=== PATIENT | male | born 1965 | race Hispanic/Latino ===

== ENCOUNTER 2018-10-06 10:13 | Emergency (ER) | payer OTHER ==
--- OUTSIDE RECORDS SUMMARY | 2018-10-06 10:16 | XMS REPORT | Clinical Summary ---
:1965 Author Organization [facility] Address [address] [place] [address] Care Team Providers Name Role Phone Praful Primary Care Provider Allergies Active Allergy Reactions Severity Noted Date Comments Penicillins Anaphylaxis High 10/25/2015 Medications Medication Sig Dispensed Refills Start Date End Date Status apixaban (ELIQUIS) Take 1 tablet (2.5 60 tablet 3 11/04/2015 Active 2.5 mg Tab tablet mg total) by mouth 2 (two) times daily. tamsulosin (FLOMAX) Take 1 capsule 30 capsule 0 11/04/2015 Active 0.4 mg Cp24 24 hr (0.4 mg total) by capsule mouth daily. Active Problems Problem Noted Date Cardiogenic shock 10/26/2015 ADHF (acute decompensated heart failure) 10/26/2015 GERARD (acute kidney injury) 10/26/2015 Pulmonary edema 10/26/2015 Acute combined systolic and diastolic congestive heart failure 10/26/2015 Transaminitis 10/26/2015 Elevated troponin 10/26/2015 Borderline diabetes 10/26/2015 Leukocytosis 10/26/2015 Mild protein-calorie malnutrition 10/26/2015 Acute respiratory failure 10/25/2015 Atrial fibrillation 10/25/2015 Social History Tobacco Use Types Packs/Day Years Used Date Never Assessed Sex Assigned at Date Recorded Not on file Job Start Date Occupation Industry Not on file Not on file Not on file Travel History Travel Start Travel End No recent travel history available. Last Filed Vital Signs Not on file Plan of Treatment Not on file Results Not on fileafter 10/05/2017 Advance Directives For more information, please contact:[facility], [place] [phone] Code Status Date Activated Date Inactivated Comments Full Code 10/25/2015 5:46 PM 11/04/2015 2:56 PM This code status was determined by: Person holding Power of Visual Display Manager
[2018-10-06 10:59] LABS: Absolute Lymphocytes (CBC) 1.9 K/uL (0.7-4.9); Absolute Monocytes 0.5 K/uL (0.1-1.3); Absolute Neutrophil 6.8 K/uL (1.8-8.0); Basophils % 0.8 % (0-1.3); Hematocrit 48.3 % (39.6-49.0); Lymphocytes % 19.7 % (15.3-44.8); MPV 7.5 fL (7.6-11.3); Monocytes % 5.1 % (3.3-12.3); RBC Red Blood Cell Count 5.57 M/uL (4.33-5.43)
[2018-10-06 12:44] LABS: Potassium 4.3 mmol/L (3.5-5.1)
--- NOTE | 2018-10-06 13:32 | RAD REPORT ---
EXAM DESCRIPTION: CTAbdomen Pelvis W Contrast - 10/06/2018 1:21 pm CLINICAL HISTORY: Abdominal pain. iv contrast only;Abd pain COMPARISON: CT ABD PELVIS W CONTRAST dated 01/26/2014 TECHNIQUE: Biphasic CT imaging of the abdomen and pelvis was performed with 100 ml non-ionic IV cont rast. All CT scans are performed using dose optimization technique as appropriate and may include automated exposure control or mA/KV adjustment according to patient size. FINDINGS: The lung bases are clear.Cholecystectomy clips. The liver demonstrates diffuse fatty infiltration. The spleen, pancreas, adrenal glands and kidneys a re within normal limits. No bowel obstruction, free air, free fluid or abscess. Fat containing small paramidline umbilical her leonor is present. No bowel involvement. The appendix is normal. No evidence of significant lymphadenop athy. Moderate fat containing right inguinal hernia. No suspicious bony findings. IMPRESSION: Fatty liver. Small left fat containing paramidline umbilical hernia is present. Small to moderate fat containing right inguinal hernia.
[2018-10-06] MEDS ORDERED: INSULIN -REGULAR HUMAN 50 UNIT/0.5 ML ML ONE ×2 (13:53→14:45)
[2018-10-06] MEDS ORDERED: NA CHLORIDE 0.9% 1,000 ML ONE (13:53)
--- NOTE | 2018-10-06 15:19 | EDPHYS ---
Physician Documentation [facility] Name: Faustino Brock Age: 53 yrs Sex: Male : 1965 Arrival Date: 10/06/2018 Time: 10:16 Bed 13 Private MD: CARLOS Physician Steve Shukla HPI: 10/06 11:28 This 53 yrs old Male presents to ER via Ambulatory with complaints of kb Abdominal Hernia, Decreased Appetite. 11:29 The patient presents with hernia. Onset: The symptoms/episode began/occurred years ago. kb The symptoms do not radiate. Associated signs and symptoms: none. Modifying factors: The symptoms are alleviated by nothing, the symptoms are aggravated by straining, coughing. Severity of pain: At its worst the pain was mild. The patient has not experienced similar symptoms in the past. The patient has not recently seen a physician. Pt reports he has had a hernia for years, but did not want [facility] to cut on him to fix it. States he just got out of [facility] on 09/09/18 and so he came today to get it fixed. Denies any changes in hernia or increased pain. No fever, n/v/d. States it comes out when he coughs and goes back in. . Historical: - Allergies: 10:35 Morphine; ss - PMHx: 10:35 Atrial Fib; CHF; Diabetes - NIDDM; Hypertension; "need pacemaker"; "need reconstructive ss surgery to urethra"; Myocardial infarction; insomnia; - PSHx: 10:35 Cholecystectomy; ss - Immunization history:: Adult Immunizations up to date. - Social history:: Smoking status: Patient uses tobacco products, smokes one-half pack cigarettes per day. - Ebola Screening: : Patient denies exposure to infectious person Patient denies travel to an Ebola-affected area in the 21 days before illness onset. ROS: 11:32 Constitutional: Negative for fever, chills, and weight loss, Cardiovascular: Negative kb for chest pain, palpitations, and edema, Respiratory: Negative for shortness of breath, cough, wheezing, and pleuritic chest pain, Back: Negative for injury and pain, : Negative for injury, bleeding, discharge, and swelling, MS/Extremity: Negative for injury and deformity, Skin: Negative for injury, rash, and discoloration, Neuro: Negative for headache, weakness, numbness, tingling, and seizure. 11:32 Abdomen/GI: Positive for hernia. Exam: 11:32 Constitutional: This is a well developed, well nourished patient who is awake, alert, kb and in no acute distress. Head/Face: Normocephalic, atraumatic. ENT: Nares patent. No nasal discharge, no septal abnormalities noted. Tympanic membranes are normal and external auditory canals are clear. Oropharynx with no redness, swelling, or masses, exudates, or evidence of obstruction, uvula midline. Mucous membranes moist. Neck: Trachea midline, no thyromegaly or masses palpated, and no cervical lymphadenopathy. Supple, full range of motion without nuchal rigidity, or vertebral point tenderness. No Meningismus. Chest/axilla: Normal chest wall appearance and motion. Nontender with no deformity. No lesions are appreciated. Cardiovascular: Regular rate and rhythm with a normal S1 and S2. No gallops, murmurs, or rubs. Normal PMI, no JVD. No pulse deficits. Respiratory: Lungs have equal breath sounds bilaterally, clear to auscultation and percussion. No rales, rhonchi or wheezes noted. No increased work of breathing, no retractions or nasal flaring. Back: No spinal tenderness. No costovertebral tenderness. Full range of motion. Skin: Warm, dry with normal turgor. Normal color with no rashes, no lesions, and no evidence of cellulitis. MS/ Extremity: Pulses equal, no cyanosis. Neurovascular intact. Full, normal range of motion. Neuro: Awake and alert, GCS 15, oriented to person, place, time, and situation. Cranial nerves II-XII grossly intact. Motor strength 5/5 in all extremities. Sensory grossly intact. Cerebellar exam normal. Normal gait. 11:32 Abdomen/GI: Inspection: scar(s), Bowel sounds: normal, in all quadrants, Palpation: abdomen is soft and non-tender, in all quadrants, Hernia: noted in the umbilical area, incarceration, is not appreciated. Vital Signs: 10:35 BP 137 / 95; Pulse 86; Resp 16; Temp 98.2(TE); Pulse Ox 95% on R/A; Weight 86.18 kg; ss Height 5 ft. 7 in. (170.18 cm); Pain 5/10; 11:30 BP 149 / 108; Pulse 57; Resp 17; Pulse Ox 96% on R/A; rb1 12:23 BP 140 / 95; Pulse 73; Resp 16; Pulse Ox 95% on R/A; rb1 13:13 rb1 13:40 BP 143 / 83; Pulse 59; Resp 15; Pulse Ox 99% ; rb1 14:40 BP 140 / 95; Pulse 71; Resp 16; Pulse Ox 96% on R/A; rb1 15:40 BP 132 / 89; Pulse 79; Resp 17; Pulse Ox 96% on R/A; Pain 3/10; rb1 10:35 Body Mass Index 29.76 (86.18 kg, 170.18 cm) ss 13:[address] rb1 MDM: 10:25 Patient medically screened. kb 11:33 Data reviewed: vital signs, nurses notes. Data interpreted: Pulse oximetry: on room air kb is 95 %. Interpretation: normal. 15:17 Counseling: I had a detailed discussion with the patient and/or guardian regarding: the kb historical points, exam findings, and any diagnostic results supporting the discharge/admit diagnosis, lab results, radiology results, the need for outpatient follow up, a family practitioner, a general surgeon, to return to the emergency department if symptoms worsen or persist or if there are any questions or concerns that arise at home. 10/06 10:29 Order name: Basic Metabolic Panel; Complete Time: 12:46 kb 10/06 10:29 Order name: CBC with Diff; Complete Time: 11:02 kb 10/06 10:29 Order name: CT Abd/Pelvis - W/Contrast; Complete Time: 13:41 kb 10/06 14:27 Order name: Glucose, Ancillary Testing; Complete Time: 14:28 EDMS 10/06 15:19 Order name: Glucose, Ancillary Testing; Complete Time: 15:20 EDMS 10/06 15:19 Order name: Glucose, Ancillary Testing; Complete Time: 15:20 EDMS 10/06 10:29 Order name: IV Saline Lock; Complete Time: 10:52 kb 10/06 10:29 Order name: Labs collected and sent; Complete Time: 10:52 kb 10/06 11:27 Order name: Labs - recollect needed; Complete Time: 12:07 bd 10/06 15:03 Order name: Blood Glucose Level; Complete Time: 15:27 kb Administered Medications: 13:52 Drug: Insulin Regular Human 5 units {Co-Signature: tw2 (Malika Donovan RN).} Route: IVP; rb1 Site: right antecubital; 15:57 Follow up: Response: No adverse reaction; Blood sugar is unchanged rb1 13:57 Drug: NS 0.9% 1000 ml Route: IV; Rate: 1000 ml; Site: right forearm; rb1 13:57 Not Given (Provider changed order to 5 units): Insulin Regular Human 10 units IVP once rb1 14:36 Drug: Insulin Regular Human 5 units {Co-Signature: sg (Benson White RN).} Route: IVP; la1 Site: right forearm; 15:57 Follow up: Response: No adverse reaction; Blood sugar is lowered; BS 260 rb1 Point of Care Testing: Blood Glucose: 13:47 Blood Glucose: 362 mg/dL; rb1 14:26 Blood Glucose: 363 mg/dL; tw2 15:17 Blood Glucose: 260 mg/dL; rb1 Ranges: Critical Glucose Levels:Adult <50 mg/dl or >400 mg/dl <40 mg/dl or >180 mg/dl Disposition: 10/07 10:22 Co-signature as Attending Physician, Steve Shukla MD I agree with the assessment and john plan of care. Disposition: 10/06/18 15:18 Discharged to Home. Impression: Inguinal hernia, Umbilical hernia, Hyperglycemia, unspecified. - Condition is Stable. - Discharge Instructions: Hernia, Adult, [id number], Hyperglycemia, [id number], Type 2 Diabetes Mellitus, Diagnosis, Adult, Xriu-[id number]. - Medication Reconciliation Form, Thank You Letter, Antibiotic Education, Prescription Opioid Use form. - Follow up: Emergency Department; When: As needed; Reason: Worsening of condition. Follow up: Private Physician; When: 2 - 3 days; Reason: Recheck today's complaints, Continuance of care, Re-evaluation by your physician. Signatures: Dispatcher [employer] Licha Curtis, ANDREAS JOHNSTON-Ana Maria Ying Corey, MD MD cha Smirch, Shelby, RN RN Marco Campos RN RN la1 Samantha Sequeira, RN RN rb1 Malika Donovan RN tw2 Benson White RN sg Corrections: (The following items were deleted from the chart) 10/06 15:49 15:18 10/06/2018 15:18 Discharged to Home. Impression: Inguinal hernia; Umbilical rb1 hernia; Hyperglycemia, unspecified. Condition is Stable. Forms are Medication Reconciliation Form, Thank You Letter, Antibiotic Education, Prescription Opioid Use. Follow up: Emergency Department; When: As needed; Reason: Worsening of condition. Follow up: Private Physician; When: 2 - 3 days; Reason: Recheck today's complaints, Continuance of care, Re-evaluation by your physician. kb
--- NOTE | 2018-10-06 15:19 | ER ---
Nurse's Notes [facility] Name: Faustino Brock Age: 53 yrs Sex: Male : 1965 Arrival Date: 10/06/2018 Time: 10:16 Bed 13 Private MD: Diagnosis: Inguinal hernia;Umbilical hernia;Hyperglycemia, unspecified Presentation: 10/06 10:32 Presenting complaint: Patient states: abd hernia x years. Pt reports he was recently ss released from [facility] and now wants to do something about it since he is out. Pt states, "I feel worse now then I did when I was on drugs." Reports decreased appetite and insomnia. Transition of care: patient was not received from another setting of care. Onset of symptoms is unknown. Risk Assessment: Do you want to hurt yourself or someone else? Patient reports no desire to harm self or others. Initial Sepsis Screen: Does the patient meet any 2 criteria? No. Patient's initial sepsis screen is negative. Does the patient have a suspected source of infection? No. Patient's initial sepsis screen is negative. Care prior to arrival: None. 10:32 Method Of Arrival: Ambulatory ss 10:32 Acuity: EZIO 3 ss Historical: - Allergies: 10:35 Morphine; ss - PMHx: 10:35 Atrial Fib; CHF; Diabetes - NIDDM; Hypertension; "need pacemaker"; "need reconstructive ss surgery to urethra"; Myocardial infarction; insomnia; - PSHx: 10:35 Cholecystectomy; ss - Immunization history:: Adult Immunizations up to date. - Social history:: Smoking status: Patient uses tobacco products, smokes one-half pack cigarettes per day. - Ebola Screening: : Patient denies exposure to infectious person Patient denies travel to an Ebola-affected area in the 21 days before illness onset. Screenin:25 Abuse screen: Denies threats or abuse. Nutritional screening: No deficits noted. rb1 Tuberculosis screening: No symptoms or risk factors identified. Fall Risk None identified. Assessment: 10:25 General: Appears in no apparent distress. comfortable, Behavior is calm, cooperative, rb1 Denies fever. Pain: Complains of pain in abdomen Pain currently is 5 out of 10 on a pain scale. Pain began chronic pain from hernia. Neuro: Level of Consciousness is awake, alert, obeys commands, Oriented to person, place, time, situation. Cardiovascular: Capillary refill < 3 seconds is brisk in bilateral fingers. Respiratory: Reports shortness of breath Airway is patent Respiratory effort is even, unlabored, Respiratory pattern is regular, symmetrical. GI: Reports vomiting, x 1 this morning due to feeling so full. : No signs and/or symptoms were reported regarding the genitourinary system. Derm: Skin is pink, warm \\T\\ dry. Musculoskeletal: Range of motion: intact in all extremities. 10:25 GI: Abdomen is distended, Pt. reports feeling bloated. rb1 11:25 Reassessment: Patient appears in no apparent distress at this time. No changes from rb1 previously documented assessment. 12:24 Reassessment: Patient appears in no apparent distress at this time. Patient and/or rb1 family updated on plan of care and expected duration. Pain level reassessed. Patient is alert, oriented x 3, equal unlabored respirations, skin warm/dry/pink. 13:13 Reassessment: Pt. went to CT. rb1 14:11 Reassessment: Patient appears in no apparent distress at this time. Patient and/or rb1 family updated on plan of care and expected duration. Pain level reassessed. Patient is alert, oriented x 3, equal unlabored respirations, skin warm/dry/pink. at bedside. 15:11 Reassessment: Patient appears in no apparent distress at this time. No changes from rb1 previously documented assessment. 15:17 Reassessment: BS 260, checked by Tylor, alternative energy engineer. rb1 Vital Signs: 10:35 BP 137 / 95; Pulse 86; Resp 16; Temp 98.2(TE); Pulse Ox 95% on R/A; Weight 86.18 kg; ss Height 5 ft. 7 in. (170.18 cm); Pain 5/10; 11:30 BP 149 / 108; Pulse 57; Resp 17; Pulse Ox 96% on R/A; rb1 12:23 BP 140 / 95; Pulse 73; Resp 16; Pulse Ox 95% on R/A; rb1 13:13 rb1 13:40 BP 143 / 83; Pulse 59; Resp 15; Pulse Ox 99% ; rb1 14:40 BP 140 / 95; Pulse 71; Resp 16; Pulse Ox 96% on R/A; rb1 15:40 BP 132 / 89; Pulse 79; Resp 17; Pulse Ox 96% on R/A; Pain 3/10; rb1 10:35 Body Mass Index 29.76 (86.18 kg, 170.18 cm) ss 13:[address] rb1 ED Course: 10:16 Patient arrived in ED. as 10:25 Steve Shukla MD is Attending Physician. john 10:25 Licha Escamilla FNP-C is PHCP. kb 10:25 Patient has correct armband on for positive identification. Bed in low position. Call rb1 light in reach. Side rails up X 1. Pulse ox on. NIBP on. 10:33 Triage completed. ss 10:35 Arm band placed on right wrist. ss 10:36 Samantha Sequeira, RN is Primary Nurse. rb1 10:52 CBC with Diff Sent. ds4 10:52 Basic Metabolic Panel Sent. ds4 10:52 Inserted saline lock: 18 gauge in right antecubital area, using aseptic technique. ds4 Blood collected. 11:36 Radiology exam delayed due to lab results not completed at this time. (BUN/Creatinine). kw1 12:08 Basic Metabolic Panel Sent. ds4 12:18 Radiology exam delayed due to lab results not completed at this time. (BUN/Creatinine). mw3 13:11 Inserted saline lock: 22 gauge in right forearm, using aseptic technique. rb1 13:11 IV discontinued, intact, bleeding controlled, No redness/swelling at site. Pressure rb1 dressing applied, 18 G R AC. 13:22 CT Abd/Pelvis - W/Contrast In Process Unspecified. EDMS 15:45 No provider procedures requiring assistance completed. IV discontinued, intact, rb1 bleeding controlled, No redness/swelling at site. Pressure dressing applied. Administered Medications: 13:52 Drug: Insulin Regular Human 5 units {Co-Signature: tw2 (Malika Donovan RN).} Route: IVP; rb1 Site: right antecubital; 15:57 Follow up: Response: No adverse reaction; Blood sugar is unchanged rb1 13:57 Drug: NS 0.9% 1000 ml Route: IV; Rate: 1000 ml; Site: right forearm; rb1 13:57 Not Given (Provider changed order to 5 units): Insulin Regular Human 10 units IVP once rb1 14:36 Drug: Insulin Regular Human 5 units {Co-Signature: sg (Benson White RN).} Route: IVP; la1 Site: right forearm; 15:57 Follow up: Response: No adverse reaction; Blood sugar is lowered; BS 260 rb1 Point of Care Testing: Blood Glucose: 13:47 Blood Glucose: 362 mg/dL; rb1 14:26 Blood Glucose: 363 mg/dL; tw2 15:17 Blood Glucose: 260 mg/dL; rb1 Ranges: Intake: Outcome: 15:18 Discharge ordered by . kb 15:45 Patient left the ED. rb1 15:45 Discharged to home ambulatory, with significant other. rb1 15:45 Condition: stable 15:45 Discharge instructions given to patient, Instructed on discharge instructions, follow up and referral plans. Demonstrated understanding of instructions, follow-up care, Prescriptions given X none Signatures: Dispatcher [employer] EDMS Licha Escamilla, STOCKING AND BOX SHOP SUPERVISOR-C STOCKING AND BOX SHOP SUPERVISOR-Ckb Steve Shukla MD MD cha Martinez, Amelia as Smirch, Shelby, RN RN ss Warren Hooker ds4 Marco Jones RN RN la1 aSmantha Sequeira RN RN rb1 Malika Donovan RN RN tw2 Loli Weber kw1 Ernestina Garcia mw3 Malika Donovan RN tw2 Benson White RN sg Corrections: (The following items were deleted from the chart) 15:51 15:49 Patient left the ED. rb1 rb1
[2018-10-06 16:26] VITALS: TEMP 98.2
[2018-10-06 16:33] VITALS: BP 143/83; O2SAT 99
== END 2018-10-06 15:49 | disposition home or self-care (01) ==
LOC: ER 10:13
DX: K46.9 Unspecified abdominal hernia without obstruction or gangrene (principal); K40.90 Unilateral inguinal hernia, without obstruction or gangrene, not specified as recurrent; K42.9 Umbilical hernia without obstruction or gangrene; R73.9 Hyperglycemia, unspecified; Z88.6 Allergy status to analgesic agent
CPT/HCPCS: 85025; 80048; 36415; 82962 ×3; 74177; 99284; Q9967; J7030

== ENCOUNTER 2019-12-23 14:39 | Inpatient (IN) | payer OTHER ==
[2019-12-23] MEDS ORDERED: FUROSEMIDE 40 MG/4 ML VIAL IV ONE (15:24)
[2019-12-23] MEDS ORDERED: D50W 25 GM/50 ML SYRINGE/VIAL IV PRN ×2 (15:36→15:44)
[2019-12-23] MEDS ORDERED: GLUCAGON 1 MG/VIAL IM PRN ×2 (15:36→15:44)
--- NOTE | 2019-12-23 16:13 | P.HP ---
Certification for Inpatient Patient admitted to: Inpatient With expected LOS: >2 Midnights Patient will require the following post-hospital care: None Practitioner: I am a practitioner with admitting privileges, knowledge of patient current condition, hospital course, and medical plan of care. Services: Services provided to patient in accordance with Admission requirements found in Title 42 Section 412.3 of the Code of Federal Regulations Patient History Date of Service: 12/23/19 Primary Care Provider: Amanda Reason for admission: chf exacerbation History of Present Illness: Patient is an office patient of [facility]. He has not been to the office for the past 4 months. Has not been to Dr. Cam'therese. The patient stated he lost his medications 2 weeks. The patient has been getting more swollen and short of breath. His daughter in law made him come in to the office. The patient was tachycardic and tachypneic. The patient was swollen to the point that he took the laces out of his shoes Was sent to the hospital for admittion and diuresis. Allergies morphine Allergy (Verified 12/23/19 15:28) Rash Home Medications: Rivaroxaban [Xarelto] 20 mg PO DAILY AT SUPPER #30 tablet 12/14/15 Digoxin [Lanoxin*] 0.25 mg PO DAILY #30 tab 05/03/16 Furosemide 80 mg PO DAILY #30 tablet 05/03/16 Magnesium Oxide [Mag 0X Tab] 400 mg PO DAILY #30 tab 05/03/16 Metoprolol Tartrate 100 mg PO BID #60 tablet 05/03/16 lisinopriL [Prinivil*] 10 mg PO DAILY #30 tab 05/03/16 - Past Medical/Surgical History Diabetic: Yes -: HTN -: DM-2 -: atrial fibrillation -: obstructive sleep apnea -: dyslipidemia -: CHF -: cholecystectomy -: Cyst removal from neck -: cardioversion - Family History Father -: Heart disease, Hypertension, Cancer Mother -: Heart disease, Hypertension, Diabetes Brother -: Cancer - Social History Alcohol use: No CD- Drugs: No Caffeine use: Yes Review of Systems Respiratory: SOB with Excertion Cardiovascular: Edema (3+) Physical Examination - Vital Signs Temperature: 97.6 F Blood Pressure: 134/81 Pulse: 190 Respirations: 40 Pulse Ox (%): 99 - Physical Exam General: Alert, In no apparent distress HEENT: Atraumatic, PERRLA, Mucous membr. moist/pink, EOMI, Sclerae nonicteric Neck: Supple, 2+ carotid pulse no bruit, No LAD, Without JVD or thyroid abnormality Respiratory: Clear to auscultation bilaterally, Normal air movement Cardiovascular: Regular rate/rhythm, Normal S1 S2, Edema (3+) Gastrointestinal: Normal bowel sounds, No tenderness Musculoskeletal: Swelling Integumentary: No rashes Neurological: Normal gait, Normal speech, Normal strength at 5/5 x4 extr, Normal tone, Normal affect Lymphatics: No axilla or inguinal lymphadenopathy Assessment and Plan - Problems (Diagnosis) (1) Acute exacerbation of CHF (congestive heart failure) Current Visit: Yes Status: Acute Plan: admit to the hospital. Will start the patient on iv lasix. Check an echo. Will consult DR. Cam. consider entresto on the patient instead of starting the acei. Will consider a bipap this evening. In case the patient continues to be tachypneic Qualifiers: Heart failure type: systolic Qualified Code(s): I50.23 - Acute on chronic systolic (congestive) heart failure (2) Diabetes 1.5, managed as type 2 Current Visit: Yes Status: Chronic Plan: will restart the levemir with a sliding scale. Check an a1c. His last was 75 in Nov (3) Atrial fibrillation with rapid ventricular response Onset Date: 12/14/15 Current Visit: No Status: Chronic Plan: restart metoprolol in the am. He needs a sleep study. will continue the digoxin (4) Sleep apnea Current Visit: Yes Status: Acute Plan: Patient had a previous diagnosis of sleep apnea when he was in [facility]. He never recieved a cpap He had an epworth score of 17 in the office. A stop bang score of 7. Will refer him to Dr. Meraz as an outpatient. He needs a sleep study. We ordered a home sleep study. However the patient did not follow up Qualifiers: Sleep apnea type: obstructive Qualified Code(s): G47.33 - Obstructive sleep apnea (adult) (pediatric) (5) Noncompliance Current Visit: Yes Status: Acute Plan: as stated in the history patient was not taking his medications. He was not following up with Dr. Cam and Dr. Meraz. Would not have come into the office without prompting by his daughter law and having his son had to bring him to the office and hospital Discharge Plan: Home Plan to discharge in: Greater than 2 days - Advance Directives Does patient have a Living Will: Yes Does patient have a Durable POA for Healthcare: Yes - Code Status/Comfort Care Code Status Assessed: Yes Code Status: Full Code Physician Review: Patient Assessed, Agree with Above Assessment and Plan Critical Care: No Time Spent Managing Pts Care (In Minutes): 70
[2019-12-23] MEDS ORDERED: DIGOXIN 0.125 MG TABLET PO ONE (16:21)
[2019-12-23] MEDS ORDERED: DIGOXIN 0.25 MG/ML AMP IV SCH (16:26)
[2019-12-23] MEDS: INSULIN -REGULAR HUMAN 50 UNIT/0.5 ML ML SQ SCH ×2 (16:30→20:52)
[2019-12-23] MEDS: APIXABAN 5 MG TABLET PO SCH (16:40)
[2019-12-23 16:51] LABS: Barbiturates NEGATIVE (NEGATIVE); Benzodiazepines NEGATIVE (NEGATIVE); Cocaine NEGATIVE (NEGATIVE); METHAMPHETAM POSITIVE (NEGATIVE); Methadone NEGATIVE (NEGATIVE); Opiates NEGATIVE (NEGATIVE); Phencyclidine NEGATIVE (NEGATIVE); THC Cannibis NEGATIVE (NEGATIVE)
[2019-12-23] MEDS ORDERED: HYDROMORPHONE HCL 0.5 MG/0.5 ML INJ IV ONE (17:00)
[2019-12-23] MEDS ORDERED: AMIODARONE HCL 150 MG in D5W 100 ML IV STA (17:08)
[2019-12-23] MEDS ORDERED: LORazepam 2 MG/ML VIAL IV PRN (17:14)
--- NOTE | 2019-12-23 17:20 | P.PN ---
Date of Service: 12/23/19 Patient was in the 100's in the office. Stayed in the 200's in the hospital. Dr. Cam wanted to move him to the unit and start an amiodarone drip. His uds came back positive for ampetamines. He denies any use. Will give some clonazepam. I agree with the icu and the amiodarone.
[2019-12-23] MEDS ORDERED: AMIODARONE HCL 450 MG in D5W 241 ML IV SCH (18:00)
--- NOTE | 2019-12-23 18:24 | RAD REPORT ---
EXAM DESCRIPTION: RAD - Chest Single View - 12/23/2019 6:09 pm CLINICAL HISTORY: PICC line placement COMPARISON: None. FINDINGS: Portable chest was obtained following placement of a right upper extremity PICC line. The catheter tip is in the distal SVC.
[2019-12-23] MEDS ORDERED: METOPROLOL TARTRATE 5 MG/5 ML INJ IV STA (18:52)
[2019-12-23 18:59] LABS: Arterial Blood Carboxyhemoglob 1.9 % (0-1.5); Blood Gas Oxyhemoglobin 90.3 % (94-97); Blood O2 Saturation 93.1 % (92-98.5)
[2019-12-23] MEDS ORDERED: DIGOXIN 0.25 MG/ML AMP IV ONE (19:00)
[2019-12-23] MEDS: METOPROLOL TAR 50 MG TAB PO SCH (19:16)
[2019-12-23 19:23] VITALS: BMI 31.0
--- OUTSIDE RECORDS SUMMARY | 2019-12-23 19:44 | XMS REPORT | Continuity of Care Document ---
:1965 Author Organization [facility] t Address [address] [place] [address] Care Team Providers Name Role Phone Sharpless Primary Care Physician Steffany CARABALLO, Abdifatah Attending Clinician Cass CARABALLO, Miguel Attending Clinician [phone] Jeffrey CHAVIRA, Angelica Thomas Attending Clinician William John Attending Clinician Problems Condition Condition Condition Status Onset Resolution Last Treating Co mments Source Name Details Category Date Date Treatment Clinician Date Cardiogeni Cardiogeni Disease Active [facility] shock c shock 4-12 [facility]: Medical 00 Needles ADHF ADHF Disease Active [facility] (acute (acute 4-[facility] decompensa decompensa 00:00: Me dical [facility] 00 [facility] er failure) failure) GERARD (acute GERARD (acute Disease Active [facility] kidney kidney 4-12 [facility] injury) injury) 00:00: Medical 00 Needles Pulmonary Pulmonary Disease Active [facility] edema edema 4[facility] Acute Acute Disease Active [facility] combined combined 4-12 [facility] - systolic systolic 00:00: Medica l and and 00 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 Transamini Disease Active [facility] tis tis 4-12 [facility] 00:[facility]: Medical 00 Needles Elevated Elevated Disease [facility] troponin trop[facility] 12 [facility] Needles Borderline Borderline Disease Active [facility] diabetes diabetes 12 [facility] 00:[facility]: Medical Needles Leukocytos Leukocytos Disease Active [facility] is is 10-25 [facility] 00:[facility]: Medical Needles 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 12 Brianna kes - cherri cherri 00:00: Medical malnutriti malnutriti 00 Ce nter on on Acute Acute Disease Active [facility] respirator respirator -11 Brianna kes - y failure y failure 00:00: Medi sruthi 00 Needles Atrial Atrial Disease Active [facility] fibrillati fibrillati 4-11 Brianna kes - on on 00:00: Medical 00 Center Allergies, Adverse Reactions, Alerts Allergy Allergy Status Severity Reaction(s) Onset Inactive Treating Comm ents Source Name Type Date Date Clinician Penicill Propensi Active Anaphylaxis [facility] ins ty to 10-24 [facility] - adverse 00:00: Medical reaction 00 Needles s Social History Social Habit Start Date Stop Date Quantity Comments Source Sex Assigned At [facility] Medications Ordered Filled Start Stop Current Ordering Indication Dosage Frequency Signature Comments Components Source Medication Medication Date Date Medication? Clinician (SIG) Name Name apixaban Yes 2.5mg Q.5D Take [address] [facility] (ELIQUIS) 4-21 tablet [facility] - 2.5 mg Tab 00:00: (2.5 mg Medi sruthi tablet 00 total) by Center mouth 2 (two) times daily. tamsulosin Yes .4mg QD Take [facility] (FLOMAX[facility] - 0.4 mg Cp24 00:00: (0.4 mg Med ical 24 hr 00 total) by Center capsule mouth daily. Procedures This patient has no known procedures. Encounters Start End Encounter Admission Attending Care Care Encounter Source Date/Time Date/Time Type Type Clinicians Facility Department ID 2019-07-09 2019-07-10 Anesthesia Abdifatah Jeter [id number] 23:56:00 05:36:00 Miguel Odell 350.1. [id number] [facility] [id number] 2019-03-28 2019-03-28 Patient Angelica Murphy [id number] 00:00:00 00:00:00 Outreach E Bowser [id number] [place] [id number] 2019-03-19 2019-03-19 Patient Akua John [id number] 00:00:00 00:00:00 Outreach Meem E Bowser [id number] [place] [id number] 2019-02-26 2019-02-26 Patient Angelica Murphy [id number] 13:45:49 14:55:49 Outreach E Bowser [id number] [place] [id number] 2019-02-21 2019-02-21 Patient Angelica Murphy [id number] 00:00:00 00:00:00 Outreach E Bowser [id number] [place] [id number] Results This patient has no known results.
--- OUTSIDE RECORDS SUMMARY | 2019-12-23 19:44 | XMS REPORT | Clinical Summary ---
:1965 Author Organization [facility] Address [address] [place] [address] Care Team Providers Name Role Phone Praful [...] Not on file Results Not on fileafter 12/22/2018 Advance Directives For more information, please contact:[facility] [place], [place] [phone] Code Status Date Activated Date Inactivated Comments Full Code 10/25/2015 5:46 PM 11/04/2015 2:56 PM This code status was determined by: Person holding Power of Adjunct Political Science Instructor
[2019-12-23 19:54] LABS: Absolute Lymphocytes (CBC) 1.7 K/uL (0.7-4.9); Basophils % 0.4 % (0-1.3); Hematocrit 31.1 % (39.6-49.0); Lymphocytes % 11.1 % (15.3-44.8); MPV 8.8 fL (7.6-11.3); RBC Red Blood Cell Count 4.77 M/uL (4.33-5.43)
[2019-12-23 20:08] LABS: Magnesium 1.8 mg/dL (1.8-2.4); Potassium 4.6 mmol/L (3.5-5.1)
[2019-12-23 20:20] LABS: Urine Appearance CLEAR; Urine Bilirubin NEGATIVE (NEG); Urine Blood NEGATIVE (NEG); Urine Color YELLOW; Urine Glucose NEGATIVE (NEG); Urine Protein 2+ (NEG)
[2019-12-23 20:25] LABS: Thyroid Stimulating Hormone 4.82 uIU/mL (0.360-3.740)
[2019-12-23 20:26] LABS: Urine Microscopic Reflex ORDER UMIC
[2019-12-23] MEDS: ATORVASTATIN 20 MG TAB PO SCH (20:52)
[2019-12-23] MEDS: GABAPENTIN 300 MG CAP PO SCH (20:52)
[2019-12-23] MEDS: TAMSULOSIN 0.4 MG SR CAP PO SCH (20:52)
[2019-12-23] MEDS: INSULIN GLARGINE 100 UNITS/ML SQ SCH (20:53)
[2019-12-23 21:00] LABS: Urine Bacteria <20 /HPF (NONE SEEN); Urine Culture Reflex Order NOT NEEDED; Urine RBC <5 /HPF (NONE SEEN); Urine Urothelial Cells <5 /HPF (NONE SEEN)
[2019-12-23 21:20] LABS: Platelet Estimate ADEQ; Urine White Blood Cell Casts DIFF
[2019-12-23 21:22] LABS: Anisocytosis 1+; Blood Morphology Comment NOTED (NOT SEEN); Hypochromasia 1+; Polychromasia 1+
[2019-12-23] MEDS ORDERED: AMIODARONE HCL 150 MG/3 ML INJ IV ONE (23:31)
[2019-12-23] MEDS ORDERED: D5W 250 ML IV ONE (23:37)
[2019-12-24 06:16] LABS: Absolute Lymphocytes (CBC) 1.4 K/uL (0.7-4.9); Basophils % 0.4 % (0-1.3); Hematocrit 28.8 % (39.6-49.0); Lymphocytes % 7.1 % (15.3-44.8); MPV 9.1 fL (7.6-11.3); RBC Red Blood Cell Count 4.41 M/uL (4.33-5.43)
[2019-12-24] MEDS ORDERED: FUROSEMIDE 40 MG/4 ML VIAL IV ONE (06:47)
[2019-12-24] MEDS: METOPROLOL TAR 50 MG TAB PO SCH (06:48)
[2019-12-24 06:55] LABS: Blood Morphology Comment NOTED (NOT SEEN); Platelet Estimate ADEQ
[2019-12-24 06:58] LABS: Anisocytosis 2+; Hypochromasia 1+
[2019-12-24 07:30] LABS: Protein, Total 6.2 g/dL (6.4-8.2)
[2019-12-24] MEDS: INSULIN -REGULAR HUMAN 50 UNIT/0.5 ML ML SQ SCH ×4 (07:30→20:47)
[2019-12-24] MEDS: ASPIRIN 81 MG CHEWABLE TABLET PO SCH (08:17)
--- NOTE | 2019-12-24 08:41 | P.PN ---
Subjective Date of Service: 12/24/19 Primary Care Provider: Amanda Chief Complaint: chf exacerbation Subjective: Improving (decreased heart rate He only diureses 337ml yesterday) Review of Systems General: Weakness Respiratory: Cough, Dry Physical Examination - Vital Signs Temperature: 97.0 F Blood Pressure: 108/80 Pulse: 150 Respirations: 25 Pulse Ox (%): 95 - Physical Exam General: Alert, In no apparent distress HEENT: Atraumatic, PERRLA, EOMI Neck: Supple, JVD not distended Respiratory: Clear to auscultation bilaterally, Diminished (however improved from yesterday) Cardiovascular: Regular rate/rhythm, Normal S1 S2 Gastrointestinal: Normal bowel sounds, No tenderness Musculoskeletal: No tenderness Integumentary: No rashes Neurological: Normal speech, Normal tone, Normal affect Lymphatics: No axilla or inguinal lymphadenopathy - Studies Laboratory Data (last 24 hrs) 12/24/19 05:53: Sodium 133 L, Potassium 4.0, BUN 37 H, Creatinine 1.46 H, Glucose 120 H, Total Bilirubin 5.0 H, AST 56181 H*, ALT 3730 H*, Alkaline Phosphatase 143 H 12/24/19 05:53: WBC 19.9 H D, Hgb 8.6 L, Hct 28.8 L, Plt Count 258 D 12/23/19 19:25: Sodium 134 L, Potassium 4.6, BUN 28 H, Creatinine 1.24, Glucose 149 H, Magnesium 1.8 12/23/19 19:25: WBC 15.6 H, Hgb 8.9 L, Hct 31.1 L, Plt Count 334 12/23/19 16:07: Troponin I 0.04 Microbiology Data (last 24 hrs): 12/23/19 19:29 Nasopharnyx Coronavirus COVID-19 PCR - Final Assessment & Plan - Problems (Diagnosis) (1) Acute exacerbation of CHF (congestive heart failure) Current Visit: Yes Status: Acute Plan: admit to the hospital. Will start the patient on iv lasix. Check an echo. Will consult DR. Cam. consider entresto on the patient instead of starting the acei. Will consider a bipap this evening. In case the patient continues to be tachypneic 12/23 patient heart rate is improved Dr. Cam will start him on coreg. Plans for a cath tomorrow. Will continue diuresis with lasix and aldactone. Amiodarone was stopped due to elevated liver enzymes. This could be the amphetamines or the amiodarone. Likely the combination. Qualifiers: Heart failure type: systolic Qualified Code(s): I50.23 - Acute on chronic systolic (congestive) heart failure (2) Diabetes 1.5, managed as type 2 Current Visit: Yes Status: Chronic Plan: will restart the levemir with a sliding scale. Check an a1c. His last was 7.5 in Nov (3) Atrial fibrillation with rapid ventricular response Onset Date: 12/14/15 Current Visit: No Status: Chronic Plan: restart metoprolol in the am. He needs a sleep study. will continue the digoxin (4) Sleep apnea Current Visit: Yes Status: Acute Plan: Patient had a previous diagnosis of sleep apnea when he was in snf. He never recieved a cpap He had an epworth score of 17 in the office. A stop bang score of 7. Will refer him to Dr. Meraz as an outpatient. He needs a sleep study. We ordered a home sleep study. However the patient did not follow up Qualifiers: Sleep apnea type: obstructive Qualified Code(s): G47.33 - Obstructive sleep apnea (adult) (pediatric) (5) Noncompliance Current Visit: Yes Status: Acute Plan: as stated in the history patient was not taking his medications. He was not following up with Dr. Cam and Dr. Meraz. Would not have come into the office without prompting by his daughter law and having his son had to bring him to the office and hospital (6) Amphetamine abuse Current Visit: Yes Status: Acute Plan: Patient denies. He has no previous history. This may explain his noncompliance. Will not push him As the patient will ask for treatment when he is ready. If he is not ready he will not be compliant. Better to spend time dealing with his cardiac issues. (7) Nicotine abuse Current Visit: Yes Status: Acute Plan: may consider a nicotine patch Discharge Plan: Home Plan to discharge in: Greater than 2 days - Code Status/Comfort Care Code Status Assessed: No Physician Review: Patient Assessed, Agree with Above Assessment and Plan Critical Care: Yes Time Spent Managing Pts Care (In Minutes): 25
[2019-12-24] MEDS: NICOTINE 14 MG/PAT TD SCH (09:00)
[2019-12-24] MEDS: APIXABAN 5 MG TABLET PO SCH ×2 (09:00→16:01)
[2019-12-24] MEDS ORDERED: DIGOXIN 0.125 MG TABLET PO SCH (09:00)
--- NOTE | 2019-12-24 09:28 | CON ---
Date of Consultation: 12/24/2019 Patient was admitted on 12/23/2019 for congestive heart failure and atrial fibrillation. I saw the p atient on 12/24/2019. History Of Present Illness: Mr. Brock is a 54-year-old Latin-Irish male. He is known to me fr back in 2014 when he had a cardiomyopathy then with ejection fraction ranging between 15% and 35%. He was supposed to have further cardiac workup then including possibility of catheterization and de fibrillator, but he has not shown up for followup since. He comes in to the hospital. Has not been taking any of his medication; although, he is supposed to be on Eliquis, digoxin, Neurontin, insulin, and Flomax. Comes in with atrial fibrillation, rate about 190, congestive heart failure, shortness of breath, chest tightness, diaphoresis. Denied any nausea, vomiting, or fever or chills. He denied any syncope. Has had PND and orthopnea with slight pedal edema. He was initially admitted to the t elemetry unit, but I moved into the ICU for amiodarone, IV drip for rate control. Medications: He is presently on amiodarone Eliquis, Lipitor, digoxin, Lasix, inhalers, metoprolol. Past Medical History: Includes CHF, atrial fibrillation, diabetes, and hypertension. His atrial fib rillation is chronic. Allergies: TO MORPHINE. Review of Systems: Negative. Social History: Positive for tobacco and drug use. He is positive for amphetamine on his drug scree n. Family History: Noncontributory. Physical Examination: VITAL SIGNS: On 12/24/2019, he was in atrial fibrillation, rate was 125. His blood pressure was sherron quate at 130/72. He was afebrile. O2 saturation on BiPAP was 93%. His I's and O's were adequate. HEENT: Negative. Neck: Supple. No bruit. CHEST: Reveals rales in both bases. CARDIAC EXAM: Revealed atrial fibrillation. No murmurs, gallop s, or rubs. Abdomen: Benign. EXTREMITIES: No clubbing, cyanosis, or edema. Diagnostic Data: His glucose was 155. Urinalysis positive for amphetamine, PO2 62, pCO2 28, pH of 7 .50 with a creatinine of 1.24, white count of 15,000, hemoglobin 8.9. Impression And Plan: 1.Acute on chronic systolic congestive heart failure exacerbation. 2.Chronic atrial fibrillation with rapid ventricular response. 3.Positive amphetamine on drug screen. 4.Diabetes. 5.Hypertension. 6.Anemia. 7.Elevated white count. 8.Renal insufficiency. 9.Pleural effusion. 10.Mr. Brock needs to be diuresed more aggressively with IV Lasix. continue amiodarone, Eliquis, Lipitor, digoxin, inhalers, and metoprolol. 11.I think we need to strongly consider left heart catheterization to define his coronary anatomy an d if his ejection fraction is low, should be considered for biventricular pacemaker and/or AICD. Pos sibly atrial fibrillation ablation as well. Echocardiogram is pending today. I will discuss the isak e further with Dr. Patel. JEY/FARIDA Voice ID: [id number] Report ID: [id number]
[2019-12-24] MEDS: carvediloL 12.5 MG TAB PO SCH ×2 (09:35→17:21)
[2019-12-24] MEDS: SPIRONOLACTONE 25 MG TABLET PO SCH (09:35)
[2019-12-24] MEDS: GUAIFENESIN/DM 5 ML UCUP PO PRN (16:03)
--- NOTE | 2019-12-24 17:15 | RAD REPORT ---
EXAM DESCRIPTION: US - Extrem Venous W Compress Saul - 12/24/2019 4:55 pm CLINICAL HISTORY: R/O DVT Bilateral leg edema and swelling. COMPARISON: No comparisons TECHNIQUE: Real-time sonographic interrogation of the left and right lower extremity deep venous sys tems was performed. FINDINGS: Normal compressibility, flow augmentation, phasic flow and spontaneous flow is identified in both the left and right lower extremity deep venous systems. IMPRESSION: No sonographic evidence of left or right lower extremity deep venous thrombosis.
--- NOTE | 2019-12-24 17:23 | RAD REPORT ---
EXAM DESCRIPTION: US - Lower Extremity Arterial Bilat - 12/24/2019 4:55 pm CLINICAL HISTORY: R/O DVT Bilateral lower leg pain. COMPARISON: No comparisons TECHNIQUE: Bilateral lower extremity arterial Doppler examination was performed with danna luis FINDINGS: Triphasic and biphasic waveforms are noted bilaterally to the level of the popliteal arter ies. Blunted monophasic waveforms seen below the level of the popliteal artery bilaterally. No occlusion i s seen. IMPRESSION: Moderate distal peripheral vascular disease is seen below the level of the popliteal art viviana bilaterally. This pattern is often seen in diabetic patients.
[2019-12-24] MEDS: INSULIN GLARGINE 100 UNITS/ML SQ SCH (20:46)
[2019-12-24] MEDS: TAMSULOSIN 0.4 MG SR CAP PO SCH (20:46)
[2019-12-24] MEDS: ATORVASTATIN 20 MG TAB PO SCH (20:46)
[2019-12-24] MEDS: GABAPENTIN 300 MG CAP PO SCH (20:47)
[2019-12-25 05:22] LABS: Absolute Lymphocytes (CBC) 1.5 K/uL (0.7-4.9); Basophils % 0.6 % (0-1.3); Hematocrit 30.9 % (39.6-49.0); Lymphocytes % 10.1 % (15.3-44.8); MPV 9.1 fL (7.6-11.3); RBC Red Blood Cell Count 4.75 M/uL (4.33-5.43)
[2019-12-25 05:55] LABS: Albumin 1.6 g/dL (3.4-5.0); Bilirubin Total 3.9 mg/dL (0.2-1.0); Potassium 3.4 mmol/L (3.5-5.1); Protein, Total 5.3 g/dL (6.4-8.2)
[2019-12-25] MEDS: carvediloL 12.5 MG TAB PO SCH ×2 (06:17→17:29)
[2019-12-25] MEDS: ASPIRIN 81 MG CHEWABLE TABLET PO SCH (06:18)
--- NOTE | 2019-12-25 07:16 | EKG ---
Test Date: 2019-12-24 Test Time: 14:25:24 Turbine Blade Assembler: NT MEASUREMENT RESULTS: Intervals: Rate: 124 IA: QRSD: 110 QT: 304 QTc: 436 [place]: P: IA: QRS: 70 T: 189 INTERPRETIVE STATEMENTS: Atrial fibrillation with rapid ventricular response with premature ventricular or aberrantly conducted complexes ST & T wave abnormality, consider lateral ischemia or digitalis effect Abnormal ECG Compared to ECG 12/23/2019 17:25:58 Ventricular premature complex(es) now present ST (T wave) deviation still present Possible ischemia still present Electronically Signed On 12-25-19 07:15:12 CDT by Garrett Cam
--- NOTE | 2019-12-25 07:18 | EKG ---
Test Date: 2019-12-23 Test Time: 17:25:58 Automotive Sales Professional: RTFranklyn MEASUREMENT RESULTS: Intervals: Rate: 192 NV: QRSD: 88 QT: 244 QTc: 436 [place]: P: NV: QRS: 89 T: 183 INTERPRETIVE STATEMENTS: Atrial fibrillation with rapid ventricular response ST & T wave abnormality, consider lateral ischemia or digitalis effect Abnormal ECG Compared to ECG 04/30/2016 07:23:28 ST (T wave) deviation now present Possible ischemia now present Ventricular premature complex(es) no longer present Aberrant conduction of supraventricular beat(s) no longer present T-wave abnormality no longer present Electronically Signed On 12-25-19 07:15:22 CDT by Garrett Cam
[2019-12-25] MEDS: INSULIN -REGULAR HUMAN 50 UNIT/0.5 ML ML SQ SCH ×4 (07:21→21:42)
[2019-12-25] MEDS: APIXABAN 5 MG TABLET PO SCH ×2 (07:22→21:40)
[2019-12-25] MEDS: NICOTINE 14 MG/PAT TD SCH (07:22)
[2019-12-25] MEDS ORDERED: HEPA 1000U/500MLS 2,000 UNIT/1,000 ML BAG IV ONE (08:27)
--- NOTE | 2019-12-25 08:59 | ECHO ---
HEIGHT: 5 ft 8 in WEIGHT: 194 lb 8 oz DATE OF STUDY: 12/24/[address]: Prashant Patel MD 2-DIMENSIONAL: YES M.MODE: YES DOPPLER: YES COLOR FLOW: YES TDS: PORTABLE: DEFINITY: BUBBLE STUDY: DIAGNOSIS: CONGESTIVE HEART FAILURE CARDIAC HISTORY: CATHERIZATION: SURGERY: PROSTHETIC VALVE: PACEMAKER: MEASUREMENTS (cm) DIASTOLIC (NORMALS) SYSTOLIC (NORMALS) IVSd 1.3 (0.6-1.2) LA Diam 4.8 (1.9-4.0) LVEF 20% LVIDd 5.8 (3.5-5.7) LVIDs 5.2 (2.0-3.5) %FS 9% LVPWd 1.3 (0.6-1.2) Ao Diam 3.2 (2.0-3.7) 2 DIMENSIONAL ASSESSMENT: RIGHT ATRIUM: NORMAL LEFT ATRIUM: DILATED RIGHT VENTRICLE: NORMAL LEFT VENTRICLE: DILATED TRICUSPID VALVE: NORMAL MITRAL VALVE: NORMAL PULMONIC VALVE: NORMAL AORTIC VALVE: NORMAL PERICARDIAL EFFUSION: NONE AORTIC ROOT: NORMAL LEFT VENTRICULAR WALL MOTION: SEVERE GLOBAL HYPOKINESIS DOPPLER/COLOR FLOW: MILD MITRAL AND TRICUSPID REGURGITATION. COMMENTS: SEVERE GLOBAL HYPOKINESIS. MILD MITRAL AND TRICUSPID REGURGITATION. EJECTION FRACTION 20-25%. ATRIAL FIBRILLATION. INCREASED LEFT VENTRICUALR SIZE - NO THROMBUS. TECHNOLOGIST: TRELL GRIMES
[2019-12-25] MEDS: SPIRONOLACTONE 25 MG TABLET PO SCH (09:00)
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
[2019-12-25] MEDS ORDERED: NA CHLORIDE 0.9% 500 ML ONE (09:52)
[2019-12-25] MEDS ORDERED: NOREPINEPHRINE 4 MG in D5W 250 ML IV PRN (10:54)
[2019-12-25] MEDS ORDERED: FENTANYL CITR 100 MCG/2 ML ONE (11:19)
[2019-12-25] MEDS ORDERED: MIDAZOLAM HCL 2 MG/2 ML INJ ONE (11:19)
[2019-12-25] MEDS ORDERED: HEPARIN 5000 UNIT/ML 1 ML VIAL ONE (11:21)
[2019-12-25] MEDS ORDERED: NICARDIPINE HCL 25 MG/10 ML IV ONE (11:21)
[2019-12-25] MEDS ORDERED: ACETAMINOPHEN 325 MG TABLET PO PRN (12:00)
[2019-12-25] MEDS ORDERED: NA CHLORIDE 0.9% 1,000 ML IV SCH (12:00)
[2019-12-25] MEDS ORDERED: NITROGLYCERIN 0.4 MG/TAB SL PRN (12:00)
[2019-12-25] MEDS: GUAIFENESIN/DM 5 ML UCUP PO PRN (14:02)
[2019-12-25] MEDS: TAMSULOSIN 0.4 MG SR CAP PO SCH (21:41)
[2019-12-25] MEDS: INSULIN GLARGINE 100 UNITS/ML SQ SCH (21:41)
[2019-12-25] MEDS: ATORVASTATIN 20 MG TAB PO SCH (21:42)
[2019-12-25] MEDS: GABAPENTIN 300 MG CAP PO SCH (21:42)
--- NOTE | 2019-12-26 01:03 | OP ---
Date of Procedure: 12/25/2019 Surgeon: ESPERANZA BEAN Reason For Procedure: Acute onset systolic heart failure. Procedures Performed: 1.Coronary angiogram. 2.Left heart catheterization. Access: Right radial artery 6-Mexican, closed with TR band. Findings: Mild 10%-20% diffuse disease of the LAD. No other coronary artery disease. LVEDP of 11. Description Of Procedure: Patient was brought into the cardiac catheterization laboratory, prepped a nd draped in usual sterile fashion and accessed the right radial artery using pediatric micropuncture kit and then we took the 6-Mexican tiger catheter into the aortic root, engaged the right coronary ar ruth, then the left main coronary artery, and then went to the LV across the aortic valve over the wi re and measured the LVEDP and then upon pullback, there was no difference in pressure and we took all the catheters and the wires out and we took the sheath out and we closed using TR band with good hem ostasis. Complications: None. Bleeding: Less than 5 mL. Total Sadation Time: Total moderate sedation time was 15 minutes. Impression: Nonischemic cardiomyopathy. No significant coronary artery disease. Recommendation: Guideline directed medical therapy for congestive heart failure and risk factor sky fication of heart disease. SR/MODL Voice ID: [id number] Report ID: [id number]
[2019-12-26] MEDS: GUAIFENESIN/DM 5 ML UCUP PO PRN ×4 (02:53→23:48)
[2019-12-26] MEDS: carvediloL 12.5 MG TAB PO SCH (05:26)
[2019-12-26 06:21] LABS: Absolute Lymphocytes (CBC) 1.7 K/uL (0.7-4.9); Basophils % 0.7 % (0-1.3); Hematocrit 31.6 % (39.6-49.0); Lymphocytes % 14.1 % (15.3-44.8); MPV 8.1 fL (7.6-11.3); RBC Red Blood Cell Count 4.91 M/uL (4.33-5.43)
[2019-12-26 07:02] LABS: Albumin 1.5 g/dL (3.4-5.0); Bilirubin Total 2.9 mg/dL (0.2-1.0); Potassium 3.5 mmol/L (3.5-5.1); Protein, Total 5.2 g/dL (6.4-8.2)
[2019-12-26] MEDS: APIXABAN 5 MG TABLET PO SCH ×2 (08:20→22:33)
[2019-12-26] MEDS: NICOTINE 14 MG/PAT TD SCH (08:20)
[2019-12-26] MEDS: CALCIUM CARB 500MG/VIT D 200 IU TAB PO SCH (08:20)
[2019-12-26] MEDS: SPIRONOLACTONE 25 MG TABLET PO SCH ×2 (08:20→09:28)
[2019-12-26] MEDS: ASPIRIN 81 MG CHEWABLE TABLET PO SCH (08:22)
[2019-12-26] MEDS: INSULIN -REGULAR HUMAN 50 UNIT/0.5 ML ML SQ SCH ×4 (08:24→21:00)
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
[2019-12-26] MEDS ORDERED: METOPROLOL TARTRATE 5 MG/5 ML INJ IV STA (15:48)
[2019-12-26] MEDS ORDERED: METOPROLOL TARTRATE 5 MG/5 ML INJ IV ONE (15:57)
[2019-12-26] MEDS: carvediloL 25 MG TAB PO SCH (17:33)
[2019-12-26] MEDS: TAMSULOSIN 0.4 MG SR CAP PO SCH (22:33)
[2019-12-26] MEDS: ATORVASTATIN 20 MG TAB PO SCH (22:33)
[2019-12-26] MEDS: INSULIN GLARGINE 100 UNITS/ML SQ SCH (22:33)
[2019-12-26] MEDS: GABAPENTIN 300 MG CAP PO SCH (22:33)
[2019-12-27] MEDS ORDERED: FUROSEMIDE 40 MG/4 ML VIAL IV ONE (01:34)
[2019-12-27] MEDS ORDERED: DIGOXIN 0.25 MG/ML AMP IV ONE (01:34)
[2019-12-27] MEDS: carvediloL 25 MG TAB PO SCH ×2 (05:54→18:00)
[2019-12-27] MEDS: INSULIN -REGULAR HUMAN 50 UNIT/0.5 ML ML SQ SCH ×4 (07:30→21:00)
[2019-12-27] MEDS: APIXABAN 5 MG TABLET PO SCH ×2 (08:22→21:46)
[2019-12-27] MEDS: ASPIRIN 81 MG CHEWABLE TABLET PO SCH (08:22)
[2019-12-27] MEDS: CALCIUM CARB 500MG/VIT D 200 IU TAB PO SCH (08:23)
[2019-12-27] MEDS: NICOTINE 14 MG/PAT TD SCH (08:23)
[2019-12-27] MEDS ORDERED: ZOLPIDEM TARTRATE 5 MG TABLET PO PRN (08:30)
[2019-12-27] MEDS: SPIRONOLACTONE 25 MG TABLET PO SCH ×2 (08:33→21:45)
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
[2019-12-27] MEDS ORDERED: FUROSEMIDE 40 MG TABLET PO SCH (09:00)
--- NOTE | 2019-12-27 09:12 | P.CNS ---
Date of Consult: 12/27/19 Primary Care Provider: Amanda Chief Complaint: chf exacerbation possible sleep apnea History of Present Illness: Patient is 54 years of age bleeding of loud snoring excessive daytime somnolence also his smoker admitted worsening dyspnea over the past 4-5 months complaining of worsening shortness of breath cough lower extremity edema he is in AFib tachycardic with severe congestive heart failure also has hepatitis-C abnormal liver function tests amphetamine is level elevated Allergies morphine Allergy (Verified 12/23/19 15:28) Rash Home Medications: Apixaban [Eliquis *] 5 mg PO BID 12/23/19 Digoxin [Lanoxin*] 0.125 mg PO DAILY 12/23/19 Gabapentin 300 mg PO DAILY 12/23/19 Insulin Detemir [Levemir] 20 units SQ DAILY 12/23/19 Tamsulosin [Flomax*] 0.4 mg PO DAILY 12/23/19 - Past Medical/Surgical History Diabetic: Yes -: HTN -: DM-2 -: atrial fibrillation -: obstructive sleep apnea -: dyslipidemia -: CHF -: cholecystectomy -: Cyst removal from neck -: cardioversion - Family History Father Medical History: Heart disease, Hypertension, Cancer Mother Medical History: Heart disease, Hypertension, Diabetes Brother Medical History: Cancer - Social History Smoking Status: Current every day smoker Alcohol use: No CD- Drugs: No Caffeine use: Yes Place of Residence: Home Review of Systems 10-point ROS is otherwise unremarkable General: Weakness Respiratory: Cough, Shortness of Breath Cardiovascular: Edema Physical Examination Temp Pulse Resp BP Pulse Ox 97.0 F 132 H 18 139/79 94 12/27/19 08:40 12/27/19 08:40 12/27/19 08:40 12/27/19 08:40 12/27/19 08:40 General: Alert, In no apparent distress, Oriented x3 Neck: Supple Respiratory: Clear to auscultation bilaterally Cardiovascular: No edema, Irregular heart rate/rhythm Gastrointestinal: Normal bowel sounds, Soft and benign - Problems (1) Sleep apnea Current Visit: Yes Status: Acute Plan: Is quite possible that he has underlying sleep apnea agree with standard BiPAP settings will adjust accordingly although patient is hypoxic not hypercapnic in fact he had a respiratory alkalosis chest x-rays clear current function tests normal Qualifiers: Sleep apnea type: obstructive Qualified Code(s): G47.33 - Obstructive sleep apnea (adult) (pediatric) (2) Congestive heart failure Onset Date: 07/12/15 Current Visit: No Status: Acute Plan: Patient has severe congestive heart failure abnormal liver function tests which have been improving hepatitis-C positive prior ultrasound was showed fatty liver patient has microcytic anemia patient is a diabetic I have ordered cm ferritin B12 levels I have also added ipratropium nebulized urine toxicology positive for amphetamines increase spironolactone to twice a day room-air pulse ox satisfactory
[2019-12-27 10:52] LABS: Ferritin 76.2 ng/mL (26-388)
[2019-12-27] MEDS: IPRATROPIUM BROM 0.5MG/2.5ML NEB SCH ×3 (12:40→19:35)
[2019-12-27] MEDS ORDERED: DIGOXIN 0.125 MG TABLET PO SCH (18:09)
[2019-12-27] MEDS: METOPROLOL TAR 25 MG TAB PO SCH (18:23)
[2019-12-27] MEDS: TAMSULOSIN 0.4 MG SR CAP PO SCH (21:45)
[2019-12-27] MEDS: ATORVASTATIN 20 MG TAB PO SCH (21:45)
[2019-12-27] MEDS: INSULIN GLARGINE 100 UNITS/ML SQ SCH (21:46)
[2019-12-27] MEDS: GABAPENTIN 300 MG CAP PO SCH (21:46)
[2019-12-27] MEDS: GUAIFENESIN/DM 5 ML UCUP PO PRN (21:51)
[2019-12-27] MEDS ORDERED: METOPROLOL TARTRATE 5 MG/5 ML INJ IV STA (23:56)
[2019-12-28] MEDS: IPRATROPIUM BROM 0.5MG/2.5ML NEB SCH ×2 (01:03→08:00)
[2019-12-28] MEDS: METOPROLOL TAR 25 MG TAB PO SCH (05:09)
[2019-12-28] MEDS: INSULIN -REGULAR HUMAN 50 UNIT/0.5 ML ML SQ SCH (07:30)
[2019-12-28] MEDS: CALCIUM CARB 500MG/VIT D 200 IU TAB PO SCH (08:33)
[2019-12-28] MEDS: SPIRONOLACTONE 25 MG TABLET PO SCH (08:33)
[2019-12-28] MEDS: NICOTINE 14 MG/PAT TD SCH (08:33)
[2019-12-28] MEDS: ASPIRIN 81 MG CHEWABLE TABLET PO SCH (08:33)
[2019-12-28] MEDS: APIXABAN 5 MG TABLET PO SCH (08:33)
[2019-12-28 08:35] VITALS: BP 147/62
[2019-12-28 08:53] VITALS: O2SAT 96
[2019-12-28 10:03] VITALS: TEMP 97.3
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
[2019-12-31 11:53] LABS: HBsAG Nonreactive (Nonreactive)
[2020-01-02 21:11] LABS: Hep C Virus RNA (PCR)log <1.18 log IU/mL
== END 2019-12-28 12:00 | disposition home or self-care (01) | DRG 287 ==
LOC: 2ND 14:39 → 3RD-ICU 17:05 → 2ND 12-26 10:50
PROVIDERS: ADMIT Internal Medicine; ATTEND Internal Medicine
PROC: 02HV33Z Insertion of Infusion Device into Superior Vena Cava, Percutaneous Approach (ICD-10-PCS; 2019-12-23)
PROC: 4A023N7 Measurement of Cardiac Sampling and Pressure, Left Heart, Percutaneous Approach (ICD-10-PCS; principal; 2019-12-25)
PROC: B2111ZZ Fluoroscopy of Multiple Coronary Arteries using Low Osmolar Contrast (ICD-10-PCS; 2019-12-25)
DX: I11.0 Hypertensive heart disease with heart failure (principal); I48.20 Chronic atrial fibrillation, unspecified; I50.23 Acute on chronic systolic (congestive) heart failure; E11.9 Type 2 diabetes mellitus without complications; F17.200 Nicotine dependence, unspecified, uncomplicated; F15.10 Other stimulant abuse, uncomplicated; D72.829 Elevated white blood cell count, unspecified; N28.9 Disorder of kidney and ureter, unspecified; D64.9 Anemia, unspecified; G47.33 Obstructive sleep apnea (adult) (pediatric); E78.5 Hyperlipidemia, unspecified; Z79.01 Long term (current) use of anticoagulants; Z79.899 Other long term (current) drug therapy; Z20.828 Contact with and (suspected) exposure to other viral communicable diseases; Z90.49 Acquired absence of other specified parts of digestive tract; Z88.5 Allergy status to narcotic agent; Z91.19 Patient's noncompliance with other medical treatment and regimen
CPT/HCPCS: 36415; 36569; 71045; 80048; 80053; 80074; 80307; 80320; 81003; 81015; 82607; 82728; 82805; 82947; 83735; 84439; 84443; 84484; 85025; 87522; 93005; 93306; 93458; 93925; 93970; 94640; 94660; 94760; C1893; J0282; J1160; J1170; J1644; J1815; J1940; J2250; J3010; J7040; J7060; U0002

== ENCOUNTER 2020-02-27 09:12 | Emergency (ER) | payer OTHER ==
--- OUTSIDE RECORDS SUMMARY | 2020-02-27 09:23 | XMS REPORT | Continuity of Care Document ---
:1965 Author Organization [facility] t Address [address] [place] [address] Care Team Providers Name Role Phone Sharpless Primary Care Physician Steffany CARABALLO, Abdifatah Attending Clinician Cass CARABALLO, Miguel Attending Clinician [phone] Jeffrey CHAVIRA, Angelica Thomas Attending Clinician William John Attending Clinician Problems Condition Condition Condition Status Onset Resolution Last Treating Co mments Source Name Details Category Date Date Treatment Clinician Date Cardiogeni Cardiogeni Disease Active [facility] c shock c shock 4-12 [facility]: Medical 00 [place] ADHF ADHF Disease Active [facility] (acute (acute 4-12 [facility] - decompensa decompensa 00:00: Me dical mark heart mark heart 00 Cent er failure) failure) GERARD (acute GERARD (acute Disease Active [facility] kidney kidney 4-12 [facility] injury) injury) 00:00: Medical 00 [place] Pulmonary Pulmonary Disease Active [facility] edema edema 4-12 [facility] 00[facility] 00 Center Acute Acute Disease Active [facility] combined combined 4-12 [facility] - systolic systolic 00:00: Medica l and and 00 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 Transamini Disease Active [facility] tis tis 12 [facility] - 00:00: Medical 00 [place] Elevated Elevated Disease [facility] troponin troponin 12 [facility] - 00:[facility]: Medical [place] Borderline Borderline Disease Active [facility] diabetes diabetes 12 [facility] - 00:00: Medical [place] Leukocytos Leukocytos Disease Active [facility] is is 10-25 [facility] - 00:00: Medical [place] 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 12 Brianna kes - cherri cherri 00:00: Medical malnutriti malnutriti 00 Ce nter on on Acute Acute Disease Active [facility] respirator respirator 4-11 Brianna kes - y failure y failure 00:00: Medi sruhti 00 Center Atrial Atrial Disease Active [facility] [...] Date Quantity Comments Source Sex Assigned At [facility] Medications Ordered Filled Start Stop Current Ordering [...] Time Performed Performing Clinician Sourc e SARS-COV2/RT-PCR ([facility] 2019-12-23 19:29:00 [facility] Center Encounters Start End Encounter Admission Attending Care Care Encounter Source Date/Time Date/Time Type Type Clinicians Facility Department ID 2019-07-09 2019-07-10 Anesthesia Abdifatah Jeter 1.2 .840.114 [id number] 23:56:00 05:36:00 Miguel Odell 350.1. 13.10 [facility] [id number] [id number] 2019-03-28 2019-03-28 Patient Angelica Murphy 1.2.840.114 [id number] 00:00:00 00:00:00 Outreach E Bowser 350.1.13.10 [place] [id number] [id number] 2019-03-19 2019-03-19 Patient Akua John [id number] 00:00:00 00:00:00 Outreach Meme E Bowser 350.1.13.10 [place] [id number] [id number] 2019-02-26 2019-02-26 Patient Angelica Murphy 1.2.840.114 [id number] 13:45:49 14:55:49 Outreach E Bowser 350.1.13.10 [place] [id number] [id number] 2019-02-21 2019-02-21 Patient Angelica Murphy 1.2.840.114 [id number] 00:00:00 00:00:00 Outreach E Bowser 350.1.13.10 [place] [id number] [id number] Results Test Description Test Time Test Comments Results Result Comments Source SARS-CoV2/RT-PCR ([facility] & Ref Labs) 2019-12-24 03:22:00 Test Item Value Reference Range Interpretation Comme nts SARS-COV2/RT-PCR (test code = Not Detected Not Detected, Negative 99621-9) SARS-COV-2 PERFORMING LAB [facility] (test code = 46831-4) PATRIA (test code = PATRIA) Negative results [...] of the Act. Fact Sheet for Healthcare Providers:https://www.Sensorist/Documents/Xpert%20Xpress %20SARS%20CoV-2/Fact%20Sheets /302-3802%63IMTM-ZHJ-0%20HEAL THCARE%20PROVIDERS%20FACT%20S HEET.pdf Fact Sheet for Healthcare Patients:https://www.Digital Media Broadcast/Documents/Xpert%20Xpress% 20SARS%20CoV-2/Fact%20Sheets/ 302-3801%67KNAH-EAW-5%20PATIE NT%20FACT%20SHEET.pdf Performing Laboratory:[facility] [place] [id number] [place], [place] [address]ARS-COV2/RT-PCR ([facility] REF LABS)2019-12-24 03:22:00 Test Item Value Reference Range Interpretation Comments SARS-COV2/RT-PCR (test Not Detected Not Detected, Negative code = 2045607) SARS-COV-2 PERFORMING LAB [facility] (test code = 4885590) Negative results do not preclude SARS-CoV-2 infection [...] of the Act.Fact Sheet for Healthcare Pro viders:https://www.ACTON/Documents/Xpert%20Xpress%20SARS%20CoV-2/Fact%20Sh eets/3023802%57HORG-AHV-9%20HEALTHCARE%20PROVIDERS%20FACT%20SHEET.pdfFact Sheet for Healthcare Patients:https://www.ConvertMedia/Documents/Xpert%20Xpress%20SARS%20CoV-2/Fact%20Sheets/3023801%20SARS-COV -2%20PATIENT%20FACT%20SHEET.pdfPerforming Laboratory:[facility] [place] [address]
--- OUTSIDE RECORDS SUMMARY | 2020-02-27 09:23 | XMS REPORT | Clinical Summary ---
:1965 Author Organization [facility] Address [address] [place] [address] Care Team Providers Name Role Phone Praful [...] CDT) SARS-COV2/RT-PCR Not Detected Not Detected, Negative [facility] SARS-COV-2 PERFORMING LAB [facility] Specimen Other Narrative Performed At Negative results do not preclude SARS-CoV-2 [facility] infection and should not be used as [...] the Act. Fact Sheet for Healthcare Providers: https://www.The Clymb.Zeetl/Documents/Xpert%20Xpre ss%20SARS%20CoV-2/Fact%20Sheets/302-3602%20SAR S-COV-2%20HEALTHCARE%20PROVIDERS%20FACT%20SHEE T.pdf Fact Sheet for Healthcare Patients: https://www.Selftrade/Documents/Xpert%20Xpre ss%20SARS%20CoV-2/Fact%20Sheets/302-5496%20SAR S-COV-2%20PATIENT%20FACT%20SHEET.pdf Performing Laboratory: [address] [place] [address] Performing Organization Address City/State/Zipcode Phone Number [facility] [address] [place] [address] CENTER after 02/26/2019 Advance Directives For more information, please contact:[address] [phone] Code Status Date Activated Date Inactivated Comments Full Code 10/25/2015 5:46 PM 11/04/2015 2:56 PM This code status was determined by: Person holding Power of Laboratory Chemist
[2020-02-27] MEDS ORDERED: DIGOXIN 0.25 MG/ML AMP ONE (09:43)
[2020-02-27 10:11] LABS: Absolute Lymphocytes (CBC) 2.1 K/uL (0.7-4.9); Basophils % 1.2 % (0-1.3); Hematocrit 26.1 % (39.6-49.0); Lymphocytes % 20.8 % (15.3-44.8); MPV 6.9 fL (7.6-11.3); Protime INR 1.19; RBC Red Blood Cell Count 3.88 M/uL (4.33-5.43)
--- NOTE | 2020-02-27 10:14 | RAD REPORT ---
EXAM DESCRIPTION: Iris Single View02/27/2020 9:42 am CLINICAL HISTORY: Atrial fibrillation COMPARISON: December 2019 FINDINGS: The lungs appear clear of acute infiltrate. The heart is mildly to moderately enlarged IMPRESSION: No acute abnormalities displayed
[2020-02-27 10:46] LABS: ALT/SGPT 22 U/L (12-78); AST/SGOT 22 U/L (15-37); Albumin 3.1 g/dL (3.4-5.0); Alkaline Phosphatase 72 U/L (45-117); BUN Blood Urea Nitrogen 23 mg/dL (7-18); Bicarbonate 25 mmol/L (21-32); Bilirubin Direct 0.4 mg/dL (0-0.2); Glucose Level 134 mg/dL (74-106); NT PRO-BNP 1113 pg/mL (<125); Potassium 4.2 mmol/L (3.5-5.1); Protein, Total 7.5 g/dL (6.4-8.2); Sodium Level 141 mmol/L (136-145); Troponin (Emerg Dept Use Only) < 0.02 ng/mL (0.0-0.045)
[2020-02-27 10:53] LABS: Anisocytosis 1+; Blood Morphology Comment NOTED (NOT SEEN); Hypochromasia 2+; Platelet Estimate ADEQ; Polychromasia SLIGHT; White Blood Cell Scan OK
--- NOTE | 2020-02-27 10:59 | EDPHYS ---
Physician Documentation [facility] Name: Faustino Brock Age: 54 yrs Sex: Male : 1965 Arrival Date: 02/27/2020 Time: : Bed 4 Private MD: ED Physician Pranay Galindo HPI: 02/26 17:54 This 54 yrs old Male presents to ER via Wheelchair with complaints of AFIB kdr W/RVR. 17:54 The patient presents with a history of irregular heart beat, heart racing. Context: The kdr symptoms occur at rest. Onset: The symptoms/episode began/occurred suddenly, just prior to arrival. Duration: The patient or guardian reports a single episode, that is still ongoing. Modifying factors: The symptoms are aggravated by nothing. The symptoms are alleviated by nothing. Associated signs and symptoms: The patient has no apparent associated signs or symptoms. Severity of symptoms: At their worst the symptoms were mild in the emergency department the symptoms are unchanged. The patient has experienced similar episodes in the past, chronically. The patient has been recently seen by a physician:. The patient was being prepped for surgery when he was noted to be in A-fib. He has been off of his medications for two days in anticipation of the surgery today. As the operation had not started, he was brought to the ED for evaluation and treatment. The patient states that he A-fib is poorly controlled and that this condition is not mew or unusual for him. He does not know he was brought to the ED as he is not concerned about his heart rate. 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 - Social history:: Smoking status: Patient denies any tobacco usage or history of. ROS: 17:54 Constitutional: Negative for fever, chills, and weight loss, Eyes: Negative for injury, kdr pain, redness, and discharge, ENT: Negative for injury, pain, and discharge, Neck: Negative for injury, pain, and swelling, Respiratory: Negative for shortness of breath, cough, wheezing, and pleuritic chest pain, Abdomen/GI: Negative for abdominal pain, nausea, vomiting, diarrhea, and constipation, Back: Negative for injury and pain, : Negative for injury, bleeding, discharge, and swelling, MS/Extremity: Negative for injury and deformity, Skin: Negative for injury, rash, and discoloration, Neuro: Negative for headache, weakness, numbness, tingling, and seizure activity. Psych: Negative for depression, anxiety, suicide ideation, homicidal ideation, and hallucinations, Allergy/Immunology: Negative for hives, rash, and allergies, Endocrine: Negative for neck swelling, polydipsia, polyuria, polyphagia, and marked weight changes, Hematologic/Lymphatic: Negative for swollen nodes, abnormal bleeding, and unusual bruising. 17:54 Cardiovascular: Positive for palpitations, Negative for chest pain, edema, orthopnea. Exam: 17:54 Constitutional: This is a well developed, well nourished patient who is awake, alert, kdr and in no acute distress. Head/Face: Normocephalic, atraumatic. Eyes: Pupils equal round and reactive to light, extra-ocular motions intact. Lids and lashes normal. Conjunctiva and sclera are non-icteric and not injected. Cornea within normal limits. Periorbital areas with no swelling, redness, or edema. Neck: Trachea midline, no thyromegaly or masses palpated, and no cervical lymphadenopathy. Supple, full range of motion without nuchal rigidity, or vertebral point tenderness. No Meningismus. Chest/axilla: Normal chest wall appearance and motion. Nontender with no deformity. No lesions are appreciated. Respiratory: Lungs have equal breath sounds bilaterally, clear to auscultation and percussion. No rales, rhonchi or wheezes noted. No increased work of breathing, no retractions or nasal flaring. Abdomen/GI: Soft, non-tender, with normal bowel sounds. No distension or tympany. No guarding or rebound. No evidence of tenderness throughout. Back: No spinal tenderness. No costovertebral tenderness. Full range of motion. Skin: Warm, dry with normal turgor. Normal color with no rashes, no lesions, and no evidence of cellulitis. MS/ Extremity: Pulses equal, no cyanosis. Neurovascular intact. Full, normal range of motion. Neuro: Awake and alert, GCS 15, oriented to person, place, time, and situation. Cranial nerves II-XII grossly intact. Motor strength 5/5 in all extremities. Sensory grossly intact. Cerebellar exam normal. Normal gait. Psych: Awake, alert, with orientation to person, place and time. Behavior, mood, and affect are within normal limits. 17:54 Cardiovascular: Rate: tachycardic, Rhythm: irregularly irregular, Pulses: no pulse deficits are appreciated, Heart sounds: normal, Edema: is not appreciated. 17:54 ECG was reviewed by the Attending Physician. Vital Signs: 09:18 BP 110 / 72; Pulse 148; Resp 18; Temp 97.6; Pulse Ox 100% on R/A; Pain 0/10; hb 09:50 BP 111 / 55; Pulse 122; Resp 20; Pulse Ox 95% on R/A; Pain 0/10; em 10:59 BP 120 / 82; Pulse 114; Resp 20; Pulse Ox 96% on R/A; em MDM: 10:58 Patient medically screened. kdr 17:54 Data reviewed: vital signs, nurses notes, lab test result(s), radiologic studies. kdr Counseling: I had a detailed discussion with the patient and/or guardian regarding: the historical points, exam findings, and any diagnostic results supporting the discharge/admit diagnosis, lab results, radiology results, the need for outpatient follow up. 17:59 Physician consultation: Garrett Cam MD regarding consult, patient's condition, kdr outpatient follow-up, next week, and will see patient in office, next week. 02/26 09:22 Order name: Basic Metabolic Panel 02/26 09:22 Order name: CBC with Diff 02/26 09:22 Order name: LFT's 02/26 09:22 Order name: Magnesium kb 02/26 09:22 Order name: NT PRO-BNP 02/26 09:22 Order name: PT-INR; Complete Time: 10:27 kb 02/26 09:22 Order name: Troponin (emerg Dept Use Only) 02/26 09:22 Order name: XRAY Chest (1 view); Complete Time: 10:27 kb 02/26 09:22 Order name: EKG; Complete Time: 09:22 kb 02/26 09:22 Order name: Cardiac monitoring; Complete Time: 09:30 kb 02/26 09:22 Order name: EKG - Nurse/Tech; Complete Time: :28 kb 02/26 09:22 Order name: IV Saline Lock; Complete Time: :28 kb 02/26 10:32 Order name: CBC Smear Scan [facility] 02/26 09:22 Order name: Labs collected and sent; Complete Time: :28 kb 02/26 09:22 Order name: O2 Per Protocol; Complete Time: :27 kb 02/26 09:22 Order name: O2 Sat Monitoring; Complete Time: : kb EC:54 Rate is 135 beats/min. Rhythm is irregularly irregular, A fib with No ectopy. QRS [place] kdr is Normal. NH interval is normal. QRS interval is normal. Clinical impression: Atrial Fibrillation. Administered Medications: 09:52 Drug: Digoxin 0.5 mg Route: IVP; Site: right forearm; em 11:01 Follow up: Response: No adverse reaction; Marked relief of symptoms; Cardiac rhythm em changed Disposition: 02/27/20 10:58 Discharged to Home. Impression: Atrial fibrillation and flutter. - Condition is Stable. - Discharge Instructions: Atrial Fibrillation, [id number]. - Medication Reconciliation Form, Thank You Letter form. - Follow up: Private Physician; When: 2 - 3 days; Reason: If symptoms return, Further diagnostic work-up, Recheck today's complaints, Continuance of care, Re-evaluation by your physician. - Problem is an acute exacerbation. - Symptoms have improved. - Notes: Continue your current medications as directed Signatures: Dispatcher [employer] [facility] Licha Escamilla, MESMERIST-C MESMERIST-Ckb Pranay Galindo MD MD [facility] Kee Guzman RN RN Renee Irizarry RN RN Corrections: (The following items were deleted from the chart) 11:09 10:58 02/27/2020 10:58 Discharged to Home. Impression: Atrial fibrillation and flutter. em Condition is Stable. Forms are Medication Reconciliation Form, Thank You Letter, Antibiotic Education, Prescription Opioid Use. Follow up: Private Physician; When: 2 - 3 days; Reason: If symptoms return, Further diagnostic work-up, Recheck today's complaints, Continuance of care, Re-evaluation by your physician. Problem is an acute exacerbation. Symptoms have improved. kdr
--- NOTE | 2020-02-27 10:59 | ER ---
Nurse's Notes [facility] Name: Faustino Brock Age: 54 yrs Sex: Male : 1965 Arrival Date: 02/27/2020 Time: : Bed 4 Private MD: Diagnosis: Atrial fibrillation and flutter Presentation: 02/26 09:18 Chief complaint: Received from OR, pt went into AFib w/ RVR r 150s while being prepped hb for hernia repair. Versed 2 mg IVP administered to 20g RAC. Coronavirus screen: At this time, the client does not indicate any symptoms associated with coronavirus-19. Ebola Screen: No symptoms or risks identified at this time. Initial Sepsis Screen: Does the patient meet any 2 criteria? HR > 90 bpm. No. Patient's initial sepsis screen is negative. Does the patient have a suspected source of infection? No. Patient's initial sepsis screen is negative. Risk Assessment: Do you want to hurt yourself or someone else? Patient reports no desire to harm self or others. Onset of symptoms was February 27, 2020. 09:18 Method Of Arrival: Wheelchair hb 09:18 Acuity: EZIO 3 hb Historical: - Allergies: 09:22 Morphine; hb - PMHx: 09:22 "need pacemaker"; "need reconstructive surgery to urethra"; Atrial Fib; CHF; Diabetes - hb NIDDM; Hypertension; insomnia; Myocardial infarction; - PSHx: 09:22 Cholecystectomy; hb - Immunization history:: Adult Immunizations up to date. - Social history:: Smoking status: Patient denies any tobacco usage or history of. Screenin:30 Abuse screen: Denies threats or abuse. Nutritional screening: No deficits noted. em Tuberculosis screening: No symptoms or risk factors identified. Fall Risk None identified. Assessment: 09:25 General: Appears in no apparent distress. comfortable, Behavior is calm, cooperative, em Denies fever. Pain: Denies pain. Neuro: Level of Consciousness is awake, alert, obeys commands, Oriented to person, place, time, situation, Appropriate for age. Cardiovascular: Denies nausea, palpitations, shortness of breath, Capillary refill < 3 seconds Patient's skin is warm and dry. Pulses are all present. Rhythm is atrial fibrillation with rapid ventricular response Chest pain is denied. Respiratory: Airway is patent Respiratory effort is even, unlabored, Respiratory pattern is regular, symmetrical. Derm: Skin is intact, is healthy with good turgor, Skin is pink, warm \\T\\ dry. Musculoskeletal: Capillary refill < 3 seconds, Range of motion: intact in all extremities. 10:20 Reassessment: Patient appears in no apparent distress at this time. Patient and/or em family updated on plan of care and expected duration. Pain level reassessed. Patient is alert, oriented x 3, equal unlabored respirations, skin warm/dry/pink. Patient denies pain at this time. 10:59 Reassessment: Patient appears in no apparent distress at this time. Patient and/or em family updated on plan of care and expected duration. Pain level reassessed. Patient is alert, oriented x 3, equal unlabored respirations, skin warm/dry/pink. Vital Signs: 09:18 BP 110 / 72; Pulse 148; Resp 18; Temp 97.6; Pulse Ox 100% on R/A; Pain 0/10; hb 09:50 BP 111 / 55; Pulse 122; Resp 20; Pulse Ox 95% on R/A; Pain 0/10; em 10:59 BP 120 / 82; Pulse 114; Resp 20; Pulse Ox 96% on R/A; em ED Course: 09:14 Patient arrived in ED. hb 09:15 Kee Guzman, RN is Primary Nurse. em 09:22 Triage completed. hb 09:22 Arm band placed on. hb 09:25 Pranay Galindo MD is Attending Physician. kdr 09:27 EKG done, by ED staff, reviewed by Pranay Galindo MD. em 09:28 IV is patent, is intact, with fluids infusing freely. em 09:30 Patient has correct armband on for positive identification. Placed in gown. Bed in low em position. Call light in reach. Side rails up X2. shellfish manager on. Pulse ox on. NIBP on. 09:40 Initial lab(s) drawn, by me, sent to lab. em 09:42 XRAY Chest (1 view) In Process Unspecified. EDMS 11:08 No provider procedures requiring assistance completed. IV discontinued, intact, em bleeding controlled, No redness/swelling at site. Pressure dressing applied. Administered Medications: 09:52 Drug: Digoxin 0.5 mg Route: IVP; Site: right forearm; em 11:01 Follow up: Response: No adverse reaction; Marked relief of symptoms; Cardiac rhythm em changed Outcome: 10:58 Discharge ordered by . roman 11:08 Discharged to home ambulatory. em 11:08 Condition: good 11:08 Discharge instructions given to patient, Instructed on discharge instructions, follow up and referral plans. Demonstrated understanding of instructions, follow-up care. 11:09 Patient left the ED. em Signatures: Dispatcher [employer] Pranay Bauer MD MD kdr Kee Guzman, RN RN em Renee Irizarry, RN RN
[2020-02-27 11:15] VITALS: TEMP 97.6
[2020-02-27 11:18] VITALS: BP 120/82; O2SAT 96
--- NOTE | 2020-02-28 08:12 | EKG ---
Test Date: 2020-02-27 Test Time: 09:27:20 Travel Insurance Agent: FABIAN MEASUREMENT RESULTS: Intervals: Rate: 146 [place]: QRSD: 94 QT: 320 QTc: 498 [place]: P: [place]: QRS: 46 T: 235 INTERPRETIVE STATEMENTS: Atrial fibrillation with rapid ventricular response with premature ventricular or aberrantly conducted complexes ST & T wave abnormality, consider lateral ischemia or digitalis effect Abnormal ECG Compared to ECG 12/26/2019 15:28:26 No significant changes Electronically Signed On 02-28-20 08:09:43 CDT by Garrett Cam
== END 2020-02-27 11:09 | disposition home or self-care (01) ==
LOC: ER 09:12
DX: I48.91 Unspecified atrial fibrillation (principal); I48.92 Unspecified atrial flutter; I25.2 Old myocardial infarction; I50.9 Heart failure, unspecified; Z88.6 Allergy status to analgesic agent
CPT/HCPCS: 93005; 85025; 80048; 36415; 83735; 85610; 80076; 84484; 83880; 71045; 96374; 99284; J1160

== ENCOUNTER → 2020-02-27 | Day surgery (SDC) | payer OTHER ==
[2020-02-24 12:32] LABS: Absolute Lymphocytes (CBC) 2.6 K/uL (0.7-4.9); Basophils % 1.3 % (0-1.3); Hematocrit 26.8 % (39.6-49.0); Lymphocytes % 20.7 % (15.3-44.8); MPV 6.9 fL (7.6-11.3); RBC Red Blood Cell Count 3.97 M/uL (4.33-5.43)
[2020-02-24 12:37] LABS: Potassium 4.5 mmol/L (3.5-5.1)
[2020-02-24 13:32] LABS: Anisocytosis 2+; Blood Morphology Comment NOTED (NOT SEEN); Hypochromasia 1+; Platelet Estimate ADEQ; Polychromasia 1+
[~2020-02-27] MED LIST: BUPIVACA 0.25%/EPI 0.0005%/PF 30 ML VIAL ONE; CEFAZOLIN/SWI 2gm 0 GM/0 ML SYR ONE; FENTANYL CITR 100 MCG/2 ML ONE; LIDOCAINE 2% MPF 5 ML VIAL ONE; MIDAZOLAM HCL 2 MG/2 ML INJ ONE; ROCURONIUM 50 MG/5 ML VIAL IV ONE; dexAMETHasone 10 MG/ML VIAL ONE; propofoL 200 MG/20 ML VIAL IV ONE
--- OUTSIDE RECORDS SUMMARY | 2020-02-27 07:19 | XMS REPORT | Clinical Summary ---
:1965 Author Organization [facility] Address [address] [place] [address] Care Team Providers Name Role Phone Praful [...] Acute respiratory failure 10/25/2015 Atrial fibrillation 10/25/2015 Encounters Date Type Specialty Care Team Description 12/24/2019 Lab Requisition Lab after 02/26/2019 Social History Tobacco Use Types Packs/Day Years Used Date Never Assessed Sex Assigned at Date Recorded Not on file Job Start Date Occupation Industry Not on file Not on file Not on file Travel History Travel Start Travel End No recent travel history available. Last Filed Vital Signs Not on file Plan of Treatment Not on file Procedures Procedure Name Priority Date/Time Associated Diagnosis Comme nts SARS-COV2/RT-PCR Routine 12/23/2019 7:29 PM Resu lts for this ([facility]) CDT procedure are in the results section. after 02/26/2019 Results SARS-CoV2/RT-PCR ([facility]) (12/23/2019 7:29 PM CDT) SARS-COV2/RT-PCR Not Detected Not Detected, Negative [facility] SARS-COV-2 PERFORMING LAB [facility] Specimen Other Narrative Performed At Negative results do not preclude SARS-CoV-2 [facility] infection and should not be used as the sole basis for patient management decisions. Negative results must be combined with clinical observations, patient history, and epidemiological information. A false negative result may occur if a specimen is improperly collected, transported or handled. The limit of detection for this assay is 250 copies/mL. This SARS CoV-2 test is a rapid, real-time RT-PCR test intended for the qualitative detection of nucleic acid from SARS-CoV-2 in a nasopharyngeal swab specimen collected from individuals suspected of COVID-19 by their healthcare provider. This test has not been Food and Drug Administration (FDA) cleared or approved and has been authorized by FDA under an Emergency Use Authorization (EUA). This EUA will be effective until the declaration that circumstances exist justifying the authorization of the emergency use of in vitro diagnostic tests for detection and/or diagnosis of COVID-19 is terminated under Section 564(b)(2) of the Act or the EUA is revoked under Section 564(g) of the Act. Fact Sheet for Healthcare Providers: https://www.[employer]/Documents/Xpert%20Xpre ss%20SARS%20CoV-2/Fact%20Sheets/302-3712%20SAR S-COV-2%20HEALTHCARE%20PROVIDERS%20FACT%20SHEE T.pdf Fact Sheet for Healthcare Patients: https://www.VIPerks/Documents/Xpert%20Xpre ss%20SARS%20CoV-2/Fact%20Sheets/302-5153%20SAR S-COV-2%20PATIENT%20FACT%20SHEET.pdf Performing Laboratory: [address] [place] [address] Performing Organization Address City/State/Zipcode Phone Number [facility] [address] [place] [id number] [address] after 02/26/2019 Advance Directives For more information, please contact:[address] [phone] Code Status Date Activated Date Inactivated Comments Full Code 10/25/2015 5:46 PM 11/04/2015 2:56 PM This code status was determined by: Person holding Power of Circular Shear Operator
--- OUTSIDE RECORDS SUMMARY | 2020-02-27 07:20 | XMS REPORT | Continuity of Care Document ---
:1965 Author Organization [facility] t Address [address] [place] [address] Care Team Providers Name Role Phone Sharpless Primary Care Physician Steffany CARABALLO, Abdifatah Attending Clinician Cass CARABALLO, Miguel Attending Clinician [phone] Jeffrey CHAVIRA, Angelica Thomas Attending Clinician William John Attending Clinician Problems Condition Condition Condition Status Onset Resolution Last Treating Co mments Source Name Details Category Date Date Treatment Clinician Date Cardiogeni Cardiogeni Disease Active [facility] shock c shock 4[facility]12 [facility]: Medical 00 [place] ADHF ADHF Disease Active [facility] (acute (acute 4-12 [facility] - decompensa decompensa 00:00: Me dical mark heart mark heart 00 Cent er failure) failure) GERARD (acute GERARD (acute Disease Active [facility] kidney kidney 4-12 [facility] - injury) injury) 00:00: Medical 00 [place] Pulmonary Pulmonary Disease Active [facility] edema edema 4-12 [facility] 00 Center Acute Acute Disease Active [facility] combined combined 4-12 [facility] - systolic systolic 00:00: Medica l and and 00 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 Transamini Disease Active [facility] tis tis 12 [facility] 00:[facility]: Medical 00 [place] Elevated Elevated Disease [facility] troponin troponin 12 [facility] - [facility]: Medical [place] Borderline Borderline Disease Active [facility] diabetes diabetes 12 [facility] - 00:[facility]: Medical [place] Leukocytos Leukocytos Disease Active [facility] is is 10-25 [facility] - 00:00: Medical [place] 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 12 Brianna kes - cherri cherri 00:00: Medical malnutriti malnutriti 00 Ce nter on on Acute Acute Disease Active [facility] respirator respirator 4-11 [facility]anna kes - y failure y failure 00:00: Medi sruthi 00 Center Atrial Atrial Disease Active [facility] fibrillati fibrillati 4-11 Brianna kes - on on 00:00: Medical 00 Center Allergies, Adverse Reactions, Alerts Allergy Allergy Status Severity Reaction(s) Onset Inactive Treating Comm ents Source Name Type Date Date Clinician Penicill Propensi Active Anaphylaxis [facility] ins ty to 10-24 [facility] - adverse 00:00: Medical reaction 00 Center s Social History Social Habit Start Date Stop Date Quantity Comments Source Sex Assigned At [facility] Medications Ordered Filled Start Stop Current Ordering [...] total) by Center capsule mouth daily. Procedures Procedure Date / Time Performed Performing Clinician Sourc e SARS-COV2/RT-PCR ([facility] 2019-12-23 19:29:00 [facility] Center Encounters Start End Encounter Admission Attending Care Care Encounter Source Date/Time Date/Time Type Type Clinicians Facility Department ID 2019-07-09 2019-07-10 Anesthesia Abdifatah Jeter [id number] .[id number] 23:56:00 05:36:00 Miguel Odell 350.1. 13.10 [facility] [id number] 2019-03-28 2019-03-28 Patient Angelica Murphy [id number] 00:00:00 00:00:00 Outreach E Bowser [id number] [place] [id number] 2019-03-19 2019-03-19 Patient Akua John [id number] 00:00:00 00:00:00 Outreach Meme E Bowser [id number] [place] [id number] 2019-02-26 2019-02-26 Patient Angelica Murphy [id number] 13:45:49 14:55:49 Outreach E Bowser [id number] [place] [id number] 2019-02-21 2019-02-21 Patient Angelica Murphy [id number] 00:00:00 00:00:00 Outreach E Bowser [id number] [place] [id number] Results Test Description Test Time Test Comments Results Result Comments Source SARS-CoV2/RT-PCR ([facility] & Ref Labs) 2019-12-24 03:22:00 Test Item Value Reference Range Interpretation Comme nts SARS-COV2/RT-PCR (test code = Not Detected Not Detected, Negative 42199-1) SARS-COV-[address] [facility] (test code = 67533-7) PATRIA (test code = PATRIA) Negative results do not preclude SARS-CoV-2 infection and should not be used as [...] of the Act. Fact Sheet for Healthcare Providers:https://www.itravel/Documents/Xpert%20Xpress %20SARS%20CoV-2/Fact%20Sheets /302-3802%43CAOD-DFT-8%20HEAL THCARE%20PROVIDERS%20FACT%20S HEET.pdf Fact Sheet for Healthcare Patients:https://www.Curbside/Documents/Xpert%20Xpress% 20SARS%20CoV-2/Fact%20Sheets/ 302-3801%75UPPX-THJ-0%20PATIE NT%20FACT%20SHEET.pdf Performing Laboratory:[facility] [place] [id number] [place], [place] [address]ARS-COV2/RT-PCR ([facility] & REF LABS)2019-12-24 03:22:00 Test Item Value Reference Range Interpretation Comments SARS-COV2/RT-PCR (test Not Detected Not Detected, Negative code = 3106996) SARS-COV-[address] [facility] (test code = 5109129) Negative results do not preclude SARS-CoV-2 infection and should not be used as the sole basis for patient management decisions. Negative results must be combined with clinical observations, patient history, and epidemiological information. A false negative result may occur if a specimen is improperly collected, transported or handled.The limit of detection for this assay is 250 copies/mL.This SARS CoV-2 test is a rapid, real-time RT-PCR test intended for the qualitative detection of nucleic acid from SARS-CoV-2 in a nasopharyngeal swab specimen collected from individuals suspected of COVID-19 by their healthcare provider.This test has not been Food and Drug [...] is revoked under Section 564(g) of the Act.Fact Sheet for Healthcare Pro viders:https://www.That's Us Technologies/Documents/Xpert%20Xpress%20SARS%20CoV-2/Fact%20Sh eets/3023802%99MYGJ-OMR-3%20HEALTHCARE%20PROVIDERS%20FACT%20SHEET.pdfFact Sheet for Healthcare Patients:https://www.Q1Media/Documents/Xpert%20Xpress%20SARS%20CoV-2/Fact%20Sheets/3023801%20SARS-COV -2%20PATIENT%20FACT%20SHEET.pdfPerforming Laboratory:[facility] [place] [address]
[2020-02-27] MEDS: NA CHLORIDE 0.9% 1,000 ML ONE ×2 (08:25→08:36)
[2020-02-27 09:23] VITALS: BP 138/71; TEMP 97.6; O2SAT 100
== END ==
LOC: OR 07:17
PROVIDERS: ATTEND Surgery
DX: K43.9 Ventral hernia without obstruction or gangrene (principal); Z53.9 Procedure and treatment not carried out, unspecified reason; Z01.812 Encounter for preprocedural laboratory examination; Z11.59 Encounter for screening for other viral diseases; I25.2 Old myocardial infarction; I48.91 Unspecified atrial fibrillation; E11.9 Type 2 diabetes mellitus without complications; I11.0 Hypertensive heart disease with heart failure; I50.9 Heart failure, unspecified; G47.00 Insomnia, unspecified; E78.00 Pure hypercholesterolemia, unspecified; D68.9 Coagulation defect, unspecified; F17.210 Nicotine dependence, cigarettes, uncomplicated; Z79.01 Long term (current) use of anticoagulants
CPT/HCPCS: 85025; 80048; 36415; 82947; U0002; J2250; J7030; J0690; J1100; J2704; J3010

== ENCOUNTER 2020-05-10 10:13 | Observation (INO) | payer OTHER ==
--- OUTSIDE RECORDS SUMMARY | 2020-05-10 13:40 | XMS REPORT | Clinical Summary ---
:1965 Author Organization [facility] Address [address] [place] [address] Care Team Providers Name Role Phone Praful [...] Team Description 12/24/2019 Lab Requisition Lab after 05/10/2019 Social History Tobacco Use Types Packs/Day Years Used Date Never Assessed Sex Assigned at Date Recorded Not on file Last Filed Vital Signs Not on file Plan of Treatment Not on file Procedures Procedure Name Priority Date/Time Associated Diagnosis Comme nts SARS-COV2/RT-PCR Routine 12/23/2019 7:29 PM Resu lts for this ([facility]) CDT procedure are in the results section. after 05/10/2019 Results SARS-CoV2/RT-PCR ([facility]) (12/23/2019 7:29 PM CDT) SARS-COV2/RT-PCR Not Detected Not Detected, [facility] Negative [facility]OV[facility] Specimen Other - Nasopharyngeal wall structure (b anne structure) Narrative Performed At Negative results do not preclude SARS-CoV-2 [facility] infection and should not be used as [...] the Act. Fact Sheet for Healthcare Providers: https://www.Troppin.com/Documents/Xpert%20Xpre ss%20SARS%20CoV-2/Fact%20Sheets/302-1552%20SAR S-COV-2%20HEALTHCARE%20PROVIDERS%20FACT%20SHEE T.pdf Fact Sheet for Healthcare Patients: https://www.Troppin.[employer]/Documents/Xpert%20Xpre ss%20SARS%20CoV-2/Fact%20Sheets/469-3801%20SAR S-COV-2%20PATIENT%20FACT%20SHEET.pdf Performing Laboratory: [address] [address] Performing Organization Address City/State/Zipcode Phone Number [facility] [address] [place] [address] CENTER after 05/10/2019 Advance Directives For more information, please contact: [phone] Code Status Date Activated Date Inactivated Comments Full Code 10/25/2015 5:46 PM 11/04/2015 2:56 PM This code status was determined by: Person holding Power of Director [employer]
--- OUTSIDE RECORDS SUMMARY | 2020-05-10 13:41 | XMS REPORT | Continuity of Care Document ---
:1965 Author Organization [facility] t Address [address] [place] [address] Care Team Providers Name Role Phone Sharpless Primary Care Physician Steffany CARABALLO, Abdifatah Attending Clinician Cass CARABALLO, Miguel Attending Clinician [phone] Jeffrey CHAVIRA, Angelica Thomas Attending Clinician William John Attending Clinician Problems Condition Condition Condition Status Onset Resolution Last Treating Co mments Source Name Details Category Date Date Treatment Clinician Date Cardiogeni Cardiogeni Disease Active [facility] shock [facility] shock [facility] [place] ADHF ADHF Disease Active [facility] (acute (acute [facility] decompensa decompensa 00:00: Me [facility] failure) failure) GERARD (acute GERARD (acute Disease Active [facility] kidney kidney 4-12 [facility] injury) injury) 00:00: [facility] [place] Pulmonary Pulmonary Disease Active [facility] edema edema [facility] Acute Acute Disease Active [facility] combined combined 4-12 [facility] - systolic systolic 00:00: Medica l and and 00 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 Transamini Disease Active [facility] tis tis 12 [facility] [place] Elevated Elevated Disease [facility] trop[facility] [place] Borderline Borderline Disease Active [facility] diabetes diabetes 12 [facility] [place] Leukocytos Leukocytos Disease Active [facility] is is 10-25 [facility] 00:[facility] [place] 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 [...] Date Quantity Comments Source Sex Assigned At [facility] Medications Ordered Filled Start Stop Current [...] Time Performed Performing Clinician Sourc e SARS-COV2/RT-PCR ([facility] 2019-12-23 19:29:00 [facility] Encounters Start End Encounter Admission Attending Care Care Encounter Source Date/Time Date/Time Type Type Clinicians Facility Department ID 2019-07-09 2019-07-10 Anesthesia Abdifatah Jeter [id number] 23:56:00 05:36:00 Miguel Odell 350.1. 13.10 [facility] [id number] 2019-03-28 2019-03-28 Patient Angelica Murphy [id number] 00:00:00 00:00:00 Outreach E Bowser [id number] [place] [id number] 2019-03-19 2019-03-19 Patient Akua John [id number] 00:00:00 00:00:00 Outreach Meme E Bowser [id number] [place] [id number] 2019-02-26 2019-02-26 Patient Angelica Murphy [id number] 13:45:49 14:55:49 Outreach E Bowser [id number] [place] [id number] 2019-02-21 2019-02-21 Patient Angelica Murphy [id number] 00:00:00 00:00:00 Outreach E Bowser [id number] [place] [id number] Results Test Description Test Time Test Comments Results Result Comments Source SARS-CoV2/RT-PCR ([facility]) 2019-12-24 03:22:00 Test Item Value Reference Range Interpretation Comme nts SARS-COV2/RT-PCR (test code = Not Detected Not Detected, Negative 98386-5) SARS-COV-2 PERFORMING LAB [facility] (test code = 64618-4) PATRIA (test code = PATRIA) Negative results [...] of the Act. Fact Sheet for Healthcare Providers:https://www.[employer] Commerce/Documents/Xpert%20Xpress %20SARS%20CoV-2/Fact%20Sheets /302-3802%07SUGO-YOE-6%20HEAL THCARE%20PROVIDERS%20FACT%20S HEET.pdf Fact Sheet for Healthcare Patients:https://www.happyview/Documents/Xpert%20Xpress% 20SARS%20CoV-2/Fact%20Sheets/ 302-3801%94RTZK-DAZ-6%20PATIE NT%20FACT%20SHEET.pdf Performing Laboratory:[facility] [place] [id number] [place], [place] [address]ARS-COV2/RT-PCR ([facility])2019-12-24 03:22:00 Test Item Value Reference Range Interpretation Comments SARS-COV2/RT-PCR (test Not Detected Not Detected, Negative code = 8000026) SARS-COV-2 PERFORMING LAB [facility] (test code = 6549469) Negative results do not preclude SARS-CoV-2 infection [...] of the Act.Fact Sheet for Healthcare Pro viders:https://www.[employer] Services/Documents/Xpert%20Xpress%20SARS%20CoV-2/Fact%20Sh eets/3023802%95RAGX-RKO-0%20HEALTHCARE%20PROVIDERS%20FACT%20SHEET.pdfFact Sheet for Healthcare Patients:https://www.[employer]/Documents/Xpert%20Xpress%20SARS%20CoV-2/Fact%20Sheets/3023801%20SARS-COV -2%20PATIENT%20FACT%20SHEET.pdfPerforming Laboratory:[facility] [place] [address]
[2020-05-10 14:13] VITALS: BMI 34.5
--- NOTE | 2020-05-10 14:40 | P.HP ---
Certification for Inpatient Patient admitted to: Observation With expected LOS: <2 Midnights Patient will require the following post-hospital care: None Practitioner: I am a practitioner with admitting privileges, knowledge of patient current condition, hospital course, and medical plan of care. Services: Services provided to patient in accordance with Admission requirements found in Title 42 Section 412.3 of the Code of Federal Regulations Patient History Date of Service: 05/10/20 Primary Care Provider: Amanda Reason for admission: Chronic blood loss anemia, melanotic History of Present Illness: Patient is an office patient of [employer]. The patient has CHF ef of 20%, diabetes, htn history of drug and alcohol abuse. Ordered routine labs on the patient. Showed a hb of 5.4 and he was sent for admission. He had a hb in the 7 range back in February. Today he reports he had some melanotic stools for 3 days a month ago when he was in [facility]. The patient does have a history of drug and alcohol use. He denies it recently. However his family is in the room when we discussed this. Denies any further melanotic stools in the past month. Allergies morphine Allergy (Severe, Verified 02/24/20 11:25) Itching/Hives/Rash Home Medications: Atorvastatin Calcium [Lipitor] 20 mg PO BEDTIME 05/10/20 Digoxin [Lanoxin] 0.25 mg PO DAILY 05/10/20 Gabapentin [Neurontin] 300 mg PO BEDTIME 05/10/20 Spironolactone [Aldactone] 25 mg PO DAILY 05/10/20 - Past Medical/Surgical History Has patient received pneumonia vaccine in the past: No Diabetic: Yes -: HTN -: DM-2 -: atrial fibrillation -: obstructive sleep apnea -: dyslipidemia -: CHF -: cholecystectomy -: Cyst removal from neck -: cardioversion - Family History Father -: Heart disease, Hypertension, Cancer Mother -: Heart disease, Hypertension, Diabetes Brother -: Cancer - Social History Smoking Status: Current every day smoker Alcohol use: Yes CD- Drugs: No Caffeine use: Yes Place of Residence: Home Review of Systems 10-point ROS is otherwise unremarkable Gastrointestinal: Melena (1 month ago) Physical Examination - Vital Signs Temperature: 97.9 F Blood Pressure: 134/69 Pulse: 145 Respirations: 20 Pulse Ox (%): 99 - Physical Exam General: Alert, In no apparent distress HEENT: Atraumatic, PERRLA, Mucous membr. moist/pink, EOMI, Sclerae nonicteric Neck: Supple, 2+ carotid pulse no bruit, No LAD, Without JVD or thyroid abnormality Respiratory: Clear to auscultation bilaterally, Normal air movement Cardiovascular: Regular rate/rhythm, Normal S1 S2 Gastrointestinal: Normal bowel sounds, No tenderness Musculoskeletal: No tenderness Integumentary: No rashes Neurological: Normal gait, Normal speech, Normal strength at 5/5 x4 extr, Normal tone, Normal affect Lymphatics: No axilla or inguinal lymphadenopathy Assessment and Plan - Problems (Diagnosis) (1) Chronic blood loss anemia Current Visit: Yes Status: Acute Plan: Will order stool and iron studies. Type and screen and transfuse 2 units prbc (2) Melanotic stools Current Visit: Yes Status: Acute Plan: Consult to Dr. Choi (3) Atrial fibrillation, persistent Onset Date: 05/01/16 Current Visit: No Status: Acute Plan: Will continue home medications. (4) Congestive heart failure Onset Date: 07/12/15 Current Visit: No Status: Acute Plan: He has no edema or tachycardia. Willl continue him on his home medications. Will give him 40 units of lasix between units of prbc. (5) Diabetes 1.5, managed as type 2 Current Visit: No Status: Chronic Plan: Place patient on a low dose sliding scale and his home meds. He had a fairly good a1c of 7 this week. Discharge Plan: Home Plan to discharge in: 72 Hours - Advance Directives Does patient have a Living Will: No Does patient have a Durable POA for Healthcare: Yes - Code Status/Comfort Care Code Status Assessed: Yes Code Status: Full Code Physician Review: Patient Assessed, Agree with Above Assessment and Plan Critical Care: No Time Spent Managing Pts Care (In Minutes): 70
[2020-05-10] MEDS ORDERED: D50W 25 GM/50 ML SYRINGE/VIAL IV PRN (14:49)
[2020-05-10] MEDS ORDERED: GLUCAGON 1 MG/VIAL IM PRN (14:49)
[2020-05-10] MEDS ORDERED: INFLUENZA VACCINE (for 3y+) 0.5 ML DOSE IMVAC ONE (15:00)
[2020-05-10 16:13] LABS: RBC Red Blood Cell Count 3.34 M/uL (4.33-5.43)
[2020-05-10] MEDS: INSULIN -REGULAR HUMAN 50 UNIT/0.5 ML ML SQ SCH ×2 (16:30→20:58)
[2020-05-10] MEDS: carvediloL 25 MG TAB PO SCH (17:41)
[2020-05-10] MEDS: ATORVASTATIN 20 MG TAB PO SCH (20:57)
[2020-05-10] MEDS: GABAPENTIN 300 MG CAP PO SCH (20:57)
[2020-05-10] MEDS ORDERED: NA CHLORIDE 0.9% 250 ML ONE (21:13)
[2020-05-11] MEDS ORDERED: FUROSEMIDE 40 MG/4 ML VIAL IV ONE (01:17)
[2020-05-11] MEDS ORDERED: NA CHLORIDE 0.9% 250 ML ONE (01:33)
[2020-05-11] MEDS: carvediloL 25 MG TAB PO SCH ×2 (05:38→17:45)
[2020-05-11 06:17] LABS: Absolute Lymphocytes (CBC) 1.8 K/uL (0.7-4.9); Basophils % 1.2 % (0-1.3); MPV 8.5 fL (7.6-11.3); RBC Red Blood Cell Count 3.74 M/uL (4.33-5.43)
[2020-05-11 06:33] LABS: Bilirubin Total 4.4 mg/dL (0.2-1.0); Potassium 3.8 mmol/L (3.5-5.1)
[2020-05-11 07:00] LABS: Anisocytosis 3+; Blood Morphology Comment NOTED (NOT SEEN); Hypochromasia 1+; Platelet Estimate ADEQ; Polychromasia 1+; White Blood Cell Scan OK (OK)
[2020-05-11] MEDS: INSULIN -REGULAR HUMAN 50 UNIT/0.5 ML ML SQ SCH ×4 (07:30→20:41)
[2020-05-11 07:39] LABS: Hematocrit 24.4 % (39.6-49.0)
--- NOTE | 2020-05-11 08:36 | P.PN ---
Subjective Date of Service: 05/11/20 Primary Care Provider: Amanda Chief Complaint: Chronic blood loss anemia, melanotic Subjective: Improving (post transfusion hb is over 7. No need to transfuse above 7) Review of Systems 10-point ROS is otherwise unremarkable Physical Examination - Vital Signs Temperature: 97.9 F Blood Pressure: 101/70 Pulse: 110 Respirations: 18 Pulse Ox (%): 97 - Physical Exam General: Alert, In no apparent distress HEENT: Atraumatic, PERRLA, EOMI Neck: Supple, JVD not distended Respiratory: Clear to auscultation bilaterally, Normal air movement Cardiovascular: Regular rate/rhythm, Normal S1 S2 Gastrointestinal: Normal bowel sounds, No tenderness Musculoskeletal: No tenderness Integumentary: No rashes Neurological: Normal speech, Normal tone, Normal affect Lymphatics: No axilla or inguinal lymphadenopathy - Studies Laboratory Data (last 24 hrs) 05/11/20 07:32: Hgb 7.5 L*, Hct 24.4 L 05/11/20 05:57: Sodium 138, Potassium 3.8, BUN 23 H, Creatinine 1.37 H, Glucose 117 H, Total Bilirubin 4.4 H, AST 14 L, ALT 21, Alkaline Phosphatase 59 05/11/20 05:57: WBC 7.3, Hgb 7.5 L*, Hct 24.0 L, Plt Count 229 05/10/20 07:20: Hgb Cancelled, Hct Cancelled Assessment & Plan - Problems (Diagnosis) (1) Chronic blood loss anemia Current Visit: Yes Status: Acute Plan: Will order stool and iron studies. Type and screen and transfuse 2 units prbc (2) Melanotic stools Current Visit: Yes Status: Acute Plan: Consult to Dr. Choi (3) Atrial fibrillation, persistent Onset Date: 05/01/16 Current Visit: No Status: Acute Plan: Will continue home carvediol She is a bit better controlled (4) Congestive heart failure Onset Date: 07/12/15 Current Visit: No Status: Chronic Plan: He has no edema or tachycardia. Willl continue him on his home medications. Will give him 40 units of lasix between units of prbc. 05/11 No edema today. Heart rate is still elevated. Continue digoxin. Consider a calcium channel adonay (5) Diabetes 1.5, managed as type 2 Current Visit: No Status: Chronic Plan: Place patient on a low dose sliding scale and his home meds. He had a fairly good a1c of 7 this week. (6) Amphetamine abuse Current Visit: No Status: Acute Plan: will get a uds Discharge Plan: Home Plan to discharge in: 24 Hours - Code Status/Comfort Care Code Status Assessed: No Code Status: Full Code Physician Review: Patient Assessed, Agree with Above Assessment and Plan Critical Care: No Time Spent Managing Pts Care (In Minutes): 20
[2020-05-11] MEDS: SPIRONOLACTONE 25 MG TABLET PO SCH (09:01)
[2020-05-11] MEDS: DIGOXIN 0.25 MG TABLET PO SCH (09:01)
[2020-05-11 10:19] LABS: Barbiturates NEGATIVE (NEGATIVE); Benzodiazepines NEGATIVE (NEGATIVE); Cocaine NEGATIVE (NEGATIVE); METHAMPHETAM NEGATIVE (NEGATIVE); Methadone NEGATIVE (NEGATIVE); Opiates NEGATIVE (NEGATIVE); Phencyclidine NEGATIVE (NEGATIVE); THC Cannibis NEGATIVE (NEGATIVE)
--- NOTE | 2020-05-11 11:59 | RAD REPORT ---
EXAM DESCRIPTION: RAD - Upper GI W/Air Cont W/Sm Bowel - 05/11/2020 11:21 am CLINICAL HISTORY: Anemia COMPARISON: None. FINDINGS: Patient showed good bolus formation and good initiation of swallowing. There was mild pool ing of contrast in the valleculae and piriform sinuses. No aspiration or laryngeal penetration. No in trinsic thoracic esophageal mass. The initial portion of each ingestion of contrast passed across the GE junction. Towards the latter stages of swallowing there is decreased primary peristalsis and pers istence of contrast in the distal thoracic esophagus. Minimal tertiary contractions were observed. Th e sphincter at the GE junction potentially relaxed allowing contrast to transit through a normal diam eter GE junction. No hiatal hernia is present. Distal esophageal wall and GE junction do not appear t hickened or nodular. Gastric size is normal. No mass or polyp in the gastric lumen identifiable. No delay in transit of co ntrast into the duodenum. Pylorus and duodenal bulb have a normal appearance. No small bowel dilatation. No small bowel mucosal thickening or edema. No stricture or mass identifia ble. Transit time to the colon was 20 minutes. Terminal ileum has a normal appearance. Fluoro time was 3.8 minutes. Yours 6 fluoroscopic cine loop acquisitions of the esophagus. There additional 18 fluoroscopic spot i mages obtained. Six KUB images were obtained during the examination as well. IMPRESSION: No stomach or small bowel mass, mucosal thickening or suspicious finding. Patient showed delayed clearing of the contrast from the distal thoracic esophagus. Minimal tertiary contractions are noted. Delayed appears to be due to delayed relaxation of the sphincter at the GE ju nction. No esophageal stricture or mass. There were is pooling of contrast in the valleculae and piriform sin uses but no penetration or aspiration. Transit time to the colon was 20 minutes.
[2020-05-11] MEDS ORDERED: DIPHENHYDRAMINE 25 MG TAB/CAP PO PRN (20:20)
[2020-05-11] MEDS: GABAPENTIN 300 MG CAP PO SCH (20:37)
[2020-05-11] MEDS: ATORVASTATIN 20 MG TAB PO SCH (20:38)
[2020-05-12 02:53] VITALS: O2SAT 98
[2020-05-12 06:06] LABS: Absolute Lymphocytes (CBC) 1.9 K/uL (0.7-4.9); Basophils % 1.3 % (0-1.3); Hematocrit 24.3 % (39.6-49.0); Lymphocytes % 23.7 % (15.3-44.8); MPV 8.5 fL (7.6-11.3); RBC Red Blood Cell Count 3.81 M/uL (4.33-5.43)
[2020-05-12] MEDS: carvediloL 25 MG TAB PO SCH ×2 (06:09→17:44)
[2020-05-12 06:11] LABS: Bilirubin Total 4.3 mg/dL (0.2-1.0); Potassium 4.1 mmol/L (3.5-5.1); Protein, Total 7.1 g/dL (6.4-8.2)
[2020-05-12 07:22] LABS: Anisocytosis 3+; Blood Morphology Comment NOTED (NOT SEEN); Hypochromasia 1+; Platelet Estimate ADEQ; Polychromasia 1+
[2020-05-12] MEDS: INSULIN -REGULAR HUMAN 50 UNIT/0.5 ML ML SQ SCH ×3 (08:43→16:30)
[2020-05-12] MEDS: SPIRONOLACTONE 25 MG TABLET PO SCH (08:44)
[2020-05-12] MEDS: DIGOXIN 0.25 MG TABLET PO SCH (08:44)
[2020-05-12] MEDS ORDERED: NA CHLORIDE 0.9% 250 ML ONE (11:29)
[2020-05-12] MEDS ORDERED: FUROSEMIDE 40 MG/4 ML VIAL IV STA (12:59)
[2020-05-12] MEDS ORDERED: ACETAMINOPHEN 325 MG TABLET PO PRN (14:46)
[2020-05-12] MEDS: GABAPENTIN 300 MG CAP PO SCH (14:59)
[2020-05-12 16:52] LABS: Hematocrit 26.6 % (39.6-49.0)
[2020-05-12 16:54] VITALS: BP 132/64; TEMP 97
--- NOTE | 2020-05-12 19:23 | P.DS ---
Admission Date: 05/10/20 Discharge Date: 05/12/20 Primary Care Provider: Amanda Disposition: ROUTINE DISCHARGE Discharge Condition: GOOD Reason for Admission: Chronic blood loss anemia, melanotic - Problems (1) Chronic blood loss anemia Status: Acute (2) Melanotic stools Status: Acute (3) Atrial fibrillation, persistent Onset Date: 05/01/16 Status: Acute (4) Congestive heart failure Onset Date: 07/12/15 Status: Chronic (5) Diabetes 1.5, managed as type 2 Status: Chronic (6) Amphetamine abuse Status: Acute Brief History of Present Illness: Patient is an office patient of [employer]. The patient has CHF ef of 20%, diabetes, htn history of drug and alcohol abuse. Ordered routine labs on the patient. Showed a hb of 5.4 and he was sent for admission. He had a hb in the 7 range back in February. Today he reports he had some melanotic stools for 3 days a month ago when he was in [facility]. The patient does have a history of drug and alcohol use. He denies it recently. However his family is in the room when we discussed this. Denies any further melanotic stools in the past month. Hospital Course: Patient was admitted after outpatient labs showed a hb below 7 He was admitted and transfused. Seen by Dr. Choi. the patient was seen by Dr Choi. However he was a poor candidate for any surgical procedure. The patient was initially transfused 2 units prbc. His hb went above 7. He stated that He was told by Dr. Cam that he most likely would need a pacemaker. He states he did not hear form them. The patient has a habit of not following up Therefore we consult Dr. Cam. Plan for out patient pacemaker. He was transfused 1 more unit. Pt to follow up with Dr. Cam and myself. Vital Signs/Physical Exam: Temp Pulse Resp BP Pulse Ox 97.0 F 91 H 18 132/64 100 05/12/20 16:00 05/12/20 16:00 05/12/20 16:00 05/12/20 16:00 05/12/20 16:00 General: Alert, In no apparent distress HEENT: Atraumatic, PERRLA, EOMI Neck: Supple, JVD not distended Respiratory: Clear to auscultation bilaterally, Normal air movement Cardiovascular: Regular rate/rhythm, Normal S1 S2 Gastrointestinal: Normal bowel sounds, No tenderness Musculoskeletal: No tenderness Integumentary: No rashes Neurological: Normal speech, Normal tone, Normal affect Lymphatics: No axilla or inguinal lymphadenopathy Laboratory Data at Discharge: WBC 8.1 K/uL (4.3-10.9) 05/12/20 05:35 Hgb 8.3 g/dL (13.6-17.9) L 05/12/20 15:46 Hct 26.6 % (39.6-49.0) L 05/12/20 15:46 Plt Count 230 K/uL (152-406) 05/12/20 05:35 Sodium 138 mmol/L (136-145) 05/12/20 05:35 Potassium 4.1 mmol/L (3.5-5.1) 05/12/20 05:35 BUN 33 mg/dL (7-18) H 05/12/20 05:35 Creatinine 1.50 mg/dL (0.55-1.3) H 05/12/20 05:35 Glucose 103 mg/dL (74-106) 05/12/20 05:35 Total Bilirubin 4.3 mg/dL (0.2-1.0) H 05/12/20 05:35 AST 19 U/L (15-37) 05/12/20 05:35 ALT 22 U/L (12-78) 05/12/20 05:35 Alkaline Phosphatase 70 U/L (45-117) 05/12/20 05:35 Home Medications: Atorvastatin Calcium [Lipitor] 20 mg PO BEDTIME 05/10/20 Digoxin [Lanoxin] 0.25 mg PO DAILY 05/10/20 Gabapentin [Neurontin] 300 mg PO BEDTIME 05/10/20 Spironolactone [Aldactone] 25 mg PO DAILY 05/10/20 Diet: ADA Followup: Garrett Cam MD [ACTIVE - CAN ADMIT] - 1 Week Prashant Patel MD [ACTIVE - CAN ADMIT] - 1 Week Time spent managing pt's care (in minutes): 60
--- NOTE | 2020-05-13 09:22 | CON ---
Date of Consultation: 05/12/2020 Reason For Admission: The patient was admitted on 05/10/[address] Patel service for GI bleed and a nemia. Reason For Consultation: Congestive heart failure. History Of Present Illness: Mr. Brock is a 54-year-old [place] male. He is known to me fr om previous office visits and admission. Came in with anemia, GI bleed, hemoglobin of 7.5, had alrea dy a colonoscopy and endoscopy apparently with no obvious source of bleeding. Echocardiogram that wa s done showed ejection fraction of 20% to 25%. Recent catheterization in December of 2019 showed minimal coronary artery disease. The patient has been noncompliant with his medical regimen and followups. He also has paroxysmal atrial fibrillation, diabetes, and hypertension. He has really no cardiac sy mptoms at this point. Past Medical History: As stated above. Allergies: HE IS ALLERGIC TO MORPHINE. Review of Systems: Negative. Social History: Negative. Family History: Negative. Medications: Include digoxin, Lipitor, Lasix, Aldactone, and Coreg. Physical Examination: Vital Signs: Stable. Afebrile. Sinus rhythm. HEENT: Negative. Neck: Supple. No bruit. Chest: Clear. Cardiac: Irregularly irregular rhythm and rate without any murmurs, gallops, or rubs. Abdomen: Benign. Extremities: No clubbing, cyanosis, or edema. Diagnostic Data: As stated earlier. His creatinine is 1.37. The patient received blood transfusion s already. Hemoglobin is pending. Impression And Plan: Chronic systolic congestive heart failure with an ejection fraction of 20% to 2 5%. The patient is noncompliant with therapy. He really should be on Entresto in addition to his pr esent regimen, but I am not so sure the hospital is a good place to start that. He is asymptomatic f rom a cardiovascular standpoint and I would continue his present regimen. He really should be on Xar elto or Eliquis in addition to his present regimen because of atrial fibrillation. The case was disc ussed in detail with Mr. Brock. He has minimal coronary artery disease, but I think we should put him on Entresto, Xarelto in addition to his present regimen, see him in the office in the near [facility] and do serial echoes over the next 3 months and if his ejection fraction stays low, we should stron gly consider a biventricular pacemaker with defibrillator. The case was discussed with Dr. Patel. T he patient can go home whenever it is okay with him. Regarding the anticoagulants, I will certainly wait on that for at least 2 weeks before we started considering his anemia and GI bleed. JEY/FARIDA Voice ID: [id number] Report ID: [id number]
== END 2020-05-12 17:47 | disposition home or self-care (01) ==
LOC: 2ND 13:37
PROVIDERS: ADMIT Internal Medicine; ATTEND Internal Medicine
DX: D50.0 Iron deficiency anemia secondary to blood loss (chronic) (principal); K92.1 Melena; I48.19 Other persistent atrial fibrillation; I11.0 Hypertensive heart disease with heart failure; I50.22 Chronic systolic (congestive) heart failure; E11.9 Type 2 diabetes mellitus without complications; F15.10 Other stimulant abuse, uncomplicated; F10.10 Alcohol abuse, uncomplicated; Z20.828 Contact with and (suspected) exposure to other viral communicable diseases; Z91.19 Patient's noncompliance with other medical treatment and regimen; G47.33 Obstructive sleep apnea (adult) (pediatric); E78.5 Hyperlipidemia, unspecified; F17.200 Nicotine dependence, unspecified, uncomplicated
CPT/HCPCS: 36430; 85025 ×2; 36415; 86900; 86850; 85044; 86901; 82947 ×9; 80307 ×8; 85018 ×2; 85014 ×2; 83540; 80053 ×2; 84466; U0002; J1940 ×2; G0378 ×4; P9016 ×3; J7050 ×3

== ENCOUNTER 2021-01-23 09:07 | Inpatient (IN) | payer OTHER ==
--- OUTSIDE RECORDS SUMMARY | 2021-01-23 09:13 | XMS REPORT | Continuity of Care Document ---
:[address] [facility] t Address [address] [place] [address] Care Team Providers Name Role Phone Sharpless Primary Care Physician ROSA HEARD Attending Clinician Unavailable Doctor Unassigned, Name Attending Clinician Unavailable Celeste Roldan DO Attending Clinician Douglas Attending Clinician Too Byers MD Attending Clinician Luiz Hanna MD Attending Clinician Steffany CARABALLO Attending Clinician Cass CARABALLO Attending Clinician Jeffrey CHAVIRA E Attending Clinician William John Attending Clinician Too Byers MD Admitting Clinician Payers Payer Name Policy Type Policy Number Effective Date Expiration Date Chepe JOY Max DIAZ [id number] 2020 00:00:00 Problems Condition Condition Condition Status Onset Resolution Last Treating Co mments Source Name Details Category Date Date Treatment Clinician Date Pulmonary Pulmonary Disease Active [facility] Acute Acute Disease Active [facility] 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 00:00: Medica l and and 00 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 Transamini Disease Active [facility] tis tis 10-25 [facility] - [facility]: Medical [place] Elevated Elevated Disease [facility] trop[facility] [place] Borderline Borderline Disease Active [facility] diabetes diabetes 12 [facility] - [facility] [place] Leukocytos Leukocytos Disease Active [facility] is is 10-25 [facility] - [facility]: [facility] [place] 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 12 Brianna kes - chreri cherri 00:00: Medical malnutriti malnutriti 00 Ce nter on on Cardiogeni Cardiogeni Disease Active [facility] c shock c shock 12 [facility] - 00:[facility]: [facility] 00 [place] ADHF ADHF Disease Active [facility] (acute (acute [facility] - decompensa decompensa 00:00: Me dical mark heart mark heart 00 Cent er failure) failure) GERARD (acute GERARD (acute Disease Active [facility] kidney kidney [facility] - injury) injury) 00:00: Medical 00 [place] Acute Acute Disease Active [facility] respirator respirator 4-11 Brianna kes - y failure y failure 00:00: Medi sruthi 00 Center Atrial Atrial Disease Active [facility] fibrillati fibrillati 4-11 Brianna kes - on on 00:00: Medical 00 Center Allergies, Adverse Reactions, Alerts Allergy Allergy Status Severity Reaction(s) Onset Inactive Treating Comm ents Source Name Type Date Date Clinician No Known DA Active U 2019-07 [facility] Allergie 2-19 Clear s 00:00: Schneider 00 [facility] Penicill Propensi Active Anaphylaxis 2016-[address] ins ty to 4-11 [facility] - adverse 00:00: Medical reaction 00 Center s Social History Social Habit Start Date Stop Date Quantity Comments Source Sex Assigned At [facility] Medications Ordered Filled Start Stop Current [...] Date/Time Type Type Clinicians Facility Department ID 2020-11-17 2020-11-17 Emergency [facility] [id number] [address] [place] [address] 00:42:00 02:30:00 [facility] 2020-09-02 2020-09-02 Orders Doctor AKILAH 1.2.840.114 [id number] 00:00:00 00:00:00 Only UnassignedJAMILAH [id number] [place] [facility] 4.2.7.2.686 [id number] 2020-08-21 2020-08-21 Emergency TAINA Roldan 1.2.840.114 [id number] 01:19:00 06:54:00 Cara Lu [id number] [place] 4.2.7.2.686 [place] [id number] 2020-08-12 2020-08-12 Transition Akua Cole 1.2.840.114 [id number] 00:00:00 00:00:00 of Care Margo Bowser [id number] Raghav[place] [id number] [id number] 2020-08-07 2020-08-11 [facility] Cara Roldan 1.2.84 0.114 [id number] 04:02:00 18:40:00 Encounter Dorothy Byers Jamilah [id number]686 [id number] 2019-07-09 2019-07-10 Anesthesia Abdifatah Jeter 1.2 .840.114 [id number] 23:56:00 05:36:00 CassMiguel [place] 350.1. 13.10 [place] [id number] 2019-03-28 2019-03-28 Patient Angelica Murphy 1.2.840.114 [id number] 00:00:00 00:00:00 Outreach E Bowser [id number] [place] 4.2.7.2.686 [id number] 2019-03-19 2019-03-19 Patient Akua John 1.2.840.114 [id number] 00:00:00 00:00:00 Outreach Meme E Bowser [id number] [place] 4.2.7.2.686 [id number] 2019-02-26 2019-02-26 Patient Angelica Murphy 1.2.840.114 [id number] 13:45:49 14:55:49 Outreach E Bowser [id number] [place] 4.2.7.2.686 [id number] 2019-02-21 2019-02-21 Patient Angelica Murphy 1.2.840.114 [id number] 00:00:00 00:00:00 Outreach E Bowser [id number] [place] 4.2.7.2.686 [id number] Results Test Description Test Time Test Comments Results Result Comments Source GLUCOSE BEDSIDE TESTING 2020-07-13 16:24:00 Test Item Value Reference Range Interpretation Comme nts GLUCOSE BEDSIDE TESTING (test code = GLUBED) 119 mg/dL 70-110 H GLUCOSE BEDSIDE [id number] 10:57:00 Test Item Value Reference Range Interpretation Comments GLUCOSE BEDSIDE TESTING (test code 120 mg/dL 70-110 H = GLUBED) GLUCOSE BEDSIDE [id number] 08:04:00 Test Item Value Reference Range Interpretation Comments GLUCOSE BEDSIDE TESTING (test code = 90 mg/dL 70-110 N GLUBED) GLUCOSE BEDSIDE [id number] 20:28:00 Test Item Value Reference Range Interpretation Comments GLUCOSE BEDSIDE TESTING (test code 108 mg/dL 70-110 N = GLUBED) GLUCOSE BEDSIDE [id number] 16:23:00 Test Item Value Reference Range Interpretation Comments GLUCOSE BEDSIDE TESTING (test code 182 mg/dL 70-110 H = GLUBED) GLUCOSE BEDSIDE [id number] 11:30:00 Test Item Value Reference Range Interpretation Comments GLUCOSE BEDSIDE TESTING (test code 183 mg/dL 70-110 H = GLUBED) GLUCOSE BEDSIDE [id number] 08:16:00 Test Item Value Reference Range Interpretation Comments GLUCOSE BEDSIDE TESTING (test code = 78 mg/dL 70-110 N GLUBED) GLUCOSE BEDSIDE [id number] 20:45:00 Test Item Value Reference Range Interpretation Comments GLUCOSE BEDSIDE TESTING (test code 125 mg/dL 70-110 H = GLUBED) GLUCOSE BEDSIDE [id number] 16:34:00 Test Item Value Reference Range Interpretation Comments GLUCOSE BEDSIDE TESTING (test code 119 mg/dL 70-110 H = GLUBED) GLUCOSE BEDSIDE [id number] 12:30:00 Test Item Value Reference Range Interpretation Comments GLUCOSE BEDSIDE TESTING (test code 132 mg/dL 70-110 H = GLUBED) CBC W/AUTO [id number] 10:58:00 Test Item Value Reference Range Interpretation Comments WHITE BLOOD CELL (test code = 8.6 K/mm3 3.5-11.0 N WBC) RED BLOOD CELL (test code = 5.31 M/mm3 4.70-6.10 N RBC) HEMOGLOBIN (test code = HGB) 9.4 G/DL 12.3-15.9 L HEMATOCRIT (test code = HCT) 35.8 % 35.8-46.7 N MEAN CELL VOLUME (test code = 67.4 Fl 86.3-98.9 L MCV) MEAN CELL HGB (test code = MCH) 17.7 pg 28.9-34.4 L MEAN CELL HGB CONCETRATION 26.3 G/DL 32.1-34.5 L (test code = MCHC) RED CELL DISTRIBUTION WIDTH 23.5 SD 11.5-14.5 H (test code = RDW) PLATELET COUNT (test code = 456 K/mm3 150-450 H PLT) MEAN PLATELET VOLUME (test code 8.60 fL 7.0-9.6 N = MPV) NEUTROPHIL % (test code = NT%) 66.9 % 40-76 N IMMATURE GRANULOCYTE % (test 0.3 % 0.0-5.0 N code = IG%) LYMPHOCYTE % (test code = LY%) 19.9 % 20.5-51.1 L MONOCYTE % (test code = MO%) 9.9 % 1.7-9.3 H EOSINOPHIL % (test code = EO%) 1.5 % 0.0-6.0 N BASOPHIL % (test code = BA%) 1.5 % 0.0-2.0 N NUCLEATED RBC % (test code = 0.0 /100WBC% 0.0-1.0 N NRBC%) NEUTROPHIL # (test code = NT#) 5.7 K/mm3 1.8-7.6 N IMMATURE GRANULOCYTE # (test 0.03 x10 3/uL 0.00-0.03 N code = IG#) LYMPHOCYTE # (test code = LY#) 1.7 K/mm3 0.6-3.0 N MONOCYTE # (test code = MO#) 0.9 K/mm3 0.2-1.5 N EOSINOPHIL # (test code = EO#) 0.1 K/mm3 0.0-0.4 N BASOPHIL # (test code = BA#) 0.1 K/mm3 0.0-0.2 N NUCLEATED RBC # (test code = 0.0 K/mm3 0.00-0.01 N NRBC#) CBC W/AUTO [id number] 10:58:00 Test Item Value Reference Range Interpretation Comments WHITE BLOOD CELL (test code = 8.6 K/mm3 3.5-11.0 N WBC) RED BLOOD CELL (test code = 5.31 M/mm3 4.70-6.10 N RBC) HEMOGLOBIN (test code = HGB) 9.4 G/DL 12.3-15.9 L HEMATOCRIT (test code = HCT) 35.8 % 35.8-46.7 N MEAN CELL VOLUME (test code = 67.4 Fl 86.3-98.9 L MCV) MEAN CELL HGB (test code = MCH) 17.7 pg 28.9-34.4 L MEAN CELL HGB CONCETRATION 26.3 G/DL 32.1-34.5 L (test code = MCHC) RED CELL DISTRIBUTION WIDTH 23.5 SD 11.5-14.5 H (test code = RDW) PLATELET COUNT (test code = 456 K/mm3 150-450 H PLT) MEAN PLATELET VOLUME (test code 8.60 fL 7.0-9.6 N = MPV) NEUTROPHIL % (test code = NT%) 66.9 % 40-76 N IMMATURE GRANULOCYTE % (test 0.3 % 0.0-5.0 N code = IG%) LYMPHOCYTE % (test code = LY%) 19.9 % 20.5-51.1 L MONOCYTE % (test code = MO%) 9.9 % 1.7-9.3 H EOSINOPHIL % (test code = EO%) 1.5 % 0.0-6.0 N BASOPHIL % (test code = BA%) 1.5 % 0.0-2.0 N NUCLEATED RBC % (test code = 0.0 /100WBC% 0.0-1.0 N NRBC%) NEUTROPHIL # (test code = NT#) 5.7 K/mm3 1.8-7.6 N IMMATURE GRANULOCYTE # (test 0.03 x10 3/uL 0.00-0.03 N code = IG#) LYMPHOCYTE # (test code = LY#) 1.7 K/mm3 0.6-3.0 N MONOCYTE # (test code = MO#) 0.9 K/mm3 0.2-1.5 N EOSINOPHIL # (test code = EO#) 0.1 K/mm3 0.0-0.4 N BASOPHIL # (test code = BA#) 0.1 K/mm3 0.0-0.2 N NUCLEATED RBC # (test code = 0.0 K/mm3 0.00-0.01 N NRBC#) RBC [id number] 10:58:00 Test Item Value Reference Range Interpretation Comments POLYCHROMASIA (test code = TRACE ON SCAN NONE POLC) HYPOCHROMIA (test code = HYPO) 1+ ON SCAN NONE POIKILOCYTOSIS (test code = 1+ ON SCAN NONE POIK) ANISOCYTOSIS (test code = 2+ NONE A ANISO) MICROCYTOSIS (test code = MICR) 2+ ON SCAN NONE A TEAR DROP CELLS (test code = 1+ ON SCAN NONE TEAR) OVALOCYTES (test code = OVAL) 1+ ON SCAN NONE CBC W/AUTO [id number] 10:58:00 Test Item Value Reference Range Interpretation Comments WHITE BLOOD CELL (test code = 8.6 K/mm3 3.5-11.0 N WBC) RED BLOOD CELL (test code = 5.31 M/mm3 4.70-6.10 N RBC) HEMOGLOBIN (test code = HGB) 9.4 G/DL 12.3-15.9 L HEMATOCRIT (test code = HCT) 35.8 % 35.8-46.7 N MEAN CELL VOLUME (test code = 67.4 Fl 86.3-98.9 L MCV) MEAN CELL HGB (test code = MCH) 17.7 pg 28.9-34.4 L MEAN CELL HGB CONCETRATION 26.3 G/DL 32.1-34.5 L (test code = MCHC) RED CELL DISTRIBUTION WIDTH 23.5 SD 11.5-14.5 H (test code = RDW) PLATELET COUNT (test code = 456 K/mm3 150-450 H PLT) MEAN PLATELET VOLUME (test code 8.60 fL 7.0-9.6 N = MPV) NEUTROPHIL % (test code = NT%) 66.9 % 40-76 N IMMATURE GRANULOCYTE % (test 0.3 % 0.0-5.0 N code = IG%) LYMPHOCYTE % (test code = LY%) 19.9 % 20.5-51.1 L MONOCYTE % (test code = MO%) 9.9 % 1.7-9.3 H EOSINOPHIL % (test code = EO%) 1.5 % 0.0-6.0 N BASOPHIL % (test code = BA%) 1.5 % 0.0-2.0 N NUCLEATED RBC % (test code = 0.0 /100WBC% 0.0-1.0 N NRBC%) NEUTROPHIL # (test code = NT#) 5.7 K/mm3 1.8-7.6 N IMMATURE GRANULOCYTE # (test 0.03 x10 3/uL 0.00-0.03 N code = IG#) LYMPHOCYTE # (test code = LY#) 1.7 K/mm3 0.6-3.0 N MONOCYTE # (test code = MO#) 0.9 K/mm3 0.2-1.5 N EOSINOPHIL # (test code = EO#) 0.1 K/mm3 0.0-0.4 N BASOPHIL # (test code = BA#) 0.1 K/mm3 0.0-0.2 N NUCLEATED RBC # (test code = 0.0 K/mm3 0.00-0.01 N NRBC#) GLUCOSE BEDSIDE [id number] 08:51:00 Test Item Value Reference Range Interpretation Comments GLUCOSE BEDSIDE TESTING (test code = 99 mg/dL 70-110 N GLUBED) CBC W/AUTO [id number] 07:56:00 Test Item Value Reference Range Interpretation Comments WHITE BLOOD CELL (test code = WBC) 8.6 K/mm3 3.5-11.0 N RED BLOOD CELL (test code = RBC) 5.31 M/mm3 4.70-6.10 N HEMOGLOBIN (test code = HGB) 9.4 G/DL 12.3-15.9 L HEMATOCRIT (test code = HCT) 35.8 % 35.8-46.7 N MEAN CELL VOLUME (test code = MCV) 67.4 Fl 86.3-98.9 L MEAN CELL HGB (test code = MCH) 17.7 pg 28.9-34.4 L MEAN CELL HGB CONCETRATION (test 26.3 G/DL 32.1-34.5 L code = MCHC) RED CELL DISTRIBUTION WIDTH (test SD 11.5-14.5 H code = RDW) PLATELET COUNT (test code = PLT) 456 K/mm3 150-450 H MEAN PLATELET VOLUME (test code = fL 7.0-9.6 N MPV) NEUTROPHIL % (test code = NT%) % 40-76 N IMMATURE GRANULOCYTE % (test code % 0.0-5.0 N = IG%) LYMPHOCYTE % (test code = LY%) % 20.5-51.1 L MONOCYTE % (test code = MO%) % 1.7-9.3 H EOSINOPHIL % (test code = EO%) % 0.0-6.0 N BASOPHIL % (test code = BA%) % 0.0-2.0 N NUCLEATED RBC % (test code = /100WBC% 0.0-1.0 N NRBC%) NEUTROPHIL # (test code = NT#) K/mm3 1.8-7.6 N IMMATURE GRANULOCYTE # (test code x10 3/uL 0.00-0.03 N = IG#) LYMPHOCYTE # (test code = LY#) K/mm3 0.6-3.0 N MONOCYTE # (test code = MO#) K/mm3 0.2-1.5 N EOSINOPHIL # (test code = EO#) K/mm3 0.0-0.4 N BASOPHIL # (test code = BA#) K/mm3 0.0-0.2 N NUCLEATED RBC # (test code = K/mm3 0.00-0.01 N NRBC#) MANUAL DIFF REQUIRED (test code = DIFF/SCN CRITERIA MDIFF) BASIC METABOLIC [id number] 07:13:00 Test Item Value Reference Range Interpretation Comments SODIUM (test code = NA) 135 mmol/L 134-147 N POTASSIUM (test code = 3.9 mmol/L 3.4-5.0 N K) CHLORIDE (test code = 103 mmol/L 100-108 N CL) CARBON DIOXIDE (test 28 mmol/L 21-32 N code = CO2) ANION GAP (test code = 4.0 GAP calc 4.0-15.0 N GAP) GLUCOSE (test code = 99 MG/DL 70-110 N GLU) BLOOD UREA NITROGEN 28 MG/DL 7-18 H (test code = BUN) GLOMERULAR FILTRATION >=60 max estimate >60 RATE (test code = GFR) estGFR CREATININE (test code = 1.1 MG/DL 0.8-1.3 N CREAT) CALCIUM (test code = CA) 8.8 MG/DL 8.5-10.1 N COMPREHENSIVE METABOLIC [id number] 07:13:00 Test Item Value Reference Range Interpretation Comments TOTAL PROTEIN (test code = PROT) 7.4 G/DL 6.4-8.2 N ALBUMIN (test code = ALB) 2.7 G/DL 3.4-5.0 L GLOBULIN (test code = GLOB) 4.7 GM/dL ALBUMIN/GLOBULIN RATIO (test code 0.6 RATIO 1.2-2.2 L = A/G) BILIRUBIN TOTAL (test code = BILT) 1.60 MG/DL 0.2-1.2 H SGOT/AST (test code = AST) 31 Unit/L 15-37 N SGPT/ALT (test code = ALT) 46 Unit/L 12-78 N ALKALINE PHOSPHATASE TOTAL (test 96 Unit/L 50-136 N code = ALKP) [id number] 07:13:00 Test Item Value Reference Range Interpretation Comments PHOSPHOROUS (test code = PHOS) 3.7 MG/DL 2.5-4.9 N [id number] 07:13:00 Test Item Value Reference Range Interpretation Comments MAGNESIUM (test code = MAG) 2.3 MG/DL 1.8-2.4 N GLUCOSE BEDSIDE [id number] 20:57:00 Test Item Value Reference Range Interpretation Comments GLUCOSE BEDSIDE TESTING (test code 101 mg/dL 70-110 N = GLUBED) GLUCOSE BEDSIDE [id number] 17:08:00 Test Item Value Reference Range Interpretation Comments GLUCOSE BEDSIDE TESTING (test code = 88 mg/dL 70-110 N GLUBED) GLUCOSE BEDSIDE [id number] 12:25:00 Test Item Value Reference Range Interpretation Comments GLUCOSE BEDSIDE TESTING (test code 152 mg/dL 70-110 H = GLUBED) GLUCOSE BEDSIDE [id number] 08:28:00 Test Item Value Reference Range Interpretation Comments GLUCOSE BEDSIDE TESTING (test code = 93 mg/dL 70-110 N GLUBED) CBC W/AUTO [id number] 07:24:00 Test Item Value Reference Range Interpretation Comments WHITE BLOOD CELL (test code = 8.7 K/mm3 3.5-11.0 N WBC) RED BLOOD CELL (test code = 5.80 M/mm3 4.70-6.10 N RBC) HEMOGLOBIN (test code = HGB) 10.2 G/DL 12.3-15.9 L HEMATOCRIT (test code = HCT) 39.2 % 35.8-46.7 N MEAN CELL VOLUME (test code = 67.6 Fl 86.3-98.9 L MCV) MEAN CELL HGB (test code = MCH) 17.6 pg 28.9-34.4 L MEAN CELL HGB CONCETRATION 26.0 G/DL 32.1-34.5 L (test code = MCHC) RED CELL DISTRIBUTION WIDTH 24.0 SD 11.5-14.5 H (test code = RDW) PLATELET COUNT (test code = 444 K/mm3 150-450 N PLT) MEAN PLATELET VOLUME (test code 8.60 fL 7.0-9.6 N = MPV) NEUTROPHIL % (test code = NT%) 69.4 % 40-76 N IMMATURE GRANULOCYTE % (test 0.6 % 0.0-5.0 N code = IG%) LYMPHOCYTE % (test code = LY%) 18.7 % 20.5-51.1 L MONOCYTE % (test code = MO%) 8.4 % 1.7-9.3 N EOSINOPHIL % (test code = EO%) 1.7 % 0.0-6.0 N BASOPHIL % (test code = BA%) 1.2 % 0.0-2.0 N NUCLEATED RBC % (test code = 0.0 /100WBC% 0.0-1.0 N NRBC%) NEUTROPHIL # (test code = NT#) 6.0 K/mm3 1.8-7.6 N IMMATURE GRANULOCYTE # (test 0.05 x10 3/uL 0.00-0.03 H code = IG#) LYMPHOCYTE # (test code = LY#) 1.6 K/mm3 0.6-3.0 N MONOCYTE # (test code = MO#) 0.7 K/mm3 0.2-1.5 N EOSINOPHIL # (test code = EO#) 0.2 K/mm3 0.0-0.4 N BASOPHIL # (test code = BA#) 0.1 K/mm3 0.0-0.2 N NUCLEATED RBC # (test code = 0.0 K/mm3 0.00-0.01 N NRBC#) MANUAL DIFF REQUIRED (test code NO DIFF/SCN CRITERIA = MDIFF) RBC [id number] 07:24:00 Test Item Value Reference Range Interpretation Comments HYPOCHROMIA (test code = HYPO) TRACE ON SCAN NONE ANISOCYTOSIS (test code = TRACE NONE ANISO) TARGET CELLS (test code = TGT) TRACE ON SCAN NONE CBC W/AUTO [id number] 07:23:00 Test Item Value Reference Range Interpretation Comments WHITE BLOOD CELL (test code = 8.7 K/mm3 3.5-11.0 N WBC) RED BLOOD CELL (test code = 5.80 M/mm3 4.70-6.10 N RBC) HEMOGLOBIN (test code = HGB) 10.2 G/DL 12.3-15.9 L HEMATOCRIT (test code = HCT) 39.2 % 35.8-46.7 N MEAN CELL VOLUME (test code = 67.6 Fl 86.3-98.9 L MCV) MEAN CELL HGB (test code = MCH) 17.6 pg 28.9-34.4 L MEAN CELL HGB CONCETRATION 26.0 G/DL 32.1-34.5 L (test code = MCHC) RED CELL DISTRIBUTION WIDTH 24.0 SD 11.5-14.5 H (test code = RDW) PLATELET COUNT (test code = 444 K/mm3 150-450 N PLT) MEAN PLATELET VOLUME (test code 8.60 fL 7.0-9.6 N = MPV) NEUTROPHIL % (test code = NT%) 69.4 % 40-76 N IMMATURE GRANULOCYTE % (test 0.6 % 0.0-5.0 N code = IG%) LYMPHOCYTE % (test code = LY%) 18.7 % 20.5-51.1 L MONOCYTE % (test code = MO%) 8.4 % 1.7-9.3 N EOSINOPHIL % (test code = EO%) 1.7 % 0.0-6.0 N BASOPHIL % (test code = BA%) 1.2 % 0.0-2.0 N NUCLEATED RBC % (test code = 0.0 /100WBC% 0.0-1.0 N NRBC%) NEUTROPHIL # (test code = NT#) 6.0 K/mm3 1.8-7.6 N IMMATURE GRANULOCYTE # (test 0.05 x10 3/uL 0.00-0.03 H code = IG#) LYMPHOCYTE # (test code = LY#) 1.6 K/mm3 0.6-3.0 N MONOCYTE # (test code = MO#) 0.7 K/mm3 0.2-1.5 N EOSINOPHIL # (test code = EO#) 0.2 K/mm3 0.0-0.4 N BASOPHIL # (test code = BA#) 0.1 K/mm3 0.0-0.2 N NUCLEATED RBC # (test code = 0.0 K/mm3 0.00-0.01 N NRBC#) MANUAL DIFF REQUIRED (test code NO DIFF/SCN CRITERIA = MDIFF) CBC W/AUTO [id number] 07:23:00 Test Item Value Reference Range Interpretation Comments WHITE BLOOD CELL (test code = 8.7 K/mm3 3.5-11.0 N WBC) RED BLOOD CELL (test code = 5.80 M/mm3 4.70-6.10 N RBC) HEMOGLOBIN (test code = HGB) 10.2 G/DL 12.3-15.9 L HEMATOCRIT (test code = HCT) 39.2 % 35.8-46.7 N MEAN CELL VOLUME (test code = 67.6 Fl 86.3-98.9 L MCV) MEAN CELL HGB (test code = MCH) 17.6 pg 28.9-34.4 L MEAN CELL HGB CONCETRATION 26.0 G/DL 32.1-34.5 L (test code = MCHC) RED CELL DISTRIBUTION WIDTH 24.0 SD 11.5-14.5 H (test code = RDW) PLATELET COUNT (test code = 444 K/mm3 150-450 N PLT) MEAN PLATELET VOLUME (test code 8.60 fL 7.0-9.6 N = MPV) NEUTROPHIL % (test code = NT%) 69.4 % 40-76 N IMMATURE GRANULOCYTE % (test 0.6 % 0.0-5.0 N code = IG%) LYMPHOCYTE % (test code = LY%) 18.7 % 20.5-51.1 L MONOCYTE % (test code = MO%) 8.4 % 1.7-9.3 N EOSINOPHIL % (test code = EO%) 1.7 % 0.0-6.0 N BASOPHIL % (test code = BA%) 1.2 % 0.0-2.0 N NUCLEATED RBC % (test code = 0.0 /100WBC% 0.0-1.0 N NRBC%) NEUTROPHIL # (test code = NT#) 6.0 K/mm3 1.8-7.6 N IMMATURE GRANULOCYTE # (test 0.05 x10 3/uL 0.00-0.03 H code = IG#) LYMPHOCYTE # (test code = LY#) 1.6 K/mm3 0.6-3.0 N MONOCYTE # (test code = MO#) 0.7 K/mm3 0.2-1.5 N EOSINOPHIL # (test code = EO#) 0.2 K/mm3 0.0-0.4 N BASOPHIL # (test code = BA#) 0.1 K/mm3 0.0-0.2 N NUCLEATED RBC # (test code = 0.0 K/mm3 0.00-0.01 N NRBC#) MANUAL DIFF REQUIRED (test code NO DIFF/SCN CRITERIA = MDIFF) COMPREHENSIVE METABOLIC [id number] 06:40:00 Test Item Value Reference Range Interpretation Comments SODIUM (test code = NA) 134 mmol/L 134-147 N POTASSIUM (test code = 3.9 mmol/L 3.4-5.0 N K) CHLORIDE (test code = 101 mmol/L 100-108 N CL) CARBON DIOXIDE (test 33 mmol/L 21-32 H code = CO2) ANION GAP (test code = 0.0 GAP calc 4.0-15.0 L GAP) GLUCOSE (test code = 94 MG/DL 70-110 N GLU) BLOOD UREA NITROGEN 36 MG/DL 7-18 H (test code = BUN) GLOMERULAR FILTRATION >=60 max estimate >60 RATE (test code = GFR) estGFR CREATININE (test code = 1.2 MG/DL 0.8-1.3 N CREAT) TOTAL PROTEIN (test code 8.0 G/DL 6.4-8.2 N = PROT) ALBUMIN (test code = 3.1 G/DL 3.4-5.0 L ALB) GLOBULIN (test code = 4.9 GM/dL GLOB) ALBUMIN/GLOBULIN RATIO 0.6 RATIO 1.2-2.2 L (test code = A/G) CALCIUM (test code = CA) 8.7 MG/DL 8.5-10.1 N BILIRUBIN TOTAL (test 1.80 MG/DL 0.2-1.2 H code = BILT) SGOT/AST (test code = 32 Unit/L 15-37 N AST) SGPT/ALT (test code = 52 Unit/L 12-78 N ALT) ALKALINE PHOSPHATASE 103 Unit/L 50-136 N TOTAL (test code = ALKP) [id number] 06:40:00 Test Item Value Reference Range Interpretation Comments PHOSPHOROUS (test code = PHOS) 3.6 MG/DL 2.5-4.9 N [id number] 06:40:00 Test Item Value Reference Range Interpretation Comments MAGNESIUM (test code = MAG) 2.4 MG/DL 1.8-2.4 N CBC W/AUTO [id number] 06:30:00 Test Item Value Reference Range Interpretation Comments WHITE BLOOD CELL (test code = WBC) 8.7 K/mm3 3.5-11.0 N RED BLOOD CELL (test code = RBC) 5.80 M/mm3 4.70-6.10 N HEMOGLOBIN (test code = HGB) 10.2 G/DL 12.3-15.9 L HEMATOCRIT (test code = HCT) 39.2 % 35.8-46.7 N MEAN CELL VOLUME (test code = MCV) 67.6 Fl 86.3-98.9 L MEAN CELL HGB (test code = MCH) 17.6 pg 28.9-34.4 L MEAN CELL HGB CONCETRATION (test 26.0 G/DL 32.1-34.5 L code = MCHC) RED CELL DISTRIBUTION WIDTH (test SD 11.5-14.5 H code = RDW) PLATELET COUNT (test code = PLT) 444 K/mm3 150-450 N MEAN PLATELET VOLUME (test code = fL 7.0-9.6 N MPV) NEUTROPHIL % (test code = NT%) % 40-76 N IMMATURE GRANULOCYTE % (test code % 0.0-5.0 N = IG%) LYMPHOCYTE % (test code = LY%) % 20.5-51.1 L MONOCYTE % (test code = MO%) % 1.7-9.3 N EOSINOPHIL % (test code = EO%) % 0.0-6.0 N BASOPHIL % (test code = BA%) % 0.0-2.0 N NUCLEATED RBC % (test code = /100WBC% 0.0-1.0 N NRBC%) NEUTROPHIL # (test code = NT#) K/mm3 1.8-7.6 N IMMATURE GRANULOCYTE # (test code x10 3/uL 0.00-0.03 H = IG#) LYMPHOCYTE # (test code = LY#) K/mm3 0.6-3.0 N MONOCYTE # (test code = MO#) K/mm3 0.2-1.5 N EOSINOPHIL # (test code = EO#) K/mm3 0.0-0.4 N BASOPHIL # (test code = BA#) K/mm3 0.0-0.2 N NUCLEATED RBC # (test code = K/mm3 0.00-0.01 N NRBC#) MANUAL DIFF REQUIRED (test code = DIFF/SCN CRITERIA MDIFF) GLUCOSE BEDSIDE [id number] 20:30:00 Test Item Value Reference Range Interpretation Comments GLUCOSE BEDSIDE TESTING (test code 136 mg/dL 70-110 H = GLUBED) GLUCOSE BEDSIDE [id number] 16:47:00 Test Item Value Reference Range Interpretation Comments GLUCOSE BEDSIDE TESTING (test code 118 mg/dL 70-110 H = GLUBED) HEPATITIS C VIRUS [id number] 13:08:00 Test Item Value Reference Range Interpretation Comments HEPATITIS C RNA PCR HCV Not Detected IU/mL () LETICIA (test code = HCVRNAPCRQ) GLUCOSE BEDSIDE [id number] 11:47:00 Test Item Value Reference Range Interpretation Comments GLUCOSE BEDSIDE TESTING (test code 128 mg/dL 70-110 H = GLUBED) GLUCOSE BEDSIDE [id number] 08:06:00 Test Item Value Reference Range Interpretation Comments GLUCOSE BEDSIDE TESTING (test code 116 mg/dL 70-110 H = GLUBED) CBC W/AUTO [id number] 08:03:00 Test Item Value Reference Range Interpretation Comments WHITE BLOOD CELL (test code = 10.4 K/mm3 3.5-11.0 N WBC) RED BLOOD CELL (test code = 5.68 M/mm3 4.70-6.10 N RBC) HEMOGLOBIN (test code = HGB) 9.9 G/DL 12.3-15.9 L HEMATOCRIT (test code = HCT) 40.0 % 35.8-46.7 N MEAN CELL VOLUME (test code = 70.4 Fl 86.3-98.9 L MCV) MEAN CELL HGB (test code = MCH) 17.4 pg 28.9-34.4 L MEAN CELL HGB CONCETRATION 24.8 G/DL 32.1-34.5 L (test code = MCHC) RED CELL DISTRIBUTION WIDTH 23.5 SD 11.5-14.5 H (test code = RDW) PLATELET COUNT (test code = 425 K/mm3 150-450 N PLT) MEAN PLATELET VOLUME (test code 9.20 fL 7.0-9.6 N = MPV) NEUTROPHIL % (test code = NT%) 70.4 % 40-76 N IMMATURE GRANULOCYTE % (test 0.3 % 0.0-5.0 N code = IG%) LYMPHOCYTE % (test code = LY%) 17.1 % 20.5-51.1 L MONOCYTE % (test code = MO%) 9.6 % 1.7-9.3 H EOSINOPHIL % (test code = EO%) 1.3 % 0.0-6.0 N BASOPHIL % (test code = BA%) 1.3 % 0.0-2.0 N NUCLEATED RBC % (test code = 0.0 /100WBC% 0.0-1.0 N NRBC%) NEUTROPHIL # (test code = NT#) 7.3 K/mm3 1.8-7.6 N IMMATURE GRANULOCYTE # (test 0.03 x10 3/uL 0.00-0.03 N code = IG#) LYMPHOCYTE # (test code = LY#) 1.8 K/mm3 0.6-3.0 N MONOCYTE # (test code = MO#) 1.0 K/mm3 0.2-1.5 N EOSINOPHIL # (test code = EO#) 0.1 K/mm3 0.0-0.4 N BASOPHIL # (test code = BA#) 0.1 K/mm3 0.0-0.2 N NUCLEATED RBC # (test code = 0.0 K/mm3 0.00-0.01 N NRBC#) MANUAL DIFF REQUIRED (test code NO DIFF/SCN CRITERIA = MDIFF) CBC W/AUTO [id number] 08:03:00 Test Item Value Reference Range Interpretation Comments WHITE BLOOD CELL (test code = 10.4 K/mm3 3.5-11.0 N WBC) RED BLOOD CELL (test code = 5.68 M/mm3 4.70-6.10 N RBC) HEMOGLOBIN (test code = HGB) 9.9 G/DL 12.3-15.9 L HEMATOCRIT (test code = HCT) 40.0 % 35.8-46.7 N MEAN CELL VOLUME (test code = 70.4 Fl 86.3-98.9 L MCV) MEAN CELL HGB (test code = MCH) 17.4 pg 28.9-34.4 L MEAN CELL HGB CONCETRATION 24.8 G/DL 32.1-34.5 L (test code = MCHC) RED CELL DISTRIBUTION WIDTH 23.5 SD 11.5-14.5 H (test code = RDW) PLATELET COUNT (test code = 425 K/mm3 150-450 N PLT) MEAN PLATELET VOLUME (test code 9.20 fL 7.0-9.6 N = MPV) NEUTROPHIL % (test code = NT%) 70.4 % 40-76 N IMMATURE GRANULOCYTE % (test 0.3 % 0.0-5.0 N code = IG%) LYMPHOCYTE % (test code = LY%) 17.1 % 20.5-51.1 L MONOCYTE % (test code = MO%) 9.6 % 1.7-9.3 H EOSINOPHIL % (test code = EO%) 1.3 % 0.0-6.0 N BASOPHIL % (test code = BA%) 1.3 % 0.0-2.0 N NUCLEATED RBC % (test code = 0.0 /100WBC% 0.0-1.0 N NRBC%) NEUTROPHIL # (test code = NT#) 7.3 K/mm3 1.8-7.6 N IMMATURE GRANULOCYTE # (test 0.03 x10 3/uL 0.00-0.03 N code = IG#) LYMPHOCYTE # (test code = LY#) 1.8 K/mm3 0.6-3.0 N MONOCYTE # (test code = MO#) 1.0 K/mm3 0.2-1.5 N EOSINOPHIL # (test code = EO#) 0.1 K/mm3 0.0-0.4 N BASOPHIL # (test code = BA#) 0.1 K/mm3 0.0-0.2 N NUCLEATED RBC # (test code = 0.0 K/mm3 0.00-0.01 N NRBC#) MANUAL DIFF REQUIRED (test code NO DIFF/SCN CRITERIA = MDIFF) RBC [id number] 08:03:00 Test Item Value Reference Range Interpretation Comments HYPOCHROMIA (test code = HYPO) TRACE ON SCAN NONE ANISOCYTOSIS (test code = TRACE NONE ANISO) CBC W/AUTO [id number] 08:03:00 Test Item Value Reference Range Interpretation Comments WHITE BLOOD CELL (test code = 10.4 K/mm3 3.5-11.0 N WBC) RED BLOOD CELL (test code = 5.68 M/mm3 4.70-6.10 N RBC) HEMOGLOBIN (test code = HGB) 9.9 G/DL 12.3-15.9 L HEMATOCRIT (test code = HCT) 40.0 % 35.8-46.7 N MEAN CELL VOLUME (test code = 70.4 Fl 86.3-98.9 L MCV) MEAN CELL HGB (test code = MCH) 17.4 pg 28.9-34.4 L MEAN CELL HGB CONCETRATION 24.8 G/DL 32.1-34.5 L (test code = MCHC) RED CELL DISTRIBUTION WIDTH 23.5 SD 11.5-14.5 H (test code = RDW) PLATELET COUNT (test code = 425 K/mm3 150-450 N PLT) MEAN PLATELET VOLUME (test code 9.20 fL 7.0-9.6 N = MPV) NEUTROPHIL % (test code = NT%) 70.4 % 40-76 N IMMATURE GRANULOCYTE % (test 0.3 % 0.0-5.0 N code = IG%) LYMPHOCYTE % (test code = LY%) 17.1 % 20.5-51.1 L MONOCYTE % (test code = MO%) 9.6 % 1.7-9.3 H EOSINOPHIL % (test code = EO%) 1.3 % 0.0-6.0 N BASOPHIL % (test code = BA%) 1.3 % 0.0-2.0 N NUCLEATED RBC % (test code = 0.0 /100WBC% 0.0-1.0 N NRBC%) NEUTROPHIL # (test code = NT#) 7.3 K/mm3 1.8-7.6 N IMMATURE GRANULOCYTE # (test 0.03 x10 3/uL 0.00-0.03 N code = IG#) LYMPHOCYTE # (test code = LY#) 1.8 K/mm3 0.6-3.0 N MONOCYTE # (test code = MO#) 1.0 K/mm3 0.2-1.5 N EOSINOPHIL # (test code = EO#) 0.1 K/mm3 0.0-0.4 N BASOPHIL # (test code = BA#) 0.1 K/mm3 0.0-0.2 N NUCLEATED RBC # (test code = 0.0 K/mm3 0.00-0.01 N NRBC#) MANUAL DIFF REQUIRED (test code NO DIFF/SCN CRITERIA = MDIFF) COMPREHENSIVE METABOLIC [id number] 07:00:00 Test Item Value Reference Range Interpretation Comments SODIUM (test code = NA) 134 mmol/L 134-147 N POTASSIUM (test code = 4.0 mmol/L 3.4-5.0 N K) CHLORIDE (test code = 103 mmol/L 100-108 N CL) CARBON DIOXIDE (test 25 mmol/L 21-32 N code = CO2) ANION GAP (test code = 6.0 GAP calc 4.0-15.0 N GAP) GLUCOSE (test code = 94 MG/DL 70-110 N GLU) BLOOD UREA NITROGEN 25 MG/DL 7-18 H (test code = BUN) GLOMERULAR FILTRATION >=60 max estimate >60 RATE (test code = GFR) estGFR CREATININE (test code = 1.1 MG/DL 0.8-1.3 N CREAT) TOTAL PROTEIN (test code 7.2 G/DL 6.4-8.2 N = PROT) ALBUMIN (test code = 2.5 G/DL 3.4-5.0 L ALB) GLOBULIN (test code = 4.7 GM/dL GLOB) ALBUMIN/GLOBULIN RATIO 0.5 RATIO 1.2-2.2 L (test code = A/G) CALCIUM (test code = CA) 8.8 MG/DL 8.5-10.1 N BILIRUBIN TOTAL (test 1.80 MG/DL 0.2-1.2 H code = BILT) SGOT/AST (test code = 38 Unit/L 15-37 H AST) SGPT/ALT (test code = 49 Unit/L 12-78 N ALT) ALKALINE PHOSPHATASE 92 Unit/L 50-136 N TOTAL (test code = ALKP) [id number] 07:00:00 Test Item Value Reference Range Interpretation Comments PHOSPHOROUS (test code = PHOS) 3.8 MG/DL 2.5-4.9 N [id number] 07:00:00 Test Item Value Reference Range Interpretation Comments MAGNESIUM (test code = MAG) 2.0 MG/DL 1.8-2.4 N CBC W/AUTO [id number] 06:33:00 Test Item Value Reference Range Interpretation Comments WHITE BLOOD CELL (test code = WBC) 10.4 K/mm3 3.5-11.0 N RED BLOOD CELL (test code = RBC) 5.68 M/mm3 4.70-6.10 N HEMOGLOBIN (test code = HGB) 9.9 G/DL 12.3-15.9 L HEMATOCRIT (test code = HCT) 40.0 % 35.8-46.7 N MEAN CELL VOLUME (test code = MCV) 70.4 Fl 86.3-98.9 L MEAN CELL HGB (test code = MCH) 17.4 pg 28.9-34.4 L MEAN CELL HGB CONCETRATION (test 24.8 G/DL 32.1-34.5 L code = MCHC) RED CELL DISTRIBUTION WIDTH (test SD 11.5-14.5 H code = RDW) PLATELET COUNT (test code = PLT) 425 K/mm3 150-450 N MEAN PLATELET VOLUME (test code = fL 7.0-9.6 N MPV) NEUTROPHIL % (test code = NT%) % 40-76 N IMMATURE GRANULOCYTE % (test code % 0.0-5.0 N = IG%) LYMPHOCYTE % (test code = LY%) % 20.5-51.1 L MONOCYTE % (test code = MO%) % 1.7-9.3 H EOSINOPHIL % (test code = EO%) % 0.0-6.0 N BASOPHIL % (test code = BA%) % 0.0-2.0 N NUCLEATED RBC % (test code = /100WBC% 0.0-1.0 N NRBC%) NEUTROPHIL # (test code = NT#) K/mm3 1.8-7.6 N IMMATURE GRANULOCYTE # (test code x10 3/uL 0.00-0.03 N = IG#) LYMPHOCYTE # (test code = LY#) K/mm3 0.6-3.0 N MONOCYTE # (test code = MO#) K/mm3 0.2-1.5 N EOSINOPHIL # (test code = EO#) K/mm3 0.0-0.4 N BASOPHIL # (test code = BA#) K/mm3 0.0-0.2 N NUCLEATED RBC # (test code = K/mm3 0.00-0.01 N NRBC#) MANUAL DIFF REQUIRED (test code = DIFF/SCN CRITERIA MDIFF) GLUCOSE BEDSIDE [id number] 20:48:00 Test Item Value Reference Range Interpretation Comments GLUCOSE BEDSIDE TESTING (test code 118 mg/dL 70-110 H = GLUBED) COMPREHENSIVE METABOLIC [id number] 17:43:00 Test Item Value Reference Range Interpretation Comments SODIUM (test code = NA) 133 mmol/L 134-147 L POTASSIUM (test code = 3.9 mmol/L 3.4-5.0 N K) CHLORIDE (test code = 101 mmol/L 100-108 N CL) CARBON DIOXIDE (test 26 mmol/L 21-32 N code = CO2) ANION GAP (test code = 6.0 GAP calc 4.0-15.0 N GAP) GLUCOSE (test code = 104 MG/DL 70-110 N GLU) BLOOD UREA NITROGEN 26 MG/DL 7-18 H (test code = BUN) GLOMERULAR FILTRATION >=60 max estimate >60 RATE (test code = GFR) estGFR CREATININE (test code = 1.1 MG/DL 0.8-1.3 N CREAT) TOTAL PROTEIN (test code 7.2 G/DL 6.4-8.2 N = PROT) ALBUMIN (test code = 2.5 G/DL 3.4-5.0 L ALB) GLOBULIN (test code = 4.7 GM/dL GLOB) ALBUMIN/GLOBULIN RATIO 0.5 RATIO 1.2-2.2 L (test code = A/G) CALCIUM (test code = CA) 8.0 MG/DL 8.5-10.1 L BILIRUBIN TOTAL (test 1.20 MG/DL 0.2-1.2 N code = BILT) SGOT/AST (test code = 29 Unit/L 15-37 N AST) SGPT/ALT (test code = 48 Unit/L 12-78 N ALT) ALKALINE PHOSPHATASE 95 Unit/L 50-136 N TOTAL (test code = ALKP) [id number] 17:43:00 Test Item Value Reference Range Interpretation Comments PHOSPHOROUS (test code = PHOS) 4.0 MG/DL 2.5-4.9 N [id number] 17:43:00 Test Item Value Reference Range Interpretation Comments MAGNESIUM (test code = MAG) 1.9 MG/DL 1.8-2.4 N GLUCOSE BEDSIDE [id number] 16:11:00 Test Item Value Reference Range Interpretation Comments GLUCOSE BEDSIDE TESTING (test code 121 mg/dL 70-110 H = GLUBED) GLUCOSE BEDSIDE [id number] 12:06:00 Test Item Value Reference Range Interpretation Comments GLUCOSE BEDSIDE TESTING (test code 146 mg/dL 70-110 H = GLUBED) GLUCOSE BEDSIDE [id number] 08:25:00 Test Item Value Reference Range Interpretation Comments GLUCOSE BEDSIDE TESTING (test code = 85 mg/dL 70-110 N GLUBED) CBC W/AUTO [id number] 05:26:00 Test Item Value Reference Range Interpretation Comments WHITE BLOOD CELL 12.3 K/mm3 3.5-11.0 H (test code = WBC) RED BLOOD CELL (test 5.37 M/mm3 4.70-6.10 N code = RBC) HEMOGLOBIN (test code 9.6 G/DL 12.3-15.9 L = HGB) HEMATOCRIT (test code 36.1 % 35.8-46.7 N = HCT) MEAN CELL VOLUME 67.2 Fl 86.3-98.9 L (test code = MCV) MEAN CELL HGB (test 17.9 pg 28.9-34.4 L code = MCH) MEAN CELL HGB 26.6 G/DL 32.1-34.5 L CONCETRATION (test code = MCHC) RED CELL DISTRIBUTION 23.8 SD 11.5-14.5 H WIDTH (test code = RDW) PLATELET COUNT (test 377 K/mm3 150-450 N code = PLT) MEAN PLATELET VOLUME 9.20 fL 7.0-9.6 N (test code = MPV) NEUTROPHIL % (test 77.2 % 40-76 H code = NT%) IMMATURE GRANULOCYTE 0.3 % 0.0-5.0 N % (test code = IG%) LYMPHOCYTE % (test 12.1 % 20.5-51.1 L code = LY%) MONOCYTE % (test code 8.7 % 1.7-9.3 N = MO%) EOSINOPHIL % (test 0.9 % 0.0-6.0 N code = EO%) BASOPHIL % (test code 0.8 % 0.0-2.0 N = BA%) NUCLEATED RBC % (test 0.2 /100WBC% 0.0-1.0 N code = NRBC%) NEUTROPHIL # (test 9.5 K/mm3 1.8-7.6 H code = NT#) IMMATURE GRANULOCYTE 0.04 x10 3/uL 0.00-0.03 H # (test code = IG#) LYMPHOCYTE # (test 1.5 K/mm3 0.6-3.0 N code = LY#) MONOCYTE # (test code 1.1 K/mm3 0.2-1.5 N = MO#) EOSINOPHIL # (test 0.1 K/mm3 0.0-0.4 N code = EO#) BASOPHIL # (test code 0.1 K/mm3 0.0-0.2 N = BA#) NUCLEATED RBC # (test 0.0 K/mm3 0.00-0.01 N code = NRBC#) MANUAL DIFF REQUIRED NO DIFF/SCN CRITERIA SLIDE R LUDWIGW (test code = MDIFF) CONSISTA NT WITH AUTO DIFFERENTI AL. THROMBOPLASTIN TIME [id number] 05:14:00 Test Item Value Reference Range Interpretation Comments THROMBOPLASTIN TIME PARTIAL 38.0 SECONDS 26-35 H (test code = PTT) CBC W/AUTO [id number] 05:06:00 Test Item Value Reference Range Interpretation Comments WHITE BLOOD CELL (test code = WBC) 12.3 K/mm3 3.5-11.0 H RED BLOOD CELL (test code = RBC) 5.37 M/mm3 4.70-6.10 N HEMOGLOBIN (test code = HGB) 9.6 G/DL 12.3-15.9 L HEMATOCRIT (test code = HCT) 36.1 % 35.8-46.7 N MEAN CELL VOLUME (test code = MCV) 67.2 Fl 86.3-98.9 L MEAN CELL HGB (test code = MCH) 17.9 pg 28.9-34.4 L MEAN CELL HGB CONCETRATION (test 26.6 G/DL 32.1-34.5 L code = MCHC) RED CELL DISTRIBUTION WIDTH (test SD 11.5-14.5 H code = RDW) PLATELET COUNT (test code = PLT) 377 K/mm3 150-450 N MEAN PLATELET VOLUME (test code = fL 7.0-9.6 N MPV) NEUTROPHIL % (test code = NT%) % 40-76 H IMMATURE GRANULOCYTE % (test code % 0.0-5.0 N = IG%) LYMPHOCYTE % (test code = LY%) % 20.5-51.1 L MONOCYTE % (test code = MO%) % 1.7-9.3 N EOSINOPHIL % (test code = EO%) % 0.0-6.0 N BASOPHIL % (test code = BA%) % 0.0-2.0 N NUCLEATED RBC % (test code = /100WBC% 0.0-1.0 N NRBC%) NEUTROPHIL # (test code = NT#) K/mm3 1.8-7.6 H IMMATURE GRANULOCYTE # (test code x10 3/uL 0.00-0.03 H = IG#) LYMPHOCYTE # (test code = LY#) K/mm3 0.6-3.0 N MONOCYTE # (test code = MO#) K/mm3 0.2-1.5 N EOSINOPHIL # (test code = EO#) K/mm3 0.0-0.4 N BASOPHIL # (test code = BA#) K/mm3 0.0-0.2 N NUCLEATED RBC # (test code = K/mm3 0.00-0.01 N NRBC#) MANUAL DIFF REQUIRED (test code = DIFF/SCN CRITERIA MDIFF) GLUCOSE BEDSIDE [id number] 20:05:00 Test Item Value Reference Range Interpretation Comments GLUCOSE BEDSIDE TESTING (test code 151 mg/dL 70-110 H = GLUBED) GLUCOSE BEDSIDE [id number] 16:28:00 Test Item Value Reference Range Interpretation Comments GLUCOSE BEDSIDE TESTING (test code 170 mg/dL 70-110 H = GLUBED) GLUCOSE BEDSIDE [id number] 13:12:00 Test Item Value Reference Range Interpretation Comments GLUCOSE BEDSIDE TESTING (test code 125 mg/dL 70-110 H = GLUBED) - XR CHEST 1 [id number] 12:34:00 [facility] 1965 Sex: M Name: GURMEET BROCK [facility] : 1965Age/S: 54 / M [id number] Unit #: [id number] Loc: [place] [address] Phys: David Lopez Acct: [id number] Dis Date: Status: ADM IN PHONE#: [phone] Exam Date: 07/07/2020 1024 FAX #: Reason: Fluid overload EXAMS: CPT: [id number] XR CHEST 1 V 86835 Fluoro Time: DAP (Gy m2): Air Kerma (mGy): EXAM: Portable chest x-ray, one view INDICATION: Fluid overload , acute MCA infarct LOCATION CODE: C3 COMPARISON: 07/05/2020 TECHNIQUE: Single Portable AP upright view of the chest DISCUSSION: Heart is mildly enlarged. Mediastinal contours unremarkable. No pneumothorax or pleural effusion seen. No infiltrative process. Osseous structure demonstrate degenerative change of the right AC joint. Incidentally there is evidence of soft tissue calcification along theexpected course of the left carotid artery suggest carotid arterial disease. IM PRESSION: 1. Cardiomegaly 2. No infiltrate. 3. Incidental finding of left carotid calcification at 1234 Reported and signedby: Abhilash Parks M.D. CC: Paula Suazo MD; David Lopez PAGE 1 Signed Report Name: GURMEET BROCK [place] : 1965 Age/S: 54 / M [id number] [address] Unit #: [id number] Loc: [place] [address] Phys: David Lopez Acct: [id number] Dis Date: Status: ADM IN PHONE #: [phone] Exam Date: 07/07/2020 1024 FAX #: Reason: Fluid overload EXAMS: CPT: [id number] XR CHEST 1 V 94594 Fluoro Time: DAP (Gy m2): Air Kerma (mGy): <Continued> Technologist: RT Yancy(R)(MR) Trnscb Date/Time:07/07/2020 (1234) tDONNIE Orig Print D/T: S: 07/07/2020 (3088) PAGE 2 Signed ReportGLUCOSE BEDSIDE [id number] 08:28:00 Test Item Value Reference Range Interpretation Comments GLUCOSE BEDSIDE TESTING (test code 112 mg/dL 70-110 H = GLUBED) RAPID PLASMA [id number] 05:33:00 Test Item Value Reference Range Interpretation Comments RAPID PLASMA REAGIN Non Reactive Non Reactive Performe d At: (test code = RPR) [facility] [address] [place], [place] [id number] jimmy Miranda MD Ph:[phone] ACUTE HEPATITIS [id number] 05:33:00 Test Item Value Reference Range Interpretation Comments AB HEPATITIS A IGM Positive Negative A (test code = HAVMAB) AG HEPATITIS B Negative Negative SURFACE (test code = HBSAG) AB HEPATITIS B CORE Negative Negative IGM (test code = HBCMAB) AB HEPATITIS C (test 3.6 0.0-0.9 A INFCE R esult Units: s/co code = HCVAB) ratio N egative: < 0.8 Indeterminate: 0.8 - 0.9 Positiv e: > 0.9 The [facility] rec ommends that a positive HCV antibody result be followed up wit h a HCV Nucleic Acid Amplification t est ([id number]).Perfor med At: [facility] [place], [place] [id number] jimmy Miranda MD Ph:[phone] HIV 1 2 ANTIBODY [id number] 05:33:00 Test Item Value Reference Range Interpretation Comments HIV 1/2 RAPID SCREEN (test code = NONREACTIVE ACT47IYF) CBC W/AUTO [id number] 05:19:00 Test Item Value Reference Range Interpretation Comments WHITE BLOOD CELL (test code = 11.1 K/mm3 3.5-11.0 H WBC) RED BLOOD CELL (test code = 5.88 M/mm3 4.70-6.10 N RBC) HEMOGLOBIN (test code = HGB) 10.3 G/DL 12.3-15.9 L HEMATOCRIT (test code = HCT) 39.6 % 35.8-46.7 N MEAN CELL VOLUME (test code = 67.3 Fl 86.3-98.9 L MCV) MEAN CELL HGB (test code = MCH) 17.5 pg 28.9-34.4 L MEAN CELL HGB CONCETRATION 26.0 G/DL 32.1-34.5 L (test code = MCHC) RED CELL DISTRIBUTION WIDTH 23.9 SD 11.5-14.5 H (test code = RDW) PLATELET COUNT (test code = 375 K/mm3 150-450 N PLT) MEAN PLATELET VOLUME (test code 8.70 fL 7.0-9.6 N = MPV) NEUTROPHIL % (test code = NT%) 72.9 % 40-76 N IMMATURE GRANULOCYTE % (test 0.6 % 0.0-5.0 N code = IG%) LYMPHOCYTE % (test code = LY%) 15.9 % 20.5-51.1 L MONOCYTE % (test code = MO%) 8.8 % 1.7-9.3 N EOSINOPHIL % (test code = EO%) 1.0 % 0.0-6.0 N BASOPHIL % (test code = BA%) 0.8 % 0.0-2.0 N NUCLEATED RBC % (test code = 0.5 /100WBC% 0.0-1.0 N NRBC%) NEUTROPHIL # (test code = NT#) 8.1 K/mm3 1.8-7.6 H IMMATURE GRANULOCYTE # (test 0.07 x10 3/uL 0.00-0.03 H code = IG#) LYMPHOCYTE # (test code = LY#) 1.8 K/mm3 0.6-3.0 N MONOCYTE # (test code = MO#) 1.0 K/mm3 0.2-1.5 N EOSINOPHIL # (test code = EO#) 0.1 K/mm3 0.0-0.4 N BASOPHIL # (test code = BA#) 0.1 K/mm3 0.0-0.2 N NUCLEATED RBC # (test code = 0.1 K/mm3 0.00-0.01 H NRBC#) MANUAL DIFF REQUIRED (test code NO DIFF/SCN CRITERIA = MDIFF) CBC W/AUTO [id number] 05:19:00 Test Item Value Reference Range Interpretation Comments WHITE BLOOD CELL (test code = 11.1 K/mm3 3.5-11.0 H WBC) RED BLOOD CELL (test code = 5.88 M/mm3 4.70-6.10 N RBC) HEMOGLOBIN (test code = HGB) 10.3 G/DL 12.3-15.9 L HEMATOCRIT (test code = HCT) 39.6 % 35.8-46.7 N MEAN CELL VOLUME (test code = 67.3 Fl 86.3-98.9 L MCV) MEAN CELL HGB (test code = MCH) 17.5 pg 28.9-34.4 L MEAN CELL HGB CONCETRATION 26.0 G/DL 32.1-34.5 L (test code = MCHC) RED CELL DISTRIBUTION WIDTH 23.9 SD 11.5-14.5 H (test code = RDW) PLATELET COUNT (test code = 375 K/mm3 150-450 N PLT) MEAN PLATELET VOLUME (test code 8.70 fL 7.0-9.6 N = MPV) NEUTROPHIL % (test code = NT%) 72.9 % 40-76 N IMMATURE GRANULOCYTE % (test 0.6 % 0.0-5.0 N code = IG%) LYMPHOCYTE % (test code = LY%) 15.9 % 20.5-51.1 L MONOCYTE % (test code = MO%) 8.8 % 1.7-9.3 N EOSINOPHIL % (test code = EO%) 1.0 % 0.0-6.0 N BASOPHIL % (test code = BA%) 0.8 % 0.0-2.0 N NUCLEATED RBC % (test code = 0.5 /100WBC% 0.0-1.0 N NRBC%) NEUTROPHIL # (test code = NT#) 8.1 K/mm3 1.8-7.6 H IMMATURE GRANULOCYTE # (test 0.07 x10 3/uL 0.00-0.03 H code = IG#) LYMPHOCYTE # (test code = LY#) 1.8 K/mm3 0.6-3.0 N MONOCYTE # (test code = MO#) 1.0 K/mm3 0.2-1.5 N EOSINOPHIL # (test code = EO#) 0.1 K/mm3 0.0-0.4 N BASOPHIL # (test code = BA#) 0.1 K/mm3 0.0-0.2 N NUCLEATED RBC # (test code = 0.1 K/mm3 0.00-0.01 H NRBC#) MANUAL DIFF REQUIRED (test code NO DIFF/SCN CRITERIA = MDIFF) RBC [id number] 05:19:00 Test Item Value Reference Range Interpretation Comments HYPOCHROMIA (test code = HYPO) 1+ ON SCAN NONE POIKILOCYTOSIS (test code = TRACE ON SCAN NONE POIK) ANISOCYTOSIS (test code = 1+ NONE ANISO) CBC W/AUTO [id number] 05:19:00 Test Item Value Reference Range Interpretation Comments WHITE BLOOD CELL (test code = 11.1 K/mm3 3.5-11.0 H WBC) RED BLOOD CELL (test code = 5.88 M/mm3 4.70-6.10 N RBC) HEMOGLOBIN (test code = HGB) 10.3 G/DL 12.3-15.9 L HEMATOCRIT (test code = HCT) 39.6 % 35.8-46.7 N MEAN CELL VOLUME (test code = 67.3 Fl 86.3-98.9 L MCV) MEAN CELL HGB (test code = MCH) 17.5 pg 28.9-34.4 L MEAN CELL HGB CONCETRATION 26.0 G/DL 32.1-34.5 L (test code = MCHC) RED CELL DISTRIBUTION WIDTH 23.9 SD 11.5-14.5 H (test code = RDW) PLATELET COUNT (test code = 375 K/mm3 150-450 N PLT) MEAN PLATELET VOLUME (test code 8.70 fL 7.0-9.6 N = MPV) NEUTROPHIL % (test code = NT%) 72.9 % 40-76 N IMMATURE GRANULOCYTE % (test 0.6 % 0.0-5.0 N code = IG%) LYMPHOCYTE % (test code = LY%) 15.9 % 20.5-51.1 L MONOCYTE % (test code = MO%) 8.8 % 1.7-9.3 N EOSINOPHIL % (test code = EO%) 1.0 % 0.0-6.0 N BASOPHIL % (test code = BA%) 0.8 % 0.0-2.0 N NUCLEATED RBC % (test code = 0.5 /100WBC% 0.0-1.0 N NRBC%) NEUTROPHIL # (test code = NT#) 8.1 K/mm3 1.8-7.6 H IMMATURE GRANULOCYTE # (test 0.07 x10 3/uL 0.00-0.03 H code = IG#) LYMPHOCYTE # (test code = LY#) 1.8 K/mm3 0.6-3.0 N MONOCYTE # (test code = MO#) 1.0 K/mm3 0.2-1.5 N EOSINOPHIL # (test code = EO#) 0.1 K/mm3 0.0-0.4 N BASOPHIL # (test code = BA#) 0.1 K/mm3 0.0-0.2 N NUCLEATED RBC # (test code = 0.1 K/mm3 0.00-0.01 H NRBC#) MANUAL DIFF REQUIRED (test code NO DIFF/SCN CRITERIA = MDIFF) COMPREHENSIVE METABOLIC [id number] 05:00:00 Test Item Value Reference Range Interpretation Comments SODIUM (test code = NA) 135 mmol/L 134-147 N POTASSIUM (test code = 3.9 mmol/L 3.4-5.0 N K) CHLORIDE (test code = 104 mmol/L 100-108 N CL) CARBON DIOXIDE (test 26 mmol/L 21-32 N code = CO2) ANION GAP (test code = 5.0 GAP calc 4.0-15.0 N GAP) GLUCOSE (test code = 102 MG/DL 70-110 N GLU) BLOOD UREA NITROGEN 26 MG/DL 7-18 H (test code = BUN) GLOMERULAR FILTRATION >=60 max estimate >60 RATE (test code = GFR) estGFR CREATININE (test code = 1.1 MG/DL 0.8-1.3 N CREAT) TOTAL PROTEIN (test code 7.4 G/DL 6.4-8.2 N = PROT) ALBUMIN (test code = 2.5 G/DL 3.4-5.0 L ALB) GLOBULIN (test code = 4.9 GM/dL GLOB) ALBUMIN/GLOBULIN RATIO 0.5 RATIO 1.2-2.2 L (test code = A/G) CALCIUM (test code = CA) 8.6 MG/DL 8.5-10.1 N BILIRUBIN TOTAL (test 1.90 MG/DL 0.2-1.2 H code = BILT) SGOT/AST (test code = 33 Unit/L 15-37 N AST) SGPT/ALT (test code = 67 Unit/L 12-78 N ALT) ALKALINE PHOSPHATASE 106 Unit/L 50-136 N TOTAL (test code = ALKP) THROMBOPLASTIN TIME [id number] 04:48:00 Test Item Value Reference Range Interpretation Comments THROMBOPLASTIN TIME PARTIAL 47.3 SECONDS 26-35 H (test code = PTT) CBC W/AUTO [id number] 04:42:00 Test Item Value Reference Range Interpretation Comments WHITE BLOOD CELL (test code = 11.1 K/mm3 3.5-11.0 H WBC) RED BLOOD CELL (test code = 5.88 M/mm3 4.70-6.10 N RBC) HEMOGLOBIN (test code = HGB) 10.3 G/DL 12.3-15.9 L HEMATOCRIT (test code = HCT) 39.6 % 35.8-46.7 N MEAN CELL VOLUME (test code = 67.3 Fl 86.3-98.9 L MCV) MEAN CELL HGB (test code = MCH) 17.5 pg 28.9-34.4 L MEAN CELL HGB CONCETRATION 26.0 G/DL 32.1-34.5 L (test code = MCHC) RED CELL DISTRIBUTION WIDTH 23.9 SD 11.5-14.5 H (test code = RDW) PLATELET COUNT (test code = 375 K/mm3 150-450 N PLT) MEAN PLATELET VOLUME (test code 8.70 fL 7.0-9.6 N = MPV) NEUTROPHIL % (test code = NT%) 72.9 % 40-76 N IMMATURE GRANULOCYTE % (test 0.6 % 0.0-5.0 N code = IG%) LYMPHOCYTE % (test code = LY%) 15.9 % 20.5-51.1 L MONOCYTE % (test code = MO%) 8.8 % 1.7-9.3 N EOSINOPHIL % (test code = EO%) 1.0 % 0.0-6.0 N BASOPHIL % (test code = BA%) 0.8 % 0.0-2.0 N NUCLEATED RBC % (test code = 0.5 /100WBC% 0.0-1.0 N NRBC%) NEUTROPHIL # (test code = NT#) 8.1 K/mm3 1.8-7.6 H IMMATURE GRANULOCYTE # (test 0.07 x10 3/uL 0.00-0.03 H code = IG#) LYMPHOCYTE # (test code = LY#) 1.8 K/mm3 0.6-3.0 N MONOCYTE # (test code = MO#) 1.0 K/mm3 0.2-1.5 N EOSINOPHIL # (test code = EO#) 0.1 K/mm3 0.0-0.4 N BASOPHIL # (test code = BA#) 0.1 K/mm3 0.0-0.2 N NUCLEATED RBC # (test code = 0.1 K/mm3 0.00-0.01 H NRBC#) MANUAL DIFF REQUIRED (test code NO DIFF/SCN CRITERIA = MDIFF) GLUCOSE BEDSIDE [id number] 20:39:00 Test Item Value Reference Range Interpretation Comments GLUCOSE BEDSIDE TESTING (test code 140 mg/dL 70-110 H = GLUBED) - CT HEAD/BRAIN W/O [id number] 18:06:00 [facility] 1965 Sex: M Name: GURMEET BROCK [facility] : 1965Age/S: 54 / M [id number] Unit #: [id number] Loc: [place] [address] Phys: Myriam Garcia [employer] OPERATOR Acct: [id number] Dis Date: Status: ADM IN PHONE#: [phone] Exam Date: 07/06/2020 1803 FAX #: Reason:repeat CT per neurology EXAMS: CPT: [id number] CT HEAD/BRAIN W/O CONT [id number] EXAM: CT BRAIN WITHOUT CONTRAST INDICATION: MCA infarct COMPARISON: MRI dated July 03, 2020 TECHNIQUE: Routine axial CT images of the brain were obtained without venous contrast. IV contrast: None DLP: 1362 mGy-cm FINDINGS: No intra-axial or extra-axial fluid collections were identified. No acute intracranial hemorrhage. There are areas of low-attenuation within the right frontal lobe and right parietal lobe extending to the cortex with sulcal effacement consistent with subacute ischemia. No hemorrhagic transformation is identified. There is chronic encephalomalacia in the left frontal lobe and left occipital lobe consistent with chronic infarcts. The ventri cles and sulci are normal in size and shape with no midline shift or mass effect. The basal cisterns are patent. The posterior fossa and 4th ventricle are normal. No calvarial lesions are identified. The paranasal sinuses and mastoid air cells are clear. The orbits and globes are unremarkable. IMPRESSION: Late subacute ischemic infarctin the right MCA distribution. No hemorrhagic transformation is identified. Chronicinfarcts in the left frontal and left occipital lobes. LOCATION: B2 This CT exam was performed according to our departmental dose optimization program, whichincludes automated exposure control, adjustment of the mA and or kV according to patient size and/or use of iterative reconstruction technique. PAGE 1 Signed Report (CONTINUED) Name: GURMEET BROCK [place] : 1965 Age/S: 54 / M [id number] Unit #: [id number] Loc: [place] [address] Phys: Myriam Garcia NP Acct: [id number] Dis Date: Status: ADM IN PHONE #: [phone] Exam Date: 07/06/2020 6353 FAX #: Reason: repeat CT per neurology EXAMS: CPT: [id number] CT HEAD/BRAIN W/O CONT [id number] <Continued> at 1806 Reported and signed by: Liana Trejo M.D. CC: Paula Suazo MD; Loren LEBRON Technologist:Melia Holguin RT(R)(CT)(MRI) CTDI: DLP: Trnscb Date/Time: 07/06/2020 (1805) [email or web address] Orig Print D/T: S: 07/06/2020 (1808) PAGE 2 Signed ReportGLUCOSE BEDSIDE [id number] 17:10:00 Test Item Value Reference Range Interpretation Comments GLUCOSE BEDSIDE TESTING (test code 122 mg/dL 70-110 H = GLUBED) GLUCOSE BEDSIDE [id number] 15:27:00 Test Item Value Reference Range Interpretation Comments GLUCOSE BEDSIDE TESTING (test code 110 mg/dL 70-110 N = GLUBED) BASIC METABOLIC [id number] 11:54:00 Test Item Value Reference Range Interpretation Comments SODIUM (test code = NA) 136 mmol/L 134-147 N POTASSIUM (test code = 3.7 mmol/L 3.4-5.0 N K) CHLORIDE (test code = 104 mmol/L 100-108 N CL) CARBON DIOXIDE (test 27 mmol/L 21-32 N code = CO2) ANION GAP (test code = 5.0 GAP calc 4.0-15.0 N GAP) GLUCOSE (test code = 112 MG/DL 70-110 H GLU) BLOOD UREA NITROGEN 22 MG/DL 7-18 H (test code = BUN) GLOMERULAR FILTRATION >=60 max estimate >60 RATE (test code = GFR) estGFR CREATININE (test code = 1.2 MG/DL 0.8-1.3 N CREAT) CALCIUM (test code = CA) 8.9 MG/DL 8.5-10.1 N GLUCOSE BEDSIDE [id number] 09:28:00 Test Item Value Reference Range Interpretation Comments GLUCOSE BEDSIDE TESTING (test code 104 mg/dL 70-110 N = GLUBED) NT PRO-BRAIN NATRIURETIC [id number] 08:52:00 Test Item Value Reference Range Interpretation Comments NT PRO-BRAIN NATRIURETIC PEPTI 1467 PG/ML 0-100 H (test code = PROBNP) CBC W/AUTO [id number] 08:34:00 Test Item Value Reference Range Interpretation Comments WHITE BLOOD CELL 12.8 K/mm3 3.5-11.0 H (test code = WBC) RED BLOOD CELL (test 6.10 M/mm3 4.70-6.10 N code = RBC) HEMOGLOBIN (test code 10.6 G/DL 12.3-15.9 L = HGB) HEMATOCRIT (test code 42.7 % 35.8-46.7 N = HCT) MEAN CELL VOLUME 70.0 Fl 86.3-98.9 L (test code = MCV) MEAN CELL HGB (test 17.4 pg 28.9-34.4 L code = MCH) MEAN CELL HGB 24.8 G/DL 32.1-34.5 L CONCETRATION (test code = MCHC) RED CELL DISTRIBUTION 23.9 SD 11.5-14.5 H WIDTH (test code = RDW) PLATELET COUNT (test 319 K/mm3 150-450 N code = PLT) MEAN PLATELET VOLUME 8.80 fL 7.0-9.6 N (test code = MPV) NEUTROPHIL % (test 73.7 % 40-76 code = NT%) IMMATURE GRANULOCYTE 0.5 % 0.0-5.0 N % (test code = IG%) LYMPHOCYTE % (test 13.9 % 20.5-51.1 L code = LY%) MONOCYTE % (test code 9.9 % 1.7-9.3 H = MO%) EOSINOPHIL % (test 1.1 % 0.0-6.0 N code = EO%) BASOPHIL % (test code 0.9 % 0.0-2.0 N = BA%) NUCLEATED RBC % (test 0.7 /100WBC% 0.0-1.0 N code = NRBC%) NEUTROPHIL # (test 9.4 K/mm3 1.8-7.6 H code = NT#) IMMATURE GRANULOCYTE 0.06 x10 3/uL 0.00-0.03 H # (test code = IG#) LYMPHOCYTE # (test 1.8 K/mm3 0.6-3.0 N code = LY#) MONOCYTE # (test code 1.3 K/mm3 0.2-1.5 N = MO#) EOSINOPHIL # (test 0.1 K/mm3 0.0-0.4 N code = EO#) BASOPHIL # (test code 0.1 K/mm3 0.0-0.2 N = BA#) NUCLEATED RBC # (test 0.1 K/mm3 0.00-0.01 H code = NRBC#) MANUAL DIFF REQUIRED NO DIFF/SCN CRITERIA Previou sly reported (test code = MDIFF) result: DIFF/SCNEdited by: SHARONAJELexi on 07/06/20:0834 ~~~~~~~~~~~~~~~ ~~~~ ~~~~~~~~~~~~~~~ ~~~~ ~~ This i s a CORRECTED REPOR T CBC W/AUTO [id number] 08:34:00 Test Item Value Reference Range Interpretation Comments WHITE BLOOD CELL 12.8 K/mm3 3.5-11.0 H (test code = WBC) RED BLOOD CELL (test 6.10 M/mm3 4.70-6.10 N code = RBC) HEMOGLOBIN (test code 10.6 G/DL 12.3-15.9 L = HGB) HEMATOCRIT (test code 42.7 % 35.8-46.7 N = HCT) MEAN CELL VOLUME 70.0 Fl 86.3-98.9 L (test code = MCV) MEAN CELL HGB (test 17.4 pg 28.9-34.4 L code = MCH) MEAN CELL HGB 24.8 G/DL 32.1-34.5 L CONCETRATION (test code = MCHC) RED CELL DISTRIBUTION 23.9 SD 11.5-14.5 H WIDTH (test code = RDW) PLATELET COUNT (test 319 K/mm3 150-450 N code = PLT) MEAN PLATELET VOLUME 8.80 fL 7.0-9.6 N (test code = MPV) NEUTROPHIL % (test 73.7 % 40-76 code = NT%) IMMATURE GRANULOCYTE 0.5 % 0.0-5.0 N % (test code = IG%) LYMPHOCYTE % (test 13.9 % 20.5-51.1 L code = LY%) MONOCYTE % (test code 9.9 % 1.7-9.3 H = MO%) EOSINOPHIL % (test 1.1 % 0.0-6.0 N code = EO%) BASOPHIL % (test code 0.9 % 0.0-2.0 N = BA%) NUCLEATED RBC % (test 0.7 /100WBC% 0.0-1.0 N code = NRBC%) NEUTROPHIL # (test 9.4 K/mm3 1.8-7.6 H code = NT#) IMMATURE GRANULOCYTE 0.06 x10 3/uL 0.00-0.03 H # (test code = IG#) LYMPHOCYTE # (test 1.8 K/mm3 0.6-3.0 N code = LY#) MONOCYTE # (test code 1.3 K/mm3 0.2-1.5 N = MO#) EOSINOPHIL # (test 0.1 K/mm3 0.0-0.4 N code = EO#) BASOPHIL # (test code 0.1 K/mm3 0.0-0.2 N = BA#) NUCLEATED RBC # (test 0.1 K/mm3 0.00-0.01 H code = NRBC#) MANUAL DIFF REQUIRED NO DIFF/SCN CRITERIA Previou sly reported (test code = MDIFF) result: DIFF/SCNEdited by: JULIO on 07/06/20:34 ~~~~~~~~~~~~~~~ ~~~~ ~~~~~~~~~~~~~~~ ~~~~ ~~ This i s a CORRECTED REPOR T RBC [id number] 08:34:00 Test Item Value Reference Range Interpretation Comments HYPOCHROMIA (test code = 2+ ON SCAN NONE A HYPO) POIKILOCYTOSIS (test code = TRACE ON SCAN NONE POIK) ANISOCYTOSIS (test code = 1+ NONE ANISO) PLATELET ESTIMATE (test ADEQUATE THOUSAND ADEQUATE code = PLTEST) PLATELET MORPHOLOGY (test NORMAL code = PLTMORPH) CBC W/AUTO [id number] 08:34:00 Test Item Value Reference Range Interpretation Comments WHITE BLOOD CELL 12.8 K/mm3 3.5-11.0 H (test code = WBC) RED BLOOD CELL (test 6.10 M/mm3 4.70-6.10 N code = RBC) HEMOGLOBIN (test code 10.6 G/DL 12.3-15.9 L = HGB) HEMATOCRIT (test code 42.7 % 35.8-46.7 N = HCT) MEAN CELL VOLUME 70.0 Fl 86.3-98.9 L (test code = MCV) MEAN CELL HGB (test 17.4 pg 28.9-34.4 L code = MCH) MEAN CELL HGB 24.8 G/DL 32.1-34.5 L CONCETRATION (test code = MCHC) RED CELL DISTRIBUTION 23.9 SD 11.5-14.5 H WIDTH (test code = RDW) PLATELET COUNT (test 319 K/mm3 150-450 N code = PLT) MEAN PLATELET VOLUME 8.80 fL 7.0-9.6 N (test code = MPV) NEUTROPHIL % (test 73.7 % 40-76 code = NT%) IMMATURE GRANULOCYTE 0.5 % 0.0-5.0 N % (test code = IG%) LYMPHOCYTE % (test 13.9 % 20.5-51.1 L code = LY%) MONOCYTE % (test code 9.9 % 1.7-9.3 H = MO%) EOSINOPHIL % (test 1.1 % 0.0-6.0 N code = EO%) BASOPHIL % (test code 0.9 % 0.0-2.0 N = BA%) NUCLEATED RBC % (test 0.7 /100WBC% 0.0-1.0 N code = NRBC%) NEUTROPHIL # (test 9.4 K/mm3 1.8-7.6 H code = NT#) IMMATURE GRANULOCYTE 0.06 x10 3/uL 0.00-0.03 H # (test code = IG#) LYMPHOCYTE # (test 1.8 K/mm3 0.6-3.0 N code = LY#) MONOCYTE # (test code 1.3 K/mm3 0.2-1.5 N = MO#) EOSINOPHIL # (test 0.1 K/mm3 0.0-0.4 N code = EO#) BASOPHIL # (test code 0.1 K/mm3 0.0-0.2 N = BA#) NUCLEATED RBC # (test 0.1 K/mm3 0.00-0.01 H code = NRBC#) MANUAL DIFF REQUIRED NO DIFF/SCN CRITERIA Previou sly reported (test code = MDIFF) result: DIFF/SCNEdited by: SHARONAJELexi on 07/06/20:0834 ~~~~~~~~~~~~~~~ ~~~~ ~~~~~~~~~~~~~~~ ~~~~ ~~ This i s a CORRECTED REPOR T THROMBOPLASTIN TIME [id number] 07:55:00 Test Item Value Reference Range Interpretation Comments THROMBOPLASTIN TIME PARTIAL 46.8 SECONDS 26-35 H (test code = PTT) CBC W/AUTO [id number] 07:40:00 Test Item Value Reference Range Interpretation Comments WHITE BLOOD CELL (test code = WBC) 12.8 K/mm3 3.5-11.0 H RED BLOOD CELL (test code = RBC) 6.10 M/mm3 4.70-6.10 N HEMOGLOBIN (test code = HGB) 10.6 G/DL 12.3-15.9 L HEMATOCRIT (test code = HCT) 42.7 % 35.8-46.7 N MEAN CELL VOLUME (test code = MCV) 70.0 Fl 86.3-98.9 L MEAN CELL HGB (test code = MCH) 17.4 pg 28.9-34.4 L MEAN CELL HGB CONCETRATION (test 24.8 G/DL 32.1-34.5 L code = MCHC) RED CELL DISTRIBUTION WIDTH (test SD 11.5-14.5 H code = RDW) PLATELET COUNT (test code = PLT) 319 K/mm3 150-450 N MEAN PLATELET VOLUME (test code = fL 7.0-9.6 N MPV) NEUTROPHIL % (test code = NT%) % 40-76 IMMATURE GRANULOCYTE % (test code % 0.0-5.0 N = IG%) LYMPHOCYTE % (test code = LY%) % 20.5-51.1 L MONOCYTE % (test code = MO%) % 1.7-9.3 H EOSINOPHIL % (test code = EO%) % 0.0-6.0 N BASOPHIL % (test code = BA%) % 0.0-2.0 N NUCLEATED RBC % (test code = /100WBC% 0.0-1.0 N NRBC%) NEUTROPHIL # (test code = NT#) K/mm3 1.8-7.6 H IMMATURE GRANULOCYTE # (test code x10 3/uL 0.00-0.03 H = IG#) LYMPHOCYTE # (test code = LY#) K/mm3 0.6-3.0 N MONOCYTE # (test code = MO#) K/mm3 0.2-1.5 N EOSINOPHIL # (test code = EO#) K/mm3 0.0-0.4 N BASOPHIL # (test code = BA#) K/mm3 0.0-0.2 N NUCLEATED RBC # (test code = K/mm3 0.00-0.01 H NRBC#) MANUAL DIFF REQUIRED (test code = DIFF/SCN CRITERIA MDIFF) RAPID PLASMA [id number] 05:10:00 Test Item Value Reference Range Interpretation Comments RAPID PLASMA REAGIN Non Reactive Non Reactive Performe d At: HD (test code = RPR) [facility] [id number] [facility], [place] [id number] jimmy Miranda MD Ph:[phone] ACUTE HEPATITIS [id number] 05:10:00 Test Item Value Reference Range Interpretation Comments AB HEPATITIS A IGM Positive Negative A (test code = HAVMAB) AG HEPATITIS B Negative Negative SURFACE (test code = HBSAG) AB HEPATITIS B CORE Negative Negative IGM (test code = HBCMAB) AB HEPATITIS C (test 3.6 0.0-0.9 A INFCE R esult Units: s/co code = HCVAB) ratio N egative: < 0.8 Indeterminate: 0.8 - 0.9 Positiv e: > 0.9 The [facility] rec ommends that a positive HCV antibody result be followed up wit h a HCV Nucleic Acid Amplification t est ([id number]).Perfor med At: HD [facility] [id number] [place], [place] [id number] Miranda MD Ph:[phone] HIV 1 2 ANTIBODY [id number] 05:10:00 Test Item Value Reference Range Interpretation Comments HIV 1/2 RAPID SCREEN (test code = [id number]) RAPID PLASMA [id number] 02:07:00 Test Item Value Reference Range Interpretation Comments RAPID PLASMA REAGIN Non Reactive Non Reactive Performe d At: HD (test code = RPR) [facility] [id number] [place], [place] [id number] jimmy Miranda MD Ph:[phone] ACUTE HEPATITIS [id number] 02:07:00 Test Item Value Reference Range Interpretation Comments AB HEPATITIS A IGM (test code = HAVMAB) AG HEPATITIS B SURFACE (test code = SCREEN NEGATIVE HBSAG) AB HEPATITIS B CORE IGM (test code = HBCMAB) AB HEPATITIS C (test code = HCVAB) RATIO <0.8 HIV 1 2 ANTIBODY [id number] 02:07:00 Test Item Value Reference Range Interpretation Comments HIV 1/2 RAPID SCREEN (test code = [id number]) THROMBOPLASTIN TIME [id number] 02:06:00 Test Item Value Reference Range Interpretation Comments THROMBOPLASTIN TIME PARTIAL 48.0 SECONDS 26-35 H (test code = PTT) GLUCOSE BEDSIDE [id number] 23:09:00 Test Item Value Reference Range Interpretation Comments GLUCOSE BEDSIDE TESTING (test code 181 mg/dL 70-110 H = GLUBED) GLUCOSE BEDSIDE [id number] 21:36:00 Test Item Value Reference Range Interpretation Comments GLUCOSE BEDSIDE TESTING (test code 124 mg/dL 70-110 H = GLUBED) GLUCOSE BEDSIDE [id number] 18:49:00 Test Item Value Reference Range Interpretation Comments GLUCOSE BEDSIDE TESTING (test code 132 mg/dL 70-110 H = GLUBED) THROMBOPLASTIN TIME [id number] 17:58:00 Test Item Value Reference Range Interpretation Comments THROMBOPLASTIN TIME PARTIAL 53.6 SECONDS 26-35 H (test code = PTT) GLUCOSE BEDSIDE [id number] 12:25:00 Test Item Value Reference Range Interpretation Comments GLUCOSE BEDSIDE TESTING (test code 106 mg/dL 70-110 N = GLUBED) CBC W/AUTO [id number] 12:18:00 Test Item Value Reference Range Interpretation Comments WHITE BLOOD CELL 12.3 K/mm3 3.5-11.0 H (test code = WBC) RED BLOOD CELL (test 5.55 M/mm3 4.70-6.10 N code = RBC) HEMOGLOBIN (test code 9.8 G/DL 12.3-15.9 L = HGB) HEMATOCRIT (test code 37.5 % 35.8-46.7 N = HCT) MEAN CELL VOLUME 67.6 Fl 86.3-98.9 L (test code = MCV) MEAN CELL HGB (test 17.7 pg 28.9-34.4 L code = MCH) MEAN CELL HGB 26.1 G/DL 32.1-34.5 L CONCETRATION (test code = MCHC) RED CELL DISTRIBUTION 23.6 SD 11.5-14.5 H WIDTH (test code = RDW) PLATELET COUNT (test 343 K/mm3 150-450 N code = PLT) MEAN PLATELET VOLUME 8.70 fL 7.0-9.6 N (test code = MPV) NEUTROPHIL % (test 82.7 % 40-76 H code = NT%) IMMATURE GRANULOCYTE 0.7 % 0.0-5.0 N % (test code = IG%) LYMPHOCYTE % (test 7.6 % 20.5-51.1 L code = LY%) MONOCYTE % (test code 7.4 % 1.7-9.3 N = MO%) EOSINOPHIL % (test 0.8 % 0.0-6.0 N code = EO%) BASOPHIL % (test code 0.8 % 0.0-2.0 N = BA%) NUCLEATED RBC % (test 1.2 /100WBC% 0.0-1.0 H code = NRBC%) NEUTROPHIL # (test 10.2 K/mm3 1.8-7.6 H code = NT#) IMMATURE GRANULOCYTE 0.09 x10 3/uL 0.00-0.03 H # (test code = IG#) LYMPHOCYTE # (test 0.9 K/mm3 0.6-3.0 N code = LY#) MONOCYTE # (test code 0.9 K/mm3 0.2-1.5 N = MO#) EOSINOPHIL # (test 0.1 K/mm3 0.0-0.4 N code = EO#) BASOPHIL # (test code 0.1 K/mm3 0.0-0.2 N = BA#) NUCLEATED RBC # (test 0.2 K/mm3 0.00-0.01 H code = NRBC#) MANUAL DIFF REQUIRED NO DIFF/SCN CRITERIA SLIDE R LUDWIGW (test code = MDIFF) CONSISTA NT WITH AUTO DIFFERENTI AL. RBC [id number] 12:18:00 Test Item Value Reference Range Interpretation Comments POLYCHROMASIA (test code = TRACE ON SCAN NONE POLC) HYPOCHROMIA (test code = TRACE ON SCAN NONE HYPO) POIKILOCYTOSIS (test code = 1+ ON SCAN NONE POIK) ANISOCYTOSIS (test code = 1+ NONE ANISO) MICROCYTOSIS (test code = TRACE ON SCAN NONE MICR) PLATELET ESTIMATE (test ADEQUATE THOUSAND ADEQUATE code = PLTEST) PLATELET MORPHOLOGY (test NORMAL code = PLTMORPH) CBC W/AUTO [id number] 12:17:00 Test Item Value Reference Range Interpretation Comments WHITE BLOOD CELL 12.3 K/mm3 3.5-11.0 H (test code = WBC) RED BLOOD CELL (test 5.55 M/mm3 4.70-6.10 N code = RBC) HEMOGLOBIN (test code 9.8 G/DL 12.3-15.9 L = HGB) HEMATOCRIT (test code 37.5 % 35.8-46.7 N = HCT) MEAN CELL VOLUME 67.6 Fl 86.3-98.9 L (test code = MCV) MEAN CELL HGB (test 17.7 pg 28.9-34.4 L code = MCH) MEAN CELL HGB 26.1 G/DL 32.1-34.5 L CONCETRATION (test code = MCHC) RED CELL DISTRIBUTION 23.6 SD 11.5-14.5 H WIDTH (test code = RDW) PLATELET COUNT (test 343 K/mm3 150-450 N code = PLT) MEAN PLATELET VOLUME 8.70 fL 7.0-9.6 N (test code = MPV) NEUTROPHIL % (test 82.7 % 40-76 H code = NT%) IMMATURE GRANULOCYTE 0.7 % 0.0-5.0 N % (test code = IG%) LYMPHOCYTE % (test 7.6 % 20.5-51.1 L code = LY%) MONOCYTE % (test code 7.4 % 1.7-9.3 N = MO%) EOSINOPHIL % (test 0.8 % 0.0-6.0 N code = EO%) BASOPHIL % (test code 0.8 % 0.0-2.0 N = BA%) NUCLEATED RBC % (test 1.2 /100WBC% 0.0-1.0 H code = NRBC%) NEUTROPHIL # (test 10.2 K/mm3 1.8-7.6 H code = NT#) IMMATURE GRANULOCYTE 0.09 x10 3/uL 0.00-0.03 H # (test code = IG#) LYMPHOCYTE # (test 0.9 K/mm3 0.6-3.0 N code = LY#) MONOCYTE # (test code 0.9 K/mm3 0.2-1.5 N = MO#) EOSINOPHIL # (test 0.1 K/mm3 0.0-0.4 N code = EO#) BASOPHIL # (test code 0.1 K/mm3 0.0-0.2 N = BA#) NUCLEATED RBC # (test 0.2 K/mm3 0.00-0.01 H code = NRBC#) MANUAL DIFF REQUIRED NO DIFF/SCN CRITERIA SLIDE R LUDWIGW (test code = MDIFF) CONSISTA NT WITH AUTO DIFFERENTI AL. CBC W/AUTO [id number] 12:17:00 Test Item Value Reference Range Interpretation Comments WHITE BLOOD CELL 12.3 K/mm3 3.5-11.0 H (test code = WBC) RED BLOOD CELL (test 5.55 M/mm3 4.70-6.10 N code = RBC) HEMOGLOBIN (test code 9.8 G/DL 12.3-15.9 L = HGB) HEMATOCRIT (test code 37.5 % 35.8-46.7 N = HCT) MEAN CELL VOLUME 67.6 Fl 86.3-98.9 L (test code = MCV) MEAN CELL HGB (test 17.7 pg 28.9-34.4 L code = MCH) MEAN CELL HGB 26.1 G/DL 32.1-34.5 L CONCETRATION (test code = MCHC) RED CELL DISTRIBUTION 23.6 SD 11.5-14.5 H WIDTH (test code = RDW) PLATELET COUNT (test 343 K/mm3 150-450 N code = PLT) MEAN PLATELET VOLUME 8.70 fL 7.0-9.6 N (test code = MPV) NEUTROPHIL % (test 82.7 % 40-76 H code = NT%) IMMATURE GRANULOCYTE 0.7 % 0.0-5.0 N % (test code = IG%) LYMPHOCYTE % (test 7.6 % 20.5-51.1 L code = LY%) MONOCYTE % (test code 7.4 % 1.7-9.3 N = MO%) EOSINOPHIL % (test 0.8 % 0.0-6.0 N code = EO%) BASOPHIL % (test code 0.8 % 0.0-2.0 N = BA%) NUCLEATED RBC % (test 1.2 /100WBC% 0.0-1.0 H code = NRBC%) NEUTROPHIL # (test 10.2 K/mm3 1.8-7.6 H code = NT#) IMMATURE GRANULOCYTE 0.09 x10 3/uL 0.00-0.03 H # (test code = IG#) LYMPHOCYTE # (test 0.9 K/mm3 0.6-3.0 N code = LY#) MONOCYTE # (test code 0.9 K/mm3 0.2-1.5 N = MO#) EOSINOPHIL # (test 0.1 K/mm3 0.0-0.4 N code = EO#) BASOPHIL # (test code 0.1 K/mm3 0.0-0.2 N = BA#) NUCLEATED RBC # (test 0.2 K/mm3 0.00-0.01 H code = NRBC#) MANUAL DIFF REQUIRED NO DIFF/SCN CRITERIA SLIDE R EVIEW (test code = MDIFF) CONSISTA NT WITH AUTO DIFFERENTI AL. - XR CHEST 1 [id number] 12:06:00 [facility] 1965 Sex: M Name: GURMEET BROCK [facility] : 1965Age/S: 54 / M [address] Unit #: [id number] Loc: [place] [address] Phys: David Lopez Acct: [id number] Dis Date: Status: ADM IN PHONE#: [phone] Exam Date: 07/05/2020 1051 FAX #: Reason: Fluid overload EXAMS: CPT: [id number] XR CHEST 1 V 17418 Fluoro Time: DAP (Gy m2): Air Kerma (mGy): Single View Chest. Location: 7 Clinical Indication: 54-year-old with volume overload Comparison: July 03, 2020 Findings: An AP view of the chest was obtained. The heart is enlarged. Lungs are clear. No pneumothorax or pleural effusion. No acute osseous abnormality.Feeding tube has been removed. Impression: Significantly improvedaeration of the lungs compared with the recent exam. at 1206 Reported and signed by: Roby Lynch M.D. CC: Paula Thurston; David Lopez PAGE 1 Signed Report Name: GURMEET BROCK [facility] : 1965 Age/S: 54 / M [address] Unit #: [id number] Loc: [place] [address] Phys: David Lopez Acct: [id number] Dis Date: Status: ADM IN PHONE #: [phone] Exam Date: 07/05/2020 1051 FAX #: Reason: Fluid overload EXAMS: CPT: [id number] XR CHEST 1 V [id number] Fluoro Time: DAP (Gy m2): Air Kerma (mGy): <Continued> Technologist: Naomy Campbell RT(R) Trnscb Date/Time: 07/05/2020 (0458) [id number] PAGE 2 Signed ReportBASIC METABOLIC [id number] 11:40:00 Test Item Value Reference Range Interpretation Comments SODIUM (test code = NA) 136 mmol/L 134-147 N POTASSIUM (test code = 3.7 mmol/L 3.4-5.0 N K) CHLORIDE (test code = 106 mmol/L 100-108 N CL) CARBON DIOXIDE (test 25 mmol/L 21-32 N code = CO2) ANION GAP (test code = 5.0 GAP calc 4.0-15.0 N GAP) GLUCOSE (test code = 149 MG/DL 70-110 H GLU) BLOOD UREA NITROGEN 20 MG/DL 7-18 H (test code = BUN) GLOMERULAR FILTRATION >=60 max estimate >60 RATE (test code = GFR) estGFR CREATININE (test code = 1.1 MG/DL 0.8-1.3 N CREAT) CALCIUM (test code = CA) 8.4 MG/DL 8.5-10.1 L [id number] 11:40:00 Test Item Value Reference Range Interpretation Comments PHOSPHOROUS (test code = PHOS) 3.8 MG/DL 2.5-4.9 [id number] 11:40:00 Test Item Value Reference Range Interpretation Comments MAGNESIUM (test code = MAG) 2.0 MG/DL 1.8-2.4 N CBC W/AUTO [id number] 11:20:00 Test Item Value Reference Range Interpretation Comments WHITE BLOOD CELL (test code = WBC) 12.3 K/mm3 3.5-11.0 H RED BLOOD CELL (test code = RBC) 5.55 M/mm3 4.70-6.10 N HEMOGLOBIN (test code = HGB) 9.8 G/DL 12.3-15.9 L HEMATOCRIT (test code = HCT) 37.5 % 35.8-46.7 N MEAN CELL VOLUME (test code = MCV) 67.6 Fl 86.3-98.9 L MEAN CELL HGB (test code = MCH) 17.7 pg 28.9-34.4 L MEAN CELL HGB CONCETRATION (test 26.1 G/DL 32.1-34.5 L code = MCHC) RED CELL DISTRIBUTION WIDTH (test SD 11.5-14.5 H code = RDW) PLATELET COUNT (test code = PLT) 343 K/mm3 150-450 N MEAN PLATELET VOLUME (test code = fL 7.0-9.6 N MPV) NEUTROPHIL % (test code = NT%) % 40-76 H IMMATURE GRANULOCYTE % (test code % 0.0-5.0 N = IG%) LYMPHOCYTE % (test code = LY%) % 20.5-51.1 L MONOCYTE % (test code = MO%) % 1.7-9.3 N EOSINOPHIL % (test code = EO%) % 0.0-6.0 N BASOPHIL % (test code = BA%) % 0.0-2.0 N NUCLEATED RBC % (test code = /100WBC% 0.0-1.0 H NRBC%) NEUTROPHIL # (test code = NT#) K/mm3 1.8-7.6 H IMMATURE GRANULOCYTE # (test code x10 3/uL 0.00-0.03 H = IG#) LYMPHOCYTE # (test code = LY#) K/mm3 0.6-3.0 N MONOCYTE # (test code = MO#) K/mm3 0.2-1.5 N EOSINOPHIL # (test code = EO#) K/mm3 0.0-0.4 N BASOPHIL # (test code = BA#) K/mm3 0.0-0.2 N NUCLEATED RBC # (test code = K/mm3 0.00-0.01 H NRBC#) MANUAL DIFF REQUIRED (test code = DIFF/SCN CRITERIA MDIFF) PROTHROMBIN [id number] 10:15:00 Test Item Value Reference Range Interpretation Comments PT PATIENT (test code = PTP) 15.5 SECONDS 9.3-12.9 H INTERNATIONAL NORMAL RATIO 1.36 INR Unit 0.8-1.2 H (test code = INR) THROMBOPLASTIN TIME [id number] 10:15:00 Test Item Value Reference Range Interpretation Comments THROMBOPLASTIN TIME PARTIAL 18.2 SECONDS 26-35 L (test code = PTT) GLUCOSE BEDSIDE [id number] 09:10:00 Test Item Value Reference Range Interpretation Comments GLUCOSE BEDSIDE TESTING (test code 119 mg/dL 70-110 H = GLUBED) GLUCOSE BEDSIDE [id number] 20:53:00 Test Item Value Reference Range Interpretation Comments GLUCOSE BEDSIDE TESTING (test code 144 mg/dL 70-110 H = GLUBED) - US ABDOMEN [id number] 17:24:00 [facility] 1965 Sex: M Name: GURMEET BROCK [facility] : 1965Age/S: 54 / M [address] Unit #: [id number] Loc: [place] [address] Phys: Pogoson,Willow CLOTH DYE RANGE OPERATOR Acct: [id number] Dis Date: Status: ADM IN PHONE#: [phone] Exam Date: 07/04/2020 1616 FAX #: Reason:elevated bilirubin EXAMS: CPT: [id number] US ABDOMEN [facility] [id number] Site ID: [id number] EXAMINATION: - US ABDOMEN LTD. TECHNIQUE: Sonographic evaluation of the right upper quadrant with physician relations representative images obtained HISTORY: elevated bilirubin. COMPARISON: None. FINDINGS: The pancreas is visualized portions appear grossly unremarkable. The liver is measures 12.4 cm craniocaudal ly. Echogenicity of the hepatic parenchyma is within normal limits. No focal liver masses are identified. The portal vein is patent. The CBD caliber is 3 mm. The gallbladder has been removed. The right kidney measures 10.6 cm in length. No hydronephrosis. No fluid collection in the upper right abdomen is seen. IMPRESSION: No acute process. at 172 Reported and signed by: Scott Garduno MD CC: Paula Thurston; Willow Brownlee CLOTH DYE RANGE OPERATOR Technologist: Shawn Walter Trnscb Date/Time: 07/04/2020 (1723) Hung PAGE 1 Signed Report Name: GURMEET BROCK : 1965 Age/S: 54 / M [id number] Unit #: [id number] Loc: [place] [address] Phys: Willow Brownlee CLOTH DYE RANGE OPERATOR Acct: [id number] Dis Date: Status: ADM IN PHONE #: [phone] Exam Date: 07/04/2020 1616 FAX #: Reason: elevated bilirubin EXAMS: CPT: [id number] US ABDOMEN LTD [id number] <Continued> Orig Print D/T: S: 07/04/2020 (1726) Probe: PAGE 2 Signed ReportGLUCOSE BEDSIDE [id number] 16:16:00 Test Item Value Reference Range Interpretation Comments GLUCOSE BEDSIDE TESTING (test code = 99 mg/dL 70-110 N GLUBED) NT PRO-BRAIN NATRIURETIC [id number] 14:35:00 Test Item Value Reference Range Interpretation Comments NT PRO-BRAIN NATRIURETIC PEPTI 5696 PG/ML 0-100 H (test code = PROBNP) [id number] 14:34:00 Test Item Value Reference Range Interpretation Comments AMMONIA (test code = AMM) 39 mcMOL/L 11-32 H GLUCOSE BEDSIDE [id number] 12:23:00 Test Item Value Reference Range Interpretation Comments GLUCOSE BEDSIDE TESTING (test code 178 mg/dL 70-110 H = GLUBED) CBC W/AUTO [id number] 08:33:00 Test Item Value Reference Range Interpretation Comments WHITE BLOOD CELL (test code = 11.3 K/mm3 3.5-11.0 H WBC) RED BLOOD CELL (test code = 5.31 M/mm3 4.70-6.10 N RBC) HEMOGLOBIN (test code = HGB) 9.4 G/DL 12.3-15.9 L HEMATOCRIT (test code = HCT) 36.4 % 35.8-46.7 N MEAN CELL VOLUME (test code = 68.5 Fl 86.3-98.9 L MCV) MEAN CELL HGB (test code = MCH) 17.7 pg 28.9-34.4 L MEAN CELL HGB CONCETRATION 25.8 G/DL 32.1-34.5 L (test code = MCHC) RED CELL DISTRIBUTION WIDTH 23.1 SD 11.5-14.5 H (test code = RDW) PLATELET COUNT (test code = 316 K/mm3 150-450 N PLT) MEAN PLATELET VOLUME (test code 8.60 fL 7.0-9.6 N = MPV) NEUTROPHIL % (test code = NT%) 76.5 % 40-76 H IMMATURE GRANULOCYTE % (test 1.2 % 0.0-5.0 N code = IG%) LYMPHOCYTE % (test code = LY%) 9.4 % 20.5-51.1 L MONOCYTE % (test code = MO%) 8.5 % 1.7-9.3 N EOSINOPHIL % (test code = EO%) 3.5 % 0.0-6.0 N BASOPHIL % (test code = BA%) 0.9 % 0.0-2.0 N NUCLEATED RBC % (test code = 2.2 /100WBC% 0.0-1.0 H NRBC%) NEUTROPHIL # (test code = NT#) 8.7 K/mm3 1.8-7.6 H IMMATURE GRANULOCYTE # (test 0.13 x10 3/uL 0.00-0.03 H code = IG#) LYMPHOCYTE # (test code = LY#) 1.1 K/mm3 0.6-3.0 N MONOCYTE # (test code = MO#) 1.0 K/mm3 0.2-1.5 N EOSINOPHIL # (test code = EO#) 0.4 K/mm3 0.0-0.4 N BASOPHIL # (test code = BA#) 0.1 K/mm3 0.0-0.2 N NUCLEATED RBC # (test code = 0.3 K/mm3 0.00-0.01 H NRBC#) MANUAL DIFF REQUIRED (test code NO DIFF/SCN CRITERIA = MDIFF) RBC [id number] 08:33:00 Test Item Value Reference Range Interpretation Comments HYPOCHROMIA (test code = TRACE ON SCAN NONE HYPO) ANISOCYTOSIS (test code = TRACE NONE ANISO) PLATELET ESTIMATE (test ADEQUATE THOUSAND ADEQUATE code = PLTEST) PLATELET MORPHOLOGY (test NORMAL code = PLTMORPH) GLUCOSE BEDSIDE [id number] 08:01:00 Test Item Value Reference Range Interpretation Comments GLUCOSE BEDSIDE TESTING (test code 117 mg/dL 70-110 H = GLUBED) [id number] 06:55:00 Test Item Value Reference Range Interpretation Comments GLYCOSYLATED HEMOGLOBIN (HA1C) 6.4 % A1C 0.0-5.7 H (test code = GLYHGB) ESTIMATED AVERAGE GLUCOSE (test 137 MG/DLest code = EAG) LIPID PROFILE (CORONARY RISK)2020-07-04 06:47:00 Test Item Value Reference Range Interpretation Comments TRIGLYCERIDES (test code = TRIG) 89 MG/DL 0-150 N CHOLESTEROL (test code = CHOL) 69 MG/DL 133-200 L CHOLESTEROL/HDL RATIO (test code = 2.88 RATIO >0 CHOLHDL) HDL CHOLESTEROL (test code = HDL) 24 MG/DL 40-59 L NON-HDL CHOLESTEROL (test code = 45 mg/dL <130 NHDL) LIPOPROTEIN LDL (test code = LDL) 48 MG/DL 0-129 N LDL/HDL (test code = LDL/HDL) 2.00 Ratio 1.48-3.22 Avg N Comment: [facility] [place]/AUTO [id number] 06:35:00 Test Item Value Reference Range Interpretation Comments WHITE BLOOD CELL (test code = 11.3 K/mm3 3.5-11.0 H WBC) RED BLOOD CELL (test code = 5.31 M/mm3 4.70-6.10 N RBC) HEMOGLOBIN (test code = HGB) 9.4 G/DL 12.3-15.9 L HEMATOCRIT (test code = HCT) 36.4 % 35.8-46.7 N MEAN CELL VOLUME (test code = 68.5 Fl 86.3-98.9 L MCV) MEAN CELL HGB (test code = MCH) 17.7 pg 28.9-34.4 L MEAN CELL HGB CONCETRATION 25.8 G/DL 32.1-34.5 L (test code = MCHC) RED CELL DISTRIBUTION WIDTH 23.1 SD 11.5-14.5 H (test code = RDW) PLATELET COUNT (test code = 316 K/mm3 150-450 N PLT) MEAN PLATELET VOLUME (test code 8.60 fL 7.0-9.6 N = MPV) NEUTROPHIL % (test code = NT%) 76.5 % 40-76 H IMMATURE GRANULOCYTE % (test 1.2 % 0.0-5.0 N code = IG%) LYMPHOCYTE % (test code = LY%) 9.4 % 20.5-51.1 L MONOCYTE % (test code = MO%) 8.5 % 1.7-9.3 N EOSINOPHIL % (test code = EO%) 3.5 % 0.0-6.0 N BASOPHIL % (test code = BA%) 0.9 % 0.0-2.0 N NUCLEATED RBC % (test code = 2.2 /100WBC% 0.0-1.0 H NRBC%) NEUTROPHIL # (test code = NT#) 8.7 K/mm3 1.8-7.6 H IMMATURE GRANULOCYTE # (test 0.13 x10 3/uL 0.00-0.03 H code = IG#) LYMPHOCYTE # (test code = LY#) 1.1 K/mm3 0.6-3.0 N MONOCYTE # (test code = MO#) 1.0 K/mm3 0.2-1.5 N EOSINOPHIL # (test code = EO#) 0.4 K/mm3 0.0-0.4 N BASOPHIL # (test code = BA#) 0.1 K/mm3 0.0-0.2 N NUCLEATED RBC # (test code = 0.3 K/mm3 0.00-0.01 H NRBC#) MANUAL DIFF REQUIRED (test code NO DIFF/SCN CRITERIA = MDIFF) CBC W/AUTO [id number] 06:35:00 Test Item Value Reference Range Interpretation Comments WHITE BLOOD CELL (test code = 11.3 K/mm3 3.5-11.0 H WBC) RED BLOOD CELL (test code = 5.31 M/mm3 4.70-6.10 N RBC) HEMOGLOBIN (test code = HGB) 9.4 G/DL 12.3-15.9 L HEMATOCRIT (test code = HCT) 36.4 % 35.8-46.7 N MEAN CELL VOLUME (test code = 68.5 Fl 86.3-98.9 L MCV) MEAN CELL HGB (test code = MCH) 17.7 pg 28.9-34.4 L MEAN CELL HGB CONCETRATION 25.8 G/DL 32.1-34.5 L (test code = MCHC) RED CELL DISTRIBUTION WIDTH 23.1 SD 11.5-14.5 H (test code = RDW) PLATELET COUNT (test code = 316 K/mm3 150-450 N PLT) MEAN PLATELET VOLUME (test code 8.60 fL 7.0-9.6 N = MPV) NEUTROPHIL % (test code = NT%) 76.5 % 40-76 H IMMATURE GRANULOCYTE % (test 1.2 % 0.0-5.0 N code = IG%) LYMPHOCYTE % (test code = LY%) 9.4 % 20.5-51.1 L MONOCYTE % (test code = MO%) 8.5 % 1.7-9.3 N EOSINOPHIL % (test code = EO%) 3.5 % 0.0-6.0 N BASOPHIL % (test code = BA%) 0.9 % 0.0-2.0 N NUCLEATED RBC % (test code = 2.2 /100WBC% 0.0-1.0 H NRBC%) NEUTROPHIL # (test code = NT#) 8.7 K/mm3 1.8-7.6 H IMMATURE GRANULOCYTE # (test 0.13 x10 3/uL 0.00-0.03 H code = IG#) LYMPHOCYTE # (test code = LY#) 1.1 K/mm3 0.6-3.0 N MONOCYTE # (test code = MO#) 1.0 K/mm3 0.2-1.5 N EOSINOPHIL # (test code = EO#) 0.4 K/mm3 0.0-0.4 N BASOPHIL # (test code = BA#) 0.1 K/mm3 0.0-0.2 N NUCLEATED RBC # (test code = 0.3 K/mm3 0.00-0.01 H NRBC#) MANUAL DIFF REQUIRED (test code NO DIFF/SCN CRITERIA = MDIFF) COMPREHENSIVE METABOLIC [id number] 06:11:00 Test Item Value Reference Range Interpretation Comments SODIUM (test code = NA) 134 mmol/L 134-147 N POTASSIUM (test code = 3.5 mmol/L 3.4-5.0 N K) CHLORIDE (test code = 102 mmol/L 100-108 N CL) CARBON DIOXIDE (test 26 mmol/L 21-32 N code = CO2) ANION GAP (test code = 6.0 GAP calc 4.0-15.0 N GAP) GLUCOSE (test code = 182 MG/DL 70-110 H GLU) BLOOD UREA NITROGEN 12 MG/DL 7-18 N (test code = BUN) GLOMERULAR FILTRATION >=60 max estimate >60 RATE (test code = GFR) estGFR CREATININE (test code = 0.8 MG/DL 0.8-1.3 N CREAT) TOTAL PROTEIN (test code 7.1 G/DL 6.4-8.2 N = PROT) ALBUMIN (test code = 2.5 G/DL 3.4-5.0 L ALB) GLOBULIN (test code = 4.6 GM/dL GLOB) ALBUMIN/GLOBULIN RATIO 0.5 RATIO 1.2-2.2 L (test code = A/G) CALCIUM (test code = CA) 8.3 MG/DL 8.5-10.1 L BILIRUBIN TOTAL (test 4.40 MG/DL 0.2-1.2 H code = BILT) SGOT/AST (test code = 80 Unit/L 15-37 H AST) SGPT/ALT (test code = 155 Unit/L 12-78 H ALT) ALKALINE PHOSPHATASE 131 Unit/L 50-136 N TOTAL (test code = ALKP) GLUCOSE BEDSIDE [id number] 20:39:00 Test Item Value Reference Range Interpretation Comments GLUCOSE BEDSIDE TESTING (test code 115 mg/dL 70-110 H = GLUBED) GLUCOSE BEDSIDE [id number] 16:53:00 Test Item Value Reference Range Interpretation Comments GLUCOSE BEDSIDE TESTING (test code 118 mg/dL 70-110 H = GLUBED) - XR CHEST 1 [id number] 15:43:00 [facility] 1965 Sex: M Name: GURMEET BROCK : 1965Age/S: 54 / M [address] Unit #: [id number] Loc: [place] [address] Phys: Pogoson,Willow CLOTH DYE RANGE OPERATOR Acct: [id number] Dis Date: Status: ADM IN PHONE#: [phone] Exam Date: 07/03/2020 1533 FAX #: Reason: TO CONFIRM NG TUBE PLACEMENT EXAMS: CPT: [id number] XR CHEST 1 V 89042 Fluoro Time: DAP (Gy m2): Air Kerma (mGy): EXAM: Portable chest x-ray Dictation location: C3 COMPARISON: Chest x-ray performed 2 hours prior INDICATION: TO CONFIRM NG TUBE PLACEMENT DISCUSSION: A Dobbhoff tube is in place, with tip projecting near the gastroesophageal junction. Advancement by 4 to 6 cm is suggested for more optimal positioning. Mild to moderate cardiac silhouette enlargement is noted, with mild central vascular congestion and mild interstitial or peribronchial opacity. No pleural effusion, pneumothorax, or consolidation is seen. No acute bony abnormalities are identified. IMPRESSION: 1. The upper enteric tube tip projects near the gastroesophageal junction. Advancement by 4 to 6 cm is suggested for more optimal positioning. 2. Findings suggest CHF, with mild central vascular congestion. Interstitialor peribronchial opacity suggests mild edema, and appears similar or slightly improved. at 1543 Reported and signed by: Izaiah Hastings M.D. CC: Paula Suazo MD; Willow Brownlee NP PAGE 1 Signed Report Name: GURMEET BROCK : 1965 Age/S: 54 / M [address] Unit #: [id number] Loc: [place] [address] Phys: Pogoson,Willow CLOTH DYE RANGE OPERATOR Acct: [id number] Dis Date: Status: ADM IN PHONE #: [phone] Exam Date: 07/03/2020 1533 FAX #: Reason: TO CONFIRM NG TUBE PLACEMENT EXAMS: CPT: [id number] XR CHEST 1 V 74212 Fluoro Time: DAP (Gy m2): Air Kerma (mGy): <Continued> Technologist: RT Huy(Kyleigh) Trnpab Date/Time: 07/03/2020 (1543) [email or web address] Orig Print D/T: S: 07/03/2020 (1543) PAGE 2 Signed Report- XR CHEST 1 [id number] 14:22:00 [facility] 1965 Sex: M Name: GURMEET BROCK [facility] : 1965Age/S: 54 / M [address] Unit #: [id number] Loc: [place] [address] Phys: Willow Brownlee NP Acct: [id number] Dis Date: Status: ADM IN PHONE#: [phone] Exam Date: 07/03/2020 1336 FAX #: Reason: hypoxia EXAMS: CPT: [id number] XR CHEST 1 V 55592 Fluoro Time: DAP (Gy m2): Air Kerma (mGy): Examination: Chest 1 view Location code: S17 Comparison: Chest July 03, 2020 Discussion: Clinical history is remarkable for hypoxia. Cardiac silhouette is enlarged. Rightparahilar pneumonitis is identified, there is likely mild underlying congestion. Impression: Underlying congestion and right parahilar pneumonitis. at 1422 Reported and signed by: Brannon Frias M.D. CC: Paula Suazo MD; Willow Pogoson CLOTH DYE RANGE OPERATOR PAGE 1 Signed Report Name: GURMEET BROCK [facility] : 1965 Age/S: 54 / M [address] Unit #: [id number] Loc: [place] [address] Phys: Willow Brownlee CLOTH DYE RANGE OPERATOR Acct: [id number] Dis Date: Status: ADM IN PHONE #: [phone] Exam Date: 07/03/2020 1336 FAX #: Reason: hypoxia EXAMS: CPT: [id number] XR CHEST 1 V 91733 Fluoro Time: DAP (Gy m2): Air Kerma (mGy): <Continued> Technologist: RT Libra(Kyleigh) Trnscb Date/Time: 07/03/2020 (1421) [email or web address] Orig Print D/T: S: 07/03/2020 (0741) PAGE 2 Signed Report- MRI BRAIN W/O [id number] 13:54:00 [facility] : 1965 Sex: M FAX: Kerry Wu [phone] Camps: PM St: ADM Name: GURMEET BROCK [facility] : 1965 Age/S: 54/M [address] Unit #: [id number] Loc: [address] [place] [address] Phys: Kerry Vincent MD Acct: [id number] Dis Date: Status: ADM IN PHONE #: [phone] Exam Date: 07/03/2020 1325 FAX #: Reason: ISCHEMIC STROKE EXAMS: CPT: [id number] MRI BRAIN W/O CONTRAST 71509 Examination: MRI of the brain without contrast Location code: S17 Comparison: Head CT dated July 03, 2020 Technique: Multisequence, multiplanar imaging of the brain is obtained without gadolinium. Discussion: Clinical history is remarkable for ischemic stroke, concern for acute MCA infarction. There is diffusion restriction in the right MCA distribution involvingthe patient's right frontal lobe, right posterior parietal lobe, nonhemorrhagic. There is no diffusion restriction. There is encephalomalacia present in the patient's left occipital lobe and left frontal lobe. Chronic small vessel ischemic changes are present otherwise. No midline shift, extra-axial fluid collection, or space-occupying mass lesion is present. There are appropriate flow voids at the base the skull. Orbital contents are within normal limits. Paranasal sinuses are relatively clear, mild mucosal thickening in the left frontal sinus. Impression: 1. 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 at 6224 Reported and signed by: Brannon Frias M.D. CC: Kerry Vincent MD Technologist: RT Yancy(R)(MR) Transcribed Date/Time/By: ([id number]) :Ronald.JH12 Orig Print D/T: S: 07/03/2020 (7903) PAGE 1 Signed [id number] 12:59:00 Test Item Value Reference Range Interpretation Comments PHOSPHOROUS (test code = PHOS) 2.9 MG/DL 2.5-4.9 N Completed by Nursing: NOCREATINE KINASE (CK)2020-07-03 12:59:00 Test Item Value Reference Range Interpretation Comments CREATINE KINASE (CK) (test code = 403 Unit/L 26-192 H CK) Completed by Nursing: [id number] 12:59:00 Test Item Value Reference Range Interpretation Comments MAGNESIUM (test code = MAG) 1.7 MG/DL 1.8-2.4 L Completed by Nursing: NOTHYROID STIMULATING [id number] 12:59:00 Test Item Value Reference Range Interpretation Comments THYROID STIMULATING HORMONE 2.480 mcIU/ML 0.340-4.820 N (test code = TSH) Completed by Nursing: [id number] 12:59:00 Test Item Value Reference Range Interpretation Comments TROPONIN-I (test 0.144 NG/ML 0.000-0.045 HH Negative: < /= 0.045 code = TROPI) Positive: >/= 0.046 Correlation wit h serial results, other cardiac markers, and cl inical findings is nec essary to determine the c linical significance of this result. Quantit ative results using d ifferent methodologies s hould not be compared to one another as nume rical results may jasbir yby method. Completed by Nursing: [id number] 12:42:00 Test Item Value Reference Range Interpretation Comments D-DIMER (test code = DDIMER) 1360 ng/mLFEU 215-500 HH GLUCOSE BEDSIDE [id number] 12:16:00 Test Item Value Reference Range Interpretation Comments GLUCOSE BEDSIDE TESTING (test code 132 mg/dL 70-110 H = GLUBED) PaO2/[id number] 11:31:00 Test Item Value Reference Range Interpretation Comments PaO2/FiO2 (test code = [id number]) mm/Hg >200 [id number] 11:31:00 Test Item Value Reference Range Interpretation Comments ARTERIAL BLOOD GAS PH (test 7.40 pH units 7.35-7.45 N code = PHA) ARTERIAL BLOOD GAS PCO2 36 mmHg 35-45 N (test code = PCO2A) ARTERIAL BLOOD GAS PO2 68 mmHg 80-100 L (test code = PO2A) BICARBONATE TOTAL HCO3 21.4 mmol/L 22.0-26.0 L (test code = HCO3) BASE EXCESS (test code = -3.1 mmol/L -3.0-3.0 L BRENDA) ABG O2 SATURATION (test 93 % 90-100 N code = SATA) FIO2 (test code = FIO2A) 40 % (calc) 21-100 N ABG VENT MODE (test code = Nasal Cannula Vent Mode MODEA) Descript ABG SITE (test code = Right Radial DESCRIPTION SITEA) ARTKIT MODIFIED LESLEE'S (test code Yes Circ.CHK POSITIVE = MODALL) TOTAL HGB (test code = THB) 9.3 GRAM/DL 12.0-18.0 L HGB O2 SAT (test code = 91.8 % (deep) 95.0-100.0 L HBOSAT) CARBOXYHEMOGLOBIN (test 0.6 % 0.5-1.5 N code = HOHGBT) METHEMOGLOBIN (test code = 0.6 % 0.0-0.0 H METHGB) PaO2/[id number] 11:31:00 Test Item Value Reference Range Interpretation Comments PaO2/FiO2 (test code = AWO4MHZ9) 170.0 mm/Hg >200 L [id number] 11:31:00 Test Item Value Reference Range Interpretation Comments ARTERIAL BLOOD GAS PH (test 7.40 pH units 7.35-7.45 N code = PHA) ARTERIAL BLOOD GAS PCO2 36 mmHg 35-45 N (test code = PCO2A) ARTERIAL BLOOD GAS PO2 68 mmHg 80-100 L (test code = PO2A) BICARBONATE TOTAL HCO3 21.4 mmol/L 22.0-26.0 L (test code = HCO3) BASE EXCESS (test code = -3.1 mmol/L -3.0-3.0 L BRENDA) ABG O2 SATURATION (test 93 % 90-100 N code = SATA) FIO2 (test code = FIO2A) 40 % (calc) 21-100 N ABG VENT MODE (test code = Nasal Cannula Vent Mode MODEA) Descript ABG SITE (test code = Right Radial DESCRIPTION SITEA) ARTKIT MODIFIED LESLEE'S (test code Yes Circ.CHK POSITIVE = MODALL) TOTAL HGB (test code = THB) 9.3 GRAM/DL 12.0-18.0 L HGB O2 SAT (test code = 91.8 % (deep) 95.0-100.0 L HBOSAT) CARBOXYHEMOGLOBIN (test 0.6 % 0.5-1.5 N code = HOHGBT) METHEMOGLOBIN (test code = 0.6 % 0.0-0.0 H METHGB) - DUP VEIN [id number] 11:12:00 [facility] 1965 Sex: M [facility] 1965[facility]S: 54 / M [address] Unit #: [id number] Loc: [place] [address] Phys: Willow Brownlee NP Acct: [id number] Dis Date: Status: ADM IN PHONE#: [phone] Exam Date: 07/03/2020 0939 FAX #: Reason:Saul LE swelling EXAMS: CPT: [id number] DUP VEIN SAUL [address] Examination: Bilateral lower extremity venous Doppler Location code: S17 Comparison: None Discussion: Clinical history is remarkable for pain and swelling. Grayscale, color Doppler, and spectral wave form analysis of the bilateral lowerextremity venous system is being performed. The common femoral vein, superficial femoral vein, popliteal vein and tibial veins are morphologically normal. The venous system demonstrates appropriate venous waveforms, augmentation and compressibility. Mild subcutaneous edema is noted on the right. Impression: Negative bilateral lower extremity venous Doppler. at 1112 Reported and signed by: Brannon Frias M.D. CC: Paula Suazo MD; Willow Brownlee NP Technologist: Maddie Lilly Trnscb Date/Time: 07/03/2020 (111) RosalieJH12 PAGE 1 Signed Report Name: GURMEET BROCK [place] : 1965 Age/S: 54 / M [address] Unit #: [id number] Loc: [place] [address] Phys: Willow Brownlee CLOTH DYE RANGE OPERATOR Acct: [id number] Dis Date: Status: ADM IN PHONE #: [phone] Exam Date: 07/03/2020 0939 FAX #: Reason: Saul LE swelling EXAMS: CPT: [id number] DUP VEIN SAUL [address] <Continued> Orig Print D/T: S: 07/03/2020 (1121) Probe: PAGE 2 Signed ReportGLUCOSE BEDSIDE [id number] 07:58:00 Test Item Value Reference Range Interpretation Comments GLUCOSE BEDSIDE TESTING (test code 133 mg/dL 70-110 H = GLUBED) [id number] 06:38:00 Test Item Value Reference Range Interpretation Comments TROPONIN-I (test 0.171 NG/ML 0.000-0.045 HH Negative: < /= 0.045 code = TROPI) Positive: >/= 0.046 Correlation wit h serial results, other cardiac markers, and cl inical findings is nec essary to determine the c linical significance of this result. Quantit ative results using d ifferent methodologies s hould not be compared to one another as nume rical results may jasbir yby method. Completed by Nursing: NOCOVID 19 INHOUSE [id number] 04:12:00 Test Item Value Reference Range Interpretation Comments COVID 19 INHOUSE AG NEGATIVE Negative Per manu facturer, (test code = negative result s should [id number]) be treated aspr esumptive and, if inconsi stent with clinical signs andsymptoms or necessary for patient man agement, should betested with an alternative mol ecular assay. Negative resultsdo not preclude SA RS-CoV-2 infection and s hould not be usedas the s ole basis for patient man agement decisions. Neg ative results should be considered in t he context of apatient's r ecent exposures, hist ory, presence of cli nicalsigns and symptoms co nsistent with COVID-19. GLUCOSE BEDSIDE [id number] 03:37:00 Test Item Value Reference Range Interpretation Comments GLUCOSE BEDSIDE TESTING (test code 124 mg/dL 70-110 H = GLUBED) - CT ANGIO [id number] 03:32:00 [facility] 1965 Sex: M Name: GURMEET BROCK [facility] : 1965Age/S: 54 / M [address] Unit #: [id number] Loc: [place] [address] Phys: Kerry Vincent MD Acct: [id number] Dis Date: Status: REG ER PHONE#: [phone] Exam Date: 07/03/2020 0312 FAX #: Reason:AMS EXAMS: CPT: [id number] CT ANGIO NECK [address]40 - CT ANGIO HEAD, - CT ANGIO NECK HISTORY: AMS TECHNIQUE: Axial CT images were obtained from the aortic arch to the skull base after intravenous contrast utilizing CTA protocol. Axial, coronal and sagittal maximum intensity projection images were created from the data set. One or more of the following dose reduction techniques were used: Automated exposure control, adjustment of the mA and/or kV according to patient size, and/or iterative reconstruction. COMPARISON: None FINDINGS: The imaged aortic arch is normal. The origins of the brachiocephalic, bilateral common carotid, bilateral subclavian, and bilateral vertebral arteries demonstrate no significant stenosis. The bilateral internal and external carotid arteries are patent. There is no significant internal carotid artery stenosis by NASCET-like criteria. The cervical vertebral arteries are patent and codominant. There is no evidence of arterial dissection, significantstenosis, occlusion, extravasation of contrast material, arteriovenous fistula or pseudoaneurysm. Coronal and sagittal maximum intensity projection images confirm these findings. IMPRESSION: Normal neck CTA HISTORY: AMS TECHNIQUE: Axial CT images were obtained from the skull base to the vertex after intravenous contrast utilizing CTA protocol. Axial, coronal and sagittal maximum intensity projection images were created from the data set. PAGE 1 Signed Report (CONTINUED) Name: GURMEET BROCK : 1965 Age/S: 54 / M [address] [place] [address] Unit #: [id number] Loc: [place] [address] Phys: Kerry Vincent MD Acct: [id number] Dis Date: Status: REG ER PHONE #: [phone] Exam Date: 07/03/2020311 FAX #: Reason: AMS EXAMS: CPT: [id number] ANGIO NECK [address]37 <Continued> One or more of the following dose reduction techniques were used: Automated exposure control, adjustment of the mA and/or kV according to patient size, and/or iterative reconstruction. COMPARISON: None FINDINGS: The petrous, cavernous, and supraclinoid segments of the bilateral internal carotid arteries are normal. The ophthalmic artery origins are visualized and normal. The posterior communicating arteries are patent. Anterior and middle cerebral arteries are normal bilaterally. The anterior communicating artery is patent. Both posterior cerebral arteries are normal. The vertebral arteries are patent and codominant. The basilar artery and origins of the bilateral posterior inferior cerebellar arteries, anterior inferior cerebellar arteries, and superior cerebellar arteries are normal. No saccular aneurysm, proximal arterial cut off, intra-arterial clot, or hemodynamically significant intracranial arterial stenosis is present. Axial, coronal and sagittal maximum intensity projection images confirm these findings. IMPRESSION: Normal head CTA. at 0332 Reported and signed by: Timi Garcia M.D. PAGE 2 Signed Report (CONTINUED) Name: GURMEET BROCK : 1965 Age/S: 54 / M [address] [place] [address] Unit #: [id number] Loc: [place] [address] Phys: Kerry Vincent MD Acct: [id number] Dis Date: Status: REG ER PHONE #: [phone] Exam Date: 07/03/2020311 FAX #: Reason: AMS EXAMS: CPT: [id number] CT ANGIO NECK [address] <Continued> CC: Kerry Vincent MD Technologist:Brannon Valera, RT(R); Evgeny Morales, CTDI: DLP: Trnscb Date/Time: 07/03/2020 (331) t.SDR.RR16 Orig Print D/T: S: 07/03/2020 (033) PAGE 3 Signed Report- CT ANGIO [id number] 03:32:00 [facility] : 1965 Sex: M Name: GURMEET BROCK [facility] : 1965Age/S: 54 / M [address] Unit #: [id number] Loc: [place] [address] Phys: Kerry Vincent MD Acct: [id number] Dis Date: Status: REG ER PHONE#: [phone] Exam Date: 07/03/2020 0308 FAX #: Reason:AMS EXAMS: CPT: [id number] CT ANGIO HEAD [address] - CT ANGIO HEAD, - CT ANGIO NECK HISTORY: AMS TECHNIQUE: Axial CT images were obtained from the aortic arch to the skull base after intravenous contrast utilizing CTA protocol. Axial, coronal and sagittal maximum intensity projection images were created from the data set. One or more of the following dose reduction techniques were used: Automated exposure control, adjustment of the mA and/or kV according to patient size, and/or iterative reconstruction. COMPARISON: None FINDINGS: The imaged aortic arch is normal. The origins of the brachiocephalic, bilateral common carotid, bilateral subclavian, and bilateral vertebral arteries demonstrate no significant stenosis. The bilateral internal and external carotid arteries are patent. There is no significant internal carotid artery stenosis by NASCET-like criteria. The cervical vertebral arteries are patent and codominant. There is no evidence of arterial dissection, significantstenosis, occlusion, extravasation of contrast material, arteriovenous fistula or pseudoaneurysm. Coronal and sagittal maximum intensity projection images confirm these findings. IMPRESSION: Normal neck CTA HISTORY: AMS TECHNIQUE: Axial CT images were obtained from the skull base to the vertex after intravenous contrast utilizing CTA protocol. Axial, coronal and sagittal maximum intensity projection images were created from the data set. PAGE 1 Signed Report (CONTINUED) Name: GURMEET BROCK : 1965 Age/S: 54 / M [address] [place] [address] Unit #: [id number] Loc: [place] [address] Phys: Kerry Vincent MD Acct: [id number] Dis Date: Status: REG ER PHONE #: [phone] Exam Date: 07/03/2020 0308 FAX #: Reason: AMS EXAMS: CPT: [id number] ANGIO HEAD [address] <Continued> One or more of the following dose reduction techniques were used: Automated exposure control, adjustment of the mA and/or kV according to patient size, and/or iterative reconstruction. COMPARISON: None FINDINGS: The petrous, cavernous, and supraclinoid segments of the bilateral internal carotid arteries are normal. The ophthalmic artery origins are visualized and normal. The posterior communicating arteries are patent. Anterior and middle cerebral arteries are normal bilaterally. The anterior communicating artery is patent. Both posterior cerebral arteries are normal. The vertebral arteries are patent and codominant. The basilar artery and origins of the bilateral posterior inferior cerebellar arteries, anterior inferior cerebellar arteries, and superior cerebellar arteries are normal. No saccular aneurysm, proximal arterial cut off, intra-arterial clot, or hemodynamically significant intracranial arterial stenosis is present. Axial, coronal and sagittal maximum intensity projection images confirm these findings. IMPRESSION: Normal head CTA. at 0332 Reported and signed by: Timi Garcia M.D. PAGE 2 Signed Report (CONTINUED) Name: GURMEET BROCK : 1965 Age/S: 54 / M [address] [place] [address] Unit #: [id number] Loc: [place] [address] Phys: Kerry Vincent MD Acct: [id number] Dis Date: Status: REG ER PHONE #: [phone] Exam Date: 07/03/2020 0308 FAX #: Reason: AMS EXAMS: CPT: [id number] CT ANGIO HEAD [address] <Continued> CC: Kerry Vincent MD Technologist:Brannon Valera, RT(R); Evgeny Morales, CTDI: DLP: Trnscb Date/Time: 07/03/2020 (033) [email or web address] Orig Print D/T: S: 07/03/2020 (033) PAGE 3 Signed ReportDRUGS OF ABUSE SCREEN [id number] 03:24:00 Test Item Value Reference Range Interpretation Comments URN COCAINE (test code = NEGATIVE SCcutoff <300 NG/ML COCAURN) URN CANNABINOIDS (test code NEGATIVE SCcutoff <50 NG/ML = CANNABURN) URN AMPHETAMINE (test code POSITIVE SCcutoff <1000 NG/ML A = AMPHETURN) URN BARBITURATE (test code NEGATIVE SCcutoff <200 NG/ML = BARBITURN) URN BENZODIAZEPINE (test NEGATIVE SCcutoff <200 NG/ML code = BENZOURN) URN OPIATES (test code = NEGATIVE SCcutoff <2000 NG/ML OPIATURN) URN PHENCYCLIDINE (PCP) NEGATIVE SCcutoff <25 NG/ML (test code = PHENCURN) URN METHADONE (test code = NEGATIVE SCcutoff <300 NG/ML METHAURN) UA RFLX MICR CULT IF [id number] 03:09:00 Test Item Value Reference Range Interpretation Comments UA COLOR (test code = YELLOW discript YEL/STRAW COLU) UA APPEARANCE (test code CLEAR discript CLEAR = APPU) UA GLUCOSE DIPSTICK (test NEGATIVE mg/dL NEG code = DGLUU) UA BILIRUBIN DIPSTICK NEGATIVE mg/dL NEG (test code = BILU) UA KETONE DIPSTICK (test NEGATIVE mg/dL NEG code = KETU) UA SPECIFIC GRAVITY (test 1.015 SG 1.005-1.030 code = SGU) UA BLOOD DIPSTICK (test TRACE mg/DL NEG code = DARIUSZ) UA PH DIPSTICK (test code 6.5 pH UNITS 5.0-7.0 = KIRAN) UA PROTEIN DIPSTICK (test 2+ mg/dL NEG A code = PROU) UA UROBILINIOGEN DIPSTICK 4.0 mg/dL <2.0 A (test code = URO) UA NITRITE DIPSTICK (test NEGATIVE SCREEN NEG code = YADIEL) UA LEUKOCYTE ESTERASE NEGATIVE Leuk/mcL NEGATIVE DIPSTICK (test code = LEUU) UA WBC (test code = WBCU) 0-1 #WBC/HPF 0-3 UA RBC (test code = RBCU) 1-3 #RBC/HPF 0-3 UA BACTERIA (test code = NONE SEEN /HPF NONE-TRACE BACU) UA SQUAMOUS CELLS (test TRACE /HPF NONE code = SQU) UA CULTURE NEEDED? (test NO, WBC<10 Criteria Culture CHK code = UACULT) Indication for culture: RiskForSepsis-no oth srcPROTHROMBIN [id number] 03:05:00 Test Item Value Reference Range Interpretation Comments PT PATIENT (test code = PTP) 19.8 SECONDS 9.3-12.9 H INTERNATIONAL NORMAL RATIO 1.73 INR Unit 0.8-1.2 H (test code = INR) THROMBOPLASTIN TIME [id number] 03:05:00 Test Item Value Reference Range Interpretation Comments THROMBOPLASTIN TIME PARTIAL 31.4 SECONDS 26-35 N (test code = PTT) UA RFLX MICR CULT IF [id number] 02:59:00 Test Item Value Reference Range Interpretation Comments UA COLOR (test code = COLU) YELLOW discript YEL/STRAW UA APPEARANCE (test code = CLEAR discript CLEAR APPU) UA GLUCOSE DIPSTICK (test NEGATIVE mg/dL NEG code = DGLUU) UA BILIRUBIN DIPSTICK (test NEGATIVE mg/dL NEG code = BILU) UA KETONE DIPSTICK (test NEGATIVE mg/dL NEG code = KETU) UA SPECIFIC GRAVITY (test 1.015 SG 1.005-1.030 code = SGU) UA BLOOD DIPSTICK (test TRACE mg/DL NEG code = DARIUSZ) UA PH DIPSTICK (test code = 6.5 pH UNITS 5.0-7.0 KIRAN) UA PROTEIN DIPSTICK (test 2+ mg/dL NEG A code = PROU) UA UROBILINIOGEN DIPSTICK 4.0 mg/dL <2.0 A (test code = URO) UA NITRITE DIPSTICK (test NEGATIVE SCREEN NEG code = YADIEL) UA LEUKOCYTE ESTERASE NEGATIVE Leuk/mcL NEGATIVE DIPSTICK (test code = LEUU) UA CULTURE NEEDED? (test Criteria Culture CHK code = UACULT) Indication for culture: RiskForSepsis-no oth srcBASIC METABOLIC PANEL 2020-07-03 02:56:00 Test Item Value Reference Range Interpretation Comments SODIUM (test code = NA) 136 mmol/L 134-147 N POTASSIUM (test code = 3.9 mmol/L 3.4-5.0 N K) CHLORIDE (test code = 107 mmol/L 100-108 N CL) CARBON DIOXIDE (test 21 mmol/L 21-32 N code = CO2) ANION GAP (test code = 8.0 GAP calc 4.0-15.0 N GAP) GLUCOSE (test code = 110 MG/DL 70-110 N GLU) BLOOD UREA NITROGEN 27 MG/DL 7-18 H (test code = BUN) GLOMERULAR FILTRATION >=60 max estimate >60 RATE (test code = GFR) estGFR CREATININE (test code = 1.1 MG/DL 0.8-1.3 N CREAT) CALCIUM (test code = CA) 8.0 MG/DL 8.5-10.1 L Completed by Nursing: [id number] 02:56:00 Test Item Value Reference Range Interpretation Comments TROPONIN-I (test 0.151 NG/ML 0.000-0.045 HH Negative: < /= 0.045 code = TROPI) Positive: >/= 0.046 Correlation wit h serial results, other cardiac markers, and cl inical findings is nec essary to determine the c linical significance of this result. Quantit ative results using d ifferent methodologies s hould not be compared to one another as nume rical results may jasbir yby method. Completed by Nursing: [id number] 02:51:00 Test Item Value Reference Range Interpretation Comments AMMONIA (test code = AMM) 31 mcMOL/L 11-32 N - XR CHEST 1 [id number] 02:44:00 [facility] 1965 Sex: M [facility] 1965[facility]S: 54 / M [address] Unit #: [id number] Loc: [place] [address] Phys: Kerry Vincent MD Acct: [id number] Dis Date: Status: REG ER PHONE#: [phone] Exam Date: 07/03/2020234 FAX #: Reason: Code Stroke EXAMS: CPT: [id number] XR CHEST 1 V 81222 Fluoro Time: DAP (Gy m2): Air Kerma (mGy): Exam: Chest portable semierect Location: H 12 History: Code Stroke Comparison: None. Findings: The lungs are clear. No infiltrate or effusion is seen. The pulmonary vasculature is normal. The heart size is normal. The mediastinal silhouette is unremarkable. The bonythorax is intact. Impression: No acute disease. at 0244 Reported and signed by: Angelito Swanson M.D. CC: Kerry Vincent MD PAGE 1 Signed Report Name: GURMEET BROCK [place] : 1965 Age/S: 54 / M [address] Unit #: [id number] Loc: [place] [address] Phys: Kerry Vincent MD Acct: [id number] Dis Date: Status: REG ER PHONE #: [phone] Exam Date: 07/03/2020234 FAX #: Reason: Code Stroke EXAMS: CPT: [id number] XR CHEST 1 V 11534 Fluoro Time: DAP (Gy m2): Air Kerma (mGy): <Continued> Technologist: Jarad RT(R); Evgeny Morales, RT(R)(CT) Trnscb Date/Time: 07/03/2020 (0244) Phillip Orig Print D/T: S: 07/03/2020 (4985) PAGE 2 Signed [id number] 02:42:00 Test Item Value Reference Range Interpretation Comments ALCOHOL (test code = ALC) < 3 MG/DL 0-10 N BASIC METABOLIC [id number] 02:39:00 Test Item Value Reference Range Interpretation Comments SODIUM (test code = NA) 136 mmol/L 134-147 N POTASSIUM (test code = K) 3.9 mmol/L 3.4-5.0 N CHLORIDE (test code = CL) 107 mmol/L 100-108 N CARBON DIOXIDE (test code = CO2) 21 mmol/L 21-32 N ANION GAP (test code = GAP) 8.0 GAP calc 4.0-15.0 N GLUCOSE (test code = GLU) 110 MG/DL 70-110 N BLOOD UREA NITROGEN (test code = 27 MG/DL 7-18 H BUN) GLOMERULAR FILTRATION RATE (test estGFR >60 code = GFR) CREATININE (test code = CREAT) MG/DL 0.8-1.3 CALCIUM (test code = CA) 8.0 MG/DL 8.5-10.1 L Completed by Nursing: [id number] 02:39:00 Test Item Value Reference Range Interpretation Comments TROPONIN-I (test code = TROPI) NG/ML 0.000-0.045 Completed by Nursing: NOCBC W/O [id number] 02:37:00 Test Item Value Reference Range Interpretation Comments WHITE BLOOD CELL (test code = WBC) 12.1 K/mm3 3.5-11.0 H RED BLOOD CELL (test code = RBC) 4.62 M/mm3 4.70-6.10 L HEMOGLOBIN (test code = HGB) 8.2 G/DL 12.3-15.9 L HEMATOCRIT (test code = HCT) 31.0 % 35.8-46.7 L MEAN CELL VOLUME (test code = MCV) 67.1 Fl 86.3-98.9 L MEAN CELL HGB (test code = MCH) 17.7 pg 28.9-34.4 L MEAN CELL HGB CONCETRATION (test 26.5 G/DL 32.1-34.5 L code = MCHC) RED CELL DISTRIBUTION WIDTH (test 23.3 SD 11.5-14.5 H code = RDW) PLATELET COUNT (test code = PLT) 314 K/mm3 150-450 N MEAN PLATELET VOLUME (test code = 8.70 fL 7.0-9.6 N MPV) - CT HEAD/BRAIN W/O [id number] 01:53:00 [facility] : 1965 Sex: M Name: GURMEET BROCK [facility] : 1965Age/S: 54 / M [address] [facility] [place] Unit #: [id number] Loc: [place] [address] Phys: Kerry Vincent MD Acct: [id number] Dis Date: Status: PRE ER PHONE#: [phone] Exam Date: 07/03/2020 0147 FAX #: Reason:Code Stroke EXAMS: CPT: [id number] CT HEAD/BRAIN W/O CONT 51724 EXAM: CT Head without contrast Location code:J9 HISTORY: Code stroke COMPARISON: None available. TECHNIQUE: Multiple transaxial images of the brain were obtained without intravenous contrast using 5mm slices. CT imaging performed at this location utilizes radiation dose optimization techniques which include one or more of the following: -Automated exposure control -Adjustment of the mA and/or kV according to patient size -Use of iterative reconstruction technique CT Radiation Dose DLP mGy-cm FINDINGS: There is no acute intracranial hemorrhage. There is no mass, mass effect, midlineshift or extra-axial fluid collection.The ventricles and sulci are enlarged. Low-attenuation is noted throughout the periventricular and deep white matter the supratentorium. Asymmetric loss of werner-white differentiation in a right MCA distribution is suggested. 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 Osseous structures are within normal limits. IMPRESSION: No evidence of hemorrhage. Questionable right MCA territory acute infarct. Findings suggestive of advanced chronic small vessel ischemia. The findings were discussed with Carlton Upton of the emergency department at 0 150 on 07/03/2020. FOR INTERNAL CODING PURPOSES ONLY RESULT CODE: CVR at 0153 Reported and signed by: Timi Garcia M.D. PAGE 1 Signed Report (CONTINUED) Name: GURMEET BROCK [place] : 1965 Age/S: 54 / M [address] Unit #: [id number] Loc: [place] [address] Phys: Kerry Vincent MD Acct: [id number] Dis Date: Status: PRE ER PHONE #: [phone] Exam Date: 07/03/2020 0147 FAX #: Reason: Code StrokeEXAMS: CPT: [id number] CT HEAD/BRAIN W/O CONT 85438 <Continued> CC:Kerry Vincent MD Technologist:Brannon Valera, RT(R); Evgeny Morales, CTDI: DLP: Trnscb Date/Time: 07/03/2020 (152) [id number].RR16 Orig Print D/T: S: 07/03/2020 (015) PAGE 2 Signed Report SARS-COV2/RT-PCR ([facility])2019-12-24 03:22:00 Test Item Value Reference Range Interpretation Comments SARS-COV2/RT-PCR (test Not Detected Not Detected, Negative code = 9858166) SARS-COV-2 PERFORMING LAB [facility] (test code = 5276905) Negative results do not preclude SARS-CoV-2 infection [...] of the Act.Fact Sheet for Healthcare Pro viders:https://www.[employer].Mashed jobs/Documents/Xpert%20Xpress%20SARS%20CoV-2/Fact%20Sh eets/3023802%08QJEF-JPO-1%20HEALTHCARE%20PROVIDERS%20FACT%20SHEET.pdfFact Sheet for Healthcare Patients:https://www.[employer].Mashed jobs/Documents/Xpert%20Xpress%20SARS%20CoV-2/Fact%20Sheets/3023801%20SARS-COV -2%20PATIENT%20FACT%20SHEET.pdfPerforming Laboratory:[facility] [place] [address]
[2021-01-23 09:43] LABS: Absolute Lymphocytes (CBC) 1.9 K/uL (0.7-4.9); Basophils % 1.2 % (0-1.3); Hematocrit 39.8 % (39.6-49.0); Lymphocytes % 16.1 % (15.3-44.8); MPV 7.9 fL (7.6-11.3); RBC Red Blood Cell Count 5.13 M/uL (4.33-5.43)
[2021-01-23 09:47] LABS: Protime INR 1.51
[2021-01-23 09:51] LABS: Potassium 4.2 mmol/L (3.5-5.1)
[2021-01-23] MEDS ORDERED: NA CHLORIDE 0.9% 1,000 ML ONE (09:53)
[2021-01-23] MEDS ORDERED: dilTIAZem HCL 25 MG/5 ML VIAL IV ONE (09:59)
--- NOTE | 2021-01-23 10:10 | RAD REPORT ---
EXAM DESCRIPTION: CT - Ct Stroke Brain Wo Cont - 01/23/2021 10:02 am CLINICAL HISTORY: Confusion/alteration of awareness COMPARISON: none TECHNIQUE: Computed axial tomography of the head was obtained. All CT scans are performed using dose optimization technique as appropriate and may include automated exposure control or mA/KV adjustment according to patient size. FINDINGS: An intracranial bleed is not seen . The ventricles are normal in caliber. No extra-axial fluid collection is noted. A 3.1 centimeter low-density area left frontal lobe probably an acute infarction. Bold infarctions involve of the right frontal, right parietal, left occipital and left parietal lobes . Fluid within the sinuses/ mastoids is not seen. IMPRESSION: 3.1 centimeter acute infarction left frontal lobe Licha Escamilla of the emergency room was notified at 10:06 a.m. January 23, 2021
--- NOTE | 2021-01-23 10:16 | RAD REPORT ---
EXAM DESCRIPTION: CT - Chest For Pe Angio - 01/23/2021 10:03 am CLINICAL HISTORY: Shortness of breath COMPARISON: 2014 TECHNIQUE: Dynamically enhanced axial 3 mm thick images of the chest were obtained during administra tion of <100> mL Isovue 370 IV contrast. Coronal and oblique reconstruction images were generated and reviewed. Exam utilizes a protocol for optimal evaluation of pulmonary arterial tree. Maximum intensity projections 3D imaging was utilized All CT scans are performed using dose optimization technique as appropriate and may include automated exposure control or mA/KV adjustment according to patient size. FINDINGS: A pulmonary embolus is not seen. A thoracic aortic aneurysm is not noted. Small to moderate left and small right pleural effusions. A pericardial effusion is not seen. Mild bilateral ground-glass opacities within the lungs. Cardiomegaly IMPRESSION: Negative for a pulmonary embolism. Mild bilateral ground-glass opacities within the lungs probably mild pulmonary edema
--- NOTE | 2021-01-23 10:18 | RAD REPORT ---
EXAM DESCRIPTION: Iris Single View01/23/2021 10:02 am CLINICAL HISTORY: Shortness of breath COMPARISON: 2019 FINDINGS: Mild bilateral pulmonary opacities Heart is moderately enlarged IMPRESSION: CHF
[2021-01-23] MEDS ORDERED: DILTIAZEM INJ 125 MG in NA CHLORIDE 0.9% 100 ML IVPB PRN (10:27)
[2021-01-23 10:32] LABS: Urine Blood Negative (Negative); Urine Glucose Negative (Negative); Urine Protein 3+ (Negative); Urine Specific Gravity 1.015 (1.005-1.030)
[2021-01-23 10:49] LABS: Barbiturates NEGATIVE (NEGATIVE); Benzodiazepines NEGATIVE (NEGATIVE); Cocaine NEGATIVE (NEGATIVE); METHAMPHETAM NEGATIVE (NEGATIVE); Methadone NEGATIVE (NEGATIVE); Opiates NEGATIVE (NEGATIVE); Phencyclidine NEGATIVE (NEGATIVE); THC Cannibis NEGATIVE (NEGATIVE)
[2021-01-23 11:10] LABS: Blood Morphology Comment NOT SEEN (NOT SEEN); Platelet Estimate ADEQ
--- NOTE | 2021-01-23 11:16 | EDPHYS ---
Physician Documentation [facility] Name: Faustino Brock Age: 55 yrs Sex: Male : 1965 Arrival Date: 01/23/2021 Time: 09:07 Bed 2 Private MD: ED Physician Geoff Mar HPI: 01/23 16:48 This 55 yrs old Male presents to ER via Wheelchair with complaints of Altered tw4 Mental Status, Blood Sugar Problem. 16:48 The patient presents with decreased mental status, decreased responsiveness. Onset: The tw4 symptoms/episode began/occurred today. Associated signs and symptoms: The patient has no apparent associated signs or symptoms. Current symptoms: In the emergency department the patient's symptoms are unchanged from the initial presentation. The patient has not recently seen a physician. 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 - Social history:: Smoking status: unknown. - Unable to obtain history due to: altered mental status, patient's inability to understand questions. ROS: 16:48 Unable to obtain ROS due to patient's inability to understand questions. tw4 Exam: 16:48 Constitutional: This is a well developed, well nourished patient who is awake, alert, tw4 and in no acute distress. Head/Face: Normocephalic, atraumatic. Chest/axilla: Normal chest wall appearance and motion. Nontender with no deformity. No lesions are appreciated. Cardiovascular: Regular rate and rhythm with a normal S1 and S2. No gallops, murmurs, or rubs. Normal PMI, no JVD. No pulse deficits. Respiratory: Lungs have equal breath sounds bilaterally, clear to auscultation and percussion. No rales, rhonchi or wheezes noted. No increased work of breathing, no retractions or nasal flaring. Abdomen/GI: Soft, non-tender, with normal bowel sounds. No distension or tympany. No guarding or rebound. No evidence of tenderness throughout. Back: No spinal tenderness. No costovertebral tenderness. Full range of motion. MS/ Extremity: Pulses equal, no cyanosis. Neurovascular intact. Full, normal range of motion. 16:48 Neuro: Orientation: unable to test, Mentation: confused, Motor: moves all fours. Vital Signs: 09:17 BP 143 / 119; Pulse 160; Resp 29 S; Temp 98.4(O); Pulse Ox 88% on R/A; jl7 09:49 BP 119 / 106; Pulse 162; Resp 28 S; Pulse Ox 97% on 2 lpm NC; jl7 10:19 BP 136 / 105; Pulse 162; Resp 28; Pulse Ox 92% 2 lpm ; jl7 11:00 BP 114 / 98; Pulse 135; Resp 28 S; Pulse Ox 99% on 2 lpm NC; jl7 14:00 BP 107 / 88; Pulse 153; Resp 21; Pulse Ox 96% on 5 lpm NC; jl7 14:45 BP 138 / 94; Pulse 149; Resp 20; Pulse Ox 95% on 5 lpm NC; jl7 15:30 BP 143 / 99; Pulse 150; Resp 21; Pulse Ox 93% on 5 lpm NC; jl7 16:15 BP 146 / 85; Pulse 143; Resp 20; Pulse Ox 94% on 5 lpm NC; jl7 17:00 BP 110 / 71; tr6 17:00 Pulse 138; Resp 22; Pulse Ox 96% 5 lpm ; jl7 17:45 BP 121 / 103; Pulse 124; Resp 19; Pulse Ox 96% on 5 lpm NC; jl7 NIH Stroke Scale Scores: 16:48 NIHSS Score: 8 tw4 17:24 NIHSS Score: 6 tr6 MDM: 09:18 Patient medically screened. kb 16:59 Differential Diagnosis: CVA, electrolyte abnormality, hypoglycemia, pneumonia, volume tw4 depletion. Data reviewed: vital signs, nurses notes. Data interpreted: Pulse oximetry: Interpretation: normal. Counseling: I had a detailed discussion with the patient and/or guardian regarding: the historical points, exam findings, and any diagnostic results supporting the discharge/admit diagnosis. Physician consultation: Prashant Patel MD regarding admission, to the telemetry unit. patient's condition, and will see patient. 17:01 Admission orders: after a detailed discussion of the patient's condition and case, the [facility] admit orders are written by me. ED course: D/W Dr Caldera will possibly attempt to transfer if CTA reveals lesion that can be improved with IR. 01/23 09:23 Order name: Basic Metabolic Panel 6 01/23 09:23 Order name: CBC with Diff tr 01/23 09:23 Order name: Protime (+inr); Complete Time: 10:08 tr6 01/23 09:23 Order name: Ptt, Activated; Complete Time: 10:08 tr 01/23 09:24 Order name: Basic Metabolic Panel; Complete Time: 10:08 EDOK 01/23 09:34 Order name: Glucose, Ancillary Testing; Complete Time: 10:08 EDOK 01/23 09:35 Order name: Urine Drug Screen [facility] 01/23 09:35 Order name: Troponin (emerg Dept Use Only) [facility] 01/23 09:35 Order name: Acetaminophen [facility] 01/23 09:35 Order name: ETOH Level [facility] 01/23 09:35 Order name: Hepatic Function [facility] 01/23 09:35 Order name: Salicylate [facility] 01/23 10:18 Order name: COVID-19 : Document "Date of Symptom Onset" if Symptomatic. tw4 01/23 09:23 Order name: CT Stroke Brain w/o Contrast; Complete Time: 12:57 6 01/23 12:57 Interpretation: Abnormal. [facility] 01/23 09:23 Order name: Stroke CXR 1 View [facility] 01/23 10:31 Order name: Urine Dipstick-Ancillary [facility] 01/23 11:10 Order name: Manual Differential [facility] 01/23 11:27 Order name: SARS-COV-2 RT PCR [facility] 01/23 11:41 Order name: Comprehensive Metabolic Panel [facility] 01/23 11:41 Order name: Comprehensive Metabolic Panel [facility] 01/23 11:41 Order name: Hemoglobin A1c [facility] 01/23 11:41 Order name: Lipid Profile [facility] 01/23 11:41 Order name: Thyroid Stimulating Hormone [facility] 01/23 11:41 Order name: Comprehensive Metabolic Panel [facility] 01/23 11:41 Order name: Comprehensive Metabolic Panel [facility] 01/23 11:41 Order name: CBC with Automated Diff EDMS 01/23 11:41 Order name: CBC with Automated Diff EDMS 01/23 11:41 Order name: CBC with Automated Diff EDMS 01/23 11:41 Order name: CBC with Automated Diff EDMS 01/23 09:23 Order name: EKG; Complete Time: 09:24 tr6 01/23 09:23 Order name: Accucheck; Complete Time: 09:24 tr6 01/23 09:23 Order name: Cardiac monitoring; Complete Time: 09:31 tr6 01/23 09:23 Order name: EKG - Nurse/Tech; Complete Time: 09:49 tr6 01/23 09:23 Order name: IV Saline Lock; Complete Time: 09:31 tr6 01/23 09:23 Order name: Labs collected and sent; Complete Time: 09:31 tr6 01/23 09:23 Order name: NPO; Complete Time: 09:31 tr6 01/23 09:23 Order name: O2 Per Protocol; Complete Time: 09:31 tr6 01/23 09:23 Order name: O2 Sat Monitoring; Complete Time: 09:31 tr6 01/23 09:23 Order name: Stroke Swallow Screen; Complete Time: 18:02 6 01/23 09:35 Order name: Suicide Screening ([place]); Complete Time: 12:55 4 01/23 09:35 Order name: Urine Dipstick-Ancillary (obtain specimen); Complete Time: 10:58 tw4 01/23 09:40 Order name: CT Chest For PE Angio; Complete Time: 10:29 tw4 01/23 10:30 Interpretation: No acute disease except. tw4 01/23 11:41 Order name: Physical Therapy Consult [facility] 01/23 11:57 Order name: Social Service Consult [facility] EC:17 Rate is 173 beats/min. Rhythm is irregularly irregular. QRS Wing is Normal. UT interval tw4 is normal. QRS interval is normal. QT interval is normal. No Q waves. T waves are Normal. No ST changes noted. Clinical impression: Atrial Fibrillation. Interpreted by me. Reviewed by me. Administered Medications: 10:12 Drug: Cardizem (diltiazem) 20 mg Route: IVP; Site: right antecubital; tr6 10:30 Follow up: Response: No adverse reaction; No change in condition jl7 10:41 Drug: Cardizem (diltiazem) 5 mg/hr Route: IV; Rate: calculated rate; Site: right tr6 antecubital; 11:30 Follow up: Rate change 10 mg/hr; IV SiteChange: left wrist; IV SiteChange Reason: jl7 Patient removed 11:34 Follow up: IV Status: Infusion continued upon admission jl7 13:10 Follow up: Rate change 12.5 mg/hr jl7 18:00 Follow up: Response: No adverse reaction; IV Status: Completed infusion; Order to jl7 discontinue infusion Disposition: 17:03 Critical Care:. tw4 Disposition Summary: 01/23/21 11:15 Hospitalization Ordered Hospitalization Status: Inpatient Admission tw4 Condition: Stable tw4 Problem: new tw4 Symptoms: are unchanged tw4 Bed/Room Type: Standard tw4 Provider: Prashant Patel(01/23/21 11:31) tw4 Location: Intensive Care Unit(01/23/21 17:35) rd1 Room Assignment: (01/23/21 17:35) rd1 Diagnosis - Cerebral infarction, unspecified tw4 - Persistent atrial fibrillation tw4 - Altered mental status, unspecified tw4 Forms: - Medication Reconciliation Form tw4 - SBAR form tw4 Critical care time excluding procedures: 17:03 Critical care time: Bedside Care: 35 minutes, Consultation: 10 minutes, Family tw4 Intervention: 2 minutes. Total time: 47 minutes NIH Stroke Scale - NIH Stroke Score Date: 01/23/2021 Time: 16:48 Total Score = 8 1a. Level of Consciousness (LOC) - 1(Not Alert) 1b. Level of Consciousness (LOC) (Month \\T\\ Age) - 0(Both) 1c. LOC Commands (Open \\T\\ Closes Eyes/Bulldozer Press Operator) - 0(Both) 2. Best Gaze (Lateral Gaze Paresis) - 0(Normal) 3. Visual Field Loss - 0(No visual loss) 4. Facial Palsy - 0(Normal) 5a. Left Arm: Motor (10-second hold) - 0(No drift) 5b. Right Arm: Motor (10-second hold) - 0(No drift) 6a. Left Leg: Motor (5-second hold - always test supine) - 0(No drift) 6b. Right Leg: Motor (5-second hold - always test supine) - 0(No drift) 7. Limb Ataxia (finger/nose \\T\\ heel/corrales - test with eyes open) - 0(Absent) 8. Sensory Loss (pinprick arms/legs/face) - 0(Normal) 9. Best Language: Aphasia (description/naming/reading) - 3(Mute, global aphasia) 10. Dysarthria (speech clarity - read or repeat words) - 2(Severe) 11. Extinction and Inattention (visual/tactile/auditory/spatial/personal) - 2(Profound) Initials: tw4 NIH Stroke Scale - NIH Stroke Score Date: 01/23/2021 Time: 17:24 Total Score = 6 1a. Level of Consciousness (LOC) - 0(Alert) 1b. Level of Consciousness (LOC) (Month \\T\\ Age) - 1(One) 1c. LOC Commands (Open \\T\\ Closes Eyes/Bulldozer Press Operator) - 0(Both) 2. Best Gaze (Lateral Gaze Paresis) - 1(Partial gaze palsy) 3. Visual Field Loss - 1(Partial hemianopia) 4. Facial Palsy - 0(Normal) 5a. Left Arm: Motor (10-second hold) - 0(No drift) 5b. Right Arm: Motor (10-second hold) - 0(No drift) 6a. Left Leg: Motor (5-second hold - always test supine) - 0(No drift) 6b. Right Leg: Motor (5-second hold - always test supine) - 0(No drift) 7. Limb Ataxia (finger/nose \\T\\ heel/corrales - test with eyes open) - 0(Absent) 8. Sensory Loss (pinprick arms/legs/face) - 0(Normal) 9. Best Language: Aphasia (description/naming/reading) - 1(Mild to moderate aphasia) 10. Dysarthria (speech clarity - read or repeat words) - 1(Mild to Moderate) 11. Extinction and Inattention (visual/tactile/auditory/spatial/personal) - 1(Present) Initials: tr6 Signatures: Dispatcher [employer] Licha Curtis, GÉNESISC WELDING MACHINE OPERATOR [employer]-Nilam Akhtar, RN RN aa5 Geoff Mar MD MD tw4 Ruthann June RN RN rd1 Barb Bell RN RN tr6 Celso Daniel RN jl7 Corrections: (The following items were deleted from the chart) 10:34 10:19 CORONAVIRUS ordered. EDMS EDMS 11: 11:15 Hussein Dean tw4 tw4 17:35 11:15 Telemetry/MedSurg (Inpatient) tw4 rd1 17:35 11:15 tw4 rd1
--- NOTE | 2021-01-23 11:16 | ER ---
Nurse's Notes [facility] Name: Faustino Brock Age: 55 yrs Sex: Male : 1965 Arrival Date: 01/23/2021 Time: 09:07 Bed 2 Private MD: Diagnosis: Cerebral infarction, unspecified;Persistent atrial fibrillation;Altered mental status, unspecified Presentation: 01/23 09:17 Chief complaint: Pt's friend states "we just went to his place and found him confused aa5 and not speaking, last time we saw him was 2 days ago". Pt currently non-verbal but able to follow commands. 09:17 Risk Assessment: Do you want to hurt yourself or someone else? Unable to obtain. Onset aa5 of symptoms is unknown. 09:17 Acuity: EZIO 2 aa5 09:17 Method Of Arrival: Wheelchair aa5 09:17 Coronavirus screen: Unknown. Ebola Screen: Unable to complete the Ebola screening aa5 because:. Initial Sepsis Screen: Does the patient meet any 2 criteria? HR > 90 bpm. Does the patient have a suspected source of infection? No. Patient's initial sepsis screen is negative. 15:46 An acute neurological deficit is present. The charge nurse has been notified. The jl7 patient has been moved to a treatment area. Pre-hospital glucose is not applicable to this patient. Stroke Activation: Symptom onset > 6 hours Physician: Stroke Attending; Name: ; Notified At: ; Arrived At: Physician: Chief Stroke Resident; Name: ; Notified At: ; Arrived At: Physician: Stroke Resident; Name: ; Notified At: ; Arrived At: Physician: ED Attending; Name: ; Notified At: ; Arrived At: Physician: ED Resident; Name: ; Notified At: ; Arrived At: Historical: - Allergies: 09:17 Morphine; aa5 - Home Meds: 09:33 Eliquis 5 mg oral tab 2 times per day [Active]; Farxiga 5 mg oral tab once daily aa5 [Active]; aspirin 81 mg oral tab daily [Active]; Diurex 162.5-50 mg oral tab [Active]; - PMHx: 09:17 "need pacemaker"; "need reconstructive surgery to urethra"; Atrial Fib; CHF; Diabetes - aa5 NIDDM; Hypertension; insomnia; Myocardial infarction; - Immunization history:: Vaccine Information Sheet provided pt unable to confirm vaccine info. - Social history:: Smoking status: unknown. - Unable to obtain history due to: altered mental status, patient's inability to understand questions. Screenin:51 Abuse screen: Denies threats or abuse. Denies injuries from another. Nutritional jl7 screening: No deficits noted. Tuberculosis screening: No symptoms or risk factors identified. Fall Risk IV access (20 points). Ambulatory Aid- None/Bed Rest/Nurse Assist (0 pts). Gait- Weak (10 pts.). Mental Status- Overestimates/Forgets Limitations (15 pts.). Total Silva Fall Scale indicates High Risk Score (45 or more points). Fall prevention measures have been instituted. Side Rails Up X 2 Placed Close to Nursing Station Frequent Obs/Assessments Occuring Family Present and informed to notify staff if the need to leave the bedside As available patient and family educated on Fall Prevention Program and Strategies. Assessment: 10:42 General: Appears uncomfortable, Behavior is calm, cooperative, appropriate for age, tr6 drowsy, quiet. Pain: Denies pain. Neuro: Level of Consciousness is awake, alert, obeys commands, Oriented to pt does not respond to questions verbally. unable to assess. Reaction to noxious stimuli is withdrawal. Cardiovascular: Patient's skin is warm and dry. Rhythm is atrial fibrillation with rapid ventricular response. Respiratory: Airway is patent Respiratory effort is even, unlabored, Respiratory pattern is regular. GI: Abdomen is flat, non-distended, Abd is soft and non tender. : No deficits noted. EENT: No deficits noted. Derm: No deficits noted. Musculoskeletal: No deficits noted. 11:32 Reassessment: Dr. Patel at bedside. jl7 12:49 Reassessment: No changes from previously documented assessment. Patient and/or family tr6 updated on plan of care and expected duration. Pain level reassessed. pt sleeping, respirations even and unlabored. will continue to monitor HR. 16:23 Patient has been NPO before screening. The patient is alert, and able to follow tr6 commands. The patient does not exhibit slurred or garbled speech. The patient is exhibiting difficulty speaking. The patient does not exhibit difficulty understanding words. The patient is able to swallow own secretions with no drooling or need for suction. Patient tolerated one teaspoon of water. No drooling, immediate coughing, gurgling, or clearing of the throat was noted. The patient tolerated 90mL of water. No drooling, immediate coughing, gurgling, or clearing of the throat was noted. The patient passed the bedside swallow screening. Oral medications may be given as ordered. Contact Physician for further diet orders. Provider notified of bedside swallow screening results: Geoff Mar MD. 17:42 Reassessment: MD Patel called to inform him of pt elevated HR unchanged by cardizem. MD [email or web address] Amanda stopped gtt and begin increased dose of coreg to 6.25 BID. first dose to be given now. Vital Signs: 09:17 BP 143 / 119; Pulse 160; Resp 29 S; Temp 98.4(O); Pulse Ox 88% on R/A; jl7 09:49 BP 119 / 106; Pulse 162; Resp 28 S; Pulse Ox 97% on 2 lpm NC; jl7 10:19 BP 136 / 105; Pulse 162; Resp 28; Pulse Ox 92% 2 lpm ; jl7 11:00 BP 114 / 98; Pulse 135; Resp 28 S; Pulse Ox 99% on 2 lpm NC; jl7 14:00 BP 107 / 88; Pulse 153; Resp 21; Pulse Ox 96% on 5 lpm NC; jl7 14:45 BP 138 / 94; Pulse 149; Resp 20; Pulse Ox 95% on 5 lpm NC; jl7 15:30 BP 143 / 99; Pulse 150; Resp 21; Pulse Ox 93% on 5 lpm NC; jl7 16:15 BP 146 / 85; Pulse 143; Resp 20; Pulse Ox 94% on 5 lpm NC; jl7 17:00 BP 110 / 71; tr6 17:00 Pulse 138; Resp 22; Pulse Ox 96% 5 lpm ; jl7 17:45 BP 121 / 103; Pulse 124; Resp 19; Pulse Ox 96% on 5 lpm NC; jl7 NIH Stroke Scale Scores: 16:48 NIHSS Score: 8 tw4 17:24 NIHSS Score: 6 tr6 ED Course: 09:07 Patient arrived in ED. as 09:17 Arm band placed on Patient placed in an exam room, on a stretcher. aa5 09:17 Patient has correct armband on for positive identification. Placed in gown. Bed in low jl7 position. Call light in reach. Side rails up X2. fitting room inspector on. Pulse ox on. NIBP on. 09:18 Licha Escamilla FNP-C is PHCP. kb 09:18 Geoff Mar MD is Attending Physician. kb 09:20 Initial lab(s) drawn, by ED staff, sent to lab. Inserted saline lock: 18 gauge in right jl7 antecubital area, using aseptic technique. Blood collected. inserted by FAN Dya. 09:22 Barb Bell RN is Primary Nurse. tr6 09:25 EKG done, by ED staff, reviewed by Geoff Mar MD. jl7 09:32 Triage completed. aa5 09:34 Geoff Mar MD is Attending Physician. tw4 10:02 CT Stroke Brain w/o Contrast In Process Unspecified. EDMS 10:03 Stroke CXR 1 View In Process Unspecified. EDMS 10:03 CT Chest For PE Angio In Process Unspecified. EDMS 10:44 No provider procedures requiring assistance completed. tr6 11:14 Hussein Dean MD is Hospitalizing Provider. tw4 11:29 Inserted saline lock: 22 gauge in left wrist, using aseptic technique. jl7 11:31 Hospitalizing Provider role handed off by Hussein Dean MD tw4 11:31 Prashant Patel MD is Hospitalizing Provider. tw4 18:00 Patient admitted, IV remains in place. intact, No redness/swelling at site. jl7 Administered Medications: 10:12 Drug: Cardizem (diltiazem) 20 mg Route: IVP; Site: right antecubital; tr6 10:30 Follow up: Response: No adverse reaction; No change in condition jl7 10:41 Drug: Cardizem (diltiazem) 5 mg/hr Route: IV; Rate: calculated rate; Site: right tr6 antecubital; 11:30 Follow up: Rate change 10 mg/hr; IV SiteChange: left wrist; IV SiteChange Reason: jl7 Patient removed 11:34 Follow up: IV Status: Infusion continued upon admission jl7 13:10 Follow up: Rate change 12.5 mg/hr jl7 18:00 Follow up: Response: No adverse reaction; IV Status: Completed infusion; Order to jl7 discontinue infusion Outcome: 11:15 Decision to Hospitalize by Provider. tw4 18:00 Admitted to ICU accompanied by nurse, via stretcher, room 10, with oxygen, on monitor, jl7 with chart. 18:00 Condition: stable 18:00 Discharge instructions given to patient. 18:02 Patient left the ED. jl7 NIH Stroke Scale - NIH Stroke Score Date: 01/23/2021 Time: 16:48 Total Score = 8 1a. Level of Consciousness (LOC) - 1(Not Alert) 1b. Level of Consciousness (LOC) (Month \\T\\ Age) - 0(Both) 1c. LOC Commands (Open \\T\\ Closes Eyes/Home Office Representative) - 0(Both) 2. Best Gaze (Lateral Gaze Paresis) - 0(Normal) 3. Visual Field Loss - 0(No visual loss) 4. Facial Palsy - 0(Normal) 5a. Left Arm: Motor (10-second hold) - 0(No drift) 5b. Right Arm: Motor (10-second hold) - 0(No drift) 6a. Left Leg: Motor (5-second hold - always test supine) - 0(No drift) 6b. Right Leg: Motor (5-second hold - always test supine) - 0(No drift) 7. Limb Ataxia (finger/nose \\T\\ heel/corrales - test with eyes open) - 0(Absent) 8. Sensory Loss (pinprick arms/legs/face) - 0(Normal) 9. Best Language: Aphasia (description/naming/reading) - 3(Mute, global aphasia) 10. Dysarthria (speech clarity - read or repeat words) - 2(Severe) 11. Extinction and Inattention (visual/tactile/auditory/spatial/personal) - 2(Profound) Initials: tw4 NIH Stroke Scale - NIH Stroke Score Date: 01/23/2021 Time: 17:24 Total Score = 6 1a. Level of Consciousness (LOC) - 0(Alert) 1b. Level of Consciousness (LOC) (Month \\T\\ Age) - 1(One) 1c. LOC Commands (Open \\T\\ Closes Eyes/Home Office Representative) - 0(Both) 2. Best Gaze (Lateral Gaze Paresis) - 1(Partial gaze palsy) 3. Visual Field Loss - 1(Partial hemianopia) 4. Facial Palsy - 0(Normal) 5a. Left Arm: Motor (10-second hold) - 0(No drift) 5b. Right Arm: Motor (10-second hold) - 0(No drift) 6a. Left Leg: Motor (5-second hold - always test supine) - 0(No drift) 6b. Right Leg: Motor (5-second hold - always test supine) - 0(No drift) 7. Limb Ataxia (finger/nose \\T\\ heel/corrales - test with eyes open) - 0(Absent) 8. Sensory Loss (pinprick arms/legs/face) - 0(Normal) 9. Best Language: Aphasia (description/naming/reading) - 1(Mild to moderate aphasia) 10. Dysarthria (speech clarity - read or repeat words) - 1(Mild to Moderate) 11. Extinction and Inattention (visual/tactile/auditory/spatial/personal) - 1(Present) Initials: tr6 Signatures: Dispatcher [employer] EDLicha Chan, CUSTODIAL ENGINEER-C CUSTODIAL ENGINEER-Ckb Jessenia Phelps Audri, RN RN aa5 Celso Daniel RN RN jl7 Geoff Mar MD MD tw4 Barb Bell RN RN tr6 Corrections: (The following items were deleted from the chart) 09:51 09:17 BP 143 / 119; Pulse 160bpm; Resp 20bpm; Spontaneous; Pulse Ox 98% RA; jl7 Temp 98.4F Oral; aa5
--- NOTE | 2021-01-23 11:50 | P.HP ---
Certification for Inpatient Patient admitted to: Inpatient With expected LOS: >2 Midnights Patient will require the following post-hospital care: Fdc Practitioner: I am a practitioner with admitting privileges, knowledge of patient current condition, hospital course, and medical plan of care. Services: Services provided to patient in accordance with Admission requirements found in Title 42 Section 412.3 of the Code of Federal Regulations Patient History Date of Service: 01/23/21 Primary Care Provider: Amanda Reason for admission: cva History of Present Illness: Office patient last seen in Apr of last year. He has a history of dm2, afib, pvd, chf, polysubstance abuse. He disappeared last fall. His son and dil Had called at that time trying to find him. He was found recently at his home. Has not been seen in 2 days. The patient was able to walk. However was confused and brought to the ER. Found to have a frontal lobe CVA. The patient was not able to give a history. However was able to move all 4 limbs. Have not filled any meds for him in the last 6 months. Unlikely he has been compliant. Allergies morphine Allergy (Severe, Verified 02/24/20 11:25) Itching/Hives/Rash Home Medications: Atorvastatin Calcium [Lipitor] 20 mg PO BEDTIME 05/10/20 Digoxin [Lanoxin] 0.25 mg PO DAILY 05/10/20 Gabapentin [Neurontin] 300 mg PO BEDTIME 05/10/20 Spironolactone [Aldactone] 25 mg PO DAILY 05/10/20 - Past Medical/Surgical History Diabetic: Yes -: HTN -: DM-2 -: atrial fibrillation -: obstructive sleep apnea -: dyslipidemia -: CHF -: cholecystectomy -: Cyst removal from neck -: cardioversion - Family History Father -: Heart disease, Hypertension, Cancer Mother -: Heart disease, Hypertension, Diabetes Brother -: Cancer - Social History Alcohol use: Yes CD- Drugs: No Caffeine use: Yes Review of Systems is unable to be obtained General: Weakness Neurological: Change in Speech, Confusion Physical Examination - Physical Exam General: Alert, Mild distress, Other (follows commands. Not able to answer questions. ) HEENT: Atraumatic, PERRLA, Mucous membr. moist/pink, EOMI, Sclerae nonicteric Neck: Supple, 2+ carotid pulse no bruit, No LAD, Without JVD or thyroid abnorma lity Respiratory: Clear to auscultation bilaterally, Normal air movement Cardiovascular: Regular rate/rhythm, Normal S1 S2 Gastrointestinal: Normal bowel sounds, No tenderness Musculoskeletal: No tenderness Integumentary: No rashes Neurological: Normal gait, Normal speech, Normal strength at 5/5 x4 extr, Normal tone, Normal affect Lymphatics: No axilla or inguinal lymphadenopathy - Studies Laboratory Data (last 24 hrs) 01/23/21 09:28: PT 17.4 H, INR 1.51, APTT 30.9 01/23/21 09:28: WBC 11.50 H, Hgb 13.1 L, Hct 39.8, Plt Count 319 01/23/21 09:28: Sodium 143, Potassium 4.2, BUN 22 H, Creatinine 1.16, Glucose 133 H Assessment and Plan - Problems (Diagnosis) (1) CVA (cerebral vascular accident) Current Visit: Yes Status: Acute Plan: Patient most likely had an embolic stroke. It is unlikely he was on his eliquis. We have not filled it recently. Admit him for an MRI. Will have him evaluated by PT and speech evaluation. start aspirin, statin and folic acid. Will consult Dr. Caldera. Qualifiers: CVA mechanism: other Qualified Code(s): I63.89 - Other cerebral infarction (2) Atrial fibrillation with rapid ventricular response Onset Date: 12/14/15 Current Visit: No Status: Chronic Plan: will start him on carvedilol and eliquis. Will consider an echocardiogram. (3) Congestive heart failure Onset Date: 07/12/15 Current Visit: No Status: Chronic Plan: continue glucose control and betablocker. Will start an acei in the am. However at this point don't want todrop his blood pressure low and decrease his perfusion around the stroke area (4) Diabetes 1.5, managed as type 2 Current Visit: No Status: Chronic Plan: will check an a1c. Start him on mild sliding scale. Start basal insulin in the AM Discharge Plan: LTAC Plan to discharge in: Greater than 2 days - Advance Directives Does patient have a Living Will: No Does patient have a Durable POA for Healthcare: Yes - Code Status/Comfort Care Code Status Assessed: No Code Status: Full Code Physician Review: Patient Assessed, Agree with Above Assessment and Plan Critical Care: No Time Spent Managing Pts Care (In Minutes): 40
[2021-01-23] MEDS ORDERED: D50W 25 GM/50 ML SYRINGE IV PRN (11:57)
[2021-01-23] MEDS ORDERED: GLUCAGON 1 MG/VIAL IM PRN (11:57)
[2021-01-23 12:06] LABS: ALT/SGPT 23 U/L (12-78); AST/SGOT 21 U/L (15-37); Alkaline Phosphatase 78 U/L (45-117); Bilirubin Direct 0.5 mg/dL (0-0.2); Bilirubin Total 4.6 mg/dL (0.2-1.0); Protein, Total 7.4 g/dL (6.4-8.2)
[2021-01-23] MEDS: INSULIN -REGULAR HUMAN 50 UNIT/0.5 ML ML SQ SCH ×2 (16:30→21:00)
[2021-01-23] MEDS ORDERED: carvediloL 3.125 MG TAB PO SCH (18:00)
[2021-01-23] MEDS ORDERED: carvediloL 6.25 MG TAB PO SCH (19:00)
[2021-01-23] MEDS ORDERED: carvediloL 6.25 MG TAB ONE (19:27)
[2021-01-23 19:32] VITALS: BMI 37.1
[2021-01-23] MEDS: ATORVASTATIN 80 MG TAB PO SCH (20:03)
[2021-01-23] MEDS: APIXABAN 5 MG TABLET PO SCH (20:03)
[2021-01-23] MEDS ORDERED: D5 0.45 NS 1,000 ML IV ONE (20:06)
[2021-01-23] MEDS ORDERED: FAMOTIDINE 20 MG/2 ML VIAL IV ONE (20:06)
[2021-01-23] MEDS ORDERED: ATORVASTATIN 20 MG TAB ONE (20:07)
[2021-01-23] MEDS ORDERED: APIXABAN 5 MG TABLET ONE (20:08)
[2021-01-23] MEDS ORDERED: ATORVASTATIN 80 MG TAB ONE (20:24)
[2021-01-24 06:35] LABS: Absolute Lymphocytes (CBC) 1.4 K/uL (0.7-4.9); Basophils % 0.7 % (0-1.3); Hematocrit 38.7 % (39.6-49.0); Lymphocytes % 12.2 % (15.3-44.8); MPV 7.7 fL (7.6-11.3); RBC Red Blood Cell Count 4.99 M/uL (4.33-5.43)
[2021-01-24 06:52] LABS: Albumin 2.5 g/dL (3.4-5.0); Potassium 4.1 mmol/L (3.5-5.1); Protein, Total 6.3 g/dL (6.4-8.2); Thyroid Stimulating Hormone 1.66 uIU/mL (0.360-3.740)
[2021-01-24 06:57] LABS: Bilirubin Total 5.5 mg/dL (0.2-1.0)
[2021-01-24] MEDS: INSULIN -REGULAR HUMAN 50 UNIT/0.5 ML ML SQ SCH ×4 (07:21→20:35)
[2021-01-24] MEDS ORDERED: APIXABAN 5 MG TABLET ONE (07:50)
[2021-01-24] MEDS ORDERED: ASPIRIN EC 81 MG TAB PO ONE (07:50)
[2021-01-24] MEDS ORDERED: FOLIC ACID 1 MG TABLET ONE (07:50)
[2021-01-24 08:20] LABS: Blood Morphology Comment NOT SEEN (NOT SEEN); Platelet Estimate ADEQ; White Blood Cell Scan OK (OK)
[2021-01-24] MEDS ORDERED: carvediloL 12.5 MG TAB PO ONE (08:52)
[2021-01-24] MEDS: ASPIRIN EC 81 MG TAB PO SCH (08:59)
[2021-01-24] MEDS: APIXABAN 5 MG TABLET PO SCH ×2 (08:59→21:11)
[2021-01-24] MEDS: FOLIC ACID 1 MG TABLET PO SCH (08:59)
[2021-01-24] MEDS ORDERED: lisinopriL 5 MG TAB PO SCH (09:00)
[2021-01-24] MEDS ORDERED: lisinopriL 5 MG TAB ONE (09:19)
[2021-01-24] MEDS ORDERED: carvediloL 6.25 MG TAB ONE (09:19)
--- NOTE | 2021-01-24 11:22 | P.PN ---
Subjective Date of Service: 01/24/21 Primary Care Provider: Amanda Chief Complaint: cva Subjective: No new changes Review of Systems 10-point ROS is otherwise unremarkable Neurological: Change in Speech Physical Examination - Vital Signs Temperature: 98.0 F Blood Pressure: 114/87 Pulse: 128 Respirations: 23 Pulse Ox (%): 92 - Physical Exam General: In no apparent distress, Confused HEENT: Atraumatic, PERRLA, EOMI Neck: Supple, JVD not distended Respiratory: Clear to auscultation bilaterally, Normal air movement Cardiovascular: Normal S1 S2, Irregular heart rate/rhythm (tachycardia) Gastrointestinal: Normal bowel sounds, No tenderness Musculoskeletal: No tenderness Integumentary: No rashes Neurological: Normal speech, Normal tone, Normal affect Lymphatics: No axilla or inguinal lymphadenopathy - Studies Laboratory Data (last 24 hrs) 01/23/21 10:30: Total Bilirubin 4.6 H, AST 21, ALT 23, Alkaline Phosphatase 78 Assessment And Plan - Current Problems (Diagnosis) (1) CVA (cerebral vascular accident) Current Visit: Yes Status: Acute Plan: Patient most likely had an embolic stroke. It is unlikely he was on his eliquis. We have not filled it recently. Admit him for an MRI. Will have him evaluated by PT and speech evaluation. start aspirin, statin and folic acid. Will consult Dr. Caldera. Qualifiers: CVA mechanism: other Qualified Code(s): I63.89 - Other cerebral infarction (2) Atrial fibrillation with rapid ventricular response Onset Date: 12/14/15 Current Visit: No Status: Chronic Plan: will start him on carvedilol and eliquis. Will consider an echocardiogram. (3) Congestive heart failure Onset Date: 07/12/15 Current Visit: No Status: Chronic Plan: continue glucose control and betablocker. Will start an acei in the am. However at this point don't want todrop his blood pressure low and decrease his perfusion around the stroke area (4) Diabetes 1.5, managed as type 2 Current Visit: No Status: Chronic Plan: will check an a1c. Start him on mild sliding scale. Start basal insulin in the AM Discharge Plan: Home Plan to discharge in: Greater than 2 days - Code Status/Comfort Care Code Status Assessed: No Physician Review: Patient Assessed, Agree with Above Assessment and Plan Critical Care: No Time Spent Managing PTS Care (In Minutes): 20
--- NOTE | 2021-01-24 16:09 | EKG ---
Test Date: 2021-01-23 Test Time: 09:32:28 Software Configuration Engineer: TTR MEASUREMENT RESULTS: Intervals: Rate: 173 [place]: QRSD: 92 QT: 278 QTc: 471 [place]: P: UT: QRS: 106 T: -31 INTERPRETIVE STATEMENTS: Atrial fibrillation with rapid ventricular response with premature ventricular or aberrantly conducted complexes Rightward axis ST & T wave abnormality, consider anterolateral ischemia or digitalis effect Abnormal ECG Compared to ECG 02/27/2020 09:27:20 Right-axis deviation now present ST (T wave) deviation still present Possible ischemia still present Electronically Signed On 01-24-21 16:04:29 CDT by Garrett Cam
[2021-01-24] MEDS ORDERED: carvediloL 12.5 MG TAB PO SCH (18:00)
[2021-01-24] MEDS: carvediloL 12.5 MG TAB PO SCH (18:38)
[2021-01-24] MEDS: ATORVASTATIN 80 MG TAB PO SCH (21:11)
[2021-01-24] MEDS: DIGOXIN 0.125 MG TABLET PO SCH (22:26)
[2021-01-25] MEDS: carvediloL 12.5 MG TAB PO SCH ×2 (06:12→17:18)
[2021-01-25 06:18] LABS: Absolute Lymphocytes (CBC) 1.5 K/uL (0.7-4.9); Basophils % 0.5 % (0-1.3); Hematocrit 39.3 % (39.6-49.0); Lymphocytes % 12.3 % (15.3-44.8); MPV 7.6 fL (7.6-11.3)
[2021-01-25 06:40] LABS: Albumin 2.4 g/dL (3.4-5.0); Bilirubin Total 4.7 mg/dL (0.2-1.0); Potassium 3.7 mmol/L (3.5-5.1); Protein, Total 6.3 g/dL (6.4-8.2)
[2021-01-25] MEDS: INSULIN -REGULAR HUMAN 50 UNIT/0.5 ML ML SQ SCH ×4 (07:30→21:00)
[2021-01-25] MEDS: DIGOXIN 0.125 MG TABLET PO SCH (11:48)
[2021-01-25] MEDS: FOLIC ACID 1 MG TABLET PO SCH (11:48)
[2021-01-25] MEDS: ASPIRIN EC 81 MG TAB PO SCH (11:48)
[2021-01-25] MEDS: APIXABAN 5 MG TABLET PO SCH ×2 (11:48→19:46)
[2021-01-25] MEDS: ATORVASTATIN 80 MG TAB PO SCH (19:46)
--- NOTE | 2021-01-25 21:28 | CON ---
Date of Consultation: 01/25/2021 Reason For Consultation: Cerebrovascular accident and atrial fibrillation. History Of Present Illness: Mr. Brock is a 55-year-old who has a history of chronic atrial fibril lation, congestive heart failure that is chronic, systolic. He has a history of diabetes and hyperte nsion, came in with a CVA, chronic atrial fibrillation, rate of 135. Denied any PND, orthopnea, peda l edema. He denied any palpitation or syncope. Denied any fever or chills. Denied any chest pain, nausea, vomiting, diaphoresis. Allergies: MORPHINE. Review of Systems: Negative. Social History: Negative. Family History: Noncontributory. Medications: Include Farxiga, Neurontin, aspirin, Aldactone. He takes diuretic. He is on Eliquis. He is on Lipitor. Physical Examination: Vital Signs: He was in atrial fibrillation rate of 135. HEENT: Negative. Neck: Supple without any bruit, lymphadenopathy, JVD, or thyromegaly. Chest: Reveals some rales both bases. Cardiac: Revealed atrial fibrillation. Abdomen: Benign. Extremities: Revealed no clubbing, cyanosis. He had 1+ edema. Diagnostic Data: Showed troponin of 0.6, white count of 12, atrial fibrillation, rate of 135. Impression And Plan: Acute on chronic systolic congestive heart failure exacerbation. He has an eje ction fraction of 20% in December of 2019. He had normal coronaries. Plan: I would increase his carvedilol, consider amiodarone or sotalol depending what his rhythm does . The patient really should have an AICD and biventricular pacemaker, if we can get him to follow up and follow his regimen and follow his outpatient appointment. I think we need to get another 2D ech ocardiogram on him. He is anticoagulated already with Eliquis. I would continue his other regimen o therwise. He has diabetes, hypertension fairly controlled. He should be diuresed. I will continue to follow him alone. NB/MODL Voice ID: [id number] Report ID: [id number]
[2021-01-26] MEDS: carvediloL 12.5 MG TAB PO SCH (02:59)
[2021-01-26] MEDS ORDERED: carvediloL 25 MG TAB PO ONE (03:16)
[2021-01-26 06:24] LABS: Absolute Lymphocytes (CBC) 1.3 K/uL (0.7-4.9); Basophils % 1.1 % (0-1.3); Hematocrit 38.7 % (39.6-49.0); Lymphocytes % 14.1 % (15.3-44.8); MPV 7.9 fL (7.6-11.3); RBC Red Blood Cell Count 4.94 M/uL (4.33-5.43)
[2021-01-26 06:30] LABS: ALT/SGPT 16 U/L (12-78); AST/SGOT 21 U/L (15-37); Albumin 2.2 g/dL (3.4-5.0); Alkaline Phosphatase 63 U/L (45-117); BUN Blood Urea Nitrogen 32 mg/dL (7-18); Bicarbonate 21 mmol/L (21-32); Bilirubin Total 2.6 mg/dL (0.2-1.0); Glucose Level 115 mg/dL (74-106); Potassium 3.9 mmol/L (3.5-5.1); Protein, Total 6.1 g/dL (6.4-8.2); Sodium Level 139 mmol/L (136-145)
[2021-01-26] MEDS: INSULIN -REGULAR HUMAN 50 UNIT/0.5 ML ML SQ SCH ×4 (07:30→20:05)
--- NOTE | 2021-01-26 09:04 | ECHO ---
HEIGHT: 5 ft 6 in WEIGHT: 230 lb 0 oz DATE OF STUDY: 01/25/[address]: Prashant Patel MD 2-DIMENSIONAL: YES M.MODE: YES DOPPLER: YES COLOR FLOW: YES TDS: NO PORTABLE: NO DEFINITY: NO BUBBLE STUDY: NO DIAGNOSIS: CONGESTIVE HEART FAILURE CARDIAC HISTORY: CATHERIZATION: NO SURGERY: NO PROSTHETIC VALVE: NO PACEMAKER: NO MEASUREMENTS (cm) DIASTOLIC (NORMALS) SYSTOLIC (NORMALS) IVSd 1.1 (0.6-1.2) LA Diam 4.4 (1.9-4.0) LVEF 12% LVIDd 6.0 (3.5-5.7) LVIDs 5.6 (2.0-3.5) %FS 6% LVPWd 1.3 (0.6-1.2) Ao Diam 3.2 (2.0-3.7) 2 DIMENSIONAL ASSESSMENT: RIGHT ATRIUM: NORMAL LEFT ATRIUM: DILATED RIGHT VENTRICLE: NORMAL LEFT VENTRICLE: DILATED TRICUSPID VALVE: NORMAL MITRAL VALVE: NORMAL PULMONIC VALVE: NORMAL AORTIC VALVE: NORMAL PERICARDIAL EFFUSION: NONE AORTIC ROOT: NORMAL LEFT VENTRICULAR WALL MOTION: SEVERE GLOBAL HYPOKINESIS. DOPPLER/COLOR FLOW: MILD MITRAL AND TRICUSPID REGURGITATION. COMMENTS: SEVERE GLOBAL HYPOKINESIS. LEFT VENTRICULAR EJECTION FRACTION 12-15%. MILD MITRAL AND TRICUSPID REGURGITATION. LEFT ATRIAL ENLARGEMENT. LEFT VENTRICLE ENLARGEMENT. TECHNOLOGIST: Marlin BAXTER
--- NOTE | 2021-01-26 09:10 | P.PN ---
Subjective Date of Service: 01/26/21 Primary Care Provider: Amanda Chief Complaint: cva Subjective: No new changes Review of Systems is unable to be obtained Physical Examination - Vital Signs Temperature: 97.3 F Blood Pressure: 114/79 Pulse: 116 Respirations: 18 Pulse Ox (%): 98 - Physical Exam General: Alert, Confused HEENT: Atraumatic, PERRLA, EOMI Neck: Supple, JVD not distended Respiratory: Clear to auscultation bilaterally, Normal air movement Cardiovascular: Regular rate/rhythm, Normal S1 S2 Gastrointestinal: Normal bowel sounds, No tenderness Musculoskeletal: No tenderness Integumentary: No rashes Neurological: Normal speech, Normal tone, Normal affect Lymphatics: No axilla or inguinal lymphadenopathy Assessment & Plan - Problems (Diagnosis) (1) CVA (cerebral vascular accident) Current Visit: Yes Status: Acute Plan: Patient most likely had an embolic stroke. It is unlikely he was on his eliquis. We have not filled it recently. Admit him for an MRI. Will have him evaluated by PT and speech evaluation. start aspirin, statin and folic acid. Will consult Dr. Caldera. Qualifiers: CVA mechanism: other Qualified Code(s): I63.89 - Other cerebral infarction (2) Atrial fibrillation with rapid ventricular response Onset Date: 12/14/15 Current Visit: No Status: Chronic Plan: will start him on carvedilol and eliquis. Will consider an echocardiogram. (3) Congestive heart failure Onset Date: 07/12/15 Current Visit: No Status: Chronic Plan: continue glucose control and betablocker. Will start an acei in the am. However at this point don't want todrop his blood pressure low and decrease his perfusion around the stroke area 01/26/21 Patient has very poor ef. The patient will have tachycardia with such a poor ef. Plans for an outpatient aicd. The patient needs to follow up regularly. Another reason to think of usp placement. (4) Diabetes 1.5, managed as type 2 Current Visit: No Status: Chronic Plan: will check an a1c. Start him on mild sliding scale. Start basal insulin in the AM Discharge Plan: Correction Plan to discharge in: Greater than 2 days - Code Status/Comfort Care Code Status Assessed: No Physician Review: Patient Assessed, Agree with Above Assessment and Plan Critical Care: No Time Spent Managing Pts Care (In Minutes): 25
[2021-01-26] MEDS: ASPIRIN EC 81 MG TAB PO SCH (10:11)
[2021-01-26] MEDS: DIGOXIN 0.125 MG TABLET PO SCH (10:11)
[2021-01-26] MEDS: APIXABAN 5 MG TABLET PO SCH ×2 (10:11→20:32)
[2021-01-26] MEDS: FOLIC ACID 1 MG TABLET PO SCH (10:11)
[2021-01-26] MEDS: carvediloL 25 MG TAB PO SCH (17:45)
[2021-01-26] MEDS: ATORVASTATIN 80 MG TAB PO SCH (20:32)
[2021-01-27] MEDS: carvediloL 25 MG TAB PO SCH ×2 (05:29→17:05)
[2021-01-27] MEDS: INSULIN -REGULAR HUMAN 50 UNIT/0.5 ML ML SQ SCH ×4 (07:30→21:59)
--- NOTE | 2021-01-27 08:50 | P.PN ---
Subjective Date of Service: 01/27/21 Primary Care Provider: Amanda Chief Complaint: cva Subjective: No new changes Review of Systems is unable to be obtained Physical Examination - Vital Signs Temperature: 97.7 F Blood Pressure: 145/75 Pulse: 117 Respirations: 16 Pulse Ox (%): 98 - Physical Exam General: Alert, In no apparent distress HEENT: Atraumatic, PERRLA, EOMI Neck: Supple, JVD not distended Respiratory: Clear to auscultation bilaterally, Normal air movement Cardiovascular: Regular rate/rhythm, Normal S1 S2 Gastrointestinal: Normal bowel sounds, No tenderness Musculoskeletal: No tenderness Integumentary: No rashes Neurological: Normal speech, Normal tone, Normal affect Lymphatics: No axilla or inguinal lymphadenopathy Assessment & Plan - Problems (Diagnosis) (1) CVA (cerebral vascular accident) Current Visit: Yes Status: Acute Plan: Patient most likely had an embolic stroke. It is unlikely he was on his eliquis. We have not filled it recently. Admit him for an MRI. Will have him evaluated by PT and speech evaluation. start aspirin, statin and folic acid. Will consult Dr. Caldera. Qualifiers: CVA mechanism: other Qualified Code(s): I63.89 - Other cerebral infarction (2) Atrial fibrillation with rapid ventricular response Onset Date: 12/14/15 Current Visit: No Status: Chronic Plan: will start him on carvedilol and eliquis. Will consider an echocardiogram. (3) Congestive heart failure Onset Date: 07/12/15 Current Visit: No Status: Chronic Plan: continue glucose control and betablocker. Will start an acei in the am. However at this point don't want todrop his blood pressure low and decrease his perfusion around the stroke area 01/26/21 Patient has very poor ef. The patient will have tachycardia with such a poor ef. Plans for an outpatient aicd. The patient needs to follow up regularly. Another reason to think of [facility] placement. (4) Diabetes 1.5, managed as type 2 Current Visit: No Status: Chronic Plan: will check an a1c. Start him on mild sliding scale. Start basal insulin in the AM Discharge Plan: Care Home Plan to discharge in: 48 Hours - Code Status/Comfort Care Code Status Assessed: No Physician Review: Patient Assessed, Agree with Above Assessment and Plan Critical Care: No Time Spent Managing Pts Care (In Minutes): 20
[2021-01-27] MEDS: APIXABAN 5 MG TABLET PO SCH ×2 (09:35→21:59)
[2021-01-27] MEDS: FOLIC ACID 1 MG TABLET PO SCH (09:35)
[2021-01-27] MEDS: ASPIRIN EC 81 MG TAB PO SCH (09:35)
[2021-01-27] MEDS: DIGOXIN 0.125 MG TABLET PO SCH (09:35)
--- NOTE | 2021-01-27 11:09 | PN ---
Date of Progress Note: 01/26/2021 Mr. Brock was admitted with CHF with an ejection fraction about 15% to 20% on appropriate therapy, but the patient really needs to be followed up very closely. I think he needs to have a defibrillat or, biventricular pacemaker. This has been discussed with him in the past for followup. He has improved on his present regimen. He is really not a very good candidate for Entresto secondar y to cause and renal dysfunction. I would continue his present regimen, discharge him home whenever it is okay with primary admitting physician. I will see him in the office in the next week or 2. JEY/FARIDA Voice ID: [id number] Report ID: [id number]
[2021-01-27] MEDS: ATORVASTATIN 80 MG TAB PO SCH (21:59)
[2021-01-28] MEDS: carvediloL 25 MG TAB PO SCH ×2 (05:23→18:00)
[2021-01-28] MEDS: INSULIN -REGULAR HUMAN 50 UNIT/0.5 ML ML SQ SCH ×4 (07:30→20:20)
--- NOTE | 2021-01-28 08:09 | P.PN ---
Subjective Date of Service: 01/28/21 Primary Care Provider: Amanda Chief Complaint: cva Subjective: Improving (patient is able to feed himself this morning.) Review of Systems 10-point ROS is otherwise unremarkable Physical Examination - Vital Signs Temperature: 97.0 F Blood Pressure: 131/81 Pulse: 96 Respirations: 18 Pulse Ox (%): 97 - Physical Exam General: Alert, In no apparent distress HEENT: Atraumatic, PERRLA, EOMI Neck: Supple, JVD not distended Respiratory: Clear to auscultation bilaterally, Normal air movement Cardiovascular: Regular rate/rhythm, Normal S1 S2 Gastrointestinal: Normal bowel sounds, No tenderness Musculoskeletal: No tenderness Integumentary: No rashes Neurological: Normal speech, Normal tone, Normal affect Lymphatics: No axilla or inguinal lymphadenopathy Assessment & Plan - Problems (Diagnosis) (1) CVA (cerebral vascular accident) Current Visit: Yes Status: Acute Plan: Patient most likely had an embolic stroke. It is unlikely he was on his eliquis. We have not filled it recently. Admit him for an MRI. Will have him evaluated by PT and speech evaluation. start aspirin, statin and folic acid. Will consult Dr. Caldera. 01/28 Plans for discharge to PT. He would make a good longterm resident. Qualifiers: CVA mechanism: other Qualified Code(s): I63.89 - Other cerebral infarction (2) Atrial fibrillation with rapid ventricular response Onset Date: 12/14/15 Current Visit: No Status: Chronic Plan: will start him on carvedilol and eliquis. Will consider an echocardiogram. (3) Congestive heart failure Onset Date: 07/12/15 Current Visit: No Status: Chronic Plan: continue glucose control and betablocker. Will start an acei in the am. However at this point don't want todrop his blood pressure low and decrease his perfusion around the stroke area 01/26/21 Patient has very poor ef. The patient will have tachycardia with such a poor ef. Plans for an outpatient aicd. The patient needs to follow up regularly. Another reason to think of group home placement. (4) Diabetes 1.5, managed as type 2 Current Visit: No Status: Chronic Plan: will check an a1c. Start him on mild sliding scale. Start basal insulin in the AM Discharge Plan: LTAC Plan to discharge in: 24 Hours - Code Status/Comfort Care Code Status Assessed: No Physician Review: Patient Assessed, Agree with Above Assessment and Plan Critical Care: No Time Spent Managing Pts Care (In Minutes): 20
[2021-01-28] MEDS: DIGOXIN 0.125 MG TABLET PO SCH (08:38)
[2021-01-28] MEDS: FOLIC ACID 1 MG TABLET PO SCH (08:38)
[2021-01-28] MEDS: APIXABAN 5 MG TABLET PO SCH ×2 (08:38→20:20)
[2021-01-28] MEDS: ASPIRIN EC 81 MG TAB PO SCH (08:38)
--- NOTE | 2021-01-28 11:45 | EKG ---
Test Date: 2021-01-27 Test Time: 12:50:53 Front Desk Worker: ADÁN MEASUREMENT RESULTS: Intervals: Rate: 141 [place]: QRSD: 98 QT: 338 QTc: 517 [place]: P: MA: QRS: 72 T: 253 INTERPRETIVE STATEMENTS: Atrial fibrillation with rapid ventricular response with premature ventricular or aberrantly conducted complexes ST & T wave abnormality, consider inferolateral ischemia or digitalis effect Abnormal ECG Compared to ECG 01/23/2021 09:32:28 Right-axis deviation no longer present ST (T wave) deviation still present Possible ischemia still present Electronically Signed On 01-28-21 11:42:19 CDT by Garrett Cam
[2021-01-28] MEDS: ATORVASTATIN 80 MG TAB PO SCH (20:20)
[2021-01-29] MEDS: carvediloL 25 MG TAB PO SCH ×2 (06:03→18:09)
--- NOTE | 2021-01-29 06:13 | P.PN ---
Subjective Date of Service: 01/29/21 Primary Care Provider: Amanda Chief Complaint: cva Subjective: No new changes, Doing well Physical Examination - Vital Signs Temperature: 97.5 F Blood Pressure: 124/65 Pulse: 147 Respirations: 18 Pulse Ox (%): 96 Assessment & Plan Discharge Plan: Other Plan to discharge in: 48 Hours Physician Review Additional Text: ECHO: MEASUREMENTS (cm) DIASTOLIC (NORMALS) SYSTOLIC (NORMALS) IVSd 1.1 (0.6-1.2) LA Diam 4.4 (1.9-4.0) LVEF 12% LVIDd 6.0 (3.5-5.7) LVIDs 5.6 (2.0-3.5) %FS 6% LVPWd 1.3 (0.6-1.2) Ao Diam 3.2 (2.0-3.7) 2 DIMENSIONAL ASSESSMENT: RIGHT ATRIUM: NORMAL LEFT ATRIUM: DILATED RIGHT VENTRICLE: NORMAL LEFT VENTRICLE: DILATED TRICUSPID VALVE: NORMAL MITRAL VALVE: NORMAL PULMONIC VALVE: NORMAL AORTIC VALVE: NORMAL PERICARDIAL EFFUSION: NONE AORTIC ROOT: NORMAL LEFT VENTRICULAR WALL MOTION: SEVERE GLOBAL HYPOKINESIS. DOPPLER/COLOR FLOW: MILD MITRAL AND TRICUSPID REGURGITATION. COMMENTS: SEVERE GLOBAL HYPOKINESIS. LEFT VENTRICULAR EJECTION FRACTION 12- 15%. MILD MITRAL AND TRICUSPID REGURGITATION. LEFT ATRIAL ENLARGEMENT. LEFT VENTRICLE ENLARGEMENT. CT chest: COMPARISON: 2014 TECHNIQUE: Dynamically enhanced axial 3 mm thick images of the chest were obtained during administration of <100> mL Isovue 370 IV contrast. Coronal and oblique reconstruction images were generated and reviewed. Exam utilizes a protocol for optimal evaluation of pulmonary arterial tree. Maximum intensity projections 3D imaging was utilized All CT scans are performed using dose optimization technique as appropriate and may include automated exposure control or mA/KV adjustment according to patient size. FINDINGS: A pulmonary embolus is not seen. A thoracic aortic aneurysm is not noted. Small to moderate left and small right pleural effusions. A pericardial effusion is not seen. Mild bilateral ground-glass opacities within the lungs. Cardiomegaly IMPRESSION: Negative for a pulmonary embolism. Mild bilateral ground-glass opacities within the lungs probably mild pulmonary edema CT Brain: FINDINGS: An intracranial bleed is not seen . The ventricles are normal in caliber. No extra-axial fluid collection is noted. A 3.1 centimeter low-density area left frontal lobe probably an acute infarction. Bold infarctions involve of the right frontal, right parietal, left occipital and left parietal lobes. Fluid within the sinuses/ mastoids is not seen. IMPRESSION: 3.1 centimeter acute infarction left frontal lobe Physical exam: General: Alert, In no apparent distress HEENT: Atraumatic, PERRLA, EOMI Neck: Supple, JVD not distended Respiratory: Clear to auscultation bilaterally, Normal air movement Cardiovascular: Regular rate/rhythm, Normal S1 S2 Gastrointestinal: Normal bowel sounds, No tenderness Musculoskeletal: No tenderness Integumentary: No rashes Neurological: Normal speech, Normal tone, Normal affect Lymphatics: No axilla or inguinal lymphadenopathy Impression: Acute 3.1 cm left frontal lobe CVA Atrial fibrillation on chronic anticoagulation therapy Chronic systolic CHF Diabetes mellitus type 2 Plan: Acute 3.1 cm left frontal lobe CVA: Covering for Dr. Patel at this time. Continue with current treatment plan. Awaiting MRI. Continue aspirin, folic acid, statin medication and blood pressure medication. Continue with neurology recommendations. Will monitor closely. Patient would benefit with physical therapy. Await physical therapy and Occupational Therapy recommendation. Family currently currently pursuing skilled placement. They should readdress advance care directives as patient has poor ejection fraction. Dr. Patel to continue coverage on Sunday. Atrial fibrillation on chronic anticoagulation therapy: Continue Eliquis and carvedilol. Chronic systolic CHF: Echo reviewed. Ejection fraction severely depressed at 12%. Patient will require AICD and biventricular pacemaker. Patient needs follow-up appointment to address this. Will discuss this in detail with cardiology and PCP. Family needs to readdress advance care directives. Patient with poor prognosis. Diabetes mellitus type 2: Continue Accu-Cheks and sliding scale. Will monitor closely. DVT prophylaxis: Eliquis CODE STATUS: Full code Advance care minutes: Skilled placement Time Spent Managing Pts Care (In Minutes): 55
[2021-01-29] MEDS: INSULIN -REGULAR HUMAN 50 UNIT/0.5 ML ML SQ SCH ×4 (07:30→20:37)
[2021-01-29] MEDS: DIGOXIN 0.125 MG TABLET PO SCH (09:00)
[2021-01-29] MEDS: ASPIRIN EC 81 MG TAB PO SCH (09:00)
[2021-01-29] MEDS: FOLIC ACID 1 MG TABLET PO SCH (09:00)
[2021-01-29] MEDS: APIXABAN 5 MG TABLET PO SCH ×2 (09:00→20:14)
[2021-01-29] MEDS: ATORVASTATIN 80 MG TAB PO SCH (20:14)
--- NOTE | 2021-01-30 06:07 | P.PN ---
Subjective Date of Service: 01/30/21 Primary Care Provider: Amanda Chief Complaint: cva Subjective: Doing well Physical Examination - Vital Signs Temperature: 97.5 F Blood Pressure: 124/65 Pulse: 147 Respirations: 18 Pulse Ox (%): 96 Assessment & Plan Discharge Plan: Other ([facility] facility) Plan to discharge in: 24 Hours Physician Review Additional Text: ECHO: MEASUREMENTS (cm) DIASTOLIC (NORMALS) SYSTOLIC (NORMALS) IVSd 1.1 (0.6-1.2) LA Diam 4.4 (1.9-4.0) LVEF 12% LVIDd 6.0 (3.5-5.7) LVIDs 5.6 (2.0-3.5) %FS 6% LVPWd 1.3 (0.6-1.2) Ao Diam 3.2 (2.0-3.7) 2 DIMENSIONAL ASSESSMENT: RIGHT ATRIUM: NORMAL LEFT ATRIUM: DILATED RIGHT VENTRICLE: NORMAL LEFT VENTRICLE: DILATED TRICUSPID VALVE: NORMAL MITRAL VALVE: NORMAL PULMONIC VALVE: NORMAL AORTIC VALVE: NORMAL PERICARDIAL EFFUSION: NONE AORTIC ROOT: NORMAL LEFT VENTRICULAR WALL MOTION: SEVERE GLOBAL HYPOKINESIS. DOPPLER/COLOR FLOW: MILD MITRAL AND TRICUSPID REGURGITATION. COMMENTS: SEVERE GLOBAL HYPOKINESIS. LEFT VENTRICULAR EJECTION FRACTION 12- 15%. MILD MITRAL AND TRICUSPID REGURGITATION. LEFT ATRIAL ENLARGEMENT. LEFT VENTRICLE ENLARGEMENT. CT chest: COMPARISON: 2014 TECHNIQUE: Dynamically enhanced axial 3 mm thick images of the chest were obtained during administration of <100> mL Isovue 370 IV contrast. Coronal and oblique reconstruction images were generated and reviewed. Exam utilizes a protocol for optimal evaluation of pulmonary arterial tree. Maximum intensity projections 3D imaging was utilized All CT scans are performed using dose optimization technique as appropriate and may include automated exposure control or mA/KV adjustment according to patient size. FINDINGS: A pulmonary embolus is not seen. A thoracic aortic aneurysm is not noted. Small to moderate left and small right pleural effusions. A pericardial effusion is not seen. Mild bilateral ground-glass opacities within the lungs. Cardiomegaly IMPRESSION: Negative for a pulmonary embolism. Mild bilateral ground-glass opacities within the lungs probably mild pulmonary edema CT Brain: FINDINGS: An intracranial bleed is not seen . The ventricles are normal in caliber. No extra-axial fluid collection is noted. A 3.1 centimeter low-density area left frontal lobe probably an acute infarction. Bold infarctions involve of the right frontal, right parietal, left occipital and left parietal lobes. Fluid within the sinuses/ mastoids is not seen. IMPRESSION: 3.1 centimeter acute infarction left frontal lobe Physical exam: General: Alert, In no apparent distress HEENT: Atraumatic, PERRLA, EOMI Neck: Supple, JVD not distended Respiratory: Clear to auscultation bilaterally, Normal air movement Cardiovascular: A. 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 Patel at this time. Continue with current treatment plan. Awaiting MRI tomorrow. Continue aspirin, folic acid, statin medication and blood pressure medication. Continue with neurology recommendations. Will monitor closely. Patient would benefit with physical therapy. Await physical therapy and Occupational Therapy recommendation. Family currently currently pursuing skilled placement. They should readdress advance care directives as patient has poor ejection fraction. Dr. Patel to continue coverage on Sunday. Atrial fibrillation on chronic anticoagulation therapy: Continue Eliquis and carvedilol. Rate controlled Chronic systolic CHF: Echo reviewed. Ejection fraction severely depressed at 12%. Patient will require AICD and biventricular pacemaker. Patient needs follow-up appointment to address this. Will discuss this in detail with cardiology and PCP. Family needs to readdress advance care directives. Patient with poor prognosis. Diabetes mellitus type 2: Continue Accu-Cheks and sliding scale. Will monitor closely. DVT prophylaxis: Eliquis CODE STATUS: Full code Advance care minutes: Skilled placement Time Spent Managing Pts Care (In Minutes): 55
[2021-01-30] MEDS: carvediloL 25 MG TAB PO SCH ×2 (06:29→15:59)
[2021-01-30 06:39] LABS: Absolute Lymphocytes (CBC) 1.6 K/uL (0.7-4.9); Basophils % 0.9 % (0-1.3); Hematocrit 43.9 % (39.6-49.0); Lymphocytes % 18.6 % (15.3-44.8); MPV 7.1 fL (7.6-11.3); RBC Red Blood Cell Count 5.62 M/uL (4.33-5.43)
[2021-01-30 06:51] LABS: BUN Blood Urea Nitrogen 24 mg/dL (7-18); Bicarbonate 24 mmol/L (21-32); Glucose Level 96 mg/dL (74-106); Magnesium 1.9 mg/dL (1.8-2.4); Potassium 4.2 mmol/L (3.5-5.1); Sodium Level 141 mmol/L (136-145)
[2021-01-30] MEDS: INSULIN -REGULAR HUMAN 50 UNIT/0.5 ML ML SQ SCH ×4 (07:30→21:00)
[2021-01-30] MEDS: DIGOXIN 0.125 MG TABLET PO SCH (10:59)
[2021-01-30] MEDS: ASPIRIN EC 81 MG TAB PO SCH (10:59)
[2021-01-30] MEDS: FOLIC ACID 1 MG TABLET PO SCH (10:59)
[2021-01-30] MEDS: APIXABAN 5 MG TABLET PO SCH ×2 (11:00→19:56)
[2021-01-30] MEDS: ATORVASTATIN 80 MG TAB PO SCH (19:56)
[2021-01-31 06:09] LABS: Absolute Lymphocytes (CBC) 1.5 K/uL (0.7-4.9); Basophils % 0.9 % (0-1.3); Hematocrit 44.7 % (39.6-49.0); Lymphocytes % 17.6 % (15.3-44.8); MPV 7.1 fL (7.6-11.3); RBC Red Blood Cell Count 5.67 M/uL (4.33-5.43)
[2021-01-31] MEDS: carvediloL 25 MG TAB PO SCH ×2 (06:09→18:08)
[2021-01-31 06:27] LABS: BUN Blood Urea Nitrogen 26 mg/dL (7-18); Bicarbonate 25 mmol/L (21-32); Glucose Level 92 mg/dL (74-106); Sodium Level 141 mmol/L (136-145)
[2021-01-31 06:51] LABS: Potassium 4.2 mmol/L (3.5-5.1)
[2021-01-31] MEDS: INSULIN -REGULAR HUMAN 50 UNIT/0.5 ML ML SQ SCH ×4 (07:30→20:32)
[2021-01-31] MEDS: APIXABAN 5 MG TABLET PO SCH ×2 (08:31→20:30)
[2021-01-31] MEDS: FOLIC ACID 1 MG TABLET PO SCH (08:31)
[2021-01-31] MEDS: DIGOXIN 0.125 MG TABLET PO SCH (08:31)
[2021-01-31] MEDS: ASPIRIN EC 81 MG TAB PO SCH (08:31)
--- NOTE | 2021-01-31 15:01 | P.PN ---
Subjective Date of Service: 01/31/21 Primary Care Provider: Amanda Chief Complaint: cva Review of Systems is unable to be obtained Physical Examination - Vital Signs Temperature: 97.4 F Blood Pressure: 101/61 Pulse: 88 Respirations: 16 Pulse Ox (%): 98 - Physical Exam General: Alert, In no apparent distress HEENT: Atraumatic, PERRLA, EOMI Neck: Supple, JVD not distended Respiratory: Clear to auscultation bilaterally, Normal air movement Cardiovascular: Regular rate/rhythm, Normal S1 S2 Gastrointestinal: Normal bowel sounds, No tenderness Musculoskeletal: No tenderness Integumentary: No rashes Neurological: Normal tone, Normal affect, Abnormal speech (patient is nonverbal) Lymphatics: No axilla or inguinal lymphadenopathy Assessment & Plan - Problems (Diagnosis) (1) CVA (cerebral vascular accident) Current Visit: Yes Status: Acute Plan: Patient most likely had an embolic stroke. It is unlikely he was on his eliquis. We have not filled it recently. Admit him for an MRI. Will have him evaluated by PT and speech evaluation. start aspirin, statin and folic acid. Will consult Dr. Caldera. 01/31 Plans for to tranfer to nursing care. Qualifiers: CVA mechanism: other Qualified Code(s): I63.89 - Other cerebral infarction (2) Atrial fibrillation with rapid ventricular response Onset Date: 12/14/15 Current Visit: No Status: Chronic Plan: will start him on carvedilol and eliquis. Will consider an echocardiogram. (3) Congestive heart failure Onset Date: 07/12/15 Current Visit: No Status: Chronic Plan: continue glucose control and betablocker. Will start an acei in the am. [facility] er at this point don't want todrop his blood pressure low and decrease his perfusion around the stroke area 01/26/21 Patient has very poor ef. The patient will have tachycardia with such a poor ef. Plans for an outpatient aicd. The patient needs to follow up regularly. Another reason to think of retirement placement. (4) Diabetes 1.5, managed as type 2 Current Visit: No Status: Chronic Plan: will check an a1c. Start him on mild sliding scale. Start basal insulin in the AM Discharge Plan: [facility] Plan to discharge in: 24 Hours - Code Status/Comfort Care Code Status Assessed: No Physician Review: Patient Assessed, Agree with Above Assessment and Plan Physician Review Additional Text: ECHO: MEASUREMENTS (cm) DIASTOLIC (NORMALS) SYSTOLIC (NORMALS) IVSd 1.1 (0.6-1.2) LA Diam 4.4 (1.9-4.0) LVEF 12% LVIDd 6.0 (3.5-5.7) LVIDs 5.6 (2.0-3.5) %FS 6% LVPWd 1.3 (0.6-1.2) Ao Diam 3.2 (2.0-3.7) 2 DIMENSIONAL ASSESSMENT: RIGHT ATRIUM: NORMAL LEFT ATRIUM: DILATED RIGHT VENTRICLE: NORMAL LEFT VENTRICLE: DILATED TRICUSPID VALVE: NORMAL MITRAL VALVE: NORMAL PULMONIC VALVE: NORMAL AORTIC VALVE: NORMAL PERICARDIAL EFFUSION: NONE AORTIC ROOT: NORMAL LEFT VENTRICULAR WALL MOTION: SEVERE GLOBAL HYPOKINESIS. DOPPLER/COLOR FLOW: MILD MITRAL AND TRICUSPID REGURGITATION. COMMENTS: SEVERE GLOBAL HYPOKINESIS. LEFT VENTRICULAR EJECTION FRACTION 12- 15%. MILD MITRAL AND TRICUSPID REGURGITATION. LEFT ATRIAL ENLARGEMENT. LEFT VENTRICLE ENLARGEMENT. CT chest: COMPARISON: 2015 TECHNIQUE: Dynamically enhanced axial 3 mm thick images of the chest were obtained during administration of <100> mL Isovue 370 IV contrast. Coronal and oblique reconstruction images were generated and reviewed. Exam utilizes a protocol for optimal evaluation of pulmonary arterial tree. Maximum intensity projections 3D imaging was utilized All CT scans are performed using dose optimization technique as appropriate and may include automated exposure control or mA/KV adjustment according to patient size. FINDINGS: A pulmonary embolus is not seen. A thoracic aortic aneurysm is not noted. Small to moderate left and small right pleural effusions. A pericardial effusion is not seen. Mild bilateral ground-glass opacities within the lungs. Cardiomegaly IMPRESSION: Negative for a pulmonary embolism. Mild bilateral ground-glass opacities within the lungs probably mild pulmonary edema CT Brain: FINDINGS: An intracranial bleed is not seen . The ventricles are normal in caliber. No extra-axial fluid collection is noted. A 3.1 centimeter low-density area left frontal lobe probably an acute infarction. Bold infarctions involve of the right frontal, right parietal, left occipital and left parietal lobes. Fluid within the sinuses/ mastoids is not seen. IMPRESSION: 3.1 centimeter acute infarction left frontal lobe Physical exam: General: Alert, In no apparent distress HEENT: Atraumatic, PERRLA, EOMI Neck: Supple, JVD not distended Respiratory: Clear to auscultation bilaterally, Normal air movement Cardiovascular: A. 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 Patel at this time. Continue with current treatment plan. Awaiting MRI tomorrow. Continue aspirin, folic acid, statin medication and blood pressure medication. Continue with neurology recommendations. Will monitor closely. Patient would benefit with physical therapy. Await physical therapy and Occupational Therapy recommendation. Family currently currently pursuing skilled placement. They should readdress advance care directives as patient has poor ejection fraction. Dr. Patel to continue coverage on Sunday. Atrial fibrillation on chronic anticoagulation therapy: Continue Eliquis and carvedilol. Rate controlled Chronic systolic CHF: Echo reviewed. Ejection fraction severely depressed at 12%. Patient will require AICD and biventricular pacemaker. Patient needs follow-up appointment to address this. Will discuss this in detail with cardiology and PCP. Family needs to readdress advance care directives. Patient with poor prognosis. Diabetes mellitus type 2: Continue Accu-Cheks and sliding scale. Will monitor closely. DVT prophylaxis: Eliquis CODE STATUS: Full code Advance care [id number] minutes: Skilled placement Critical Care: No Time Spent Managing Pts Care (In Minutes): 20
[2021-01-31] MEDS: ATORVASTATIN 80 MG TAB PO SCH (20:30)
--- NOTE | 2021-01-31 21:25 | P.PN ---
Subjective Date of Service: 01/25/21 Primary Care Provider: Amanda Chief Complaint: cva Subjective: No new changes Review of Systems is unable to be obtained Physical Examination - Vital Signs Temperature: 97.3 F Blood Pressure: 168/74 Pulse: 69 Respirations: 20 Pulse Ox (%): 97 - Physical Exam General: Alert, In no apparent distress, Confused HEENT: Atraumatic, PERRLA, EOMI Neck: Supple, JVD not distended Respiratory: Clear to auscultation bilaterally, Normal air movement Cardiovascular: Regular rate/rhythm, Normal S1 S2 Gastrointestinal: Normal bowel sounds, No tenderness Musculoskeletal: No tenderness Integumentary: No rashes Neurological: Normal tone, Normal affect, Abnormal speech Lymphatics: No axilla or inguinal lymphadenopathy Assessment & Plan - Problems (Diagnosis) (1) CVA (cerebral vascular accident) Current Visit: Yes Status: Acute Plan: Patient most likely had an embolic stroke. It is unlikely he was on his eliquis. We have not filled it recently. Admit him for an MRI. Will have him evaluated by PT and speech evaluation. start aspirin, statin and folic acid. Will consult Dr. Caldera. 01/31 Plans for to tranfer to nursing care. Qualifiers: CVA mechanism: other Qualified Code(s): I63.89 - Other cerebral infarction (2) Atrial fibrillation with rapid ventricular response Onset Date: 12/14/15 Current Visit: No Status: Chronic Plan: will start him on carvedilol and eliquis. Will consider an echocardiogram. (3) Congestive heart failure Onset Date: 07/12/15 Current Visit: No Status: Chronic Plan: continue glucose control and betablocker. Will start an acei in the am. However at this point don't want todrop his blood pressure low and decrease his perfusion around the stroke area 01/26/21 Patient has very poor ef. The patient will have tachycardia with such a poor ef. Plans for an outpatient aicd. The patient needs to follow up regularly. Another reason to think of half-way placement. (4) Diabetes 1.5, managed as type 2 Current Visit: No Status: Chronic Plan: will check an a1c. Start him on mild sliding scale. Start basal insulin in the AM Discharge Plan: Intermediate Plan to discharge in: 48 Hours - Code Status/Comfort Care Code Status Assessed: No Physician Review: Patient Assessed, Agree with Above Assessment and Plan Physician Review Additional Text: ECHO: MEASUREMENTS (cm) DIASTOLIC (NORMALS) SYSTOLIC (NORMALS) IVSd 1.1 (0.6-1.2) LA Diam 4.4 (1.9-4.0) LVEF 12% LVIDd 6.0 (3.5-5.7) LVIDs 5.6 (2.0-3.5) %FS 6% LVPWd 1.3 (0.6-1.2) Ao Diam 3.2 (2.0-3.7) 2 DIMENSIONAL ASSESSMENT: RIGHT ATRIUM: NORMAL LEFT ATRIUM: DILATED RIGHT VENTRICLE: NORMAL LEFT VENTRICLE: DILATED TRICUSPID VALVE: NORMAL MITRAL VALVE: NORMAL PULMONIC VALVE: NORMAL AORTIC VALVE: NORMAL PERICARDIAL EFFUSION: NONE AORTIC ROOT: NORMAL LEFT VENTRICULAR WALL MOTION: SEVERE GLOBAL HYPOKINESIS. DOPPLER/COLOR FLOW: MILD MITRAL AND TRICUSPID REGURGITATION. COMMENTS: SEVERE GLOBAL HYPOKINESIS. LEFT VENTRICULAR EJECTION FRACTION 12- 15%. MILD MITRAL AND TRICUSPID REGURGITATION. LEFT ATRIAL ENLARGEMENT. LEFT VENTRICLE ENLARGEMENT. CT chest: COMPARISON: 2014 TECHNIQUE: Dynamically enhanced axial 3 mm thick images of the chest were obtained during administration of <100> mL Isovue 370 IV contrast. Coronal and oblique reconstruction images were generated and reviewed. Exam utilizes a protocol for optimal evaluation of pulmonary arterial tree. Maximum intensity projections 3D imaging was utilized All CT scans are performed using dose optimization technique as appropriate and may include automated exposure control or mA/KV adjustment according to patient size. FINDINGS: A pulmonary embolus is not seen. A thoracic aortic aneurysm is not noted. Small to moderate left and small right pleural effusions. A pericardial effusion is not seen. Mild bilateral ground-glass opacities within the lungs. Cardiomegaly IMPRESSION: Negative for a pulmonary embolism. Mild bilateral ground-glass opacities within the lungs probably mild pulmonary edema CT Brain: FINDINGS: An intracranial bleed is not seen . The ventricles are normal in caliber. No extra-axial fluid collection is noted. A 3.1 centimeter low-density area left frontal lobe probably an acute infarction. Bold infarctions involve of the right frontal, right parietal, left occipital and left parietal lobes. Fluid within the sinuses/ mastoids is not seen. IMPRESSION: 3.1 centimeter acute infarction left frontal lobe Physical exam: General: Alert, In no apparent distress HEENT: Atraumatic, PERRLA, EOMI Neck: Supple, JVD not distended Respiratory: Clear to auscultation bilaterally, Normal air movement Cardiovascular: A. 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 Patel at this time. Continue with current treatment plan. Awaiting MRI tomorrow. Continue aspirin, folic acid, statin medication and blood pressure medication. Continue with neurology recommendations. Will monitor closely. Patient would benefit with physical therapy. Await physical therapy and Occupational Therapy recommendation. Family currently currently pursuing skilled placement. They should readdress advance care directives as patient has poor ejection fraction. Dr. Patel to continue coverage on Sunday. Atrial fibrillation on chronic anticoagulation therapy: Continue Eliquis and carvedilol. Rate controlled Chronic systolic CHF: Echo reviewed. Ejection fraction severely depressed at 12%. Patient will require AICD and biventricular pacemaker. Patient needs follow-up appointment to address this. Will discuss this in detail with cardiology and PCP. Family needs to readdress advance care directives. Patient with poor prognosis. Diabetes mellitus type 2: Continue Accu-Cheks and sliding scale. Will monitor closely. DVT prophylaxis: Eliquis CODE STATUS: Full code Advance care minutes: Skilled placement Time Spent Managing Pts Care (In Minutes): 20
[2021-02-01] MEDS: carvediloL 25 MG TAB PO SCH (05:34)
[2021-02-01] MEDS: INSULIN -REGULAR HUMAN 50 UNIT/0.5 ML ML SQ SCH ×2 (07:30→11:30)
--- NOTE | 2021-02-01 09:02 | P.PN ---
Subjective Date of Service: 02/01/21 Primary Care Provider: Amanda Chief Complaint: cva Subjective: No new changes Review of Systems is unable to be obtained Physical Examination - Vital Signs Temperature: 97.2 F Blood Pressure: 119/65 Pulse: 81 Respirations: 17 Pulse Ox (%): 99 - Physical Exam General: Alert, In no apparent distress HEENT: Atraumatic, PERRLA, EOMI Neck: Supple, JVD not distended Respiratory: Clear to auscultation bilaterally, Normal air movement Cardiovascular: Regular rate/rhythm, Normal S1 S2 Gastrointestinal: Normal bowel sounds, No tenderness Musculoskeletal: No tenderness Integumentary: No rashes Neurological: Normal tone, Normal affect, Abnormal speech, Abnormal strength Lymphatics: No axilla or inguinal lymphadenopathy Assessment & Plan - Problems (Diagnosis) (1) CVA (cerebral vascular accident) Current Visit: Yes Status: Acute Plan: Patient most likely had an embolic stroke. It is unlikely he was on his eliquis. We have not filled it recently. Admit him for an MRI. Will have him evaluated by PT and speech evaluation. start aspirin, statin and folic acid. Will consult Dr. Caldera. 01/31 Plans for to tranfer to nursing care. Qualifiers: CVA mechanism: other Qualified Code(s): I63.89 - Other cerebral infarction (2) Atrial fibrillation with rapid ventricular response Onset Date: 12/14/15 Current Visit: No Status: Chronic Plan: will start him on carvedilol and eliquis. Will consider an echocardiogram. (3) Congestive heart failure Onset Date: 07/12/15 Current Visit: No Status: Chronic Plan: continue glucose control and betablocker. Will start an acei in the am. However at this point don't want todrop his blood pressure low and decrease his perfusion around the stroke area 01/26/21 Patient has very poor ef. The patient will have tachycardia with such a poor ef. Plans for an outpatient aicd. The patient needs to follow up regularly. Another reason to think of longterm placement. (4) Diabetes 1.5, managed as type 2 Current Visit: No Status: Chronic Plan: will check an a1c. Start him on mild sliding scale. Start basal insulin in the AM Discharge Plan: Shelter Plan to discharge in: 24 Hours - Code Status/Comfort Care Code Status Assessed: No Physician Review: Patient Assessed, Agree with Above Assessment and Plan Physician Review Additional Text: ECHO: MEASUREMENTS (cm) DIASTOLIC (NORMALS) SYSTOLIC (NORMALS) IVSd 1.1 (0.6-1.2) LA Diam 4.4 (1.9-4.0) LVEF 12% LVIDd 6.0 (3.5-5.7) LVIDs 5.6 (2.0-3.5) %FS 6% LVPWd 1.3 (0.6-1.2) Ao Diam 3.2 (2.0-3.7) 2 DIMENSIONAL ASSESSMENT: RIGHT ATRIUM: NORMAL LEFT ATRIUM: DILATED RIGHT VENTRICLE: NORMAL LEFT VENTRICLE: DILATED TRICUSPID VALVE: NORMAL MITRAL VALVE: NORMAL PULMONIC VALVE: NORMAL AORTIC VALVE: NORMAL PERICARDIAL EFFUSION: NONE AORTIC ROOT: NORMAL LEFT VENTRICULAR WALL MOTION: SEVERE GLOBAL HYPOKINESIS. DOPPLER/COLOR FLOW: MILD MITRAL AND TRICUSPID REGURGITATION. COMMENTS: SEVERE GLOBAL HYPOKINESIS. LEFT VENTRICULAR EJECTION FRACTION 12- 15%. MILD MITRAL AND TRICUSPID REGURGITATION. LEFT ATRIAL ENLARGEMENT. LEFT VENTRICLE ENLARGEMENT. CT chest: COMPARISON: 2015 TECHNIQUE: Dynamically enhanced axial 3 mm thick images of the chest were obtained during administration of <100> mL Isovue 370 IV contrast. Coronal and oblique reconstruction images were generated and reviewed. Exam utilizes a protocol for optimal evaluation of pulmonary arterial tree. Maximum intensity projections 3D imaging was utilized All CT scans are performed using dose optimization technique as appropriate and may include automated exposure control or mA/KV adjustment according to patient size. FINDINGS: A pulmonary embolus is not seen. A thoracic aortic aneurysm is not noted. Small to moderate left and small right pleural effusions. A pericardial effusion is not seen. Mild bilateral ground-glass opacities within the lungs. Cardiomegaly IMPRESSION: Negative for a pulmonary embolism. Mild bilateral ground-glass opacities within the lungs probably mild pulmonary edema CT Brain: FINDINGS: An intracranial bleed is not seen . The ventricles are normal in caliber. No extra-axial fluid collection is noted. A 3.1 centimeter low-density area left frontal lobe probably an acute infarction. Bold infarctions involve of the right frontal, right parietal, left occipital and left parietal lobes. Fluid within the sinuses/ mastoids is not seen. IMPRESSION: 3.1 centimeter acute infarction left frontal lobe Physical exam: General: Alert, In no apparent distress HEENT: Atraumatic, PERRLA, EOMI Neck: Supple, JVD not distended Respiratory: Clear to auscultation bilaterally, Normal air movement Cardiovascular: A. 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 Patel at this time. Continue with current treatment plan. Awaiting MRI tomorrow. Continue aspirin, folic acid, statin medication and blood pressure medication. Continue with neurology recommendations. Will monitor closely. Patient would benefit with physical therapy. Await physical therapy and Occupational Therapy recommendation. Family currently currently pursuing skilled placement. They should readdress advance care directives as patient has poor ejection fraction. Dr. Patel to continue coverage on Sunday. Atrial fibrillation on chronic anticoagulation therapy: Continue Eliquis and carvedilol. Rate controlled Chronic systolic CHF: Echo reviewed. Ejection fraction severely depressed at 12%. Patient will require AICD and biventricular pacemaker. Patient needs follow-up appointment to address this. Will discuss this in detail with cardiology and PCP. Family needs to readdress advance care directives. Patient with poor prognosis. Diabetes mellitus type 2: Continue Accu-Cheks and sliding scale. Will monitor closely. DVT prophylaxis: Eliquis CODE STATUS: Full code Advance care [id number] minutes: Skilled placement Critical Care: No Time Spent Managing Pts Care (In Minutes): 20
[2021-02-01 09:34] VITALS: O2SAT 94
[2021-02-01] MEDS: APIXABAN 5 MG TABLET PO SCH (10:17)
[2021-02-01] MEDS: ASPIRIN EC 81 MG TAB PO SCH (10:17)
[2021-02-01] MEDS: DIGOXIN 0.125 MG TABLET PO SCH (10:17)
[2021-02-01] MEDS: FOLIC ACID 1 MG TABLET PO SCH (10:18)
[2021-02-01 12:09] VITALS: BP 101/73; TEMP 96.8
--- NOTE | 2021-02-01 14:00 | P.DS ---
Admission Date: 01/23/21 Discharge Date: 02/01/21 Primary Care Provider: Amanda Disposition: TRANSFER TO INPATIENT REHAB Discharge Condition: GOOD Reason for Admission: cva - Problems (1) CVA (cerebral vascular accident) Current Visit: Yes Status: Acute Qualifiers: CVA mechanism: other Qualified Code(s): I63.89 - Other cerebral infarction (2) Atrial fibrillation with rapid ventricular response Onset Date: 12/14/15 Current Visit: No Status: Chronic (3) Congestive heart failure Onset Date: 07/12/15 Current Visit: No Status: Chronic (4) Diabetes 1.5, managed as type 2 Current Visit: No Status: Chronic Brief History of Present Illness: Office patient last seen in Apr of last year. He has a history of dm2, afib, pvd, chf, polysubstance abuse. He disappeared last fall. His son and dil Had called at that time trying to find him. He was found recently at his home. Has not been seen in 2 days. The patient was able to walk. However was confused and brought to the ER. Found to have a frontal lobe CVA. The patient was not able to give a history. However was able to move all 4 limbs. Have not filled any meds for him in the last 6 months. Unlikely he has been compliant. Hospital Course: Patient was admitted for cva. He was working with pt. However not very compliant. That as well as his noncompliance and lack of social support. Decided on snf placement. Possible permanent group home Vital Signs/Physical Exam: Temp Pulse Resp BP Pulse Ox 96.8 F 79 18 101/73 98 02/01/21 12:00 02/01/21 12:02/01/21 12:00 02/01/21 12:02/01/21 12:00 General: In no apparent distress, Confused HEENT: Atraumatic, PERRLA, EOMI Neck: Supple, JVD not distended Respiratory: Clear to auscultation bilaterally, Normal air movement Cardiovascular: Regular rate/rhythm, Normal S1 S2 Gastrointestinal: Normal bowel sounds, No tenderness Musculoskeletal: No tenderness Integumentary: No rashes Neurological: Normal speech, Normal tone, Normal affect, Abnormal gait, Abnormal speech, Abnormal strength Lymphatics: No axilla or inguinal lymphadenopathy Laboratory Data at Discharge: WBC 8.60 K/uL (4.3-10.9) 01/31/21 05:32 Hgb 14.3 g/dL (13.6-17.9) 01/31/21 05:32 Hct 44.7 % (39.6-49.0) 01/31/21 05:32 Plt Count 372 K/uL (152-406) 01/31/21 05:32 PT 17.4 SECONDS (9.5-12.5) H 01/23/21 09:28 INR 1.51 01/23/21 09:28 APTT 30.9 SECONDS (24.3-36.9) 01/23/21 09:28 Sodium 141 mmol/L (136-145) 01/31/21 05:32 Potassium 4.2 mmol/L (3.5-5.1) 01/31/21 05:32 BUN 26 mg/dL (7-18) H 01/31/21 05:32 Creatinine 0.79 mg/dL (0.55-1.3) 01/31/21 05:32 Glucose 92 mg/dL (74-106) 01/31/21 05:32 Magnesium 2.0 mg/dL (1.8-2.4) 01/31/21 05:32 Total Bilirubin 2.6 mg/dL (0.2-1.0) H 01/26/21 05:54 AST 21 U/L (15-37) 01/26/21 05:54 ALT 16 U/L (12-78) 01/26/21 05:54 Alkaline Phosphatase 63 U/L (45-117) 01/26/21 05:54 Triglycerides 95 mg/dL (<150) 01/24/21 06:13 Cholesterol 141 mg/dL (<200) 01/24/21 06:13 HDL Cholesterol 30 mg/dL (40-60) L 01/24/21 06:13 Cholesterol/HDL Ratio 4.70 01/24/21 06:13 Home Medications: Atorvastatin Calcium [Lipitor] 20 mg PO BEDTIME 05/10/20 Gabapentin [Neurontin] 300 mg PO BEDTIME 05/10/20 Spironolactone [Aldactone] 25 mg PO BID 05/10/20 Apixaban [Eliquis] 5 mg PO BID 01/23/21 Dapagliflozin Propanediol [Farxiga] 5 mg PO DAILY 01/23/21 Aspirin [Aspirin EC 81 MG] 01/24/21 Diphenhydramine [Benadryl*] 01/24/21 Ibuprofen 01/24/21 Magnesium Salicylate/Caffeine [Diurex Water Pills] 1 each PO 01/24/21 Naproxen Sodium 220 mg PO 01/24/21 Sodium Bicarbonate 01/24/21 Diet: ADA Followup: Prashant Patel MD [Primary Care Provider] - (when he gets out of the snf) Physician Review: Patient Assessed, Agree with Above Assessment and Plan Time spent managing pt's care (in minutes): 30
== END 2021-02-01 16:12 | DRG 65 ==
LOC: ER 09:07 → SUPCPDRO 09:07 → ERHOLD 18:48 → 2ND 01-24 12:15
PROVIDERS: ADMIT Internal Medicine; ATTEND Internal Medicine
DX: I63.89 Other cerebral infarction (principal); G93.49 Other encephalopathy; I48.19 Other persistent atrial fibrillation; I50.22 Chronic systolic (congestive) heart failure; E78.5 Hyperlipidemia, unspecified; E11.9 Type 2 diabetes mellitus without complications; I11.0 Hypertensive heart disease with heart failure; R29.708 NIHSS score 8; I25.2 Old myocardial infarction; R41.82 Altered mental status, unspecified; R00.0 Tachycardia, unspecified; Z88.5 Allergy status to narcotic agent; Z79.01 Long term (current) use of anticoagulants; Z79.82 Long term (current) use of aspirin; Z91.19 Patient's noncompliance with other medical treatment and regimen; Z79.899 Other long term (current) drug therapy; Z90.49 Acquired absence of other specified parts of digestive tract; Z20.822 Contact with and (suspected) exposure to COVID-19
CPT/HCPCS: 36415; 70450; 71045; 71275; 80048; 80053; 80061; 80076; 80307; 80320; 80329; 81003; 82565; 82947; 83036; 83735; 84443; 84484; 85025; 85610; 85730; 92610; 93005; 93306; 96365; 96375; 97112; 97116; 97161; 97530; 99285; J7030; J7799; Q9967; U0003

== ENCOUNTER 2021-02-22 19:47 | Inpatient (IN) | payer OTHER ==
--- OUTSIDE RECORDS SUMMARY | 2021-02-22 19:54 | XMS REPORT | Continuity of Care Document ---
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 <Continued> Technologist: Naomy Campbell RT(R) Trnscb Date/Time: 07/05/2020 (3046) RosalieRB24 PAGE 2 Signed ReportBASIC METABOLIC [id number] 11:40:00 Test Item Value Reference Range Interpretation [...] code = CA) 8.4 MG/DL 8.5-10.1 L [id number] 11:40:00 Test Item Value Reference Range Interpretation Comments PHOSPHOROUS (test code = PHOS) 3.8 MG/DL 2.5-4.9 [id number] 11:40:00 Test Item Value Reference Range Interpretation Comments MAGNESIUM (test code = MAG) 2.0 MG/DL 1.8-2.4 N CBC W/AUTO [id number] 11:20:00 Test Item Value Reference Range Interpretation [...] (test code = DIFF/SCN CRITERIA MDIFF) PROTHROMBIN [id number] 10:15:00 Test Item Value Reference Range Interpretation Comments PT PATIENT (test code = PTP) 15.5 SECONDS 9.3-12.9 H INTERNATIONAL NORMAL RATIO 1.36 INR Unit 0.8-1.2 H (test code = INR) THROMBOPLASTIN TIME [id number] 10:15:00 Test Item Value Reference Range Interpretation Comments THROMBOPLASTIN TIME PARTIAL 18.2 SECONDS 26-35 L (test code = PTT) GLUCOSE BEDSIDE [id number] 09:10:00 Test Item Value Reference Range Interpretation Comments GLUCOSE BEDSIDE TESTING (test code 119 mg/dL 70-110 H = GLUBED) GLUCOSE BEDSIDE [id number] 20:53:00 Test Item Value Reference Range Interpretation Comments GLUCOSE BEDSIDE TESTING (test code 144 mg/dL 70-110 H = GLUBED) - US ABDOMEN [id number] 17:24:00 [facility] : 1965 Sex: M Name: GURMEET BROCK [facility] : 1965Age/S: 54 / M [address] Unit #: [id number] Loc: [place] [address] Phys: Willow Brownlee NP Acct: [id number] Dis Date: Status: ADM IN PHONE#: [phone] Exam Date: 07/04/2020 1614 FAX #: Reason:elevated bilirubin EXAMS: CPT: [id number] US ABDOMEN [facility] [address] Site ID: [id number] EXAMINATION: - US ABDOMEN LTD. TECHNIQUE: Sonographic evaluation of the right upper quadrant with guest experience representative images obtained HISTORY: elevated bilirubin. COMPARISON: [...] is seen. IMPRESSION: No acute process. at 1724 Reported and signed by: Scott Garduno MD CC: Paula Thurston; Willow Brownlee NP Technologist: Shawn Walter Trnscb Date/Time: 07/04/2020 (1723) Hung PAGE 1 Signed Report Name: GURMEET BROCK [place] : 1965 Age/S: 54 / M [address] Unit #: [id number] Loc: [place] [address] Phys: Willow Brownlee NP Acct: [id number] Dis Date: Status: ADM IN PHONE #: [phone] Exam Date: 07/04/2020 1616 FAX #: Reason: elevated bilirubin EXAMS: CPT: [id number] US ABDOMEN LTD [address] <Continued> Orig Print D/T: S: 07/04/2020 (1726) Probe: PAGE 2 Signed ReportGLUCOSE BEDSIDE [id number] 16:16:00 Test Item Value Reference Range Interpretation Comments GLUCOSE BEDSIDE TESTING (test code = 99 mg/dL 70-110 N GLUBED) NT PRO-BRAIN NATRIURETIC [id number] 14:35:00 Test Item Value Reference Range Interpretation Comments NT PRO-BRAIN NATRIURETIC PEPTI 5696 PG/ML 0-100 H (test code = PROBNP) [id number] 14:34:00 Test Item Value Reference Range Interpretation Comments AMMONIA (test code = AMM) 39 mcMOL/L 11-32 H GLUCOSE BEDSIDE [id number] 12:23:00 Test Item Value Reference Range Interpretation Comments GLUCOSE BEDSIDE TESTING (test code 178 mg/dL 70-110 H = GLUBED) CBC W/AUTO [id number] 08:33:00 Test Item Value Reference Range Interpretation [...] code NO DIFF/SCN CRITERIA = MDIFF) RBC [id number] 08:33:00 Test Item Value Reference Range Interpretation Comments HYPOCHROMIA (test code = TRACE ON SCAN NONE HYPO) ANISOCYTOSIS (test code = TRACE NONE ANISO) PLATELET ESTIMATE (test ADEQUATE THOUSAND ADEQUATE code = PLTEST) PLATELET MORPHOLOGY (test NORMAL code = PLTMORPH) GLUCOSE BEDSIDE [id number] 08:01:00 Test Item Value Reference Range Interpretation Comments GLUCOSE BEDSIDE TESTING (test code 117 mg/dL 70-110 H = GLUBED) [id number] 06:55:00 Test Item Value Reference Range Interpretation [...] Ratio 1.48-3.22 Avg N Comment: FASTING IN AMCBC W/AUTO [id number] 06:35:00 Test Item Value Reference Range Interpretation [...] NO DIFF/SCN CRITERIA = MDIFF) CBC W/AUTO [id number] 06:35:00 Test Item Value Reference Range Interpretation [...] NO DIFF/SCN CRITERIA = MDIFF) COMPREHENSIVE METABOLIC [id number] 06:11:00 Test Item Value Reference Range Interpretation [...] TOTAL (test code = ALKP) GLUCOSE BEDSIDE [id number] 20:39:00 Test Item Value Reference Range Interpretation Comments GLUCOSE BEDSIDE TESTING (test code 115 mg/dL 70-110 H = GLUBED) GLUCOSE BEDSIDE [id number] 16:53:00 Test Item Value Reference Range Interpretation Comments GLUCOSE BEDSIDE TESTING (test code 118 mg/dL 70-110 H = GLUBED) - XR CHEST 1 [id number] 15:43:00 [facility] NYASIA: 1965 Sex: M Name: GURMEET BROCK [place] : 1965Age/S: 54 / M [address] Unit #: [id number] Loc: [place] [address] Phys: Willow Brownlee GLAZE CARRIER Acct: [id number] Dis Date: Status: ADM IN PHONE#: [phone] Exam Date: 07/03/2020 1533 FAX #: Reason: TO CONFIRM NG TUBE PLACEMENT EXAMS: CPT: [id number] XR CHEST 1 V 33279 Fluoro Time: DAP (Gy m2): Air Kerma [...] PAGE 1 Signed Report Name: GURMEET BROCK [place] : 1965 Age/S: 54 / M [address] Unit #: [id number] Loc: [place] [address] Phys: Willow Brownlee GLAZE CARRIER Acct: [id number] Dis Date: Status: ADM IN PHONE #: [phone] Exam Date: 07/03/2020 1533 FAX #: Reason: TO CONFIRM NG TUBE PLACEMENT EXAMS: CPT: [id number] XR CHEST 1 V 42573 Fluoro Time: DAP (Gy m2): Air Kerma (mGy): <Continued> Technologist: Naomy Campbell, RT(R) Trnscb Date/Time: 07/03/2020 (1540) t.KEIRYROumouBC0 Orig Print D/T: S: 07/03/2020 (3472) PAGE 2 Signed Report- XR CHEST 1 [id number] 14:22:00 [facility] : 1965 Sex: M Name: GURMEET BROCK [facility] : 1965Age/S: 54 / M [address] Unit #: [id number] Loc: [place] [address] Phys: Willow Brownlee NP Acct: [id number] Dis Date: Status: ADM IN PHONE#: [phone] Exam Date: 07/03/2020 1336 FAX #: Reason: hypoxia EXAMS: CPT: [id number] XR CHEST 1 V 11783 Fluoro Time: DAP (Gy m2): Air Kerma (mGy): Examination: Chest 1 view Location code: S17 Comparison: Chest July 03, 2020 Discussion: Clinical history is remarkable for hypoxia. Cardiac silhouette is enlarged. Rightparahilar pneumonitis is identified, there is likely mild underlying congestion. Impression: Underlying congestion and right parahilar pneumonitis. at 1422 Reported and signed by: Brannon Frias M.D. CC: Paula Suazo MD; Willow Brownlee GLAZE CARRIER PAGE 1 Signed Report Name: GRUMEET BROCK [facility] : 1965 Age/S: 54 / M [address] Unit #: [id number] Loc: [place] [address] Phys: Willow Brownlee NP Acct: [id number] Dis Date: Status: ADM IN PHONE #: [phone] Exam Date: 07/03/2020 1336 FAX #: Reason: hypoxia EXAMS: CPT: [id number] XR CHEST 1 V 67287 Fluoro Time: DAP (Gy m2): Air Kerma (mGy): <Continued> Technologist: RT Libra(Kyleigh) Trnscb Date/Time: 07/03/2020 (988) tASAFJH12 Orig Print D/T: S: 07/03/2020 (7288) PAGE 2 Signed Report- MRI BRAIN W/O [id number] 13:54:00 [facility] : 1965 Sex: M FAX: Y Kerry Vincent [phone] Camps: PM St: ADM Name: GURMEET BROCK [facility] : 1965 Age/S: 54/M [address] Unit #: [id number] Loc: [place] [address] Phys: Kerry Vincent MD Acct: [id number] Dis Date: Status: ADM IN PHONE #: [phone] Exam Date: 07/03/2020 1323 FAX #: Reason: ISCHEMIC STROKE EXAMS: CPT: [id number] MRI BRAIN W/O CONTRAST 26973 Examination: MRI of the brain without contrast [...] 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 at 9017 Reported and signed by: Brannon Frias M.D. CC: Kerry Vincent MD Technologist: Immanuel Cook RT(R)(MR) Transcribed Date/Time/By: (8079) :RosalieJH12 [facility] Print D/T: S: 07/03/2020 (0244) PAGE 1 Signed [id number] 12:59:00 Test Item Value Reference Range Interpretation Comments PHOSPHOROUS (test code = PHOS) 2.9 MG/DL 2.5-4.9 N Completed by Nursing: NOCREATINE KINASE (CK)2020-07-03 12:59:00 Test Item Value Reference Range Interpretation Comments CREATINE KINASE (CK) (test code = 403 Unit/L 26-192 H CK) Completed by Nursing: [id number] 12:59:00 Test Item Value Reference Range Interpretation Comments MAGNESIUM (test code = MAG) 1.7 MG/DL 1.8-2.4 L Completed by Nursing: NOTHYROID STIMULATING [id number] 12:59:00 Test Item Value Reference Range Interpretation Comments THYROID STIMULATING HORMONE 2.480 mcIU/ML 0.340-4.820 N (test code = TSH) Completed by Nursing: [id number] 12:59:00 Test Item Value Reference Range Interpretation [...] may jasbir yby method. Completed by Nursing: IMX-[id number] 12:42:00 Test Item Value Reference Range Interpretation Comments D-DIMER (test code = DDIMER) 1360 ng/mLFEU 215-500 HH GLUCOSE BEDSIDE [id number] 12:16:00 Test Item Value Reference Range Interpretation Comments GLUCOSE BEDSIDE TESTING (test code 132 mg/dL 70-110 H = GLUBED) PaO2/[id number] 11:31:00 Test Item Value Reference Range Interpretation Comments PaO2/FiO2 (test code = MEL2KWL0) mm/Hg >200 [id number] 11:31:00 Test Item Value Reference Range Interpretation [...] code = 0.6 % 0.0-0.0 H METHGB) PaO2/CcI77789-53-05 11:31:00 Test Item Value Reference Range Interpretation Comments PaO2/FiO2 (test code = DUA6SIB4) 170.0 mm/Hg >200 L [id number] 11:31:00 Test Item Value Reference Range Interpretation [...] % 0.0-0.0 H METHGB) - DUP VEIN [id number] 11:12:00 [facility] : 1965 Sex: M Name: GURMEET BROCK [place] : 1965Age/S: 54 / M [address] Unit #: [id number] Loc: [place] [address] Phys: PogosonWillow GLAZE CARRIER Acct: [id number] Dis Date: Status: ADM IN PHONE#: [phone] Exam Date: 07/03/2020 0939 FAX #: Reason:Saul LE swelling EXAMS: CPT: [id number] DUP VEIN SAUL [address] Examination: Bilateral lower extremity venous Doppler Location [...] NP Technologist: Maddie Lilly Trnscb Date/Time: 07/03/2020 (1112) RosalieJH12 PAGE 1 Signed Report Name: GURMEET BROCK [place] : 1965 Age/S: 54 / M [address] Unit #: [id number] Loc: [place] [address] Phys: Pogoson,Willow GLAZE CARRIER Acct: [id number] Dis Date: Status: ADM IN PHONE #: [phone] Exam Date: 07/03/2020 0939 FAX #: Reason: Saul LE swelling EXAMS: CPT: [id number] DUP VEIN SAUL [address] <Continued> Orig Print D/T: S: 07/03/2020 (1121) Probe: PAGE 2 Signed ReportGLUCOSE BEDSIDE [id number] 07:58:00 Test Item Value Reference Range Interpretation Comments GLUCOSE BEDSIDE TESTING (test code 133 mg/dL 70-110 H = GLUBED) [id number] 06:38:00 Test Item Value Reference Range Interpretation [...] method. Completed by Nursing: NOCOVID 19 INHOUSE [id number] 04:12:00 Test Item Value Reference Range Interpretation Comments COVID 19 INHOUSE AG NEGATIVE Negative Per manu facturer, (test code = negative result s should GFNMS39BZJY) be treated aspr esumptive and, if inconsi [...] symptoms co nsistent with COVID-19. GLUCOSE BEDSIDE [id number] 03:37:00 Test Item Value Reference Range Interpretation Comments GLUCOSE BEDSIDE TESTING (test code 124 mg/dL 70-110 H = GLUBED) - CT ANGIO [id number] 03:32:00 [facility] : 1965 Sex: M Name: GURMEET BROCK [facility] : 1965Age/S: 54 / M [address] Unit #: [id number] Loc: [place] [address] Phys: Kerry Vincent MD Acct: [id number] Dis Date: Status: REG ER PHONE#: [phone] Exam Date: 07/03/20202 FAX #: Reason:AMS EXAMS: CPT: [id number] CT ANGIO NECK 11760 - CT ANGIO HEAD, - CT ANGIO [...] 1 Signed Report (CONTINUED) Name: [facility]URMEET [facility]OCK [facility] [place] [facility] 1965 Age/S: 54 / M [address] [place] [address] Unit #: [id number] Loc: [place] [address] Phys: Kerry Vincent MD Acct: [id number] Dis Date: Status: REG ER PHONE #: [phone] Exam Date: 07/03/2020311 FAX #: Reason: AMS EXAMS: CPT: [id number] ANGIO NECK [address] <Continued> One or more of the following [...] 2 Signed Report (CONTINUED) Name: GURMEET BROCK [place] : 1965 Age/S: 54 / M [address] [place] [address] Unit #: [id number] Loc: [place] [address] Phys: Kerry Vincent MD Acct: [id number] Dis Date: Status: REG ER PHONE #: [phone] Exam Date: 07/03/2020311 FAX #: Reason: AMS EXAMS: CPT: [id number] CT ANGIO NECK [address] <Continued> CC: Kerry Vincent MD Technologist:Brannon Valera, RT(R); Evgeny Morales, CTDI: DLP: Trnscb Date/Time: 07/03/2020 (0332) t.SDR.RR16 Orig Print D/T: S: 07/03/2020 (0335) PAGE 3 Signed Report- CT ANGIO [id number] 03:32:00 [facility] : 1965 Sex: M Name: GURMEET BROCK [facility] : 1965Age/S: 54 / M [address] Unit #: [id number] Loc: [place] [address] Phys: Kerry Vincent MD Acct: [id number] Dis Date: Status: REG PHONE#: [phone] Exam Date: 07/03/2020 0308 FAX #: Reason:AMS EXAMS: CPT: [id number] CT ANGIO HEAD [address] - CT ANGIO HEAD, - CT ANGIO [...] BROCK : 1965 Age/S: 54 / M [address] [place] [address] Unit #: [id number] Loc: [place] [address] Phys: Kerry Vincent MD Acct: [id number] Dis Date: Status: REG ER PHONE #: [phone] Exam Date: 07/03/2020 030 FAX #: Reason: AMS EXAMS: CPT: [id number] ANGIO HEAD [address] <Continued> One or more of the following [...] BROCK : 1965 Age/S: 54 / M [address] [place] [address] Unit #: [id number] Loc: [place] [address] Phys: Kerry Vincent MD Acct: [id number] Dis Date: Status: REG ER PHONE #: [phone] Exam Date: 07/03/2020 030 FAX #: Reason: AMS EXAMS: CPT: [id number] CT ANGIO HEAD [address] <Continued> CC: Kerry Vincent MD Technologist:Brannon Valera, RT(R); Evgeny Morales, CTDI: DLP: Trnscb Date/Time: 07/03/2020 (331) NicoleR.RR16 Orig Print D/T: S: 07/03/2020 (0332) PAGE 3 Signed ReportDRUGS OF ABUSE SCREEN [id number] 03:24:00 Test Item Value Reference Range Interpretation [...] NG/ML [place]) UA RFLX MICR CULT IF [id number] 03:09:00 Test Item Value Reference Range Interpretation [...] UACULT) Indication for culture: RiskForSepsis-no oth srcPROTHROMBIN [id number] 03:05:00 Test Item Value Reference Range Interpretation Comments PT PATIENT (test code = PTP) 19.8 SECONDS 9.3-12.9 H INTERNATIONAL NORMAL RATIO 1.73 INR Unit 0.8-1.2 H (test code = INR) THROMBOPLASTIN TIME [id number] 03:05:00 Test Item Value Reference Range Interpretation Comments THROMBOPLASTIN TIME PARTIAL 31.4 SECONDS 26-35 N (test code = PTT) UA RFLX MICR CULT IF [id number] 02:59:00 Test Item Value Reference Range Interpretation [...] 8.0 MG/DL 8.5-10.1 L Completed by Nursing: QJOPHVPHQF-[id number] 02:56:00 Test Item Value Reference Range Interpretation [...] may jasbir yby method. Completed by Nursing: [id number] 02:51:00 Test Item Value Reference Range Interpretation Comments AMMONIA (test code = AMM) 31 mcMOL/L 11-32 N - XR CHEST 1 [id number] 02:44:00 [facility] : 1965 Sex: M Name: GURMEET BROCK [place] : 1965Age/S: 54 / M [address] Unit #: [id number] Loc: [place] [address] Phys: Kerry Vincent MD Acct: [id number] Dis Date: Status: REG ER PHONE#: [phone] Exam Date: 07/03/2020 023 FAX #: Reason: Code Stroke EXAMS: CPT: [id number] XR CHEST 1 V 78589 Fluoro Time: DAP (Gy m2): Air Kerma [...] PAGE 1 Signed Report Name: GURMEET BROCK [place] : 1965 Age/S: 54 / M [address] Unit #: [id number] Loc: [place] [address] Phys: Kerry Vincent MD Acct: [id number] Dis Date: Status: REG ER PHONE #: [phone] Exam Date: 07/03/2020 0235 FAX #: Reason: Code Stroke EXAMS: CPT: [id number] XR CHEST 1 V 96741 Fluoro Time: DAP (Gy m2): Air Kerma (mGy): <Continued> Technologist: Jarad RT(R); Evgeny Morales RT(R)(CT) Trnscb Date/Time: 07/03/2020 (0244) tRIYA.FC Orig Print D/T: S: 07/03/2020 (2394) PAGE 2 Signed SbnqxgORPMYWI7934-51-93 02:42:00 Test Item Value Reference Range Interpretation Comments ALCOHOL (test code = ALC) < 3 MG/DL 0-10 N BASIC METABOLIC [id number] 02:39:00 Test Item Value Reference Range Interpretation [...] 8.0 MG/DL 8.5-10.1 L Completed by Nursing: EWLYVTJRFB-H8205-09-19 02:39:00 Test Item Value Reference Range Interpretation Comments TROPONIN-I (test code = TROPI) NG/ML 0.000-0.045 Completed by Nursing: NOCBC W/O [id number] 02:37:00 Test Item Value Reference Range Interpretation [...] 7.0-9.6 N MPV) - CT HEAD/BRAIN W/O [id number] 01:53:00 [facility] : 1965 Sex: M Name: GURMEET BROCK [facility] : 1965Age/S: 54 / M [address] Unit #: [id number] Loc: [place] [address] Phys: Kerry Vincent MD Acct: [id number] Dis Date: Status: PRE ER PHONE#: [phone] Exam Date: 07/03/2020 0147 FAX #: Reason:Code Stroke EXAMS: CPT: [id number] CT HEAD/BRAIN W/O CONT 58778 EXAM: CT Head without contrast Location code:J9 [...] MCA distribution is suggested. 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.Paranasal sinuses, [...] 1 Signed Report (CONTINUED) Name: GURMEET BROCK [place] : 1965 Age/S: 54 / M [address] Unit #: [id number] Loc: [place] [address] Phys: Kerry Vincent MD Acct: [id number] Dis Date: Status: PRE ER PHONE #: [phone] Exam Date: 07/03/2020 014 FAX #: Reason: Code StrokeEXAMS: CPT: [id number] CT HEAD/BRAIN W/O CONT 14911 <Continued> CC:Kerry Vincent MD Technologist:Brannon Valera RT(R); Evgeny Morales, GLENNAI: DLP: Trnscb Date/Time: 07/03/2020 (015) t.SDR.RR16 Orig Print D/T: S: 07/03/2020 (0156) PAGE 2 Signed Report SARS-COV2/RT-PCR ([facility])2019-12-24 03:22:00 Test Item Value Reference Range Interpretation Comments SARS-COV2/RT-PCR (test Not Detected Not Detected, Negative code = 5802530) SARS-COV-[address] [facility] (test code = 5732268) Negative results do not preclude SARS-CoV-2 infection [...] of the Act.Fact Sheet for Healthcare Pro viders:https://www.Portfolium/Documents/Xpert%20Xpress%20SARS%20CoV-2/Fact%20Sh eets/3023802%26SOMJ-GOV-6%20HEALTHCARE%20PROVIDERS%20FACT%20SHEET.pdfFact Sheet for Healthcare Patients:https://www.Geosign/Documents/Xpert%20Xpress%20SARS%20CoV-2/Fact%20Sheets/3023801%20SARS-COV -2%20PATIENT%20FACT%20SHEET.pdfPerforming Laboratory:[facility] [place] [address]
[2021-02-22 20:15] LABS: Urine Blood Trace-intact (Negative); Urine Glucose 3+ (Negative); Urine Protein 2+ (Negative); Urine pH 6.5 (5.0-7.0)
[2021-02-22 20:24] LABS: Absolute Lymphocytes (CBC) 2.1 K/uL (0.7-4.9); Hematocrit 36.7 % (39.6-49.0); Lymphocytes % 21.1 % (15.3-44.8); MPV 7.5 fL (7.6-11.3); RBC Red Blood Cell Count 4.58 M/uL (4.33-5.43)
[2021-02-22 20:28] LABS: Protime INR 1.84
[2021-02-22] MEDS ORDERED: DIGOXIN 0.25 MG/ML AMP ONE (20:45)
[2021-02-22] MEDS ORDERED: NA CHLORIDE 0.9% 250 ML ONE (20:46)
[2021-02-22] MEDS ORDERED: PANTOPRAZOLE 40 MG INJ ONE (20:46)
[2021-02-22] MEDS ORDERED: METOPROLOL TARTRATE 5 MG/5 ML INJ IV ONE ×3 (20:46→21:30)
[2021-02-22] MEDS ORDERED: NA CHLORIDE 0.9% 1,000 ML ONE (20:46)
[2021-02-22 20:55] LABS: ALT/SGPT 27 U/L (12-78); AST/SGOT 16 U/L (15-37); Albumin 3.2 g/dL (3.4-5.0); Alkaline Phosphatase 93 U/L (45-117); BUN Blood Urea Nitrogen 31 mg/dL (7-18); Bicarbonate 25 mmol/L (21-32); Bilirubin Direct 0.5 mg/dL (0-0.2); Bilirubin Total 1.9 mg/dL (0.2-1.0); Glucose Level 91 mg/dL (74-106); Lipase 205 U/L (73-393); Magnesium 1.9 mg/dL (1.8-2.4); NT PRO-BNP 4947 pg/mL (<125); Potassium 4.1 mmol/L (3.5-5.1); Protein, Total 7.4 g/dL (6.4-8.2); Sodium Level 144 mmol/L (136-145); Troponin (Emerg Dept Use Only) < 0.02 ng/mL (0.0-0.045)
--- NOTE | 2021-02-22 20:56 | RAD REPORT ---
EXAM DESCRIPTION: CT - Chest Abdomen Pelvis W Cont - 02/22/2021 8:46 pm CLINICAL HISTORY: Chest and abdomen pain. Congestion;Abdominal distention COMPARISON: Chest For Pe Angio dated 01/23/2021 TECHNIQUE: Approximately 100 mL nonionic IV contrast was administered to the patient. All CT scans are performed using dose optimization technique as appropriate and may include automated exposure control or mA/KV adjustment according to patient size. FINDINGS: Ground-glass opacity is present bilaterally, mild to moderate in severity.No pleural or pe ricardial effusion.The heart is moderately enlarged in size.Mild lymphadenopathy is seen in the media stinum and both hilar regions. The liver, spleen, pancreas, adrenal glands and kidneys are within normal limits. Cholecystectomy cli ps. No bowel obstruction, free air, free fluid or abscess. Normal appendix. Small periumbilical fat conta ining hernia is present. No pathologic lymphadenopathy in the abdomen or pelvis. Soft tissue density is seen along the posterior aspect of the urinary bladder. Moderate fat containin g right inguinal hernia. IMPRESSION: Moderate cardiomegaly with mild to moderate interstitial pulmonary edema.This likely ind icates CHF. Mild nonspecific lymphadenopathy is present in the mediastinum and hilar regions, mildly improved sin ce prior study. Small soft tissue nodule is seen in the posterior aspect of the urinary bladder. A small bladder mass is a possibility. Recommend follow-up direct visualization with cystoscopy. Small periumbilical fat containing hernia.
--- NOTE | 2021-02-22 20:57 | RAD REPORT ---
EXAM DESCRIPTION: RAD - Chest Single View - 02/22/2021 8:44 pm CLINICAL HISTORY: COUGH Chest pain. COMPARISON: Chest Single View dated 01/23/2021; Chest Single View dated 02/27/2020; Chest Single View dated 12/23/2019; Chest Single View dated 04/29/2016 FINDINGS: Portable technique limits examination quality. Mild interstitial pulmonary edema seen. The heart is moderately enlarged in size. No displaced fractu res. IMPRESSION: Mild CHF.
--- NOTE | 2021-02-22 21:04 | ER ---
Nurse's Notes [facility] Name: Faustino Brock Age: 55 yrs Sex: Male : 1965 Arrival Date: 02/22/2021 Time: 19:49 Bed 23 Private MD: Diagnosis: GI Bleed/ Gastrointestinal hemorrhage, unspecified-upper;Unspecified atrial fibrillation- with RVR;Unspecified combined systolic (congestive) and diastolic (congestive) heart failure Presentation: 02/22 19:50 Chief complaint: EMS states: toned out for blood in sputum when coughing and blood in ld1 stool. Coronavirus screen: At this time, the client does not indicate any symptoms associated with coronavirus-19. Ebola Screen: No symptoms or risks identified at this time. Initial Sepsis Screen: Does the patient meet any 2 criteria? No. Patient's initial sepsis screen is negative. Does the patient have a suspected source of infection? No. Patient's initial sepsis screen is negative. Risk Assessment: Do you want to hurt yourself or someone else? Patient reports no desire to harm self or others. Onset of symptoms was February 22, 2021. 19:50 Method Of Arrival: EMS: [facility] ld1 19:50 Acuity: EZIO 3 ld1 Triage Assessment: 19:52 General: Appears in no apparent distress. comfortable, Behavior is calm, cooperative, ld1 appropriate for age. Pain: Denies pain. EENT: No signs and/or symptoms were reported regarding the EENT system. Neuro: Level of Consciousness is awake, alert, obeys commands, Oriented to person, place, time, situation. Cardiovascular: Capillary refill < 3 seconds Patient's skin is warm and dry. Respiratory: Reports cough that is productive, Airway is patent Respiratory effort is even, unlabored, Respiratory pattern is regular, symmetrical. GI: Abdomen is flat, non-distended. : No signs and/or symptoms were reported regarding the genitourinary system. Derm: No signs and/or symptoms reported regarding the dermatologic system. Musculoskeletal: No signs and/or symptoms reported regarding the musculoskeletal system. Historical: - Allergies: 19:52 Morphine; ld1 - Home Meds: 19:52 aspirin 81 mg Oral tab daily [Active]; Diurex 162.5-50 mg Oral tab [Active]; Eliquis 5 ld1 mg Oral tab 2 times per day [Active]; Farxiga 5 mg Oral tab once daily [Active]; - PMHx: 19:52 "need pacemaker"; "need reconstructive surgery to urethra"; Atrial Fib; Diabetes - ld1 NIDDM; CHF; Hypertension; Myocardial infarction; insomnia; - Immunization history:: Adult Immunizations up to date. - Social history:: Smoking status: Patient denies any tobacco usage or history of. - Family history:: not pertinent. Screenin:54 Abuse screen: Denies threats or abuse. Denies injuries from another. Nutritional ld1 screening: No deficits noted. Tuberculosis screening: No symptoms or risk factors identified. Fall Risk None identified. Assessment: 19:54 Reassessment: See triage assessment. ld1 21:55 Reassessment: Patient appears in no apparent distress at this time. Patient and/or ld1 family updated on plan of care and expected duration. Pain level reassessed. Patient is alert, oriented x 3, equal unlabored respirations, skin warm/dry/pink. Vital Signs: 19:41 BP 117 / 103; Pulse 152; Resp 22; Temp 98.3; Pulse Ox 96% on R/A; ld1 19:45 BP 119 / 100; Pulse 132; Resp 22; Pulse Ox 100% on R/A; ld1 19:50 BP 119 / 100; Pulse 84; Resp 16; Temp 98.3(O); Pulse Ox 100% on R/A; Weight 79.38 kg; ld1 Height 5 ft. 9 in. (175.26 cm); Pain 0/10; 20:01 BP 112 / 101; Pulse 158; Resp 17; Pulse Ox 98% on R/A; ld1 20:18 BP 129 / 105; Pulse 133; Resp 21; Pulse Ox 97% on R/A; ld1 20:24 BP 126 / 82; Pulse 157; Resp 22; Pulse Ox 100% on R/A; ld1 20:47 BP 125 / 97; Pulse 137; Resp 22; Pulse Ox 100% on R/A; ld1 21:02 BP 134 / 95; Pulse 137; Resp 27; Pulse Ox 100% on R/A; ld1 19:50 Body Mass Index 25.84 (79.38 kg, 175.26 cm) ld1 ED Course: 19:49 Patient arrived in ED. ld1 19:52 Triage completed. ld1 19:52 Arm band placed on right wrist. ld1 19:54 Patient has correct armband on for positive identification. Bed in low position. Call ld1 light in reach. Side rails up X2. Pulse ox on. NIBP on. Door closed. Noise minimized. Warm blanket given. 19:54 No provider procedures requiring assistance completed. ld1 19:55 Sarina Webb, FAN is Primary Nurse. ld1 19:57 Steve Shukla MD is Attending Physician. john 20:44 XRAY Chest (1 view) In Process Unspecified. EDMS 20:46 CT Chest, Abdomen, Pelvis - W/Contrast: iv only In Process Unspecified. EDMS 20:59 Shala Carrillo MD is Hospitalizing Provider. john Administered Medications: 20:15 Drug: ProTONIX (pantoprazole) 80 mg Route: IVP; Site: left antecubital; ld1 20:32 Follow up: Response: No adverse reaction ld1 20:20 Drug: Digoxin 0.5 mg Route: IVP; Site: left antecubital; ld1 20:33 Follow up: Response: No adverse reaction ld1 20:25 Drug: Lopressor (metoprolol) 2.5 mg Route: IVP; Site: left antecubital; ld1 21:14 Follow up: Response: No adverse reaction ld1 20:32 Drug: Lopressor (metoprolol) 2.5 mg Route: IVP; Site: left antecubital; ld1 21:14 Follow up: Response: No adverse reaction ld1 20:50 Drug: Lopressor (metoprolol) 2.5 mg Route: IVP; Site: left antecubital; ld1 21:14 Follow up: Response: No adverse reaction ld1 20:59 CANCELLED (Duplicate Order): NS 0.9% 1000 ml IV at 125 ml/hr continuous john 21:00 Drug: Lopressor (metoprolol) 2.5 mg Route: IVP; Site: left antecubital; ld1 21:13 Follow up: Response: No adverse reaction ld1 21:03 Drug: Lopressor (metoprolol) 2.5 mg Route: IVP; Site: left antecubital; ld1 21:14 Follow up: Response: No adverse reaction ld1 21:03 Drug: ProTONIX (pantoprazole) 8 mg/hr Route: IV; Rate: 25 ml/hr; Site: left antecubital;ld1 21:13 Drug: Lopressor (metoprolol) 2.5 mg Route: IVP; Site: left antecubital; ld1 21:13 Follow up: Response: No adverse reaction ld1 21:13 Drug: Lasix (furosemide) 40 mg Route: IVP; Site: left antecubital; ld1 21:14 Follow up: Response: No adverse reaction ld1 Outcome: 21:03 Decision to Hospitalize by Provider. john 02/23 14:02 Patient left the ED. ld1 Signatures: Dispatcher [employer] Steve Humphries MD MD cha Dibbern, Lauren, RN RN ld1
--- NOTE | 2021-02-22 21:04 | EDPHYS ---
Physician Documentation [facility] Name: Faustino Brock Age: 55 yrs Sex: Male : 1965 Arrival Date: 02/22/2021 Time: 19:49 Bed 23 Private MD: ED Physician Steve Shukla HPI: 02/22 20:20 This 55 yrs old Male presents to ER via EMS with complaints of GI BLEED. john 20:20 The patient presents with a history of irregular heart beat, heart racing. Context: The john symptoms occur at rest, with light activity. Onset: The symptoms/episode began/occurred 2 day(s) ago. Duration: The patient or guardian reports multiple episodes, with no pattern. Modifying factors: The symptoms are aggravated by nothing. The symptoms are alleviated by nothing. The patient presents to the emergency department with rectal bleeding, melena, with multiple such episodes. Onset: The symptoms/episode began/occurred 2 day(s) ago. Abdominal pain: none is appreciated. Modifying factors: The symptoms are alleviated by nothing, the symptoms are aggravated by nothing. hx afib, gi bleed. Historical: - Allergies: 19:52 Morphine; ld1 - Home Meds: 19:52 aspirin 81 mg Oral tab daily [Active]; Diurex 162.5-50 mg Oral tab [Active]; Eliquis 5 ld1 mg Oral tab 2 times per day [Active]; Farxiga 5 mg Oral tab once daily [Active]; - PMHx: 19:52 "need pacemaker"; "need reconstructive surgery to urethra"; Atrial Fib; Diabetes - ld1 NIDDM; CHF; Hypertension; Myocardial infarction; insomnia; - Immunization history:: Adult Immunizations up to date. - Social history:: Smoking status: Patient denies any tobacco usage or history of. - Family history:: not pertinent. ROS: 20:20 Constitutional: Negative for fever, chills, and weight loss, Eyes: Negative for injury, john pain, redness, and discharge, ENT: Negative for injury, pain, and discharge, Neck: Negative for injury, pain, and swelling, Respiratory: Negative for shortness of breath, cough, wheezing, and pleuritic chest pain, Back: Negative for injury and pain, : Negative for injury, bleeding, discharge, and swelling, MS/Extremity: Negative for injury and deformity, Skin: Negative for injury, rash, and discoloration, Neuro: Negative for headache, weakness, numbness, tingling, and seizure, Psych: Negative for depression, anxiety, suicide ideation, homicidal ideation, and hallucinations, Allergy/Immunology: Negative for hives, rash, and allergies, Endocrine: Negative for neck swelling, polydipsia, polyuria, polyphagia, and marked weight changes, Hematologic/Lymphatic: Negative for swollen nodes, abnormal bleeding, and unusual bruising. 20:20 Cardiovascular: Positive for 20:20 Respiratory: Negative for cough. 20:20 Abdomen/GI: Positive for black/tarry stool. Exam: 20:20 Constitutional: This is a well developed, well nourished patient who is awake, alert, john and in no acute distress. Head/Face: Normocephalic, atraumatic. Eyes: Pupils equal round and reactive to light, extra-ocular motions intact. Lids and lashes normal. Conjunctiva and sclera are non-icteric and not injected. Cornea within normal limits. Periorbital areas with no swelling, redness, or edema. ENT: Nares patent. No nasal discharge, no septal abnormalities noted. Tympanic membranes are normal and external auditory canals are clear. Oropharynx with no redness, swelling, or masses, exudates, or evidence of obstruction, uvula midline. Mucous membranes moist. Neck: Trachea midline, no thyromegaly or masses palpated, and no cervical lymphadenopathy. Supple, full range of motion without nuchal rigidity, or vertebral point tenderness. No Meningismus. Chest/axilla: Normal chest wall appearance and motion. Nontender with no deformity. No lesions are appreciated. Respiratory: Lungs have equal breath sounds bilaterally, clear to auscultation and percussion. No rales, rhonchi or wheezes noted. No increased work of breathing, no retractions or nasal flaring. Back: No spinal tenderness. No costovertebral tenderness. Full range of motion. Male : Normal genitalia with no discharge or lesions. Skin: Warm, dry with normal turgor. Normal color with no rashes, no lesions, and no evidence of cellulitis. MS/ Extremity: Pulses equal, no cyanosis. Neurovascular intact. Full, normal range of motion. Neuro: Awake and alert, GCS 15, oriented to person, place, time, and situation. Cranial nerves II-XII grossly intact. Motor strength 5/5 in all extremities. Sensory grossly intact. Cerebellar exam normal. Normal gait. Psych: Awake, alert, with orientation to person, place and time. Behavior, mood, and affect are within normal limits. 20:20 Cardiovascular: Rate: tachycardic, Rhythm: irregularly irregular, Pulses: Pulses are 4+ in bilateral radial, brachial, femoral, popliteal, posterior tibial and and dorsalis pedis arteries.. Heart sounds: normal, Edema: is not appreciated, JVD: is noted bilaterally, to 2 cm. 20:20 ECG was reviewed by the Attending Physician. Vital Signs: 19:41 BP 117 / 103; Pulse 152; Resp 22; Temp 98.3; Pulse Ox 96% on R/A; ld1 19:45 BP 119 / 100; Pulse 132; Resp 22; Pulse Ox 100% on R/A; ld1 19:50 BP 119 / 100; Pulse 84; Resp 16; Temp 98.3(O); Pulse Ox 100% on R/A; Weight 79.38 kg; ld1 Height 5 ft. 9 in. (175.26 cm); Pain 0/10; 20:01 BP 112 / 101; Pulse 158; Resp 17; Pulse Ox 98% on R/A; ld1 20:18 BP 129 / 105; Pulse 133; Resp 21; Pulse Ox 97% on R/A; ld1 20:24 BP 126 / 82; Pulse 157; Resp 22; Pulse Ox 100% on R/A; ld1 20:47 BP 125 / 97; Pulse 137; Resp 22; Pulse Ox 100% on R/A; ld1 21:02 BP 134 / 95; Pulse 137; Resp 27; Pulse Ox 100% on R/A; ld1 19:50 Body Mass Index 25.84 (79.38 kg, 175.26 cm) ld1 MDM: 19:57 Patient medically screened. john 20:25 Differential diagnosis: arrythmia, dehydration, varices. Data reviewed: vital signs, john nurses notes, lab test result(s), EKG, radiologic studies, CT scan, plain films. Data interpreted: engine monitor: rate is 169 beats/min, rhythm is atrial fibrillation. Test interpretation: by ED physician or midlevel provider: ECG, plain radiologic studies. Counseling: I had a detailed discussion with the patient and/or guardian regarding: the historical points, exam findings, and any diagnostic results supporting the discharge/admit diagnosis, lab results, radiology results. 02/22 19:59 Order name: Basic Metabolic Panel; Complete Time: 20:57 [facility] 02/22 19:59 Order name: CBC with Diff; Complete Time: 20:57 [facility] 02/22 19:59 Order name: LFT's; Complete Time: 20:57 [facility] 02/22 19:59 Order name: Magnesium; Complete Time: 20:57 [facility] 02/22 19:59 Order name: NT PRO-BNP; Complete Time: 20:57 [facility] 02/22 19:59 Order name: PT-INR; Complete Time: 20:57 [facility] 02/22 19:59 Order name: Troponin (emerg Dept Use Only); Complete Time: 20:57 [facility] 02/22 19:59 Order name: Lipase; Complete Time: 20:57 [facility] 02/22 19:59 Order name: Type And Screen [facility] 02/22 19:59 Order name: Urine Culture [facility] 02/22 20:15 Order name: Urine Dipstick-Ancillary [facility] 02/22 20:33 Order name: Thyroid Stimulating Hormone; Complete Time: 20:57 [facility] 02/22 21:31 Order name: SARS-COV-2 RT PCR; Complete Time: 22:56 [facility] 02/22 21:43 Order name: Packed RBC Leukored [facility] 02/23 02:24 Order name: CREATININE WHOLE BLOOD [facility] 02/23 04:03 Order name: CBC with Automated Diff [facility] 02/23 04:04 Order name: Alcohol Serum/Plasma [facility] 02/23 04:05 Order name: Ammonia [facility] 02/23 04:27 Order name: Comprehensive Metabolic Panel [facility] 02/23 04:27 Order name: Phosphorus [facility] 02/23 04:27 Order name: Lipid Profile [facility] 02/23 04:27 Order name: T4 Free [facility] 02/23 04:27 Order name: Magnesium [facility] 02/23 04:53 Order name: Protime (+INR) [facility] 02/23 04:53 Order name: PTT, Activated Partial Thromb [facility] 02/23 04:53 Order name: Fibrinogen [facility] 02/23 07:30 Order name: Hemoglobin [facility] 02/23 07:30 Order name: Hematocrit [facility] 02/22 19:59 Order name: XRAY Chest (1 view); Complete Time: 20:59 [facility] 02/22 19:59 Order name: EKG; Complete Time: 20:00 [facility] 02/22 19:59 Order name: Cardiac monitoring; Complete Time: 20:08 [facility] 02/22 19:59 Order name: EKG - Nurse/Tech; Complete Time: 20:08 [facility] 02/22 19:59 Order name: IV Saline Lock; Complete Time: 20:08 [facility] 02/22 19:59 Order name: Labs collected and sent; Complete Time: 20:08 [facility] 02/22 19:59 Order name: O2 Per Protocol; Complete Time: 20:08 [facility] 02/22 19:59 Order name: O2 Sat Monitoring; Complete Time: 20:08 [facility] 02/22 19:59 Order name: Urine Dipstick-Ancillary (obtain specimen); Complete Time: 20:16 [facility] 02/22 19:59 Order name: IV Saline Lock - Large Bore; Complete Time: 20:08 [facility] 02/22 20:14 Order name: CT Chest, Abdomen, Pelvis - W/Contrast: iv only; Complete Time: 20:59 [facility] 02/22 23:14 Order name: CONS Physician Consult [facility] 02/23 08:50 Order name: Glucose, Ancillary Testing [facility] 02/23 09:12 Order name: Hemoglobin [facility] 02/23 09:12 Order name: Hematocrit [facility] 02/23 12:08 Order name: CBC with Automated Diff [facility] 02/23 12:34 Order name: CT [facility] 02/23 12:53 Order name: Glucose, Ancillary Testing [facility] EC:20 Rate is 169 beats/min. Rhythm is irregularly irregular. QRS [place] is Normal. RI interval john is normal. QRS interval is normal. QT interval is normal. No Q waves. T waves are Normal. No ST changes noted. Clinical impression: Atrial Fibrillation and No evidence of ischemia. Interpreted by me. Reviewed by me. Administered Medications: 20:15 Drug: ProTONIX (pantoprazole) 80 mg Route: IVP; Site: left antecubital; ld1 20:32 Follow up: Response: No adverse reaction ld1 20:20 Drug: Digoxin 0.5 mg Route: IVP; Site: left antecubital; ld1 20:33 Follow up: Response: No adverse reaction ld1 20:25 Drug: Lopressor (metoprolol) 2.5 mg Route: IVP; Site: left antecubital; ld1 21:14 Follow up: Response: No adverse reaction ld1 20:32 Drug: Lopressor (metoprolol) 2.5 mg Route: IVP; Site: left antecubital; ld1 21:14 Follow up: Response: No adverse reaction ld1 20:50 Drug: Lopressor (metoprolol) 2.5 mg Route: IVP; Site: left antecubital; ld1 21:14 Follow up: Response: No adverse reaction ld1 20:59 CANCELLED (Duplicate Order): NS 0.9% 1000 ml IV at 125 ml/hr continuous john 21:00 Drug: Lopressor (metoprolol) 2.5 mg Route: IVP; Site: left antecubital; ld1 21:13 Follow up: Response: No adverse reaction ld1 21:03 Drug: Lopressor (metoprolol) 2.5 mg Route: IVP; Site: left antecubital; ld1 21:14 Follow up: Response: No adverse reaction ld1 21:03 Drug: ProTONIX (pantoprazole) 8 mg/hr Route: IV; Rate: 25 ml/hr; Site: left antecubital;ld1 21:13 Drug: Lopressor (metoprolol) 2.5 mg Route: IVP; Site: left antecubital; ld1 21:13 Follow up: Response: No adverse reaction ld1 21:13 Drug: Lasix (furosemide) 40 mg Route: IVP; Site: left antecubital; ld1 21:14 Follow up: Response: No adverse reaction ld1 Disposition Summary: 02/22/21 21:03 Hospitalization Ordered Hospitalization Status: Inpatient Admission jhon Provider: Shala Carrillo cha Condition: Fair john Problem: new john Symptoms: have improved john Bed/Room Type: Standard john Location: Telemetry/MedSurg (Inpatient)(02/23/21 12:15) aa5 Room Assignment: 224(02/23/21 12:15) aa5 Diagnosis - GI Bleed/ Gastrointestinal hemorrhage, unspecified - upper john - Unspecified atrial fibrillation - with RVR john - Unspecified combined systolic (congestive) and diastolic (congestive) heart failure john Forms: - Medication Reconciliation Form john - SBAR form john Signatures: Dispatcher [employer] Steve Humphries MD MD cha Calderon Nilam, RN RN aa5 Abeba Guerrero RN RN cg Sarina Webb RN RN ld1 Corrections: (The following items were deleted from the chart) 20:32 20:00 CORONAVIRUS+MR.LAB.BRZ ordered. EDMS EDMS 20:33 20:02 THYROID STIMULAT HORMONE+C.LAB.BRZ ordered. EDMS EDMS 20:59 20:14 NS 0.9% 1000 ml IV at 125 ml/hr continuous ordered. [facility] 22:53 21:03 Telemetry/MedSurg (Inpatient) [facility] 22:53 21:03 [facility] 02/23 12:15 02/22 22:53 [facility] ER [facility] aa5 02/23 12:15 02/22 22:53 ERHOLD- aa5
[2021-02-22] MEDS ORDERED: FUROSEMIDE 40 MG/4 ML VIAL ONE (21:30)
[2021-02-22] MEDS ORDERED: LORazepam 2 MG/ML VIAL ONE (23:31)
--- NOTE | 2021-02-22 23:36 | P.HP ---
Certification for Inpatient Patient admitted to: Inpatient With expected LOS: >2 Midnights Patient will require the following post-hospital care: None Practitioner: I am a practitioner with admitting privileges, knowledge of patient current condition, hospital course, and medical plan of care. Services: Services provided to patient in accordance with Admission requirements found in Title 42 Section 412.3 of the Code of Federal Regulations <Emile Alfaro Chepe - Last Filed: 02/22/21 23:40> Patient History Date of Service: 02/22/21 Reason for admission: GIB History of Present Illness: Mr. Brock is a 55 yo M with HTN, DM, afib on chronic anticoagulation, GIL, HLD, CHF who presents with one day of coughing up blood, melena, and rectal bleeding. He says it started to clear up, but family members brought him in. He said he has been told before that he had a low iron count. He was found to be in afib with RVR upon arrival and received IV lopressor in the ED. H/H 11.6. BUN 31. Tbili 1.9. Dbili 0.5. BNP 4947. UA - glucose, blood, 2+ protein. CT scan shows moderate cardiomegaly with mild to moderate interstitial pulmonary edema.This likely indicates CHF. Mild nonspecific lymphadenopathy is present in the mediastinum and hilar regions, mildly improved since prior study. Small soft tissue nodule is seen in the posterior aspect of the urinary bladder. A small bladder mass is a possibility. Recommend follow-up direct visualization with cystoscopy. Small periumbilical fat containing hernia. - Past Medical/Surgical History Diabetic: Yes -: HTN -: DM-2 -: atrial fibrillation -: obstructive sleep apnea -: dyslipidemia -: CHF -: cholecystectomy -: Cyst removal from neck -: cardioversion - Family History Father -: Heart disease, Hypertension, Cancer Mother -: Heart disease, Hypertension, Diabetes Brother -: Cancer - Social History Smoking Status: Current every day smoker Alcohol use: No CD- Drugs: No Caffeine use: Yes Place of Residence: Home <Darcie Alfaroember Mo - Last Filed: 02/22/21 23:40> Date of Service: 02/22/21 <Shala Carrillo - Last Filed: 02/24/21 17:37> Allergies morphine Allergy (Severe, Verified 02/24/20 11:25) Itching/Hives/Rash Home Medications: Atorvastatin Calcium [Lipitor*] 20 mg PO BEDTIME 05/10/20 Gabapentin [Neurontin*] 300 mg PO BEDTIME 05/10/20 Spironolactone [Aldactone*] 25 mg PO BID 05/10/20 Apixaban [Eliquis] 5 mg PO BID 01/23/21 Dapagliflozin Propanediol [Farxiga] 5 mg PO DAILY 01/23/21 Aspirin [Aspirin EC 81 MG] 01/24/21 Diphenhydramine [Benadryl*] 01/24/21 Magnesium Salicylate/Caffeine [Diurex Water Pills] 1 each PO 01/24/21 Sodium Bicarbonate 01/24/21 Apixaban [Eliquis] 5 mg PO BID 30 Days #60 tablet 02/01/21 Aspirin [Aspirin EC 81 MG] 81 mg PO DAILY 30 Days #30 tablet. 02/01/21 Atorvastatin Calcium [Lipitor] 80 mg PO BEDTIME 90 Days #90 tab 02/01/21 Folic Acid 1 mg PO DAILY 30 Days #30 tablet 02/01/21 Amiodarone HCl [Cordarone*] 400 mg PO 0500,1700 #70 tab 02/24/21 Furosemide [Lasix] 20 mg PO BID #60 tablet 02/24/21 Metoprolol Tartrate 25 mg PO BID #60 tablet 02/24/21 Review of Systems 10-point ROS is otherwise unremarkable Respiratory: Hemoptysis Cardiovascular: Palpitations Gastrointestinal: Melena <Emile Alfaro - Last Filed: 02/22/21 23:40> Physical Examination - Physical Exam General: Alert, In no apparent distress HEENT: Atraumatic, PERRLA, Mucous membr. moist/pink, EOMI, Sclerae nonicteric Neck: Supple, 2+ carotid pulse no bruit, No LAD, Without JVD or thyroid abnormality Respiratory: Clear to auscultation bilaterally, Normal air movement Cardiovascular: No edema, No gallops, No rubs, No murmurs, Irregular heart rate/rhythm, Abnormal S1 S2 Gastrointestinal: Normal bowel sounds, Soft and benign, Non-distended, No ascites, No tenderness, No masses, No rebound, No guarding Musculoskeletal: No tenderness Integumentary: No rashes Neurological: Normal speech, Normal strength at 5/5 x4 extr, Normal tone, Sensation intact, Cranial nerves 3-12 intact, Abnormal affect Lymphatics: No axilla or inguinal lymphadenopathy - Studies Laboratory Data (last 24 hrs) 02/22/21 20:05: PT 21.3 H, INR 1.84 02/22/21 20:05: WBC 9.80, Hgb 11.6 L, Hct 36.7 L, Plt Count 284 02/22/21 20:05: Sodium 144, Potassium 4.1, BUN 31 H, Creatinine 0.85, Glucose 91, Magnesium 1.9, Total Bilirubin 1.9 H, AST 16, ALT 27, Alkaline Phosphatase 93, Lipase 205 <Emile Alfaro - Last Filed: 02/22/21 23:40> Assessment and Plan - Problems (Diagnosis) (1) Atrial fibrillation, persistent Onset Date: 05/01/16 Status: Acute (2) Chronic blood loss anemia Status: Acute (3) Melanotic stools Status: Acute (4) Nicotine abuse Status: Chronic (5) Sleep apnea Status: Chronic Qualifiers: Sleep apnea type: obstructive Qualified Code(s): G47.33 - Obstructive sleep apnea (adult) (pediatric) (6) Atrial fibrillation with rapid ventricular response Onset Date: 12/14/15 Status: Chronic (7) Congestive heart failure Onset Date: 07/12/15 Status: Chronic (8) Diabetes 1.5, managed as type 2 Status: Chronic - Plan GI consulted, cardiology consulted on telemetry, H/H q2hr, repeat AM labs type and screen completed in the ED NPO, gentle IVF hydration, continue protonix drip ECHO in the AM, IV lasix BID, IV lopressor PRN SCDs UDS pending Discharge Plan: Home Plan to discharge in: 48 Hours - Advance Directives Does patient have a Living Will: No Does patient have a Durable POA for Healthcare: No - Code Status/Comfort Care Code Status Assessed: Yes (full code ) Critical Care: No Time Spent Managing Pts Care (In Minutes): 70 <Emile Alfaro - Last Filed: 02/22/21 23:40> - Problems (Diagnosis) (1) Atrial fibrillation with RVR Status: Acute (2) CVA (cerebral vascular accident) Status: Acute Qualifiers: CVA mechanism: other Qualified Code(s): I63.89 - Other cerebral infarction (3) Congestive heart failure Onset Date: 07/12/15 Status: Chronic (4) Nicotine abuse Status: Chronic (5) Sleep apnea Status: Chronic Qualifiers: Sleep apnea type: obstructive Qualified Code(s): G47.33 - Obstructive sleep apnea (adult) (pediatric) (6) Acute exacerbation of CHF (congestive heart failure) Status: Resolved Qualifiers: Heart failure type: systolic Qualified Code(s): I50.23 - Acute on chronic systolic (congestive) heart failure <Shala Carrillo - Last Filed: 02/24/21 17:37> <Emile Alfaro - Last Filed: 02/22/21 23:40> Diet: AHA Activity: Fall precautions <Shala Carrillo - Last Filed: 02/24/21 17:37> Home Medications: Atorvastatin Calcium [Lipitor*] 20 mg PO BEDTIME 05/10/20 Gabapentin [Neurontin*] 300 mg PO BEDTIME 05/10/20 Spironolactone [Aldactone*] 25 mg PO BID 05/10/20 Apixaban [Eliquis] 5 mg PO BID 01/23/21 Dapagliflozin Propanediol [Farxiga] 5 mg PO DAILY 01/23/21 Aspirin [Aspirin EC 81 MG] 01/24/21 Diphenhydramine [Benadryl*] 01/24/21 Magnesium Salicylate/Caffeine [Diurex Water Pills] 1 each PO 01/24/21 Sodium Bicarbonate 01/24/21 Apixaban [Eliquis] 5 mg PO BID 30 Days #60 tablet 02/01/21 Aspirin [Aspirin EC 81 MG] 81 mg PO DAILY 30 Days #30 tablet. 02/01/21 Atorvastatin Calcium [Lipitor] 80 mg PO BEDTIME 90 Days #90 tab 02/01/21 Folic Acid 1 mg PO DAILY 30 Days #30 tablet 02/01/21 Amiodarone HCl [Cordarone*] 400 mg PO 0500,1700 #70 tab 02/24/21 Furosemide [Lasix] 20 mg PO BID #60 tablet 02/24/21 Metoprolol Tartrate 25 mg PO BID #60 tablet 02/24/21 Date of Service: 02/22/21 <Shala Carrillo - Last Filed: 02/24/21 17:37>
[2021-02-23] MEDS ORDERED: NA CHLORIDE 0.9% 1,000 ML IV SCH ×2 (02:29→12:00)
[2021-02-23] MEDS ORDERED: PANTOPRAZOLE INJ 80 MG in NA CHLORIDE 0.9% 250 ML IV SCH (02:29)
[2021-02-23] MEDS ORDERED: ACETAMINOPHEN 500 MG TAB PO PRN (02:29)
[2021-02-23] MEDS ORDERED: ONDANSETRON 4 MG/2 ML VIAL IV PRN (02:29)
[2021-02-23 03:57] LABS: Absolute Lymphocytes (CBC) 1.8 K/uL (0.7-4.9); Basophils % 1.2 % (0-1.3); Hematocrit 39.5 % (39.6-49.0); Lymphocytes % 16.2 % (15.3-44.8); MPV 7.6 fL (7.6-11.3); RBC Red Blood Cell Count 4.98 M/uL (4.33-5.43)
[2021-02-23] MEDS ORDERED: NA CHLORIDE 0.9% 1,000 ML ONE (04:08)
[2021-02-23] MEDS ORDERED: PANTOPRAZOLE 40 MG INJ ONE (04:08)
[2021-02-23] MEDS ORDERED: NA CHLORIDE 0.9% 250 ML ONE (04:08)
[2021-02-23 04:15] LABS: Albumin 3.3 g/dL (3.4-5.0); Bilirubin Total 2.8 mg/dL (0.2-1.0); Magnesium 1.9 mg/dL (1.8-2.4); Phosphorus 4.7 mg/dL (2.5-4.9); Potassium 3.7 mmol/L (3.5-5.1)
[2021-02-23 04:53] LABS: Protime INR 1.48
[2021-02-23 07:27] LABS: Hematocrit 41.2 % (39.6-49.0)
[2021-02-23] MEDS: INSULIN -REGULAR HUMAN 50 UNIT/0.5 ML ML SQ SCH ×5 (07:30→21:00)
--- NOTE | 2021-02-23 07:32 | EKG ---
Test Date: 2021-02-22 Test Time: 20:06:14 Binder Folder Operator: Ruth MEASUREMENT RESULTS: Intervals: Rate: 169 DC: QRSD: 94 QT: 282 QTc: 472 Pawling: P: DC: QRS: 48 T: 116 INTERPRETIVE STATEMENTS: Atrial fibrillation with rapid ventricular response T wave abnormality, consider lateral ischemia or digitalis effect Abnormal ECG Compared to ECG 01/27/2021 12:50:53 T-wave abnormality now present Ventricular premature complex(es) no longer present ST (T wave) deviation no longer present Possible ischemia still present Electronically Signed On 02-23-21 07:31:02 CDT by Garrett Cam
[2021-02-23 09:05] LABS: Hematocrit 39.4 % (39.6-49.0)
[2021-02-23] MEDS: FUROSEMIDE 20 MG/ 2ML VIAL IV SCH ×3 (10:43→17:48)
[2021-02-23] MEDS ORDERED: FUROSEMIDE 20 MG/ 2ML VIAL ONE (11:03)
[2021-02-23] MEDS: METOPROLOL TARTRATE 5 MG/5 ML INJ IV PRN (11:05)
[2021-02-23] MEDS ORDERED: DIGOXIN 0.25 MG/ML AMP IV ONE (11:27)
[2021-02-23] MEDS ORDERED: METOPROLOL TARTRATE 5 MG/5 ML INJ IV ONE ×3 (11:27→12:40)
[2021-02-23] MEDS ORDERED: NA CHLORIDE 0.9% 500 ML IV ONE ×2 (11:27→15:19)
[2021-02-23] MEDS: METOPROLOL TARTRATE 5 MG/5 ML INJ IV SCH ×6 (11:56→17:20)
[2021-02-23 12:07] LABS: Absolute Lymphocytes (CBC) 1.4 K/uL (0.7-4.9); Hematocrit 42.5 % (39.6-49.0); MPV 7.4 fL (7.6-11.3); RBC Red Blood Cell Count 5.32 M/uL (4.33-5.43)
[2021-02-23] MEDS ORDERED: DIGOXIN 0.25 MG/ML AMP ONE (12:12)
[2021-02-23] MEDS ORDERED: NA CHLORIDE 0.9% 500 ML ONE (12:13)
--- NOTE | 2021-02-23 12:34 | RAD REPORT ---
EXAM DESCRIPTION: CT - Head Brain Wo Cont - 02/23/2021 4:54 am CLINICAL HISTORY: 55 years Male AMS TECHNIQUE: Axial noncontrast CT head with coronal and sagittal reformats. All CT scans at this [facility] it use dose modulation, iterative reconstruction, and/or weight based dosing when appropriate to red uce radiation dose to as low as reasonably achievable. COMPARISON: 01/23/2021. FINDINGS: Brain: Encephalomalacia in the bilateral frontal, left occipital and right parietal lobes. No intracranial hemorrhage, midline shift, mass or mass effect. Ventricles: No hydrocephalus. Orbits: Unremarkable. Sinuses: Visualized portions are clear. Mastoid: Clear. Osseous: Unremarkable. Soft tissues: Unremarkable. IMPRESSION: No acute findings and no significant change from prior study. Electronically signed by: Johnny Hoffman MD 02/23/2021 4:19 AM CDT Due to temporary technical issues with the PACS/Fluency reporting system, reports are being signed by the in house radiologist without review as a courtesy to ensure prompt reporting. The interpreting r adiologist is fully responsible for the content of the report.
[2021-02-23] MEDS: PANTOPRAZOLE INJ 80 MG in NA CHLORIDE 0.9% 250 ML IV SCH (13:32)
[2021-02-23] MEDS ORDERED: INSULIN -REGULAR HUMAN 50 UNIT/0.5 ML ML ONE (13:39)
--- NOTE | 2021-02-23 13:48 | ECHO ---
HEIGHT: 5 ft 9 in WEIGHT: 180 lb 0 oz DATE OF STUDY: 02/23/[address]: Emile Alfaro 2-DIMENSIONAL: YES M.MODE: YES DOPPLER: YES COLOR FLOW: YES TDS: PORTABLE: DEFINITY: BUBBLE STUDY: DIAGNOSIS: CARDIAC HISTORY: CATHERIZATION: SURGERY: PROSTHETIC VALVE: PACEMAKER: MEASUREMENTS (cm) DIASTOLIC (NORMALS) SYSTOLIC (NORMALS) IVSd 1.0 (0.6-1.2) LA Diam 4.5 (1.9-4.0) LVEF 13% LVIDd 5.8 (3.5-5.7) LVIDs 5.5 (2.0-3.5) %FS 6% LVPWd 1.5 (0.6-1.2) Ao Diam 3.3 (2.0-3.7) 2 DIMENSIONAL ASSESSMENT: RIGHT ATRIUM: DILATED LEFT ATRIUM: DILATED RIGHT VENTRICLE: DILATED LEFT VENTRICLE: DILATED TRICUSPID VALVE: NORMAL MITRAL VALVE: NORMAL PULMONIC VALVE: NORMAL AORTIC VALVE: NORMAL PERICARDIAL EFFUSION: NONE AORTIC ROOT: NORMAL LEFT VENTRICULAR WALL MOTION: SEVERE GLOBAL HYPOKINESIS DOPPLER/COLOR FLOW: MILD AORTIC, MITRAL AND TRICUSPID REGURGITATION COMMENTS: SEVERE GLOBAL HYPOKINESIS. EJECTION FRACTION 13%. DILATED CARDIOMYOPATHY. MILD AORTIC, MITRAL AND TRICUSPID REGURGITATION. TECHNOLOGIST: TRELL GRIMES
--- NOTE | 2021-02-23 13:57 | CON ---
Date of Consultation: 02/23/2021 Reason For Consultation: Atrial fibrillation and GI bleed. History Of Present Illness: Mr. Brock is a 55-year-old male with severe cardiomyop athy, ejection fraction of 12%, hypertension, diabetes, atrial fibrillation. I have been advising grzegorz mcdowell to have a defibrillator, pacemaker and a heart catheterization, but he keeps failing to follow up. He comes in with GI bleed. He takes Eliquis at home. His hemoglobin was appropriate by the time I saw him. Denied any symptoms cardiac-sen. He denied any chest pain, shortness of breath, nausea, v omiting, diaphoresis, PND, orthopnea, pedal edema, palpitations, or syncope. When I saw him last, he was in AFib, rate of 60. His BNP was 4947. Hemoglobin was 12. He was asymptomatic. Past Medical History: As stated above. Allergies: INCLUDE MORPHINE. Review of Systems: Negative. Social History: Negative. Family History: Noncontributory. Medications: At home include Farxiga, Neurontin, aspirin, Eliquis, Lipitor, and Aldactone. Physical Examination: Vital Signs: Stable, afebrile. HEENT: Negative. Neck: Supple with no bruit. Chest: Clear. Cardiac: Revealed atrial fibrillation. Abdomen: Benign. Extremities: Revealed no clubbing, cyanosis, or edema. Diagnostic Data: As stated earlier. Impression And Plan: 1.Paroxysmal atrial fibrillation, on Eliquis and aspirin. Now with gastrointestinal bleed. We will stop the Eliquis, continue the aspirin. 2.Diabetes. 3.Hypertension. 4.Severe congestive heart failure with ejection fraction of 12%. Needs to have a heart catheterizat ion, to be worked up with a pacemaker and defibrillator followup appointment. 5.Dyslipidemia for which he takes Lipitor. I will continue otherwise all his regimen except for the Eliquis. He is intolerant to beta-adonay because of bradycardia, intolerant to SCOTT inhibitors and Entresto because of the insufficiency. I think he needs to be considered for a Watchman procedure si nce he has GI bleed, on Eliquis and has atrial fibrillation. Again, we need to see him as an outpati ent to set up all the workup and hopefully after he goes home, he will see me soon in the office. JEY/FARIDA Voice ID: [id number] Report ID: [id number]
[2021-02-23] MEDS ORDERED: DIGOXIN 0.25 MG/ML AMP IV SCH (16:00)
[2021-02-23 17:30] LABS: Barbiturates NEGATIVE (NEGATIVE); Benzodiazepines NEGATIVE (NEGATIVE); Cocaine NEGATIVE (NEGATIVE); METHAMPHETAM NEGATIVE (NEGATIVE); Methadone NEGATIVE (NEGATIVE); Opiates NEGATIVE (NEGATIVE); Phencyclidine NEGATIVE (NEGATIVE); THC Cannibis NEGATIVE (NEGATIVE)
[2021-02-23] MEDS: AMIODARONE HCL 200 MG TAB PO SCH (17:48)
[2021-02-23 21:09] VITALS: O2SAT 99
--- NOTE | 2021-02-24 03:15 | P.PN ---
Subjective Date of Service: 02/23/21 Patient is clinically doing well with no new complaints. Patient had episodes of atrial fibrillation and we started on amiodarone. Review of Systems 10-point ROS is otherwise unremarkable Physical Examination - Vital Signs Temperature: 98.4 F Blood Pressure: 109/59 Pulse: 59 Respirations: 18 Pulse Ox (%): 99 - Physical Exam General: Alert, In no apparent distress, Oriented x3 HEENT: Atraumatic, PERRLA, EOMI Neck: Supple, JVD not distended Respiratory: Clear to auscultation bilaterally, Normal air movement Cardiovascular: Irregular heart rate/rhythm Gastrointestinal: Normal bowel sounds, Soft and benign, Non-distended, No tenderness Musculoskeletal: No clubbing, No swelling, No tenderness Neurological: Sensation intact, Cranial nerves 3-12 intact - Studies Medications List Reviewed: Yes Assessment & Plan - Problems (Diagnosis) (1) Atrial fibrillation with RVR Current Visit: Yes Status: Acute (2) CVA (cerebral vascular accident) Current Visit: No Status: Acute Qualifiers: CVA mechanism: other Qualified Code(s): I63.89 - Other cerebral infarction (3) Congestive heart failure Onset Date: 07/12/15 Current Visit: No Status: Chronic (4) Nicotine abuse Current Visit: No Status: Chronic (5) Sleep apnea Current Visit: No Status: Chronic Qualifiers: Sleep apnea type: obstructive Qualified Code(s): G47.33 - Obstructive sleep apnea (adult) (pediatric) (6) Acute exacerbation of CHF (congestive heart failure) Current Visit: No Status: Resolved Qualifiers: Heart failure type: systolic Qualified Code(s): I50.23 - Acute on chronic systolic (congestive) heart failure - Plan Plan: 1. Continue with amiodarone 2. Anti-platelet therapy per Cardiology 3. Outpatient follow-up Gastroenterology 4. Outpatient follow with Cardiology for stress test and further cardiac interve ntion including possible defibrillator placement 5. Patient needs to become more compliant with his medications 6. Monitor liver function testing most likely from hepatic congestion from heart failure 7. GI and DVT prophylaxis - Advance Directives Does patient have a Living Will: No Does patient have a Durable POA for Healthcare: No
[2021-02-24] MEDS: FUROSEMIDE 20 MG/ 2ML VIAL IV SCH ×2 (03:19→09:05)
[2021-02-24 05:30] LABS: Absolute Lymphocytes (CBC) 1.4 K/uL (0.7-4.9); Lymphocytes % 15.8 % (15.3-44.8); MPV 7.1 fL (7.6-11.3); RBC Red Blood Cell Count 5.31 M/uL (4.33-5.43)
[2021-02-24] MEDS: AMIODARONE HCL 200 MG TAB PO SCH (05:39)
[2021-02-24 05:46] LABS: Albumin 3.2 g/dL (3.4-5.0); Bilirubin Total 3.4 mg/dL (0.2-1.0); Magnesium 1.8 mg/dL (1.8-2.4); Phosphorus 4.6 mg/dL (2.5-4.9); Potassium 3.4 mmol/L (3.5-5.1); Protein, Total 7.9 g/dL (6.4-8.2); Thyroid Stimulating Hormone 3.43 uIU/mL (0.360-3.740)
[2021-02-24] MEDS: PANTOPRAZOLE INJ 80 MG in NA CHLORIDE 0.9% 250 ML IV SCH ×3 (07:04)
[2021-02-24] MEDS: INSULIN -REGULAR HUMAN 50 UNIT/0.5 ML ML SQ SCH ×2 (07:30→11:30)
[2021-02-24] MEDS: METOPROLOL TARTRATE 5 MG/5 ML INJ IV PRN (08:10)
[2021-02-24 08:22] VITALS: BMI 26.6
[2021-02-24 12:04] VITALS: BP 92/62; TEMP 97
--- NOTE | 2021-02-28 09:57 | P.DS ---
Discharge Date: 02/24/21 Disposition: ROUTINE DISCHARGE Discharge Condition: GOOD Reason for Admission: GIB - Problems (1) Atrial fibrillation with RVR Status: Acute (2) CVA (cerebral vascular accident) Status: Acute Qualifiers: CVA mechanism: other Qualified Code(s): I63.89 - Other cerebral infarction (3) Congestive heart failure Onset Date: 07/12/15 Status: Chronic (4) Nicotine abuse Status: Chronic (5) Sleep apnea Status: Chronic Qualifiers: Sleep apnea type: obstructive Qualified Code(s): G47.33 - Obstructive sleep apnea (adult) (pediatric) Brief History of Present Illness: Mr. Brock is a 55 yo M with HTN, DM, afib on chronic anticoagulation, GIL, HLD, CHF who presents with one day of coughing up blood, melena, and rectal bleeding. He says it started to clear up, but family members brought him in. He said he has been told before that he had a low iron count. He was found to be in afib with RVR upon arrival and received IV lopressor in the ED. H/H 11.6. BUN 31. Tbili 1.9. Dbili 0.5. BNP 4947. UA - glucose, blood, 2+ protein. CT scan shows moderate cardiomegaly with mild to moderate interstitial pulmonary edema.This likely indicates CHF. Mild nonspecific lymphadenopathy is present in the mediastinum and hilar regions, mildly improved since prior study. Small soft tissue nodule is seen in the posterior aspect of the urinary bladder. A small bladder mass is a possibility. Recommend follow-up direct visualization with cystoscopy. Small periumbilical fat containing hernia. Hospital Course: Patient does not really comply with medical treatment. His ejection fraction is very low. We treated him medically. His prognosis is poor. If he does not follow up and get further intervention he will not do well. Spoke with case management and we got him set up to see [facility] where he lives to get the cardiac care that he may be able to get. He will follow up here and hopefully he can get whatever he needs at that facility. Have Dr. Cam says he will also see him. Vital Signs/Physical Exam: Temp Pulse Resp BP Pulse Ox 97.0 F 61 18 92/62 97 02/24/21 12:00 02/24/21 12:00 02/24/21 12:00 02/24/21 12:00 02/24/21 12:00 General: Alert, In no apparent distress, Oriented x3 Laboratory Data at Discharge: WBC 9.00 K/uL (4.3-10.9) 02/24/21 05:11 Hgb 13.9 g/dL (13.6-17.9) 02/24/21 05:11 Hct 42.0 % (39.6-49.0) 02/24/21 05:11 Plt Count 299 K/uL (152-406) 02/24/21 05:11 PT 17.1 SECONDS (9.5-12.5) H 02/23/21 03:36 INR 1.48 02/23/21 03:36 APTT 33.0 SECONDS (24.3-36.9) 02/23/21 03:36 Sodium 140 mmol/L (136-145) 02/24/21 05:11 Potassium 3.4 mmol/L (3.5-5.1) L 02/24/21 05:11 BUN 29 mg/dL (7-18) H 02/24/21 05:11 Creatinine 1.06 mg/dL (0.55-1.3) 02/24/21 05:11 Glucose 106 mg/dL (74-106) 02/24/21 05:11 Phosphorus 4.6 mg/dL (2.5-4.9) 02/24/21 05:11 Magnesium 1.8 mg/dL (1.8-2.4) 02/24/21 05:11 Total Bilirubin 3.4 mg/dL (0.2-1.0) H 02/24/21 05:11 AST 17 U/L (15-37) 02/24/21 05:11 ALT 27 U/L (12-78) 02/24/21 05:11 Alkaline Phosphatase 90 U/L (45-117) 02/24/21 05:11 Triglycerides 91 mg/dL (<150) 02/23/21 03:36 Cholesterol 123 mg/dL (<200) 02/23/21 03:36 HDL Cholesterol 57 mg/dL (40-60) 02/23/21 03:36 Cholesterol/HDL Ratio 2.16 02/23/21 03:36 Lipase 205 U/L (73-393) 02/22/21 20:05 Home Medications: Atorvastatin Calcium [Lipitor*] 20 mg PO BEDTIME 05/10/20 Gabapentin [Neurontin*] 300 mg PO BEDTIME 05/10/20 Spironolactone [Aldactone*] 25 mg PO BID 05/10/20 Apixaban [Eliquis] 5 mg PO BID 01/23/21 Dapagliflozin Propanediol [Farxiga] 5 mg PO DAILY 01/23/21 Aspirin [Aspirin EC 81 MG] 01/24/21 Diphenhydramine [Benadryl*] 01/24/21 Magnesium Salicylate/Caffeine [Diurex Water Pills] 1 each PO 01/24/21 Sodium Bicarbonate 01/24/21 Apixaban [Eliquis] 5 mg PO BID 30 Days #60 tablet 02/01/21 Aspirin [Aspirin EC 81 MG] 81 mg PO DAILY 30 Days #30 tablet. 02/01/21 Atorvastatin Calcium [Lipitor] 80 mg PO BEDTIME 90 Days #90 tab 02/01/21 Folic Acid 1 mg PO DAILY 30 Days #30 tablet 02/01/21 Amiodarone HCl [Cordarone*] 400 mg PO 0500,1700 #70 tab 02/24/21 Furosemide [Lasix] 20 mg PO BID #60 tablet 02/24/21 Metoprolol Tartrate 25 mg PO BID #60 tablet 02/24/21 New Medications: Amiodarone HCl [Cordarone*] 400 mg PO 0500,1700 #70 tab Furosemide [Lasix] 20 mg PO BID #60 tablet Metoprolol Tartrate 25 mg PO BID #60 tablet Physician Discharge Instructions: -OK TO DC IV AND DC HOME -FOLLOW-UP WITH PCP IN 1-2 WEEKS -FOLLOW-UP WITH CARDIOLOGY IN 1-2 WEEKS -PLEASE MAKE SURE ALL DIAGNOSTIC STUDIES ARE AVAILABLE AND HAVE BEEN REVIEWED WITH PATIENT PRIOR TO DISCHARGE -RETURN TO THE ER IF Symptoms worsen -CALL DR. GARRISON AT [phone] IF ANY QUESTIONS REGARDING HOSPITAL STAY Diet: AHA Activity: Fall precautions Followup: NONE,NONE [Primary Care Provider] - Time spent managing pt's care (in minutes): 35
== END 2021-02-24 13:10 | disposition home or self-care (01) | DRG 308 ==
LOC: ER 19:47 → ERHOLD 23:13 → 2ND 02-23 13:39
PROVIDERS: ADMIT Hospitalist; ATTEND Hospitalist
DX: I48.0 Paroxysmal atrial fibrillation (principal); I50.23 Acute on chronic systolic (congestive) heart failure; K92.1 Melena; I11.0 Hypertensive heart disease with heart failure; E11.9 Type 2 diabetes mellitus without complications; G47.33 Obstructive sleep apnea (adult) (pediatric); F17.210 Nicotine dependence, cigarettes, uncomplicated; Z79.01 Long term (current) use of anticoagulants; E78.5 Hyperlipidemia, unspecified; Z20.822 Contact with and (suspected) exposure to COVID-19
CPT/HCPCS: 36415; 70450; 71045; 71260; 74177; 80048; 80053; 80061; 80076; 80307; 80320; 81003; 82140; 82533; 82565; 82947; 83690; 83735; 83880; 84100; 84439; 84443; 84484; 85014; 85018; 85025; 85384; 85610; 85730; 86850; 86900; 86901; 87077; 87086; 87088; 87186; 93005; 93306; 94760; 96374; 96375; 99284; C9113; J1160; J1940; J7030; J7040; J7050; Q9967; U0003

== ENCOUNTER 2021-08-16 05:27 | Emergency (ER) | payer OTHER, SELFPAY ==
--- OUTSIDE RECORDS SUMMARY | 2021-08-16 05:34 | XMS REPORT | Continuity of Care Document ---
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 11:36 Starting [place] as 00 :29 [facility] 07/10/19 Branch at 0049, Until Discontinu ed, Routine, Intra-op FENTanyl PF 2018-07- No Intravenou Univers (SUBLIMAZE 09-10 s, ONCE ity o f (PF)) 06:46: 11:36 INTRA [place] injection 00 :29 PROCEDURE, Medi sruthi Starting Branch [facility] 07/10/19 at 0046, Until Discontinu ed, Routine, Intra-op ceFAZolin 2018-07- No ONCE INTRA U nivers (ANCEF) 09-10 PROCEDURE, ity o f injection 06:45: 11:36 Starting [place] as 00 :29 [facility] 07/10/19 Branch at 0045, Until Discontinu ed, JUAN, Intra-op NaCl 0.9% 2018-07- No CONTINUOUS U nivers (NS) IV 09-10 PRN, ity of infusion 06:35: 11:36 [place] 00 [place] [facility] 07/10/19 Branch at 0035, Until Discontinu ed, Routine, Intra-op phenylephri 2018-07- No ONCE INTRA Univers ne 09-10 PROCEDURE, ity of (VAZCULEP) 06:33: 11:36 [place] injection 00 :29 [facility] 07/10/19 Branch at 0033, Until Discontinu ed, Routine, Intra-op amiodarone 2018-07- No ONCE INTRA Univers (CORDARONE) 09-10 PROCEDURE, i ty of injection 06:29: 11:36 Starting [place] as 00 :29 [facility] 07/10/19 Branch at 0029, Until Discontinu ed, Routine, Intra-op electrolyte 2018-07- No CONTINUOUS Univers -A 09-10 PRN, ity of (PLASMALYTE 06:11: 11:36 [place] -A) IV 00 :29 [facility] infusion 07/10/19 Branch at 0011, Until Discontinu ed, Routine, Intra-op midazolam 2018-07- No ONCE INTRA U nivers (VERSED) 09-10 PROCEDURE, ity of injection 06:01: 11:36 Starting [place] as 00 :29 [facility] 07/10/19 Branch at 0001, Until Discontinu ed, Routine, Intra-op rocuronium 2018-07- No ONCE INTRA Univers (ZEMURON) 09-10 PROCEDURE, ity of injection 06:01: 11:36 Starting [place] as 00 :29 [facility] 07/10/19 Branch at 0001, Until Discontinu ed, Routine, Intra-op diltiazem 2018-07- No CONTINUOUS U nivers (CARDIZEM 09-10 PRN, ity of IV) 250 mg 05:56: 11:36 [place] in D5W 00 :29 [facility] 07/09/19 Branch at 2356, Until Discontinu ed, Routine, Intra-op heparin STD 2018-07- No CONTINUOUS Univers 25,000 09-10 PRN, ity of units/250ml 05:56: 11:36 Starting [place] in NS 00 :29 [facility] 07/09/19 Branch at 2356, Until Discontinu ed, Intra-op gabapentin 2019-0 Yes 500mg Take 500 [place] 100 mg 4-26 mg by ity of capsule 20:02: mouth at [place] 50 bedtime. Medical Branch gabapentin 2019-0 Yes 500mg Take 500 [place] 100 mg 4-26 mg by ity of capsule 20:02: mouth at [place] 50 bedtime. Medical Branch gabapentin 2019-0 Yes 500mg Take 500 [place] 100 mg 4-26 mg by ity of capsule 20:02: mouth at [place] 50 bedtime. Medical Branch gabapentin 2019-0 Yes 500mg Take 500 [place] 100 mg 4-26 mg by ity of capsule 20:02: mouth at [place] 50 bedtime. Medical Branch potassium 2019-0 Yes [id number] 10meq Take 1 Univers chloride 10 4-10 9109 tablet by ity of mEq CR 00:00: mouth as [place] tablet 00 needed Medical (take PRN Branch only with lasix which is also PRN). furosemide 2019-0 Yes [id number] 20mg Take 1 Univers 20 mg 4-10 9109 tablet by ity of tablet 00:00: mouth as [place] 00 needed Medical (take once Branch a day as needed for increased leg swelling, weight increase > 3 pounds, worsening shortness of breath due to CHF exacerbati on, discuss with primary care and cardiologi st.). potassium 2019-0 Yes [id number] 10meq Take 1 Univers chloride 10 4-10 9109 tablet by ity of mEq CR 00:00: mouth as [place] tablet 00 needed Medical (take PRN Branch only with lasix which is also PRN). potassium 2019-0 Yes [id number] 10meq Take 1 Univers chloride 10 4-10 9109 tablet by ity of mEq CR 00:00: mouth as [place] tablet 00 needed Medical (take PRN Branch only with lasix which is also PRN). potassium 2019-0 Yes [id number] 10meq Take 1 Univers chloride 10 4-10 9109 tablet by ity of mEq CR 00:00: mouth as [place] tablet 00 needed Medical (take PRN Branch only with lasix which is also PRN). furosemide 2019-0 Yes [id number] 20mg Take 1 Univers 20 mg 4-10 9109 tablet by ity of tablet 00:00: mouth as [place] 00 needed Medical (take once Branch a day as needed for increased leg swelling, weight increase > 3 pounds, worsening shortness of breath due to CHF exacerbati on, discuss with primary care and cardiologi st.). potassium 2019-0 Yes [id number] 10meq Take 1 Univers chloride 10 4-10 9109 tablet by ity of mEq CR 00:00: mouth as [place] tablet 00 needed Medical (take PRN Branch only with lasix which is also PRN). potassium 2019-0 Yes [id number] 10meq Take 1 Univers chloride 10 4-10 9109 tablet by ity of mEq CR 00:00: mouth as [place] tablet 00 needed Medical (take PRN Branch only with lasix which is also PRN). potassium 2019-0 Yes [id number] 10meq Take 1 Univers chloride 10 4-10 9109 tablet by ity of mEq CR 00:00: mouth as [place] tablet 00 needed Medical (take PRN Branch only with lasix which is also PRN). furosemide 2019-0 Yes [id number] 20mg Take 1 Univers 20 mg 4-10 9109 tablet by ity of tablet 00:00: mouth as [place] 00 needed Medical (take once Branch a day as needed for increased leg swelling, weight increase > 3 pounds, worsening shortness of breath due to CHF exacerbati on, discuss with primary care and cardiologi st.). potassium 2019-0 Yes [id number] 10meq Take 1 Univers chloride 10 4-10 9109 tablet by ity of mEq CR 00:00: mouth as [place] tablet 00 needed Medical (take PRN Branch only with lasix which is also PRN). furosemide 2019-0 Yes [id number] 20mg Take 1 Univers 20 mg 4-10 9109 tablet by ity of tablet 00:00: mouth as [place] 00 needed Medical (take once Branch a day as needed for increased leg swelling, weight increase > 3 pounds, worsening shortness of breath due to CHF exacerbati on, discuss with primary care and cardiologi st.). potassium 2019-0 Yes [id number] 10meq Take 1 Univers chloride 10 4-10 9109 tablet by ity of mEq CR 00:00: mouth as [place] tablet 00 needed Medical (take PRN Branch only with lasix which is also PRN). furosemide 2019-0 Yes [id number] 20mg Take 1 Univers 20 mg 4-10 9109 tablet by ity of tablet 00:00: mouth as [place] 00 needed Medical (take once Branch a day as needed for increased leg swelling, weight increase > 3 pounds, worsening shortness of breath due to CHF exacerbati on, discuss with primary care and cardiologi st.). potassium Yes [id number] 10meq Take 1 Univers chloride 10 4-10 9109 tablet by ity of mEq CR 00:00: mouth as [place] tablet 00 needed Medical (take PRN Branch only with lasix which is also PRN). furosemide 2020- No [id number] 20mg Take 1 Univers 20 mg 4-10 08-11 9109 tablet by ity of tablet 00:00: 00:00 mouth as [place] 00 :00 needed Medical (take once Branch a day as needed for increased leg swelling, weight increase > 3 pounds, worsening shortness of breath due to CHF exacerbati on, discuss with primary care and cardiologi st.). Immunizations Ordered Filled Immunization Date Status Comments [facility] e Immunization Name Name Influenza Virus 2020-08-11 Completed Universit y of Vaccine [place] 00:00:00 [place] [facility] IM, Preserv and ABX Branc h Free 18-64 YRS Influenza Virus 2020-08-11 Completed Universit y of Vaccine Recomb Quad 00:00:00 [place] [facility] IM, Preserv and ABX Branc h Free 18-64 YRS Influenza Virus 2020-08-11 Completed Universit y of Vaccine Recomb Quad 00:00:00 [place] [facility] IM, Preserv and ABX Branc h Free 18-64 YRS Influenza Virus 2020-08-11 Completed Universit y of Vaccine Recomb Quad 00:00:00 [place] [facility] IM, Preserv and ABX Branc h Free 18-64 YRS Influenza Virus 2020-08-11 Completed Universit y of Vaccine Recomb Quad 00:00:00 [place] [facility] IM, Preserv and ABX Branc h Free 18-64 YRS Influenza Virus 2017-02-13 Completed Universit y of Vaccine 00:00:00 [facility] [place] [facility] Pneumococcal 13 2017-02-13 Completed Universit y of Conjugate, PCV13 00:00:00 [facility] dicne (Prevnar 13) Branch Influenza Virus 2017-02-13 Completed Universit y of Vaccine 00:00:00 [facility] [place] [facility] Influenza Virus 2017-02-13 Completed Universit y of Vaccine 00:00:00 [facility] [place] [facility] Pneumococcal 13 2017-02-13 Completed Universit y of Conjugate, PCV13 00:00:00 [facility] dical (Prevnar 13) Branch Pneumococcal 13 2017-02-13 Completed Universit y of Conjugate, PCV13 00:00:00 [facility] dical (Prevnar 13) [place] Influenza Virus 2017-02-13 Completed Universit y of Vaccine 00:00:00 [facility] [place] [facility] Pneumococcal 13 2017-02-13 Completed Universit y of Conjugate, PCV13 00:00:00 [facility] dical (Prevnar 13) [place] Influenza Virus 2017-02-13 Completed Universit y of Vaccine 00:00:00 [facility] [place] [facility] Pneumococcal 13 2017-02-13 Completed Universit y of Conjugate, PCV13 00:00:00 [facility] dical (Prevnar 13) [place] Influenza Virus 2017-02-13 Completed Universit y of Vaccine 00:00:00 [facility] [place] [facility] Influenza Virus 2017-02-13 Completed Universit y of Vaccine 00:00:00 [facility] [place] [facility] Pneumococcal 13 2017-02-13 Completed Universit y of Conjugate, PCV13 00:00:00 [facility] dical (Prevnar 13) Branch Pneumococcal 13 2017-02-13 Completed Universit y of Conjugate, PCV13 00:00:00 [facility] dical (Prevnar 13) [place] Influenza Virus 2017-02-13 Completed Universit y of Vaccine 00:00:00 [facility] [place] [facility] Pneumococcal 13 2017-02-13 Completed Universit y of Conjugate, PCV13 00:00:00 [facility] dical (Prevnar 13) [place] Influenza Virus 2017-02-13 Completed Universit y of Vaccine 00:00:00 [facility] [place] [facility] Pneumococcal 13 2017-02-13 Completed Universit y of Conjugate, PCV13 00:00:00 [facility] dical (Prevnar 13) [place] Influenza Virus 2017-02-13 Completed Universit y of Vaccine 00:00:00 [facility] [place] [facility] Pneumococcal 13 2017-02-13 Completed Universit y of Conjugate, PCV13 00:00:00 [facility] dical (Prevnar 13) [place] Influenza Virus 2015-04-09 Completed Universit y of Vaccine Quad IM 3+ 00:00:00 [facility] Influenza Virus 2015-04-09 Completed Universit y of Vaccine Quad IM 3+ 00:00:00 [facility] Influenza Virus 2015-04-09 Completed Universit y of Vaccine Quad IM 3+ 00:00:00 [facility] Branch Influenza Virus 2015-04-09 Completed Universit y of Vaccine Quad IM 3+ 00:00:00 [facility] Branch Influenza Virus 2015-04-09 Completed Universit y of Vaccine Quad IM 3+ 00:00:00 [facility] Branch Influenza Virus 2015-04-09 Completed Universit y of Vaccine Quad IM 3+ 00:00:00 [facility] Branch Influenza Virus 2015-04-09 Completed Universit y of Vaccine Quad IM 3+ 00:00:00 [facility] Influenza Virus 2015-04-09 Completed Universit y of Vaccine Quad IM 3+ 00:00:00 [facility] Influenza Virus 2015-04-09 Completed Universit y of Vaccine Quad IM 3+ 00:00:00 [facility] Influenza Virus 2015-04-09 Completed Universit y of Vaccine Quad IM 3+ 00:00:00 [facility] Vital Signs Vital Name Observation Time Observation Value Comments Source Systolic blood 2020-08-21 12:00:00 136 mm[Hg] Univer sity of pressure [facility] [place] [facility] Diastolic blood 2020-08-21 12:00:00 95 mm[Hg] Unive rsity of [facility] Heart rate 2020-08-21 12:00:00 104 /min [facility] Respiratory rate 2020-08-21 12:00:00 16 /min [facility] Oxygen saturation in 2020-08-21 12:00:00 98 /min [facility] Arterial blood by [facility] Pulse oximetry [place] Body temperature 2020-08-21 07:21:00 36.56 Geeta [facility] Body weight 2020-08-21 07:21:[address] [facility] BMI 2020-08-21 07:21:00 28.19 kg/m2 [facility] Systolic blood 2020-08-21 12:00:00 136 mm[Hg] Univer sity of pressure [facility] [place] [facility] Diastolic blood 2020-08-21 12:00:00 95 mm[Hg] Unive rsity of pressure [facility] [place] [facility] Heart rate 2020-08-21 12:00:00 104 /min [facility] [place] [facility] Respiratory rate 2020-08-21 12:00:00 16 /min Univ ersity of [place] [facility] Oxygen saturation in 2020-08-21 12:00:00 98 /min University of Arterial blood by [place] GOkey sruthi Pulse oximetry Branch Body temperature 2020-08-21 07:21:00 36.56 Geeta Univ ersity of [place] [facility] Body weight 2020-08-21 07:21:00 81.647 kg [facility]i [facility] [place] [facility] BMI 2020-08-21 07:21:00 28.19 kg/m2 Universi [facility] [place] [facility] Systolic blood 2020-08-11 21:27:00 115 mm[Hg] Univer sity of pressure [place] [facility] Diastolic blood 2020-08-11 21:27:00 71 mm[Hg] Unive rsity of pressure [place] [facility] Heart rate 2020-08-11 21:27:00 74 /min Universi ty [facility] [place] [facility] Body temperature 2020-08-11 21:27:00 37 Geeta Univ ersity of [place] [facility] Respiratory rate 2020-08-11 21:27:00 18 /min Univ ersity of [place] [facility] Oxygen saturation in 2020-08-11 21:27:00 98 /min University of Arterial blood by [facility] Pulse oximetry Branch Body height 2020-08-10 17:06:00 170.2 cm [facility]i [facility] [place] [facility] Body weight 2020-08-10 17:06:00 81.647 kg [facility]i [facility] [place] [facility] BMI 2020-08-10 17:06:00 28.19 kg/m2 [facility] [place] [facility] Systolic blood 2020-08-11 21:27:00 115 mm[Hg] Univer sity of pressure [place] [facility] Diastolic blood 2020-08-11 21:27:00 71 mm[Hg] Unive rsity of pressure [place] [facility] Heart rate 2020-08-11 21:27:00 74 /min [facility]i [facility] [place] [facility] Body temperature 2020-08-11 21:27:00 37 Geeta Univ ersity of [place] [facility] Respiratory rate 2020-08-11 21:27:00 18 /min Univ ersity of [place] [facility] Oxygen saturation in 2020-08-11 21:27:00 98 /min University of Arterial blood by [facility] Pulse oximetry Branch Body height 2020-08-10 17:06:[address] [facility] Body weight 2020-08-10 17:06:[address] [facility] BMI 2020-08-10 17:06:00 28.19 kg/m2 [facility] Respiratory rate 2019-07-10 06:01:00 16 /min [facility] Respiratory rate 2019-07-10 06:01:00 16 /min [facility] Systolic blood 2020-11-17 02:27:00 132 mm[Hg] [facility] pressure Diastolic blood 2020-11-17 02:27:00 86 mm[Hg] [facility] pressure Heart rate 2020-11-17 02:27:00 71 /min [facility] Body temperature 2020-11-17 02:27:00 37 [facility] Respiratory rate 2020-11-17 02:27:00 18 /min [facility] Oxygen saturation in 2020-11-17 02:27:00 98 /min [facility] Arterial blood by Pulse oximetry Body height 2020-11-16 21:03:00 170.2 cm [facility] Body weight 2020-11-16 21:03:00 81.647 kg [facility] BMI 2020-11-16 21:03:00 28.19 kg/m2 [facility] Procedures Procedure Date / Time Performing Source Performed Clinician EXTERNAL PROVIDER - ADC REFERRAL 2021-03-22 [facility] 05:01:00 Unassigned, No [facility] [place] EXTERNAL PROVIDER RECORDS 2020-09-02 [facility] [place] of 06:01:00 Unassigned, No [facility] [place] POCT GLUCOSE (AUTOMATED) 2020-08-21 Cara Roldan [facility] sity of 09:46:00 [facility] CT MAXILLOFACIAL/MANDIBLE W 2020-08-21 Cara Roldan Uni versity of CONTRAST 08:38:08 [facility] BASIC METABOLIC PANEL (NA, K, CL, 2020-08-21 Kaye Roldan ra [place] [id number], GLUCOSE, BUN, CREATININE, CA) 07:33:00 [facility] CBC WITH DIFF 2020-08-21 Cara Roldan [place] of 07:32:00 [facility] LACTIC ACID WHOLE BLOOD 2020-08-21 [facility] 07:32:00 J [facility] [place] [facility] POCT GLUCOSE (AUTOMATED) 2020-08-11 Lindsay Hanna Univers ity of 23:02:00 [facility] [place] [facility] POCT GLUCOSE (AUTOMATED) 2020-08-11 Lindsay Hanna Univers ity of 18:59:00 [facility] [place] [facility] COLONOSCOPY (ENDO) 2020-08-11 Lindsay Hanna [place] of 16:02:08 [facility] [place] [facility] POCT GLUCOSE (AUTOMATED) 2020-08-11 Lindsay Hanna Univers ity of 15:34:00 [facility] [place] [facility] MAGNESIUM 2020-08-11 María Jean [place] of 11:36:00 [facility] BASIC METABOLIC PANEL (NA, K, CL, 2020-08-11 María Jean, [place] of CO2, GLUCOSE, BUN, CREATININE, CA) 11:36:00 [facility] CBC WITH DIFF 2020-08-11 Suni [place] of 11:36:00 Panuri [facility] [place] [facility] PREPARE PACKED RBC 2020-08-11 Jamar [facility] o f 06:15:03 [facility] POCT GLUCOSE (AUTOMATED) 2020-08-11 Lindsay Hanna Univers ity of 04:00:00 [facility] [place] [facility] POCT GLUCOSE (AUTOMATED) 2020-08-10 Lindsay Hanna Univers ity of 23:43:00 [facility] [place] [facility] ESOPHAGOGASTRODUODENOSCOPY 2020-08-10 Kristian Guzman rsity of 17:38:00 [facility] [place] [facility] EGD (ENDO) 2020-08-10 Lindsay Hanna [place] of 17:31:24 [facility] [place] [facility] POCT GLUCOSE (AUTOMATED) 2020-08-10 Lindsay Hanna Univers ity of 14:16:00 [facility] [place] [facility] MAGNESIUM 2020-08-10 María Jean [place] of 10:49:00 [facility] BASIC METABOLIC PANEL (NA, K, CL, 2020-08-10 María Jean, [place] of CO2, GLUCOSE, BUN, CREATININE, CA) 10:49:00 [facility] CBC WITH DIFF 2020-08-10 María Jean University of 10:49:00 [facility] POCT GLUCOSE (AUTOMATED) 2020-08-10 Lindsay Hanna Univers ity of 02:22:00 [facility] [place] [facility] CBC WITH DIFF 2020-08-09 Daniel Miranda, University of 23:42:00 [facility] POCT GLUCOSE (AUTOMATED) 2020-08-09 Lindsay Hanna Univers ity of 22:48:00 [facility] [place] [facility] POCT GLUCOSE (AUTOMATED) 2020-08-09 Lindsay Hanna Univers ity of 17:35:00 [facility] [place] [facility] ECHO ROUTINE W/DOPPLER COLOR 2020-08-09 María Jean, Uni versity of 14:58:56 [facility] POCT GLUCOSE (AUTOMATED) 2020-08-09 Lindsay Hanna Univers ity of 14:32:00 [facility] [place] [facility] MAGNESIUM 2020-08-09 Daniel Miranda, University of 12:07:00 [facility] BASIC METABOLIC PANEL (NA, K, CL, 2020-08-09 María Jean, University of CO2, GLUCOSE, BUN, CREATININE, CA) 12:07:00 [facility] CBC WITH DIFF 2020-08-09 Daniel Miranda, University of 12:07:00 [facility] CBC WITHOUT DIFF 2020-08-09 Franklin Sanches [place] of 04:53:00 [facility] [place] [facility] POCT GLUCOSE (AUTOMATED) 2020-08-09 Lindsay Hanna Univers ity of 02:25:00 [facility] [place] [facility] TRANSFUSE PACKED RBC 2020[facility]08[facility]08 [facility] 22[facility]54:46 [facility] POCT GLUCOSE (AUTOMATED) 2020-08-08 Lindsay Hanna Univers ity of 22:23:00 [facility] [place] [facility] PREPARE PACKED RBC 2020-08-08 Suni, [facility] 20:21:24 [facility] CBC WITH DIFF 2020-08-08 Daniel Miranda, University of 17:36:00 [facility] MAGNESIUM 2020-08-08 María Jean, University of 10:36:00 [facility] BILI UNCONJUGATED/BILI CONJUG 2020-08-08 Cirilo Clup iversity of 10:36:00 [facility] TROPONIN I 2020-08-08 Suni [place] of 10:36:00 [facility] THYROID STIMULATING HORMONE 2020-08-08 Lindsay Hanna [facility] ersity of 10:36:00 [facility] [place] [facility] BASIC METABOLIC PANEL (NA, K, CL, 2020-08-08 [facility] CO2, GLUCOSE, BUN, CREATININE, CA) 10:36:00 [facility] LIPID PANEL ([id number])(TOTAL 2020-08-08 Suni [facility] sit of CHOLESTEROL, TRIGLYCERIDES, HDL) 10:36:00 [facility] IRON PANEL 2020-08-08 [facility] 10:36:00 [facility] DIGOXIN 2020-08-[address] [facility] of 10:36:00 [facility] [place] [facility] CBC WITH DIFF 2020-08-08 [facility] 10:36:00 [facility] GLYCOSYLATED HEMOGLOBIN (A1C) 2020-08-08 Suni iversity of 10:36:00 [facility] N-TERMINAL PRO-BNP 2020-08-[address] [facility] of 10:36:00 [facility] [place] [facility] TRANSFUSE PACKED RBC 2020-08-08 María Jean [facility] 08:56:42 [facility] POCT GLUCOSE (AUTOMATED) 2020-08-08 Lindsay Hanna [facility] ity of 06:55:00 [facility] [place] [facility] PREPARE PACKED RBC 2020-08-08 María Jean [facility] 06:17:37 [facility] TROPONIN I 2020-08-[address] [facility] of 05:55:00 [facility] [place] [facility] HB INDIRECT ANTIGLOBULIN TEST 2020-08-08 Valentino Alfaro Un iversity of 05:10:00 [facility] [place] [facility] HB ECG ROUTINE & RHYTHM STRIP 2020-08-08 Valentino Alfaro Un iversity of 05:07:37 [facility] [place] [facility] HELICOBACTER PYLORI ANTIGEN, FECAL 2020-08-07 Delilah Cash [facility] BY EIA 22:24:00 [facility] [place] [facility] BLOOD CULTURE SCREEN 2020-08-07 [facility] 21:43:00 [facility] BLOOD CULTURE SCREEN 2020-08-07 [facility] 20:26:00 [facility] MAGNESIUM 2020-08-[address] [facility] of 20:26:00 [facility] [place] [facility] HEPATIC FUNCTION PANEL ([id number]) 2020-08-07 Danni Wang niversity of (ALB,T.PRO,BILI 20:26:00 [facility],BU/BC,ALT,AST,ALK PHOS) [place] BASIC METABOLIC PANEL (NA, K, CL, 2020-08-07 María Jean, [facility] CO2, GLUCOSE, BUN, CREATININE, CA) 20:26:00 [facility] PROTHROMBIN TIME / INR 2020-08-07 María Jean, Universit y of 20:26:00 [facility] ACTIVATED PARTIAL THRMPLAS SOPHY 2020-08-07 María Jean U niversity of 20:26:00 [facility] CBC WITH DIFF 2020-08-07 [facility] 20:25:00 [facility] US ABDOMEN LIMITED 2020-08-07 María Jean, [facility] 19:35:28 [facility] URINALYSIS 2020-08-07 María Jean [facility] 19:01:00 [facility] TRANSFUSE PACKED RBC 2020-08-07 Cara Roldan [place] of 17:03:32 [facility] [facility] URINALYSIS 2020-08-07 Cara Roldan [place] of 10:55:00 [facility] COVID-19 (ID NOW RAPID TESTING) 2020-08-07 Jamar Cara [place] [facility] 10:54:00 [facility] LAB ONLY COVID INTERPRETATION 2020-08-07 Cara Roldan [facility] of 10:54:00 [facility] HB ABO GROUPING 2020-08-07 Jamar Cara [place] of 10:50:00 [facility] FERRITIN SERUM 2020-08-07 Kristian Guzman [place] of 10:16:00 [facility] IRON 2020-08-07 Megan Kristian [place] 10:16:00 [facility] HEPATIC FUNCTION PANEL (00395) 2020-08-07 Cara Roldan [place] of (ALB,T.PRO,BILI 10:16:00 [facility],BU/BC,ALT,AST,ALK PHOS) [place] BASIC METABOLIC PANEL (NA, K, CL, 2020-08-07 Kaye Roldan ra [place] of CO2, GLUCOSE, BUN, CREATININE, CA) 10:16:00 [facility] CBC WITH DIFF 2020-08-07 Cara Roldan [place] of 10:16:00 [facility] POCT GLUCOSE (AUTOMATED) 2020-08-07 Cara Roldan [facility] of 10:13:00 [facility] EXTERNAL PROVIDER RECORDS 2020-08-07 [facility] sity of 06:01:00 Unassigned, No [facility] DISCLOSURE AND CONSENT, MEDICAL 2020-08-07 [facility] AND SURGICAL PROCEDURES 06:01:00 Unassigned, No [facility] CENTRAL LINE 2019-07-10 Pr, [facility] 07:04:40 [facility] ARTERIAL LINE 2019-07-10 Pr, [facility] 07:03:42 [facility] Plan of Care Planned Activity Planned Date Details Comments Source Future Scheduled Test 2021-04-15 00:00:00 IMM Influenza [facility] Seasonal Apr to September (>/= 19 yrs) [code = IMM Influenza Seasonal Apr to September (>/= 19 yrs)] Future Scheduled Test 2016 00:00:[address] [facility] malignant neoplasm of colon (procedure) [code = 993499384] Future Scheduled Test 1978 00:00:00 COVID-19 Vaccine (1) [facility] [code = COVID-19 Vaccine (1)] Encounters Start End Encounter Admission Attending Care Care Encounter Source Date/Time Date/Time Type Type Clinicians Facility Department ID 2021-08-11 Outpatient 3 [id number] [facility] REF [id number] [facility] 11:15:21 1229 2021-08-11 Outpatient 3 [id number] [facility] REF [id number] [facility] 11:15:01 1228 2021-05-14 Emergency [facility] [id number] Univers 22:14:02 ity of [facility] 2021-05-14 Emergency [facility] [id number] Univers 19:02:32 ity of [facility] 2021-03-22 2021-03-22 Orders Doctor ISBELL 1.2.840.114 [id number] Univers 00:00:00 00:00:00 Only Unassigned, DODIE 350.1.13.10 ity of [facility] 4.2.7.2.686 Marcio as [phone] [facility] [address] 2020-09-02 2020-09-02 Orders Doctor AKILAH 1.2.840.114 [id number] Univers 00:00:00 00:00:00 Only Unassigned, DODIE 350.1.13.10 ity of [facility] 4.2.7.2.686 Marcio as [phone] [facility] [address] 2020-09-02 2020-09-02 Orders Doctor AKILAH 1.2.840.114 [id number] 00:00:00 00:00:00 Only Unassigned, DODIE 350.1.13.10 [facility] 4.2.7.2.686 [id number] [facility] 2020-08-21 2020-08-21 Emergency [facility] 1.2.840.114 [id number] [facility] 01:19:00 06:54:00 Cara Lu 350.1.13.10 ity [place] [phone] [facility] [address] [place] 2020-08-21 2020-08-21 [facility] 1.2.840.114 [id number] 01:19:00 06:54:00 Cara Lu 350.1.13.10 [place] 4.2.7.2.686 [place] [id number] 2020-08-12 2020-08-12 Transition Akua Cole 1.2.840.114 [id number] [facility] 00:00:00 00:00:00 of Care Margo Bowser 350.1.13.10 [place] [phone] [facility] [address] 2020-08-12 2020-08-12 Transition Akua Cole 1.2.840.114 [id number] 00:00:00 00:00:00 of Care Margo Bowser 350.1.13.10 [place] 4.2.7.2.686 [id number] 2020-08-07 2020-08-11 [facility] Cara Roldan 1.2.84 0.114 [id number] Univers 04:02:00 18:40:00 Encounter Dorothy Byers [place] 350.1.13.10 ity [facility] 4.2.7.2.686 [place] [phone] [facility] [address] 2020-08-07 2020-08-11 Hospital Cara Roldannie 1.2.84 0.114 [id number] 04:02:00 18:40:00 Encounter Dorothy Byers [place] 350.1.13.10 [facility] 4.2.7.2.686 [id number] 095 2019-07-09 2019-07-10 Anesthesia Abdifatah Jeter 1.2 .840.114 [id number] Univers 23:56:00 05:36:00 Miguel Odell 350.1. 13.10 ity [facility] 4.2.7.2.686 [place] [phone] [facility] [address] 2019-07-09 2019-07-10 Anesthesia Abdifatah Jeter 1.2 .840.114 [id number] 23:56:00 05:36:00 Miguel Odell 350.1. 13.10 [facility] 4.2.7.2.686 [id number] 103 2019-07-09 2019-07-09 Emergency X [facility] ERT [id number] Univers 17:43:10 21:05:00 BAUDILIO storey of [facility] 2019-03-28 2019-03-28 Patient Angelica Murphy 1.2.840.114 [id number] Univers 00:00:00 00:00:00 Outreach E Bowser 350.1.13.10 i [place] [phone] [facility] [address] 2019-03-28 2019-03-28 Patient Angelica Murphy 1.2.840.114 [id number] 00:00:00 00:00:00 Outreach E Bowser 350.1.13.10 [place] 4.2.7.2.686 [id number] 403 2019-03-19 2019-03-19 Patient Akua John 1.2.840.114 [id number] Univers 00:00:00 00:00:00 Outreach Meme E Bowser 350.1.13.10 [place] [phone] [address] 2019-03-19 2019-03-19 Patient Akua John 1.2.840.114 [id number] 00:00:00 00:00:00 Outreach Meme E Bowser 350.1.13.10 [place] 4.2.7.2.686 [id number] [facility] 2019-02-26 2019-02-26 Patient Angelica Murphy 1.2.840.114 [id number] [facility] 13:45:49 14:55:49 Outreach E Bowser 350.1.13.10 [place] [phone] [address] 2019-02-26 2019-02-26 Patient Angelica Murphy 1.2.840.114 70 [id number] 13:45:49 14:55:49 Outreach E Bowser 350.1.13.10 [place] 4.2.7.2.686 [id number] [facility] 2019-02-21 2019-02-21 Patient Angelica Murphy 1.2.840.114 [id number] [facility] 00:00:00 00:00:00 Outreach E Bowser 350.1.13.10 [phone] [address] 2019-02-21 2019-02-21 Patient Angelica Murphy 1.2.840.114 [id number] 00:00:00 00:00:00 Outreach E Bowser 350.1.13.10 [place] 4.2.7.2.686 [id number] Results Test Description Test Time Test Comments Results Result Comments Source POCT GLUCOSE (AUTOMATED) 2020-08-21 09:49:00 Test Item Value Reference Range Interpretation Comme nts POCT GLU (test code = 8639983828) 89 mg/dL 70-110 Lab Interpretation (test code = 29050-0) Normal [facility] Metabolic Panel (NA, K, CL, CO2, GLUCOSE, BUN, CREATININE, CA)2020-08-21 08:21:00 Test Item Value Reference Range Interpretation Comments NA (test code = 146 mmol/L 135-145 H 0135229668) K (test code = 3.6 mmol/L 3.5-5 6262659016) CL (test code = 109 mmol/L 98-108 H 2848838187) CO2 TOTAL (test code = 26 mmol/L 23-31 5908861499) AGAP (test code = 2-16 0648697316) BUN (test code = 19 mg/dL 7-23 9420250851) GLUCOSE (test code = 75 mg/dL 70-110 7499042434) CREATININE (test code = 0.91 mg/dL 0.6-1.25 4456054277) CALCIUM (test code = 9.2 mg/dL 8.6-10.6 9971004971) eGFR Calculation mL/min/1.73m2 (Non-) (test code = 3856077052) eGFR Calculation mL/min/1.73m2 () (test code = 5699506669) PATRIA (test code = PATRIA) Association of Glomerular Filtration Rate (GFR) and Staging of Kidney Disease* + --+ --+ ------+| GFR (mL/min/1.73 m2) ?| With Kidney Damage ?| ?Without Kidney Damage+ --------+ --------+ +| ?>90 ?| ?Stage one ?| ? Normal ?+ ---+ ---+ -------+| ?60-89 ?| ?Stage two ?| ? Decreased GFR ? + --+ --+ ------+| ?30-59 ?| ?Stage three ?| ? Stage three ? + --+ --+ ------+| ?15-29 ?| ?Stage four ? | ? Stage four ?+ ---+ ---+ -------+| ?<15 (or dialysis) ? ?| ?Stage five ? | ? Stage five ?+ ---+ ---+ -------+ *Each stage assumes the associated GFR level has been in effect for at least three months. ?Stages 1 to 5, with or without kidney disease, indicate chronic kidney disease. Notes: Determination of stages one and two (with eGFR >59mL/min/1.73 m2) requires estimation of kidney damage for at least three months as defined by structural or functional abnormalities of the kidney, manifested by either:Pathological abnormalities or Markers of kidney damage (including abnormalities in the composition of the blood or urine or abnormalities in imaging tests). Lab Interpretation Abnormal (test code = 74380-1) General acute hospital with [id number] 08:03:00 Test Item Value Reference Range Interpretation Comments WBC (test code = See_Comment [Automated 6690-2) message] The sy stem which generated this result transmitted reference range : 4.20 - 10.70 10*3/?L. The reference range was not used to interpret this result as normal/abnormal . RBC (test code = See_Comment [Automated 789-8) message] The sy stem which generated this result transmitted reference range : 4.26 - 5.52 10*6/?L. The reference range was not used to interpret this result as normal/abnormal . HGB (test code = 12.0 g/dL 12.2-16.4 L 718-7) HCT (test code = 42.0 % 38.4-49.3 4544-3) MCV (test code = 84.2 fL 81.7-95.6 787-2) MCH (test code = 24.0 pg 26.1-32.7 L 785-6) MCHC (test code = 28.6 g/dL 31.2-35 L 786-4) RDW-SD (test code = 87.1 fL 38.5-51.6 H 11256-6) RDW-CV (test code = 29.2 % 12.1-15.4 H 788-0) PLT (test code = See_Comment [Automated 777-3) message] The sy stem which generated this result transmitted reference range : 150 - 328 10*3/ ?L. The reference r cody was not used to interpret this result as normal/abnormal . MPV (test code = 8.8 fL 9.8-13 L 34885-1) NRBC/100 WBC (test See_Comment [Automat ed code = 1834149258) message] The system which generated this result transmitted reference range : 0.0 - 10.0 /100 WBCs. The refer ence range was not u sed to interpret th is result as normal/abnormal . NRBC x10^3 (test code <0.01 See_Comment [Auto mated = 9384366149) message] The s ystem which generated this result transmitted reference range : 10*3/?L. The reference range was not used to interpret this result as normal/abnormal . GRAN MAT (NEUT) % 70.1 % (test code = 770-8) IMM GRAN % (test code 0.50 % = 0789085886) LYMPH % (test code = 19.2 % 736-9) MONO % (test code = 6.4 % 5905-5) EOS % (test code = 3.1 % 713-8) BASO % (test code = 0.7 % 706-2) GRAN MAT x10^3(ANC) 6.21 10*3/uL 1.99-6.95 (test code = 1757008346) IMM GRAN x10^3 (test 0.04 10*3/uL 0-0.06 code = 1239062119) LYMPH x10^3 (test code 1.70 10*3/uL 1.09-3.23 = 731-0) MONO x10^3 (test code 0.57 10*3/uL 0.36-1.02 = 742-7) EOS x10^3 (test code = 0.27 10*3/uL 0.06-0.53 711-2) BASO x10^3 (test code 0.06 10*3/uL 0.01-0.09 = 704-7) Lab Interpretation Abnormal (test code = 25044-9) [facility] [id number] 07:38:00 Test Item Value Reference Range Interpretation Comments LACTIC ACID (test code = 1.52 mmol/L 0.5-2.2 9386799700) Lab Interpretation (test code = Normal 37466-8) [facility] (AUTOMATED)2020-08-11 23:04:00 Test Item Value Reference Range Interpretation Comments POCT GLU (test code = 0962290033) 104 mg/dL 70-110 Lab Interpretation (test code = Normal 90168-8) [facility] GLUCOSE (AUTOMATED)2020-08-11 19:00:00 Test Item Value Reference Range Interpretation Comments POCT GLU (test code = 9466112794) 86 mg/dL 70-110 Lab Interpretation (test code = Normal 45060-0) [facility] GLUCOSE (AUTOMATED)2020-08-11 15:37:00 Test Item Value Reference Range Interpretation Comments POCT GLU (test code = 0471629039) 107 mg/dL 70-110 Lab Interpretation (test code = Normal 02947-7) [facility] Metabolic Panel (NA, K, CL, CO2, GLUCOSE, BUN, CREATININE, CA)2020-08-11 12:31:00 Test Item Value Reference Range Interpretation Comments NA (test code = 138 mmol/L 135-145 9260054192) K (test code = 4.2 mmol/L 3.5-5 4630670979) CL (test code = 111 mmol/L 98-108 H 5212759597) CO2 TOTAL (test code = 20 mmol/L 23-31 L 2504289946) AGAP (test code = 2-16 6003066714) BUN (test code = 11 mg/dL 7-23 2896781019) GLUCOSE (test code = 108 mg/dL 70-110 2332462700) CREATININE (test code = 0.96 mg/dL 0.6-1.25 4718222614) CALCIUM (test code = 8.5 mg/dL 8.6-10.6 L 0894290496) eGFR Calculation mL/min/1.73m2 (Non-) (test code = 9877488212) eGFR Calculation mL/min/1.73m2 () (test code = 1313759150) PATRIA (test code = PATRIA) Association of Glomerular Filtration Rate (GFR) and Staging of Kidney Disease* + --+ --+ ------+| GFR (mL/min/1.73 m2) ?| With Kidney Damage ?| ?Without Kidney Damage+ --------+ --------+ +| ?>90 ?| ?Stage one ?| ? Normal ?+ ---+ ---+ -------+| ?60-89 ?| ?Stage two ?| ? Decreased GFR ? + --+ --+ ------+| ?30-59 ?| ?Stage three ?| ? Stage three ? + --+ --+ ------+| ?15-29 ?| ?Stage four ? | ? Stage four ?+ ---+ ---+ -------+| ?<15 (or dialysis) ? ?| ?Stage five ? | ? Stage five ?+ ---+ ---+ -------+ *Each stage assumes the associated GFR level has been in effect for at least three months. ?Stages 1 to 5, with or without kidney disease, indicate chronic kidney disease. Notes: Determination of stages one and two (with eGFR >59mL/min/1.73 m2) requires estimation of kidney damage for at least three months as defined by structural or functional abnormalities of the kidney, manifested by either:Pathological abnormalities or Markers of kidney damage (including abnormalities in the composition of the blood or urine or abnormalities in imaging tests). Lab Interpretation Abnormal (test code = 02730-0) [facility] [id number] 12:31:00 Test Item Value Reference Range Interpretation Comments MAGNESIUM (test code = 9677321988) 2.3 mg/dL 1.7-2.4 Lab Interpretation (test code = Normal 16126-1) General acute hospital WITH [id number] 11:58:00 Test Item Value Reference Range Interpretation Comments WBC (test code = See_Comment [Automated 3690-2) message] The sy stem which generated this result transmitted reference range : 4.20 - 10.70 10*3/?L. The reference range was not used to interpret this result as normal/abnormal . RBC (test code = See_Comment L [Automated 769-8) message] The sy stem which generated this result transmitted reference range : 4.26 - 5.52 10*6/?L. The reference range was not used to interpret this result as normal/abnormal . HGB (test code = 8.5 g/dL 12.2-16.4 L 718-7) HCT (test code = 29.2 % 38.4-49.3 L 4544-3) MCV (test code = 73.9 fL 81.7-95.6 L 787-2) MCH (test code = 21.5 pg 26.1-32.7 L 785-6) MCHC (test code = 29.1 g/dL 31.2-35 L 786-4) RDW-SD (test code = 54.0 fL 38.5-51.6 H 70672-2) RDW-CV (test code = 20.3 % 12.1-15.4 H 788-0) PLT (test code = See_Comment [Automated 777-3) message] The sy stem which generated this result transmitted reference range : 150 - 328 10*3/ ?L. The reference r cody was not used to interpret this result as normal/abnormal . MPV (test code = 8.6 fL 9.8-13 L 49907-0) NRBC/100 WBC (test See_Comment [Automat ed code = 4094059032) message] The system which generated this result transmitted reference range : 0.0 - 10.0 /100 WBCs. The refer ence range was not u sed to interpret th is result as normal/abnormal . NRBC x10^3 (test code See_Comment [Auto mated = 0499135304) message] The s ystem which generated this result transmitted reference range : 10*3/?L. The reference range was not used to interpret this result as normal/abnormal . GRAN MAT (NEUT) % 69.8 % (test code = 770-8) IMM GRAN % (test code 0.50 % = 8064732474) LYMPH % (test code = 19.4 % 736-9) MONO % (test code = 7.8 % 5905-5) EOS % (test code = 1.8 % 713-8) BASO % (test code = 0.7 % 706-2) GRAN MAT x10^3(ANC) 3.91 10*3/uL 1.99-6.95 (test code = 8906667440) IMM GRAN x10^3 (test 0.03 10*3/uL 0-0.06 code = 2397201738) LYMPH x10^3 (test code 1.09 10*3/uL 1.09-3.23 = 731-0) MONO x10^3 (test code 0.44 10*3/uL 0.36-1.02 = 742-7) EOS x10^3 (test code = 0.10 10*3/uL 0.06-0.53 711-2) BASO x10^3 (test code 0.04 10*3/uL 0.01-0.09 = 704-7) Lab Interpretation Abnormal (test code = 50650-9) General acute hospital Packed RBC (in units), 2 Units 2020-08-11 06:15:03 Test Item Value Reference Range Interpretation Comments Cross Match Result Compatible (test code = 4409) ISBT Blood Type Code (test code = 037624) Unit Blood Type (test O Neg code = 4410) Unit Number (test [id number] code = 4411) Blood Expiration Date & Time (test code = 540655) Status Information Issued (test code = 4412) Product Red Blood Cells Identification (test code = 4413) Product Code (test [id number] Performed at [facility] code = 4414) Laboratory Services - [facility] Blood [address] [place] [id number] Free: [phone] A No. [id number] [facility] PYLORI ANTIGEN, FECAL BY EIA 2020-08-11 04:52:00 Test Item Value Reference Range Interpretation Comments H. PYLO Ag (test Negative Negative Performed B y: ARUP code = 17362-1) Laboratories [address] [place] [address] [id number] Director: Jennifer Horne MD [facility] GLUCOSE (AUTOMATED)2020-08-11 04:02:00 Test Item Value Reference Range Interpretation Comments POCT GLU (test code = 5168666284) 108 mg/dL 70-110 Lab Interpretation (test code = Normal 93611-3) [facility] GLUCOSE (AUTOMATED)2020-08-10 23:44:00 Test Item Value Reference Range Interpretation Comments POCT GLU (test code = 2169356392) 105 mg/dL 70-110 Lab Interpretation (test code = Normal 82337-4) [facility] GLUCOSE (AUTOMATED)2020-08-10 14:18:00 Test Item Value Reference Range Interpretation Comments POCT GLU (test code = 6104563932) 93 mg/dL 70-110 Lab Interpretation (test code = Normal 86431-9) [facility] Metabolic Panel (NA, K, CL, CO2, GLUCOSE, BUN, CREATININE, CA)2020-08-10 12:34:00 Test Item Value Reference Range Interpretation Comments NA (test code = 136 mmol/L 135-145 5872134826) K (test code = 3.6 mmol/L 3.5-5 6858198416) CL (test code = 109 mmol/L 98-108 H 3378829412) CO2 TOTAL (test code = 21 mmol/L 23-31 L 7712694564) AGAP (test code = 2-16 2213326599) BUN (test code = 12 mg/dL 7-23 5826926318) GLUCOSE (test code = 74 mg/dL 70-110 1420796081) CREATININE (test code = 0.82 mg/dL 0.6-1.25 3807078864) CALCIUM (test code = 7.3 mg/dL 8.6-10.6 L 8669639609) eGFR Calculation mL/min/1.73m2 (Non-) (test code = 8901257179) eGFR Calculation mL/min/1.73m2 () (test code = 1389121587) PATRIA (test code = PATRIA) Association of Glomerular Filtration Rate (GFR) and Staging of Kidney Disease* + --+ --+ ------+| GFR (mL/min/1.73 m2) ?| With Kidney Damage ?| ?Without Kidney Damage+ --------+ --------+ +| ?>90 ?| ?Stage one ?| ? Normal ?+ ---+ ---+ -------+| ?60-89 ?| ?Stage two ?| ? Decreased GFR ? + --+ --+ ------+| ?30-59 ?| ?Stage three ?| ? Stage three ? + --+ --+ ------+| ?15-29 ?| ?Stage four ? | ? Stage four ?+ ---+ ---+ -------+| ?<15 (or dialysis) ? ?| ?Stage five ? | ? Stage five ?+ ---+ ---+ -------+ *Each stage assumes the associated GFR level has been in effect for at least three months. ?Stages 1 to 5, with or without kidney disease, indicate chronic kidney disease. Notes: Determination of stages one and two (with eGFR >59mL/min/1.73 m2) requires estimation of kidney damage for at least three months as defined by structural or functional abnormalities of the kidney, manifested by either:Pathological abnormalities or Markers of kidney damage (including abnormalities in the composition of the blood or urine or abnormalities in imaging tests). Lab Interpretation Abnormal (test code = 67907-2) [facility] [id number] 12:34:00 Test Item Value Reference Range Interpretation Comments MAGNESIUM (test code = 9935386246) 1.4 mg/dL 1.7-2.4 L Lab Interpretation (test code = Abnormal 41379-7) General acute hospital WITH [id number] 12:10:00 Test Item Value Reference Range Interpretation Comments WBC (test code = See_Comment [Automated 6690-2) message] The sy stem which generated this result transmitted reference range : 4.20 - 10.70 10*3/?L. The reference range was not used to interpret this result as normal/abnormal . RBC (test code = See_Comment L [Automated 789-8) message] The sy stem which generated this result transmitted reference range : 4.26 - 5.52 10*6/?L. The reference range was not used to interpret this result as normal/abnormal . HGB (test code = 8.5 g/dL 12.2-16.4 L 718-7) HCT (test code = 29.3 % 38.4-49.3 L 4544-3) MCV (test code = 73.1 fL 81.7-95.6 L 787-2) MCH (test code = 21.2 pg 26.1-32.7 L 785-6) MCHC (test code = 29.0 g/dL 31.2-35 L 786-4) RDW-SD (test code = 53.6 fL 38.5-51.6 H 47468-8) RDW-CV (test code = 20.1 % 12.1-15.4 H 788-0) PLT (test code = See_Comment [Automated 777-3) message] The sy stem which generated this result transmitted reference range : 150 - 328 10*3/ ?L. The reference r cody was not used to interpret this result as normal/abnormal . MPV (test code = 8.8 fL 9.8-13 L 71858-3) NRBC/100 WBC (test See_Comment [Automat ed code = 5470743822) message] The system which generated this result transmitted reference range : 0.0 - 10.0 /100 WBCs. The refer ence range was not u sed to interpret th is result as normal/abnormal . NRBC x10^3 (test code See_Comment [Auto mated = 4084356156) message] The s ystem which generated this result transmitted reference range : 10*3/?L. The reference range was not used to interpret this result as normal/abnormal . GRAN MAT (NEUT) % 71.9 % (test code = 770-8) IMM GRAN % (test code 0.30 % = 4258785329) LYMPH % (test code = 17.2 % 736-9) MONO % (test code = 8.2 % 5905-5) EOS % (test code = 1.8 % 713-8) BASO % (test code = 0.6 % 706-2) GRAN MAT x10^3(ANC) 5.56 10*3/uL 1.99-6.95 (test code = 4325922259) IMM GRAN x10^3 (test <0.03 0-0.06 code = 1709797393) LYMPH x10^3 (test code 1.33 10*3/uL 1.09-3.23 = 731-0) MONO x10^3 (test code 0.63 10*3/uL 0.36-1.02 = 742-7) EOS x10^3 (test code = 0.14 10*3/uL 0.06-0.53 711-2) BASO x10^3 (test code 0.05 10*3/uL 0.01-0.09 = 704-7) Lab Interpretation Abnormal (test code = 30398-0) [facility]2020-08-10 02:23:00 Test Item Value Reference Range Interpretation Comments POCT GLU (test code = 9262473103) 153 mg/dL 70-110 H Lab Interpretation (test code = Abnormal 00134-7) General acute hospital WITH [id number] 23:58:00 Test Item Value Reference Range Interpretation Comments WBC (test code = See_Comment [Automated 6690-2) message] The sy stem which generated this result transmitted reference range : 4.20 - 10.70 10*3/?L. The reference range was not used to interpret this result as normal/abnormal . RBC (test code = See_Comment L [Automated 789-8) message] The sy stem which generated this result transmitted reference range : 4.26 - 5.52 10*6/?L. The reference range was not used to interpret this result as normal/abnormal . HGB (test code = 8.4 g/dL 12.2-16.4 L 718-7) HCT (test code = 29.1 % 38.4-49.3 L 4544-3) MCV (test code = 73.5 fL 81.7-95.6 L 787-2) MCH (test code = 21.2 pg 26.1-32.7 L 785-6) MCHC (test code = 28.9 g/dL 31.2-35 L 786-4) RDW-SD (test code = 53.5 fL 38.5-51.6 H 45372-1) RDW-CV (test code = 20.2 % 12.1-15.4 H 788-0) PLT (test code = See_Comment [Automated 777-3) message] The sy stem which generated this result transmitted reference range : 150 - 328 10*3/ ?L. The reference r cody was not used to interpret this result as normal/abnormal . MPV (test code = 8.6 fL 9.8-13 L 84600-7) NRBC/100 WBC (test See_Comment [Automat ed code = 2396491742) message] The system which generated this result transmitted reference range : 0.0 - 10.0 /100 WBCs. The refer ence range was not u sed to interpret th is result as normal/abnormal . NRBC x10^3 (test code See_Comment [Auto mated = 1956320660) message] The s ystem which generated this result transmitted reference range : 10*3/?L. The reference range was not used to interpret this result as normal/abnormal . GRAN MAT (NEUT) % 73.5 % (test code = 770-8) IMM GRAN % (test code 0.40 % = 5311005652) LYMPH % (test code = 16.3 % 736-9) MONO % (test code = 8.0 % 5905-5) EOS % (test code = 1.1 % 713-8) BASO % (test code = 0.7 % 706-2) GRAN MAT x10^3(ANC) 5.30 10*3/uL 1.99-6.95 (test code = 7808020075) IMM GRAN x10^3 (test 0.03 10*3/uL 0-0.06 code = 0803619582) LYMPH x10^3 (test code 1.18 10*3/uL 1.09-3.23 = 731-0) MONO x10^3 (test code 0.58 10*3/uL 0.36-1.02 = 742-7) EOS x10^3 (test code = 0.08 10*3/uL 0.06-0.53 711-2) BASO x10^3 (test code 0.05 10*3/uL 0.01-0.09 = 704-7) Lab Interpretation Abnormal (test code = 13945-0) [facility] GLUCOSE (AUTOMATED)2020-08-09 22:49:00 Test Item Value Reference Range Interpretation Comments POCT GLU (test code = 6344529882) 129 mg/dL 70-110 H Lab Interpretation (test code = Abnormal 80365-8) [facility] GLUCOSE (AUTOMATED)2020-08-09 17:37:00 Test Item Value Reference Range Interpretation Comments POCT GLU (test code = 1737672343) 100 mg/dL 70-110 Lab Interpretation (test code = Normal 36070-6) [facility] GLUCOSE (AUTOMATED)2020-08-09 14:34:00 Test Item Value Reference Range Interpretation Comments POCT GLU (test code = 7837764012) 107 mg/dL 70-110 Lab Interpretation (test code = Normal 83900-8) [facility] Metabolic Panel (NA, K, CL, CO2, GLUCOSE, BUN, CREATININE, CA)2020-08-09 13:02:00 Test Item Value Reference Range Interpretation Comments NA (test code = 135 mmol/L 135-145 5189619976) K (test code = 4.0 mmol/L 3.5-5 2204847905) CL (test code = 106 mmol/L 98-108 7328950533) CO2 TOTAL (test code = 21 mmol/L 23-31 L 4374264036) AGAP (test code = 2-16 7454826276) BUN (test code = 14 mg/dL 7-23 9539637795) GLUCOSE (test code = 88 mg/dL 70-110 8469200617) CREATININE (test code = 1.03 mg/dL 0.6-1.25 3096663310) CALCIUM (test code = 8.5 mg/dL 8.6-10.6 L 3662446830) eGFR Calculation mL/min/1.73m2 (Non-) (test code = 0155066044) eGFR Calculation mL/min/1.73m2 () (test code = 1629940756) PATRIA (test code = PATRIA) Association of Glomerular Filtration Rate (GFR) and Staging of Kidney Disease* + --+ --+ ------+| GFR (mL/min/1.73 m2) ?| With Kidney Damage ?| ?Without Kidney Damage+ --------+ --------+ +| ?>90 ?| ?Stage one ?| ? Normal ?+ ---+ ---+ -------+| ?60-89 ?| ?Stage two ?| ? Decreased GFR ? + --+ --+ ------+| ?30-59 ?| ?Stage three ?| ? Stage three ? + --+ --+ ------+| ?15-29 ?| ?Stage four ? | ? Stage four ?+ ---+ ---+ -------+| ?<15 (or dialysis) ? ?| ?Stage five ? | ? Stage five ?+ ---+ ---+ -------+ *Each stage assumes the associated GFR level has been in effect for at least three months. ?Stages 1 to 5, with or without kidney disease, indicate chronic kidney disease. Notes: Determination of stages one and two (with eGFR >59mL/min/1.73 m2) requires estimation of kidney damage for at least three months as defined by structural or functional abnormalities of the kidney, manifested by either:Pathological abnormalities or Markers of kidney damage (including abnormalities in the composition of the blood or urine or abnormalities in imaging tests). Lab Interpretation Abnormal (test code = 07109-8) [facility] [id number] 13:02:00 Test Item Value Reference Range Interpretation Comments MAGNESIUM (test code = 6283946042) 1.7 mg/dL 1.7-2.4 Lab Interpretation (test code = Normal 20268-2) [facility] WITH [id number] 12:59:00 Test Item Value Reference Range Interpretation Comments WBC (test code = See_Comment [Automated 6690-2) message] The sy stem which generated this result transmitted reference range : 4.20 - 10.70 10*3/?L. The reference range was not used to interpret this result as normal/abnormal . RBC (test code = See_Comment L [Automated 789-8) message] The sy stem which generated this result transmitted reference range : 4.26 - 5.52 10*6/?L. The reference range was not used to interpret this result as normal/abnormal . HGB (test code = 8.7 g/dL 12.2-16.4 L 718-7) HCT (test code = 30.1 % 38.4-49.3 L 4544-3) MCV (test code = 73.1 fL 81.7-95.6 L 787-2) MCH (test code = 21.1 pg 26.1-32.7 L 785-6) MCHC (test code = 28.9 g/dL 31.2-35 L 786-4) RDW-SD (test code = 52.4 fL 38.5-51.6 H 32434-5) RDW-CV (test code = 20.1 % 12.1-15.4 H 788-0) PLT (test code = See_Comment [Automated 777-3) message] The sy stem which generated this result transmitted reference range : 150 - 328 10*3/ ?L. The reference r cody was not used to interpret this result as normal/abnormal . MPV (test code = 8.9 fL 9.8-13 L 68433-8) NRBC/100 WBC (test See_Comment [Automat ed code = 9079040377) message] The system which generated this result transmitted reference range : 0.0 - 10.0 /100 WBCs. The refer ence range was not u sed to interpret th is result as normal/abnormal . NRBC x10^3 (test code See_Comment [Auto mated = 1315862519) message] The s [employer] which generated this result transmitted reference range : 10*3/?L. The reference range was not used to interpret this result as normal/abnormal . GRAN MAT (NEUT) % 69.2 % (test code = 770-8) IMM GRAN % (test code 0.40 % = 5323946010) LYMPH % (test code = 21.7 % 736-9) MONO % (test code = 6.4 % 5905-5) EOS % (test code = 1.8 % 713-8) BASO % (test code = 0.5 % 706-2) GRAN MAT x10^3(ANC) 5.40 10*3/uL 1.99-6.95 (test code = 8067801605) IMM GRAN x10^3 (test 0.03 10*3/uL 0-0.06 code = 0061281281) LYMPH x10^3 (test code 1.69 10*3/uL 1.09-3.23 = 731-0) MONO x10^3 (test code 0.50 10*3/uL 0.36-1.02 = 742-7) EOS x10^3 (test code = 0.14 10*3/uL 0.06-0.53 711-2) BASO x10^3 (test code 0.04 10*3/uL 0.01-0.09 = 704-7) Lab Interpretation Abnormal (test code = 19892-6) [facility] WITHOUT [id number] 05:05:00 Test Item Value Reference Range Interpretation Comments WBC (test code = 6690-2) See_Comment [A utomated message] The system [employer] generated this result transmit mark reference range : 4.20 - 10.70 10*3/?L. The reference range was not used to interpret this result as normal/abnormal . RBC (test code = 789-8) See_Comment L [Au tomated message] The system [employer] generated this result transmit mark reference range : 4.26 - 5.52 10* 6/?L. The reference r cody was not used to interpret this result as normal/abnormal . HGB (test code = 718-7) 9.1 g/dL 12.2-16.4 L HCT (test code = 4544-3) 31.4 % 38.4-49.3 L MCH (test code = 785-6) 21.4 pg 26.1-32.7 L MCV (test code = 787-2) 73.9 fL 81.7-95.6 L MCHC (test code = 786-4) 29.0 g/dL 31.2-35 L PLT (test code = 777-3) See_Comment [Au tomated message] The system [facility] generated this result transmit mark reference range : 150 - 328 10*3/?L. The reference range was not used to interpret this result as normal/abnormal . MPV (test code = 8.5 fL 9.8-13 L 92992-2) RDW-CV (test code = 20.1 % 12.1-15.4 H 788-0) RDW-SD (test code = 53.5 fL 38.5-51.6 H 04075-3) NRBC x10^3 (test code = See_Comment [Au tomated message] 1796517559) The system [facility] generated this result transmit mark reference range : 10*3/?L. The reference range was not used to interpret this result as normal/abnormal . NRBC/100 WBC (test code See_Comment [Au tomated message] = 4938813848) The system [facility] generated this result transmit mark reference range : 0.0 - 10.0 /100 WBC s. The reference r cody was not used to interpret this result as normal/abnormal . IPF % (test code = 2244275994) Lab Interpretation (test Abnormal code = 32911-8) [facility] COVID [id number] 02:51:00COVID DMT InterpretationInterpretation/Recommendations: Molecular NAAT Tests for Active Infection with the SARS-CoV-2 Virus: This result indicates that the patient has tested negative on one occasion for the SARS-CoV-2 virus that causes COVID-19 illness. This most likely indicates that the patient does not have an active infection with the SARS-CoV-2 virus. However, infection is not completely ruled out as the false negative rate for molecular NAAT testing using a nasopharyngeal sample can be up to 30%, mostly dependent on the timing of sample collection in relation to illness onset and any deficiencies in sampling techniques. If the patient has symptoms concerning for COVID-19 illness, a repeat NAAT test (PCR, Rapid ID Now, etc.) should be performed, at which time the SARS-CoV-2 virus - if present - may have reached a detectable viral load (usually peaking by the end of the first week of symptoms). Tests for IgM and/or IgG Antibodies to SARS-CoV-2 Virus: Testing for IgM and IgG antibodies 1-3weeks after illness onset will indicate whether the patient has produced antibodies to the virus. Atthis time, it is not known if the production of antibodies - specifically IgG antibodies - indicateswhether the patient is immune to future infections with the SARS-CoV-2 virus. Interpretation Result Comments:These interpretation comments are based upon all COVID-19 testing the patient has had at [facility], including molecular NAATtesting (more commonly known as PCR testing and Rapid ID Now testing) and antibody testing. It does not take into account any testing that a patient has had outside of the [facility] medical record. [facility] LABORATORY SERVICESCOVID [id number] Rapid ID NOW (no units) ? ? Date ? Value ? 08/07/2020 ? Not Detected ? [facility]2020-08-09 02:26:00 Test Item Value Reference Range Interpretation Comments POCT GLU (test code = 8688624806) 110 mg/dL 70-110 Lab Interpretation (test code = Normal 73369-2) [facility] GLUCOSE (AUTOMATED)2020-08-08 22:27:00 Test Item Value Reference Range Interpretation Comments POCT GLU (test code = 6971281535) 123 mg/dL 70-110 H Lab Interpretation (test code = Abnormal 17789-9) [facility] Packed RBC (in units), 1 Units 2020-08-08 20:21:24 Test Item Value Reference Range Interpretation Comments Cross Match Result Compatible (test code = 4409) ISBT Blood Type Code (test code = 506732) Unit Blood Type (test B Neg code = 4410) Unit Number (test [id number] code = 4411) Blood Expiration Date & Time (test code = 192336) Status Information Issued (test code = 4412) Product Red Blood Cells Identification (test code = 4413) Product Code (test N2735G73 Performed at [facility] code = 4414) Laboratory Services - [facility] Blood [address] [place] [id number] Free: [phone] A No. [id number] [facility]hamGLYCOSYLATED HEMOGLOBIN (A1C)2020-08-08 18:07:00 Test Item Value Reference Range Interpretation Comments HGB A1C (test code = 4548-4) 5.4 % 4-6 Lab Interpretation (test code = Normal 66849-9) [facility]hamTHYROID STIMULATING [id number] 18:02:00 Test Item Value Reference Range Interpretation Comments TSH (test code = See_Comment [Automated message] 9492738142) The system [employer] h generated this result transmitted ref erence range: 0.45 - 4 .70 mIU/L. The refe rence range was not u sed to interpret this result as normal/abnor mal. Lab Interpretation (test Normal code = 39730-2) [facility]hamCBC WITH [id number] 17:49:00 Test Item Value Reference Range Interpretation Comments WBC (test code = See_Comment [Automated 2290-2) message] The sy stem which generated this result transmitted reference range : 4.20 - 10.70 10*3/?L. The reference range was not used to interpret this result as normal/abnormal . RBC (test code = See_Comment L [Automated 789-8) message] The sy stem which generated this result transmitted reference range : 4.26 - 5.52 10*6/?L. The reference range was not used to interpret this result as normal/abnormal . HGB (test code = 7.2 g/dL 12.2-16.4 L 718-7) HCT (test code = 25.2 % 38.4-49.3 L 4544-3) MCV (test code = 71.8 fL 81.7-95.6 L 787-2) MCH (test code = 20.5 pg 26.1-32.7 L 785-6) MCHC (test code = 28.6 g/dL 31.2-35 L 786-4) RDW-SD (test code = 53.0 fL 38.5-51.6 H 57039-9) RDW-CV (test code = 20.6 % 12.1-15.4 H 788-0) PLT (test code = See_Comment [Automated 777-3) message] The sy stem which generated this result transmitted reference range : 150 - 328 10*3/ ?L. The reference r cody was not used to interpret this result as normal/abnormal . MPV (test code = 8.6 fL 9.8-13 L 39642-4) NRBC/100 WBC (test See_Comment [Automat ed code = 2056722191) message] The system which generated this result transmitted reference range : 0.0 - 10.0 /100 WBCs. The refer ence range was not u sed to interpret th is result as normal/abnormal . NRBC x10^3 (test code See_Comment [Auto mated = 0486233996) message] The s ystem which generated this result transmitted reference range : 10*3/?L. The reference range was not used to interpret this result as normal/abnormal . GRAN MAT (NEUT) % 70.6 % (test code = 770-8) IMM GRAN % (test code 0.40 % = 9812770777) LYMPH % (test code = 19.1 % 736-9) MONO % (test code = 8.1 % 5905-5) EOS % (test code = 1.1 % 713-8) BASO % (test code = 0.7 % 706-2) GRAN MAT x10^3(ANC) 3.93 10*3/uL 1.99-6.95 (test code = 3979252945) IMM GRAN x10^3 (test <0.03 0-0.06 code = 7970115799) LYMPH x10^3 (test code 1.06 10*3/uL 1.09-3.23 L = 731-0) MONO x10^3 (test code 0.45 10*3/uL 0.36-1.02 = 742-7) EOS x10^3 (test code = 0.06 10*3/uL 0.06-0.53 711-2) BASO x10^3 (test code 0.04 10*3/uL 0.01-0.09 = 704-7) Lab Interpretation Abnormal (test code = 03483-8) [facility]hamIRON [id number] 17:38:00 Test Item Value Reference Range Interpretation Comments IRON (test code = 8282250628) 14 ug/dL 50-160 L TIBC (test code = 4372760836) 344 ug/dL 250-410 % FE SAT (test code = 5452805988) 4 % 20-50 L Lab Interpretation (test code = Abnormal 51159-5) [facility]hamBILI UNCONJUGATED/BILI [id number] 17:29:00 Test Item Value Reference Range Interpretation Comments BILI CONJ (test code = 2828713068) 0.0 mg/dL 0-0.3 BILI UNCON (test code = 6336355470) 1.5 mg/dL 0.1-1.1 H Lab Interpretation (test code = Abnormal 68113-9) [facility]hamLIPID PANEL (80821)(TOTAL CHOLESTEROL, TRIGLYCERIDES, HDL)2020-08-08 17:29:00 Test Item Value Reference Range Interpretation Comments CHOL (test code = 98 mg/dL 120-200 L 5253739206) HDL (test code = 35 mg/dL >40 L 5426720967) HDLC RATIO (test code = See_Comment [Au tomated message] 8061659453) The system [employer] generated this result transmit mark reference range : <=5.0. The refe rence range was not u sed to interpret th is result as normal/abnormal . TRIG (test code = 107 mg/dL 30-170 5292051767) LDL CHOL (test code = 42 mg/dL See_Comment [Auto mated message] 70725-8) The system [employer] generated this result transmit mark reference range : <=160. The refe rence range was not u sed to interpret th is result as normal/abnormal . VLDL (test code = 21 mg/dL 5-60 7936798027) Lab Interpretation (test Abnormal code = 66078-3) [facility]hamTROPONIN [id number] 16:11:00 Test Item Value Reference Range Interpretation Comments TROPONIN I (test 0.006 ng/mL See_Comment [Automated code = 0534899060) message] The system which generated this result transmitted reference range : <=0.034. The reference range was not used to interpret this result as normal/abnormal . PATRIA (test code = Equal or Less than PATRIA) 0.034 ng/ml---Normal ?Note: Cardiac troponin begins to rise 3-4 hours after the onset of ischemia. Repeat in 4-6 hours if the sample was drawn within 3-4 hours of the onset of the symptom and found normal. Between 0.035 and 0.120 ng/mL--- Borderline. Questionable myocardial injury or necrosis ? ?Note: Serial measurement may be necessary to confirm or exclude the diagnosis of myocardial injury or necrosis; Clinical correlation (symptoms, EKGs, imaging studies, and others) required; Repeat in 4-6 hours if clinically indicated. ? Equal or Higher than 0.121 ng/mL---Abnormal. Myocardial Injury or Necrosis Likely ? Biotin has been reported to cause a negative bias, interpret results relative to patient's use of biotin. ? Lab Interpretation Normal (test code = 40984-4) [id number] 12:05:00 Test Item Value Reference Range Interpretation Comments DIGOXIN (test code = <0.4 0.8-1.6 L 5374374139) PATRIA (test code = PATRIA) Arrythmias: ?1.5 - 2.0 ng/mLToxic Range: ? Greater than or equal to 2.4 ng/mL Lab Interpretation (test Abnormal code = 69164-0) [facility] BrenhamN-TERMINAL [id number] 12:05:00 Test Item Value Reference Range Interpretation Comments NT-proBNP (test code 2050 pg/mL See_Comment H [Autom ated = 4652996460) message] The system which generated this result transmitted reference range : <=125. The reference range was not used to interpret this result as normal/abnormal . PATRIA (test code = PATRIA) Biotin has been reported to cause a negative bias, interpret results relative to patient's use of biotin. Lab Interpretation Abnormal (test code = 17381-3) [facility]hamBasi Metabolic Panel (NA, K, CL, CO2, GLUCOSE, BUN, CREATININE, CA)2020-08-08 11:59:00 Test Item Value Reference Range Interpretation Comments NA (test code = 133 mmol/L 135-145 L 4988544363) K (test code = 3.9 mmol/L 3.5-5 8474137941) CL (test code = 106 mmol/L 98-108 5902979916) CO2 TOTAL (test code = 21 mmol/L 23-31 L 9560818973) AGAP (test code = 2-16 6012660459) BUN (test code = 28 mg/dL 7-23 H 7417790339) GLUCOSE (test code = 87 mg/dL 70-110 4509759552) CREATININE (test code = 1.15 mg/dL 0.6-1.25 1626690030) CALCIUM (test code = 8.5 mg/dL 8.6-10.6 L 2470574774) eGFR Calculation mL/min/1.73m2 (Non-) (test code = 3096123155) eGFR Calculation mL/min/1.73m2 () (test code = 4132456347) PATRIA (test code = PATRIA) Association of Glomerular Filtration Rate (GFR) and Staging of Kidney Disease* + --+ --+ ------+| GFR (mL/min/1.73 m2) ?| With Kidney Damage ?| ?Without Kidney Damage+ --------+ --------+ +| ?>90 ?| ?Stage one ?| ? Normal ?+ ---+ ---+ -------+| ?60-89 ?| ?Stage two ?| ? Decreased GFR ? + --+ --+ ------+| ?30-59 ?| ?Stage three ?| ? Stage three ? + --+ --+ ------+| ?15-29 ?| ?Stage four ? | ? Stage four ?+ ---+ ---+ -------+| ?<15 (or dialysis) ? ?| ?Stage five ? | ? Stage five ?+ ---+ ---+ -------+ *Each stage assumes the associated GFR level has been in effect for at least three months. ?Stages 1 to 5, with or without kidney disease, indicate chronic kidney disease. Notes: Determination of stages one and two (with eGFR >59mL/min/1.73 m2) requires estimation of kidney damage for at least three months as defined by structural or functional abnormalities of the kidney, manifested by either:Pathological abnormalities or Markers of kidney damage (including abnormalities in the composition of the blood or urine or abnormalities in imaging tests). Lab Interpretation Abnormal (test code = 43937-7) [facility] BrenhamMagnesium [id number] 11:59:00 Test Item Value Reference Range Interpretation Comments MAGNESIUM (test code = 8087123600) 1.9 mg/dL 1.7-2.4 Lab Interpretation (test code = Normal 11796-3) [facility] acute hospital WITH [id number] 10:52:00 Test Item Value Reference Range Interpretation Comments WBC (test code = See_Comment [Automated 1090-2) message] The sy stem which generated this result transmitted reference range : 4.20 - 10.70 10*3/?L. The reference range was not used to interpret this result as normal/abnormal . RBC (test code = See_Comment L [Automated 839-8) message] The sy stem which generated this result transmitted reference range : 4.26 - 5.52 10*6/?L. The reference range was not used to interpret this result as normal/abnormal . HGB (test code = 7.1 g/dL 12.2-16.4 L 718-7) HCT (test code = 24.7 % 38.4-49.3 L 4544-3) MCV (test code = 71.8 fL 81.7-95.6 L 787-2) MCH (test code = 20.6 pg 26.1-32.7 L 785-6) MCHC (test code = 28.7 g/dL 31.2-35 L 786-4) RDW-SD (test code = 53.4 fL 38.5-51.6 H 68783-2) RDW-CV (test code = 20.6 % 12.1-15.4 H 788-0) PLT (test code = See_Comment [Automated 777-3) message] The sy stem which generated this result transmitted reference range : 150 - 328 10*3/ ?L. The reference r cody was not used to interpret this result as normal/abnormal . MPV (test code = 8.8 fL 9.8-13 L 57728-9) NRBC/100 WBC (test See_Comment [Automat ed code = 1162404753) message] The system which generated this result transmitted reference range : 0.0 - 10.0 /100 WBCs. The refer ence range was not u sed to interpret th is result as normal/abnormal . NRBC x10^3 (test code See_Comment [Auto mated = 7746907095) message] The s ystem which generated this result transmitted reference range : 10*3/?L. The reference range was not used to interpret this result as normal/abnormal . GRAN MAT (NEUT) % 65.9 % (test code = 770-8) IMM GRAN % (test code 0.30 % = 7602419283) LYMPH % (test code = 23.4 % 736-9) MONO % (test code = 8.3 % 5905-5) EOS % (test code = 1.4 % 713-8) BASO % (test code = 0.7 % 706-2) GRAN MAT x10^3(ANC) 4.62 10*3/uL 1.99-6.95 (test code = 2762176460) IMM GRAN x10^3 (test <0.03 0-0.06 code = 4163610935) LYMPH x10^3 (test code 1.64 10*3/uL 1.09-3.23 = 731-0) MONO x10^3 (test code 0.58 10*3/uL 0.36-1.02 = 742-7) EOS x10^3 (test code = 0.10 10*3/uL 0.06-0.53 711-2) BASO x10^3 (test code 0.05 10*3/uL 0.01-0.09 = 704-7) Lab Interpretation Abnormal (test code = 95905-5) [facility]PO[facility]AUTOMATED)2020-08-08 06:56:00 Test Item Value Reference Range Interpretation Comments POCT GLU (test code = 7303504547) 105 mg/dL 70-110 Lab Interpretation (test code = Normal 36534-9) [facility]hamTROPONIN [id number] 06:46:00 Test Item Value Reference Range Interpretation Comments TROPONIN I (test 0.005 ng/mL See_Comment [Automated code = 7931422772) message] The system which generated this result transmitted reference range : <=0.034. The reference range was not used to interpret this result as normal/abnormal . PATRIA (test code = Equal or Less than PATRIA) 0.034 ng/ml---Normal ?Note: Cardiac troponin begins to rise 3-4 hours after the onset of ischemia. Repeat in 4-6 hours if the sample was drawn within 3-4 hours of the onset of the symptom and found normal. Between 0.035 and 0.120 ng/mL--- Borderline. Questionable myocardial injury or necrosis ? ?Note: Serial measurement may be necessary to confirm or exclude the diagnosis of myocardial injury or necrosis; Clinical correlation (symptoms, EKGs, imaging studies, and others) required; Repeat in 4-6 hours if clinically indicated. ? Equal or Higher than 0.121 ng/mL---Abnormal. Myocardial Injury or Necrosis Likely ? Biotin has been reported to cause a negative bias, interpret results relative to patient's use of biotin. ? Lab Interpretation Normal (test code = 81708-2) [facility]hamPrep[facility] Packed RBC (in units), 1 Units 2020-08-08 06:17:37 Test Item Value Reference Range Interpretation Comments Cross Match Result Compatible (test code = 4409) ISBT Blood Type Code (test code = 778320) Unit Blood Type (test B Neg code = 4410) Unit Number (test [id number] code = 4411) Blood Expiration Date & Time (test code = 383043) Status Information Issued (test code = 4412) Product Red Blood Cells Identification (test code = 4413) Product Code (test G4914A92 [facility] [facility] code = 4414) Laboratory Services - [facility] Blood Dqis075 [facility] [address]Bsjt Free: [phone] A No. [id number] [facility]hamType and Screen - ONCE [id number] 06:03:12 Test Item Value Reference Range Interpretation Comments IAT (test code = Negative Performed a t [facility] 1185) Laboratory Serv ices - [facility] Blood Bank3 01 [facility] [address]Nokb Free: [phone] A No. [id number] ABO & RH (test code B NEGATIVE Patient transfused with = 20) 1 Oneg RBC on 08/07/2020.Perf ormed at [facility] Laboratory Services - [facility] Blood Ban k301 [facility] s [address]Dlnx Free: [phone] A No. [id number] [facility]hamMAGNESIUM2021-01-24 05:38:00 Test Item Value Reference Range Interpretation Comments MAGNESIUM (test code = 4452383908) 2.1 mg/dL 1.7-2.4 Lab Interpretation (test code = Normal 21969-1) [facility]hamUS ABDOMEN [id number] 21:21:09 Mildly coarsened echotexture is suggestive of with chronic liverparenchymal disease. No focal hepatic lesion is detected. Prior cholecystectomy Preliminary Report Dictated by Resident: Jl Owens MD., have reviewed this study and agree with the abovereport.EXAM: US ABDOMEN LIMITED HISTORY: 55 years- old male with cirrhosis . TECHNIQUE: Limited abdominal ultrasound was performed focused on the liver,biliary system, pancreas and spleen. Main portal vein was evaluated withcolor Doppler imaging. [facility] images were obtained for the record. COMPARISON: 07/28/2015 CT abdomen pelvis FINDINGS: PANCREAS: Limited visualization due to shadowing from bowel gas. AORTA:Abdominal aorta is normal in caliber where visualized. Diameter of the midabdominal aorta is 1.7 cm in AP dimension. LIVER: Length: 15.4 cm in craniocaudal dimension.Parenchyma: Heterogenous hepatic echogenicity with normal hepatic contour.Coarse echotexture of the liver. No focal lesion is detectedPortal vein: Hepatopetal flow present in the main portal veinMPV diameter: 0.9 cm in AP dimension.MPV velocity: 29.8 c m/s. GALLBLADDER:Prior cholecystectomy BILE DUCTS:No intra- or extrahepatic biliary dilatation..Common Duct diameter: 0.6 cm. IVC:IVC is normal in appearance where visualized SPLEEN: The spleen is normal in size. The spleen measures 11.2 cm. No focal lesionsin the spleen OTHER: Imaged portions of the right kidney are unremarkable. [facility], Radiant Results Inft User - 08/07/2020 3:22 PM CSTEXAM: US ABDOMEN LIMITEDHISTORY: 55 years-old male with cirrhosis .TECHNIQUE: Limited abdominal ultrasound was performed focused on the liver,biliary system, pancreas and spleen. Main portal vein was evaluated with color Doppler imaging. [facility] Justice images were obtained for the record.COMPARISON: 07/28/2015 CT abdomen pelvisFINDINGS: PANCREAS: Limited visualization due to shadowing from bowel gas.AORTA:Abdominal aorta is normal in caliber where visualized. Diameter of the midabdominal aorta is 1.7 cm in AP dimension.LIVER: Length: 15.4 cm in craniocaudal dimension.Parenchyma: Heterogenous hepatic echogenicitywith normal hepatic contour.Coarse echotexture of the liver. No focal lesion is detectedPortal vein:Hepatopetal flow present in the main portal veinMPV diameter: 0.9 cm in AP dimension.MPV velocity: 29.8 cm/s.GALLBLADDER:Prior cholecystectomy BILE DUCTS:No intra- or extrahepatic biliary dilatation..Common Duct diameter: 0.6 cm.IVC:IVC is normal in appearance where visualized SPLEEN: The spleen is normal in size. The spleen measures 11.2 cm. No focal lesionsin the spleenOTHER: Imaged portions of theright kidney are unremarkable.IMPRESSIONMildly coarsened echotexture is suggestive of with chronic liverparenchymal disease. No focal hepatic lesion is detected.Prior cholecystectomyPreliminary Report Dictated by Resident: Jun Dutta, Jl Jenkins MD., have reviewed this study and agree with theabovereport.[facility]OL[facility] (NA, K, CL, CO2, GLUCOSE, BUN, CREATININE, CA)2020-08-07 20:57:00 Test Item Value Reference Range Interpretation Comments NA (test code = 137 mmol/L 135-145 0338171310) K (test code = 4.1 mmol/L 3.5-5 9192120059) CL (test code = 104 mmol/L 98-108 9249297044) CO2 TOTAL (test code = 28 mmol/L 23-31 8590394515) AGAP (test code = 2-16 5763738577) BUN (test code = 37 mg/dL 7-23 H 9414041885) GLUCOSE (test code = 104 mg/dL 70-110 2977569502) CREATININE (test code = 1.17 mg/dL 0.6-1.25 2095628297) CALCIUM (test code = 8.7 mg/dL 8.6-10.6 5144747649) eGFR Calculation mL/min/1.73m2 (Non-) (test code = 8860741401) eGFR Calculation mL/min/1.73m2 () (test code = 2853234387) PATRIA (test code = PATRIA) Association of Glomerular Filtration Rate (GFR) and Staging of Kidney Disease* + --+ --+ ------+| GFR (mL/min/1.73 m2) ?| With Kidney Damage ?| ?Without Kidney Damage+ --------+ --------+ +| ?>90 ?| ?Stage one ?| ? Normal ?+ ---+ ---+ -------+| ?60-89 ?| ?Stage two ?| ? Decreased GFR ? + --+ --+ ------+| ?30-59 ?| ?Stage three ?| ? Stage three ? + --+ --+ ------+| ?15-29 ?| ?Stage four ? | ? Stage four ?+ ---+ ---+ -------+| ?<15 (or dialysis) ? ?| ?Stage five ? | ? Stage five ?+ ---+ ---+ -------+ *Each stage assumes the associated GFR level has been in effect for at least three months. ?Stages 1 to 5, with or without kidney disease, indicate chronic kidney disease. Notes: Determination of stages one and two (with eGFR >59mL/min/1.73 m2) requires estimation of kidney damage for at least three months as defined by structural or functional abnormalities of the kidney, manifested by either:Pathological abnormalities or Markers of kidney damage (including abnormalities in the composition of the blood or urine or abnormalities in imaging tests). Lab Interpretation Abnormal (test code = 16751-6) [facility]hamHEPATIC FUNCTION PANEL (40193) (ALB,T.PRO,BILI T,BU/BC,ALT,AST,ALK PHOS)2020-08-07 20:57:00 Test Item Value Reference Range Interpretation Comments TOTAL BILI (test code = 7618213753) 2.4 mg/dL 0.1-1.1 H BILI UNCON (test code = 0785465236) 2.4 mg/dL 0.1-1.1 H BILI CONJ (test code = 2621601206) 0.0 mg/dL 0-0.3 T PROTEIN (test code = 9621043784) 6.2 g/dL 6.3-8.2 L ALBUMIN (test code = 9627970248) 3.4 g/dL 3.5-5 L ALK PHOS (test code = 7550081536) 54 U/L 34-122 ALTv (test code = 1742-6) 25 U/L 5-50 AST(SGOT) (test code = 0374387235) 29 U/L 13-40 Lab Interpretation (test code = Abnormal 23414-9) [facility] BrenhamProthrombin Time / [id number] 20:43:00 Test Item Value Reference Range Interpretation Comments PROTIME PATIENT (test See_Comment H [Auto mated message] code = 5964-2) The system [employer] generated this result transmitted ref erence range: 10.1 - 1 2.6 Seconds. The reference range was not used to int erpret this result as normal/abnormal . INR (test code = 6301-6) Nor mal INR <1.1; Warfarin Therap eutic range 2.0 to 3. 0 or 2.5 to 3.5, dep ending upon the indica tions. Lab Interpretation (test Abnormal code = 82887-3) [facility] BrenhamaPTT2021-01-23 20:43:00 Test Item Value Reference Range Interpretation Comments APTT Patient (test code = See_Comment [ Automated message] 2483-2) The system [employer] h generated this result transmitted ref erence range: 26 - 36 Seconds. The re ference range was not u sed to interpret this result as normal/abnor mal. Lab Interpretation (test Normal code = 08483-1) [facility] BrenhamCB WITH [id number] 20:35:00 Test Item Value Reference Range Interpretation Comments WBC (test code = See_Comment [Automated 8290-2) message] The sy stem which generated this result transmitted reference range : 4.20 - 10.70 10*3/?L. The reference range was not used to interpret this result as normal/abnormal . RBC (test code = See_Comment L [Automated 789-8) message] The sy stem which generated this result transmitted reference range : 4.26 - 5.52 10*6/?L. The reference range was not used to interpret this result as normal/abnormal . HGB (test code = 6.7 g/dL 12.2-16.4 L 718-7) HCT (test code = 23.6 % 38.4-49.3 L 4544-3) MCV (test code = 71.1 fL 81.7-95.6 L 787-2) MCH (test code = 20.2 pg 26.1-32.7 L 785-6) MCHC (test code = 28.4 g/dL 31.2-35 L 786-4) RDW-SD (test code = 54.9 fL 38.5-51.6 H 78889-7) RDW-CV (test code = 21.6 % 12.1-15.4 H 788-0) PLT (test code = See_Comment [Automated 777-3) message] The sy stem which generated this result transmitted reference range : 150 - 328 10*3/ ?L. The reference r cody was not used to interpret this result as normal/abnormal . MPV (test code = 8.8 fL 9.8-13 L 01057-5) NRBC/100 WBC (test See_Comment [Automat ed code = 4725026827) message] The system which generated this result transmitted reference range : 0.0 - 10.0 /100 WBCs. The refer ence range was not u sed to interpret th is result as normal/abnormal . NRBC x10^3 (test code See_Comment [Auto mated = 9366661982) message] The s ystem which generated this result transmitted reference range : 10*3/?L. The reference range was not used to interpret this result as normal/abnormal . GRAN MAT (NEUT) % 68.7 % (test code = 770-8) IMM GRAN % (test code 0.20 % = 5783636493) LYMPH % (test code = 20.9 % 736-9) MONO % (test code = 8.8 % 5905-5) EOS % (test code = 0.7 % 713-8) BASO % (test code = 0.7 % 706-2) GRAN MAT x10^3(ANC) 3.74 10*3/uL 1.99-6.95 (test code = 5943951169) IMM GRAN x10^3 (test <0.03 0-0.06 code = 3624084867) LYMPH x10^3 (test code 1.14 10*3/uL 1.09-3.23 = 731-0) MONO x10^3 (test code 0.48 10*3/uL 0.36-1.02 = 742-7) EOS x10^3 (test code = 0.04 10*3/uL 0.06-0.53 L 711-2) BASO x10^3 (test code 0.04 10*3/uL 0.01-0.09 = 704-7) Lab Interpretation Abnormal (test code = 90758-9) [facility] BrenhamUrinalysis2021-01-23 20:00:00 Test Item Value Reference Range Interpretation Comments APPEARANCE (test code = Clear Clear 7735354959) COLOR (test code = Yellow Yellow 7467943571) PH (test code = 4.8-8.0 2088878811) SP GRAVITY (test code = 1.003-1.030 8190064025) GLU U QUAL (test code = Normal Normal 6418072317) BLOOD (test code = Negative Negative INTERFERE NCE FROM 7802157496) ASCORBIC ACID M AY CAUSE FALSE NEG ATIVE RESULT KETONES (test code = Negative Negative 4287552461) PROTEIN (test code = Negative Negative 2887-8) UROBILIN (test code = Normal Normal 5689903622) BILIRUBIN (test code = Negative Negative 0152711214) NITRITE (test code = Negative Negative 4000310351) LEUK DILAN (test code = Negative Negative 5873188320) RBC/HPF (test code = <1 See_Comment [Autom ated message] 6269688210) The system [employer] generated this result transmitted ref erence range: 0 - 3 HP F. The reference range was not used to int erpret this result as normal/abnormal . WBC/HPF (test code = See_Comment [Autom ated message] 8971528758) The system [employer] generated this result transmitted ref erence range: 0 - 5 HP F. The reference range was not used to int erpret this result as normal/abnormal . BACTERIA (test code = Negative Negative 2826072509) MUCOUS (test code = Slight Negative LPF A 5677919831) SQ EPITH (test code = <1 See_Comment [Auto mated message] 2741961553) The system [employer] generated this result transmitted ref erence range: <=2 HPF. The reference range was not used to int erpret this result as normal/abnormal . WBC CLUMPS (test code = <1 See_Comment [Au tomated message] 0227259558) The system [employer] generated this result transmitted ref erence range: <=1 HPF. The reference range was not used to int erpret this result as normal/abnormal . Lab Interpretation (test Abnormal code = 86554-5) [facility] BrenhamFERRITIN [id number] 17:25:00 Test Item Value Reference Range Interpretation Comments FERRITIN (test code = 5.9 ng/mL 18-464 L 9716889700) PATRIA (test code = PATRIA) Biotin has been reported to cause a negative bias, interpret results relative to patient's use of biotin. Lab Interpretation (test Abnormal code = 99253-3) [facility] BrenhamIRON2021-01-23 16:50:00 Test Item Value Reference Range Interpretation Comments IRON (test code = 6588633594) 19 ug/dL 50-160 L Lab Interpretation (test code = Abnormal 76193-5) [facility] BrenhamType and Screen - ONCE [id number] 12:02:11 Test Item Value Reference Range Interpretation Comments ABO & RH (test code B Negative Performe d at [facility] = 20) Laboratory Serv [facility] Blood Bank1 [address] [place], [place] [address]Toll Free: [phone] A No. [id number] IAT (test code = Negative Performed a t [facility] 1185) Laboratory Serv [facility] Blood Bank1 [address] [place], [place] [address]Toll Free: [phone] A No. [id number] [facility] BrenhamURINALYSIS2021-01-23 11:32:00 Test Item Value Reference Range Interpretation Comments APPEARANCE (test code = Clear Clear 0754960815) COLOR (test code = Yellow Yellow 5232080621) PH (test code = 4.8-8.0 7634509339) SP GRAVITY (test code = 1.003-1.030 5710045672) GLU U QUAL (test code = Normal Normal 3625946120) BLOOD (test code = Negative Negative 8919842145) KETONES (test code = Negative Negative 5629426057) PROTEIN (test code = Negative Negative 2887-8) UROBILIN (test code = Normal Normal 0705774973) BILIRUBIN (test code = Negative Negative 4627909817) NITRITE (test code = Negative Negative 5833950264) LEUK DILAN (test code = Negative Negative 6787765305) RBC/HPF (test code = See_Comment [Autom ated message] 0567743017) The system [employer] generated this result transmitted ref erence range: 0 - 3 HP F. The reference range was not used to int erpret this result as normal/abnormal . WBC/HPF (test code = See_Comment [Autom ated message] 0664863074) The system [employer] generated this result transmitted ref erence range: 0 - 5 HP F. The reference range was not used to int erpret this result as normal/abnormal . BACTERIA (test code = Few Negative A 8750133007) SQ EPITH (test code = <1 HPF 0817187688) Lab Interpretation (test Abnormal code = 97611-2) [facility]hamCOVID-19 (ID NOW RAPID TESTING)2020-08-07 11:21:00 Test Item Value Reference Range Interpretation Comments SARS-CoV-2 Rapid ID NOW Not Detected Not Detected (test code = 31274-5) PATRIA (test code = PATRIA) ID NOW COVID-19 Assay is an isothermal nucleic acid amplification test intended for the qualitative detection of nucleic acid from SARS-CoV-2 viral RNA in nasopharyngeal (DIRECTOR OF PRODUCT DEVELOPMENT) specimens. It is used under Emergency Use Authorization (EUA) by FDA. The limit of detection (LOD) of the assay is 125 Genome Equivalents/mL. A positive result is indicative of the presence of SARS-CoV-2 RNA. ?Clinical correlation with patient history and other diagnostic information is necessary to determine patient infection status. A negative (Not Detected) result does not preclude SARS-CoV-2 infection. In patients with clinical symptoms and other tests that are consistent with SARS-CoV-2 infection, negative results should be treated as presumptive negative and a new specimen should be tested with alternative PCR molecular test. Invalid: Please collect a new specimen for repeat patient testing if clinically indicated. Lab Interpretation Normal (test code = 16941-2) [facility] Metabolic Panel (NA, K, CL, CO2, GLUCOSE, BUN, CREATININE, CA)2020-08-07 10:57:00 Test Item Value Reference Range Interpretation Comments NA (test code = 136 mmol/L 135-145 7930990699) K (test code = 4.0 mmol/L 3.5-5 3840998389) CL (test code = 101 mmol/L 98-108 6432306307) CO2 TOTAL (test code = 25 mmol/L 23-31 4040660980) AGAP (test code = 2-16 0513495787) BUN (test code = 54 mg/dL 7-23 H 0128540291) GLUCOSE (test code = 168 mg/dL 70-110 H 5145351803) CREATININE (test code = 1.30 mg/dL 0.6-1.25 H 0902824973) CALCIUM (test code = 8.9 mg/dL 8.6-10.6 8144053718) eGFR Calculation mL/min/1.73m2 (Non-) (test code = 3769293038) eGFR Calculation mL/min/1.73m2 () (test code = 6740125025) PATRIA (test code = PATRIA) Association of Glomerular Filtration Rate (GFR) and Staging of Kidney Disease* + --+ --+ ------+| GFR (mL/min/1.73 m2) ?| With Kidney Damage ?| ?Without Kidney Damage+ --------+ --------+ +| ?>90 ?| ?Stage one ?| ? Normal ?+ ---+ ---+ -------+| ?60-89 ?| ?Stage two ?| ? Decreased GFR ? + --+ --+ ------+| ?30-59 ?| ?Stage three ?| ? Stage three ? + --+ --+ ------+| ?15-29 ?| ?Stage four ? | ? Stage four ?+ ---+ ---+ -------+| ?<15 (or dialysis) ? ?| ?Stage five ? | ? Stage five ?+ ---+ ---+ -------+ *Each stage assumes the associated GFR level has been in effect for at least three months. ?Stages 1 to 5, with or without kidney disease, indicate chronic kidney disease. Notes: Determination of stages one and two (with eGFR >59mL/min/1.73 m2) requires estimation of kidney damage for at least three months as defined by structural or functional abnormalities of the kidney, manifested by either:Pathological abnormalities or Markers of kidney damage (including abnormalities in the composition of the blood or urine or abnormalities in imaging tests). Lab Interpretation Abnormal (test code = 71288-9) [facility]hamHepatic Function Panel (ALB, T.PRO, BILI T, BU/BC, ALT, AST, ALK PHOS)2020-08-07 10:57:00 Test Item Value Reference Range Interpretation Comments TOTAL BILI (test code = 2007986198) 1.7 mg/dL 0.1-1.1 H BILI UNCON (test code = 8863433980) 1.2 mg/dL 0.1-1.1 H BILI CONJ (test code = 0114966416) 0.0 mg/dL 0-0.3 T PROTEIN (test code = 3889795347) 6.7 g/dL 6.3-8.2 ALBUMIN (test code = 0570940015) 3.8 g/dL 3.5-5 ALK PHOS (test code = 4149931833) 63 U/L 34-122 ALTv (test code = 1742-6) 26 U/L 5-50 AST(SGOT) (test code = 7864795990) 23 U/L 13-40 Lab Interpretation (test code = Abnormal 61407-6) General acute hospital with [id number] 10:45:00 Test Item Value Reference Range Interpretation Comments WBC (test code = See_Comment [Automated 6690-2) message] The sy stem which generated this result transmitted reference range : 4.20 - 10.70 10*3/?L. The reference range was not used to interpret this result as normal/abnormal . RBC (test code = See_Comment L [Automated 789-8) message] The sy stem which generated this result transmitted reference range : 4.26 - 5.52 10*6/?L. The reference range was not used to interpret this result as normal/abnormal . HGB (test code = 6.3 g/dL 12.2-16.4 L 718-7) HCT (test code = 22.6 % 38.4-49.3 L 4544-3) MCV (test code = 69.8 fL 81.7-95.6 L 787-2) MCH (test code = 19.4 pg 26.1-32.7 L 785-6) MCHC (test code = 27.9 g/dL 31.2-35 L 786-4) RDW-SD (test code = 55.3 fL 38.5-51.6 H 48285-3) RDW-CV (test code = 22.1 % 12.1-15.4 H 788-0) PLT (test code = See_Comment H [Automated 777-3) message] The sy stem which generated this result transmitted reference range : 150 - 328 10*3/ ?L. The reference r cody was not used to interpret this result as normal/abnormal . MPV (test code = 9.2 fL 9.8-13 L 19959-4) NRBC/100 WBC (test See_Comment [Automat ed code = 5031896542) message] The system which generated this result transmitted reference range : 0.0 - 10.0 /100 WBCs. The refer ence range was not u sed to interpret th is result as normal/abnormal . NRBC x10^3 (test code See_Comment [Auto mated = 0196846866) message] The s ystem which generated this result transmitted reference range : 10*3/?L. The reference range was not used to interpret this result as normal/abnormal . GRAN MAT (NEUT) % 66.6 % (test code = 770-8) IMM GRAN % (test code 0.30 % = 2998041488) LYMPH % (test code = 23.6 % 736-9) MONO % (test code = 8.1 % 5905-5) EOS % (test code = 0.7 % 713-8) BASO % (test code = 0.7 % 706-2) GRAN MAT x10^3(ANC) 5.01 10*3/uL 1.99-6.95 (test code = 4265984598) IMM GRAN x10^3 (test <0.03 0-0.06 code = 8115800469) LYMPH x10^3 (test code 1.77 10*3/uL 1.09-3.23 = 731-0) MONO x10^3 (test code 0.61 10*3/uL 0.36-1.02 = 742-7) EOS x10^3 (test code = 0.05 10*3/uL 0.06-0.53 L 711-2) BASO x10^3 (test code 0.05 10*3/uL 0.01-0.09 = 704-7) Lab Interpretation Abnormal (test code = 43997-5) [facility]hamPOWY GLUCOSE (AUTOMATED)2020-08-07 10:16:00 Test Item Value Reference Range Interpretation Comments POCT GLU (test code = 9755282463) 195 mg/dL 70-110 H Lab Interpretation (test code = Abnormal 04551-0) [facility]hamSARS-COV2/RT-PCR ([facility]) 2019-12-24 03:22:00 Test Item Value Reference Range Interpretation Comments SARS-COV2/RT-PCR (test Not Detected Not Detected, Negative code = 5085727) SARS-COV-2 PERFORMING LAB [facility] (test code = 0769417) Negative results do not preclude SARS-CoV-2 infection [...] of the Act.Fact Sheet for Healthcare Pro viders:https://www.SynGen/Documents/Xpert%20Xpress%20SARS%20CoV-2/Fact%20Sh eets/302-3802%71ATFS-YWJ-6%20HEALTHCARE%20PROVIDERS%20FACT%20SHEET.pdfFact Sheet for Healthcare Patients:https://www.O-film/Documents/Xpert%20Xpress%20SARS%20CoV-2/Fact%20Sheets/302-3801%20SARS-COV -2%20PATIENT%20FACT%20SHEET.pdfPerforming Laboratory:[facility], [place] [address]Ppgfnot Ctdv7298-22-47 07:04:40 Miguel Odell MD ? ? 08/28/2019 11:26 AM Central Line Performed by: Jose C Gaspar MD Staff:?Supervising Anesthesiologist: ?Miguel Odell MD ?Resident: ?Yousuf Puente, DOSterility and Timeout Preparation: provider hand hygiene prior to procedure, provider used sterile gloves, gown, hat, mask and maximum barrier technique (sterile drape) was used ?Procedure Detail: ?Patient Position: ?Supine ?Site: ?Internal jugular ?Prep: ?Chloraprep ?Cathether Size: ?7 Fr ?Catheter Length (cm): ?15 ?Number of Lumens: ?Double lumen ?Oximetric Catheter?: No ? ?target vein identified, needle advanced into vein and blood aspirated and guidewire advanced into vein ? ?Intravenous Verification: verified by ultrasound and venous blood return ?all ports aspirated, all ports flushed easily, guidewirewas removed intact, biopatch was applied, line was sutured in place and dressing was applied ? ?Confirmation for Venous Placement: ?Ultrasound and IV tubingEvents: ?Events: patient tolerated procedurewell with no complications ?PA Catheter Placement: ?PA Catheter Placed?: No ? [facility] Upqv2510-80-12 07:03:42Miguel Odell MD ? ? 08/28/2019 11:26 AM Arterial Line Date/Time: 07/10/2019 1:03 AMPerformed by: Jose C Gaspar MD Arterial Line Placement: ?Ultrasound-Guided: surface landmarks ? ?Patient Location: ?OR ?Indication: continuous blood pressure monitoring and blood sampling needed ?Staff: ?Supervising Anesthesiologist: ?Miguel Odell MD ?Resident: ?Jose C Gaspar MDProcedure Detail: ?Catheter Size: ?20 gauge ?Catheter Length: ?1 and 3/4 inch ?Catheter Type: ?Angiocath ?Seldinger Technique?: Yes ? ?Laterality: ?Right ?Site: ?Radial artery ?Line Secured: ?Biopatch, Tegaderm and tape ?Preparation: ?Chloroprep and biopatch appliedEvents: ?Events: ?Patient tolerated procedure well withno complications [facility]"
--- NOTE | 2021-08-16 06:31 | ER ---
Nurse's Notes [facility] Name: Faustino Brock Age: 56 yrs Sex: Male : 1965 Arrival Date: 08/16/2021 Time: 05:34 Bed 6 Private MD: Diagnosis: Embolism and thrombosis of arteries of the lower extremities-RIGHT, ACUTE ARTERIAL OCCULISION;Type 2 diabetes mellitus with hyperglycemia;Pain in right leg;Pain in right lower leg;Unspecified combined systolic (congestive) and diastolic (congestive) heart failure;Adverse effect of amphetamines;Tobacco abuse counseling;Tobacco use Presentation: 08/16 05:43 Chief complaint: Patient states: " My left leg is killing me, oh god my legs are tw5 killing me.". Coronavirus screen: Vaccine status: Patient reports being unvaccinated. Ebola Screen: Patient negative for fever greater than or equal to 101.5 degrees Fahrenheit, and additional compatible Ebola Virus Disease symptoms Patient denies exposure to infectious person. Patient denies travel to an Ebola-affected area in the 21 days before illness onset. Initial Sepsis Screen: Does the patient meet any 2 criteria? No. Patient's initial sepsis screen is negative. Does the patient have a suspected source of infection? No. Patient's initial sepsis screen is negative. Risk Assessment: Do you want to hurt yourself or someone else? Patient reports no desire to harm self or others. Onset of symptoms was August 15, 2021 at 17:00. 05:43 Method Of Arrival: Wheelchair tw5 05:43 Acuity: EZIO 3 tw5 Triage Assessment: 05:45 General: Appears uncomfortable, Behavior is agitated, anxious, restless. Pain: tw5 Complains of pain in left leg Pain currently is 10 out of 10 on a pain scale. Historical: - Allergies: 05:45 Morphine; tw5 - Home Meds: 05:45 Eliquis 5 mg Oral tab 2 times per day [Active]; tw5 - PMHx: 05:45 Atrial Fib; CHF; Diabetes - NIDDM; Hypertension; insomnia; Myocardial infarction; tw5 05:45 CVA; tw5 - PSHx: 05:45 None; hernia repair; tw5 - Immunization history:: Flu vaccine is up to date. - Social history:: Smoking status: Patient reports the use of cigarette tobacco products, smokes two packs cigarettes per day. - Family history:: not pertinent. Screenin:47 Abuse screen: Denies threats or abuse. Denies injuries from another. Nutritional tw5 screening: No deficits noted. 09:52 Fall Risk Secondary diagnosis (15 points) impaired mobility, IV access (20 points). jg9 Ambulatory Aid- Crutches/Cane/Walker (15 pts). 09:53 Tuberculosis screening: No symptoms or risk factors identified. jg9 Assessment: 06:31 Reassessment: pt states " can I be totally straightforward with you but not in a sexual sm5 way? I abuse methamphetamine and I don't know if that's why I'm having such bad leg pain." states his last use was 4 days ago. pt restless in bed, stripping clothes and telemetry leads off rolling around in bed. 07:05 Reassessment: Patient awake in bed anxious, agitated, grabbing r leg c/o pain. Nurse jg9 reports that the patient does not have an IV and needs one for transport. 07:05 General: Appears distressed, uncomfortable, Behavior is agitated, anxious, restless. jg9 Pain: Complains of pain in right leg Pain currently is 10 out of 10 on a pain scale. 07:05 Cardiovascular: Denies chest pain, diaphoresis, nausea, shortness of breath, Rhythm is jg9 atrial fibrillation with rapid ventricular response. 08:00 General: Appears uncomfortable, Behavior is anxious, restless. jg9 09:00 General: Appears uncomfortable, Behavior is anxious, restless. jg9 10:30 Reassessment: Patient removed r EJ while preparing [facility] FA 22 g. Vital Signs: 05:41 BP 113 / 90; Pulse 91; Resp 18; Temp 97.7; Pulse Ox 100% on R/A; Weight 81.65 kg; tw5 Height 5 ft. 6 in. (167.64 cm); Pain 10/10; 08:03 BP 143 / 90; Pulse 166; Resp 24 S; Pulse Ox 93% on R/A; jg9 08:30 BP 125 / 90; Pulse 144; Resp 24 S; Pulse Ox 92% on 2.5 lpm NC; jg9 08:45 BP 130 / 99; Pulse 145; Resp 27; Pulse Ox 100% on 2.5 lpm NC; jg9 09:35 BP 134 / 95; Pulse 139; Resp 26; Pulse Ox 92% on 2.5 lpm NC; jg9 09:38 Pulse 130; ss 10:15 BP 131 / 98; Pulse 129; Resp 24 S; Pulse Ox 98% on 2.5 lpm NC; jg9 10:30 BP 143 / 98; Pulse 127; Resp 24; Pulse Ox 98% on R/A; jg9 05:41 Body Mass Index 29.05 (81.65 kg, 167.64 cm) tw5 Vitals: 07:55 Cardiac Rhythm Assessment Atrial fibrillation W/rapid ventricular response. jg9 NIH Stroke Scale Scores: 06:20 NIHSS Score: 0 [facility] ED Course: 05:34 Patient arrived in ED. es 05:45 Triage completed. tw5 05:45 Arm band placed on left wrist. Patient placed in an exam room, on a stretcher. tw5 05:50 Steve Shukla MD is Attending Physician. john 06:20 initiated a transfer with [facility] from [facility] Transfer Center. mw2 06:27 XRAY Chest (1 view) In Process Unspecified. EDMS 06:29 SARS-COV-2 RT PCR (Document "Date of Onset" if Symptomatic) Sent. sm5 06:29 COVID-19 SARS RT PCR (Document "Date of Onset" if Symptomatic) Sent. sm5 06:29 Lipase Sent. sm5 06:30 Basic Metabolic Panel Sent. sm5 06:30 CBC with Diff Sent. sm5 06:30 LFT's Sent. sm5 06:30 Magnesium Sent. sm5 06:30 NT PRO-BNP Sent. sm5 06:30 PT-INR Sent. sm5 06:30 Troponin HS Sent. sm5 06:[address] Shukla with the Doctor from [facility]. mw2 06:47 administrative approval given by [facility] [place]/ patient has been accepted to [address] to the ER/ Dr. Brown accepted the patient in transfer/report to be called to [phone]. 07:14 Nia Wolff, RN is Primary Nurse. jg9 07:15 Inserted right EJ inserted by Dr. Shukla -18g. jg9 07:15 right external jugular IV insertion. jg9 07:30 Patient has correct armband on for positive identification. Bed in low position. Call jg9 light in reach. Side rails up X2. 07:40 Rivera cath inserted, using sterile technique, 12 Fr., by ED staff, balloon inflated, to jg9 gravity drainage, urine specimen collected. 07:50 Inserted saline lock: 20 gauge in right forearm, using aseptic technique. jg9 08:00 Oxygen administration via nasal cannula \\T\\ 2L/min Response to oxygen therapy: symptoms jg9 improved. 08:05 UDS Sent. jg9 08:19 CT Aorta for Dissection In Process Unspecified. EDMS 08:21 CT Head Brain wo Cont In Process Unspecified. EDMS 08:[address] showed ballon inflated in prostate-removed and reinserted 12 f coud. jg9 10:00 Appears restless. transfer transportation to receiving facility. jg9 10:14 US LE Arterial Bilateral In Process Unspecified. EDMS 11:00 Patient transferred, IV remains in place. jg9 Administered Medications: 06:32 CANCELLED (Duplicate Order): NS 0.9% 500 ml IV at bolus once john 06:32 CANCELLED (Duplicate Order): NS 0.9% 1000 ml IV at 125 ml/hr continuous john 07:20 Drug: Zofran (Ondansetron) 4 mg Route: IVP; Site: right jugular; jg9 08:23 Follow up: Response: No adverse reaction jg9 07:20 Drug: Dilaudid (HYDROmorphone) 1 mg Route: IVP; Site: Other; jg9 07:30 Follow up: Response: No adverse reaction; Marked relief of symptoms; RASS: Drowsy (-1) jg9 07:25 Drug: Pepcid (famotidine) 20 mg Route: IVP; Site: right jugular; jg9 08:23 Follow up: Response: No adverse reaction jg9 07:50 Drug: Lasix (furosemide) 40 mg Route: IVP; Site: right jugular; jg9 08:23 Follow up: Response: No adverse reaction jg9 08:15 Drug: Zosyn (piperacillin-tazobactam) 3.375 grams Route: IVPB; Infused Over: 60 mins; jg9 Site: right jugular; 08:15 Drug: Metoprolol 5 mg Route: IVP; Site: right forearm; jg9 08:30 Follow up: Response: No adverse reaction; Cardiac rhythm is unchanged jg9 09:44 Follow up: Response: No change in condition jg9 08:20 Drug: Metoprolol 50 mg Route: PO; jg9 08:51 Follow up: Response: No adverse reaction jg9 11:24 Follow up: Response: No adverse reaction; No change in condition jg9 09:28 Drug: Metoprolol 5 mg Route: IVP; Site: right forearm; jg9 09:43 Follow up: Response: No adverse reaction; No change in condition jg9 09:30 Drug: Heparin (SC-Bolus No thrombolytic) - HEParin 60 units/kg {Co-Signature: jd3 jg9 (Adebayo Connolly RN).} Route: IVP; Site: right forearm; 09:54 Follow up: Response: No adverse reaction jg9 09:40 Drug: Dilaudid (HYDROmorphone) 1 mg {Note: RASS-0.} Route: IVP; Site: right forearm; jg9 09:55 Follow up: Response: No adverse reaction; Marked relief of symptoms jg9 09:43 Drug: Digoxin 0.5 mg Route: IVP; Site: right forearm; jg9 09:53 Follow up: Response: No adverse reaction jg9 10:15 Drug: Heparin (SC Drip) 12 units/kg/hr - (HEParin 05606 units, D5W 500 ml) jg9 {Co-Signature: ke1 (Alberta Mantilla RN).} Route: IV; Rate: calculated rate; Site: right forearm; Outcome: 06:30 ER care complete, transfer ordered by . john 10:59 Transferred by ground EMS Transfer form completed. jg9 10:59 Condition: stable 11:04 Patient left the ED. jg9 NIH Stroke Scale - NIH Stroke Score Date: 08/16/2021 Time: 06:20 Total Score = 0 1a. Level of Consciousness (LOC) - 0(Alert) 1b. Level of Consciousness (LOC) (Month \\T\\ Age) - 0(Both) 1c. LOC Commands (Open \\T\\ Closes Eyes/Fixed Income Director) - 0(Both) 2. Best Gaze (Lateral Gaze Paresis) - 0(Normal) 3. Visual Field Loss - 0(No visual loss) 4. Facial Palsy - 0(Normal) 5a. Left Arm: Motor (10-second hold) - 0(No drift) 5b. Right Arm: Motor (10-second hold) - 0(No drift) 6a. Left Leg: Motor (5-second hold - always test supine) - 0(No drift) 6b. Right Leg: Motor (5-second hold - always test supine) - 0(No drift) 7. Limb Ataxia (finger/nose \\T\\ heel/[place] - test with eyes open) - 0(Absent) 8. Sensory Loss (pinprick arms/legs/face) - 0(Normal) 9. Best Language: Aphasia (description/naming/reading) - 0(No aphasia) 10. Dysarthria (speech clarity - read or repeat words) - 0(Normal) 11. Extinction and Inattention (visual/tactile/auditory/spatial/personal) - 0(No abnormality) Initials: john Signatures: Dispatcher [employer] Steve Humphries MD MD cha Salyer, Edna es Smirch, Shelby, FAN RN ss Yomaira Maynard 2 Barb Bell tw5 Sugar Rodriguez RN RN sm5 Nia Wolff RN RN jg9 Adebayo Connolly RN jd3 Alberta Mantilla RN ke1 Corrections: (The following items were deleted from the chart) 05:46 05:45 PMHx: "need pacemaker"; 05:46 05:45 PMHx: "need reconstructive surgery to urethra"; 09:54 09:44 Response: No change in condition jg9 jg9 11:02 10:59 Reassessment: jg9 jg9 11:23 07:15 right external jugular IV insertion jg9 jg9 11:24 09:44 Response: No adverse reaction jg9 jg9
--- NOTE | 2021-08-16 06:31 | EDPHYS ---
Physician Documentation [facility] Name: Faustino Brock Age: 56 yrs Sex: Male : 1965 Arrival Date: 08/16/2021 Time: 05:34 Bed 6 Private MD: CARLOS Physician Steve Shukla HPI: 08/16 06:20 This 56 yrs old Male presents to ER via Wheelchair with complaints of numbness john of legs. 06:20 The patient presents with decreased range of motion, pain, that is acute. The john complaints affect the right leg and left leg. Context: The problem was sustained at home. Onset: The symptoms/episode began/occurred yesterday, about 1000. Modifying factors: The symptoms are alleviated by nothing. the symptoms are aggravated by nothing. Associated signs and symptoms: Pertinent positives: weakness. Treatment prior to arrival includes: no previous treatment. Severity of symptoms: At their worst the symptoms were moderate, in the emergency department the symptoms are unchanged. The patient has experienced similar episodes in the past, a few times. Historical: - Allergies: 05:45 Morphine; tw5 - Home Meds: 05:45 Eliquis 5 mg Oral tab 2 times per day [Active]; tw5 - PMHx: 05:45 Atrial Fib; CHF; Diabetes - NIDDM; Hypertension; insomnia; Myocardial infarction; tw5 05:45 CVA; tw5 - PSHx: 05:45 None; hernia repair; tw5 - Immunization history:: Flu vaccine is up to date. - Social history:: Smoking status: Patient reports the use of cigarette tobacco products, smokes two packs cigarettes per day. - Family history:: not pertinent. ROS: 06:20 Constitutional: Negative for fever, chills, and weight loss, Eyes: Negative for injury, john pain, redness, and discharge, ENT: Negative for injury, pain, and discharge, Neck: Negative for injury, pain, and swelling, Cardiovascular: Negative for chest pain, palpitations, and edema, Respiratory: Negative for shortness of breath, cough, wheezing, and pleuritic chest pain, Abdomen/GI: Negative for abdominal pain, nausea, vomiting, diarrhea, and constipation, Back: Negative for injury and pain, : Negative for injury, bleeding, discharge, and swelling, Skin: Negative for injury, rash, and discoloration, Neuro: Negative for headache, weakness, numbness, tingling, and seizure, Psych: Negative for depression, anxiety, suicide ideation, homicidal ideation, and hallucinations, Allergy/Immunology: Negative for hives, rash, and allergies, Endocrine: Negative for neck swelling, polydipsia, polyuria, polyphagia, and marked weight changes, Hematologic/Lymphatic: Negative for swollen nodes, abnormal bleeding, and unusual bruising. 06:20 MS/extremity: Positive for decreased range of motion, pain, of the right leg. Exam: 06:20 Constitutional: This is a well developed, well nourished patient who is awake, alert, john and in no acute distress. Head/Face: Normocephalic, atraumatic. Eyes: Pupils equal round and reactive to light, extra-ocular motions intact. Lids and lashes normal. Conjunctiva and sclera are non-icteric and not injected. Cornea within normal limits. Periorbital areas with no swelling, redness, or edema. ENT: Nares patent. No nasal discharge, no septal abnormalities noted. Tympanic membranes are normal and external auditory canals are clear. Oropharynx with no redness, swelling, or masses, exudates, or evidence of obstruction, uvula midline. Mucous membranes moist. Neck: Trachea midline, no thyromegaly or masses palpated, and no cervical lymphadenopathy. Supple, full range of motion without nuchal rigidity, or vertebral point tenderness. No Meningismus. Chest/axilla: Normal chest wall appearance and motion. Nontender with no deformity. No lesions are appreciated. Cardiovascular: Regular rate and rhythm with a normal S1 and S2. No gallops, murmurs, or rubs. Normal PMI, no JVD. No pulse deficits. Respiratory: Lungs have equal breath sounds bilaterally, clear to auscultation and percussion. No rales, rhonchi or wheezes noted. No increased work of breathing, no retractions or nasal flaring. Abdomen/GI: Soft, non-tender, with normal bowel sounds. No distension or tympany. No guarding or rebound. No evidence of tenderness throughout. Back: No spinal tenderness. No costovertebral tenderness. Full range of motion. Male : Normal genitalia with no discharge or lesions. Skin: Warm, dry with normal turgor. Normal color with no rashes, no lesions, and no evidence of cellulitis. Neuro: Awake and alert, GCS 15, oriented to person, place, time, and situation. Cranial nerves II-XII grossly intact. Motor strength 5/5 in all extremities. Sensory grossly intact. Cerebellar exam normal. Normal gait. Psych: Awake, alert, with orientation to person, place and time. Behavior, mood, and affect are within normal limits. 06:20 Musculoskeletal/extremity: ROM: limited active range of motion due to pain, limited passive range of motion due to pain, in the right leg. 06:20 Skin: Appearance: Color: pale, abscess, not appreciated, cellulitis, is not appreciated, induration, is not appreciated. 06:20 Neuro: Orientation: is normal, appropriate for stated age, no acute changes, Mentation: is normal, appropriate for stated age, no acute changes, Memory: is normal, appropriate for stated age, no acute changes, Cranial nerves: grossly normal, is grossly normal based on the patient's age, no acute changes, Cerebellar function: is grossly normal, is grossly normal based on the patient's age, no acute changes, Motor: is normal, Sensation: numbness, that is moderate, of the right leg, Gait: not tested. 08:06 ECG was reviewed by the Attending Physician. cp Vital Signs: 05:41 BP 113 / 90; Pulse 91; Resp 18; Temp 97.7; Pulse Ox 100% on R/A; Weight 81.65 kg; tw5 Height 5 ft. 6 in. (167.64 cm); Pain 10/10; 08:03 BP 143 / 90; Pulse 166; Resp 24 S; Pulse Ox 93% on R/A; jg9 08:30 BP 125 / 90; Pulse 144; Resp 24 S; Pulse Ox 92% on 2.5 lpm NC; jg9 08:45 BP 130 / 99; Pulse 145; Resp 27; Pulse Ox 100% on 2.5 lpm NC; jg9 09:35 BP 134 / 95; Pulse 139; Resp 26; Pulse Ox 92% on 2.5 lpm NC; jg9 09:38 Pulse 130; ss 10:15 BP 131 / 98; Pulse 129; Resp 24 S; Pulse Ox 98% on 2.5 lpm NC; jg9 10:30 BP 143 / 98; Pulse 127; Resp 24; Pulse Ox 98% on R/A; jg9 05:41 Body Mass Index 29.05 (81.65 kg, 167.64 cm) tw5 NIH Stroke Scale Scores: 06:20 NIHSS Score: 0 [facility] Procedures: 07:15 Peripheral line: by aseptic technique a peripheral line was placed in the right [facility] external jugular vein. MDM: 05:50 Patient medically screened. john 06:25 Differential diagnosis: contusion, abrasion, tendonitis. Data reviewed: vital signs, [facility] nurses notes, lab test result(s), EKG, radiologic studies, doppler, plain films. Data interpreted: surveillance system monitor: rate is 91 beats/min, rhythm is regular, Pulse oximetry: on room air is 100 %. Test interpretation: by ED physician or midlevel provider: ECG, plain radiologic studies. Counseling: I had a detailed discussion with the patient and/or guardian regarding: the historical points, exam findings, and any diagnostic results supporting the discharge/admit diagnosis, lab results, radiology results, the need to transfer to another facility, for higher level of care, [facility] does not immediately have the required specialist. 08/16 06:18 Order name: Basic Metabolic Panel [facility] 08/16 06:18 Order name: CBC with Diff; Complete Time: 08:55 [facility] 08/16 07:29 Interpretation: Normal except: WBC 13.00; HGB 10.6; HCT 35.5; MCV 71.5; MCH 21.4; MCHC cp 29.9; RDW 18.7; NORI% 80.3; LYM% 14.1; NEUT A 10.5. 08/16 06:18 Order name: LFT's [facility] 08/16 06:18 Order name: Magnesium [facility] 08/16 06:18 Order name: NT PRO-BNP [facility] 08/16 06:18 Order name: PT-INR; Complete Time: 07:28 [facility] 08/16 07:29 Interpretation: PT 19.5; Reviewed. cp 08/16 06:18 Order name: Troponin HS [facility] 08/16 06:18 Order name: Lipase [facility] 08/16 06:19 Order name: COVID-19 SARS RT PCR (Document "Date of Onset" if Symptomatic); Complete tw5 Time: 08:55 08/16 06:19 Order name: SARS-COV-2 RT PCR (Document "Date of Onset" if Symptomatic) [facility] 08/16 06:25 Order name: UDS tw5 08/16 06:25 Order name: Urine Drug Screen; Complete Time: 08:55 EDMS 08/16 06:58 Order name: Manual Differential; Complete Time: 08:55 EDMS 08/16 08:55 Interpretation: Normal except: SEGS 86; BANDS [F] 2; LYM 7. cp 08/16 07:48 Order name: Urine Dipstick-Ancillary; Complete Time: 08:10 EDMS 08/16 06:18 Order name: XRAY Chest (1 view); Complete Time: 07:28 john 08/16 06:18 Order name: CT Aorta for Dissection; Complete Time: 08:55 john 08/16 06:18 Order name: US LE Arterial Bilateral john 08/16 06:47 Order name: CT Head Brain wo Cont; Complete Time: 08:55 john 08/16 06:18 Order name: EKG; Complete Time: 06:18 john 08/16 06:18 Order name: Cardiac monitoring; Complete Time: 06:30 john 08/16 06:18 Order name: EKG - Nurse/Tech; Complete Time: 08:05 john 08/16 06:18 Order name: IV Saline Lock; Complete Time: 06:30 john 08/16 06:18 Order name: Labs collected and sent; Complete Time: 06:30 john 08/16 06:18 Order name: O2 Per Protocol; Complete Time: 06:30 john 08/16 06:18 Order name: O2 Sat Monitoring; Complete Time: 06:30 john EC:06 Rate is 161 beats/min. Rhythm is irregular. QRS interval is prolonged at 104 msec. QT cp interval is normal. T waves are Inverted in leads I, II, aVF. Interpreted by me. Reviewed by me. Administered Medications: 06:32 CANCELLED (Duplicate Order): NS 0.9% 500 ml IV at bolus once john 06:32 CANCELLED (Duplicate Order): NS 0.9% 1000 ml IV at 125 ml/hr continuous john 07:20 Drug: Zofran (Ondansetron) 4 mg Route: IVP; Site: right jugular; jg9 08:23 Follow up: Response: No adverse reaction jg9 07:20 Drug: Dilaudid (HYDROmorphone) 1 mg Route: IVP; Site: Other; jg9 07:30 Follow up: Response: No adverse reaction; Marked relief of symptoms; RASS: Drowsy (-1) jg9 07:25 Drug: Pepcid (famotidine) 20 mg Route: IVP; Site: right jugular; jg9 08:23 Follow up: Response: No adverse reaction jg9 07:50 Drug: Lasix (furosemide) 40 mg Route: IVP; Site: right jugular; jg9 08:23 Follow up: Response: No adverse reaction jg9 08:15 Drug: Zosyn (piperacillin-tazobactam) 3.375 grams Route: IVPB; Infused Over: 60 mins; jg9 Site: right jugular; 08:15 Drug: Metoprolol 5 mg Route: IVP; Site: right forearm; jg9 08:30 Follow up: Response: No adverse reaction; Cardiac rhythm is unchanged jg9 09:44 Follow up: Response: No change in condition jg9 08:20 Drug: Metoprolol 50 mg Route: PO; jg9 08:51 Follow up: Response: No adverse reaction jg9 11:24 Follow up: Response: No adverse reaction; No change in condition jg9 09:28 Drug: Metoprolol 5 mg Route: IVP; Site: right forearm; jg9 09:43 Follow up: Response: No adverse reaction; No change in condition jg9 09:30 Drug: Heparin (SD-Bolus No thrombolytic) - HEParin 60 units/kg {Co-Signature: jd3 jg9 (Adebayo Connolly RN).} Route: IVP; Site: right forearm; 09:54 Follow up: Response: No adverse reaction jg9 09:40 Drug: Dilaudid (HYDROmorphone) 1 mg {Note: RASS-0.} Route: IVP; Site: right forearm; jg9 09:55 Follow up: Response: No adverse reaction; Marked relief of symptoms jg9 09:43 Drug: Digoxin 0.5 mg Route: IVP; Site: right forearm; jg9 09:53 Follow up: Response: No adverse reaction jg9 10:15 Drug: Heparin (SD Drip) 12 units/kg/hr - (HEParin 03909 units, D5W 500 ml) jg9 {Co-Signature: ke1 (Alberta Mantilla RN).} Route: IV; Rate: calculated rate; Site: right forearm; Disposition: 15:13 Co-signature as Attending Physician, Steve Shukla MD I agree with the assessment and john plan of care. Disposition Summary: 08/16/21 06:30 Transfer Ordered Transfer Location: [facility] john Reason: Higher level of care john Condition: Stable john Problem: new john Symptoms: have improved john Accepting Physician: DR Brown(08/16/21 11:04) jg9 Diagnosis - Embolism and thrombosis of arteries of the lower extremities - RIGHT, ACUTE john ARTERIAL OCCULISION - Type 2 diabetes mellitus with hyperglycemia john - Pain in right leg john - Pain in right lower leg john - Unspecified combined systolic (congestive) and diastolic (congestive) heart failure john - Adverse effect of amphetamines john - Tobacco abuse counseling john - Tobacco use john Forms: - Medication Reconciliation Form john - SBAR form john NIH Stroke Scale - NIH Stroke Score Date: 08/16/2021 Time: 06:20 Total Score = 0 1a. Level of Consciousness (LOC) - 0(Alert) 1b. Level of Consciousness (LOC) (Month \\T\\ Age) - 0(Both) 1c. LOC Commands (Open \\T\\ Closes Eyes/Surveillance Director) - 0(Both) 2. Best Gaze (Lateral Gaze Paresis) - 0(Normal) 3. Visual Field Loss - 0(No visual loss) 4. Facial Palsy - 0(Normal) 5a. Left Arm: Motor (10-second hold) - 0(No drift) 5b. Right Arm: Motor (10-second hold) - 0(No drift) 6a. Left Leg: Motor (5-second hold - always test supine) - 0(No drift) 6b. Right Leg: Motor (5-second hold - always test supine) - 0(No drift) 7. Limb Ataxia (finger/nose \\T\\ heel/corrales - test with eyes open) - 0(Absent) 8. Sensory Loss (pinprick arms/legs/face) - 0(Normal) 9. Best Language: Aphasia (description/naming/reading) - 0(No aphasia) 10. Dysarthria (speech clarity - read or repeat words) - 0(Normal) 11. Extinction and Inattention (visual/tactile/auditory/spatial/personal) - 0(No abnormality) Initials: john Signatures: Dispatcher [employer] EDSteve Nash MD MD cha Nieto, Roman, MD MD rn Smirch, Shelby, RN RN ss Page, Corey, PA PA cp Wood, Tiffany tw Nia Wolff RN RN jg9 Adebayo Connolly RN jd3 Alberta Mantilla RN ke1 Corrections: (The following items were deleted from the chart) 05:46 05:45 PMHx: "need pacemaker"; 05:46 05:45 PMHx: "need reconstructive surgery to urethra"; 06:32 06:18 NS 0.9% 500 ml IV at bolus once ordered. [facility] 06:32 06:18 NS 0.9% 1000 ml IV at 125 ml/hr continuous ordered. john [facility] 06:32 06:30 TO [facility], VASCULAR SURGEON [facility] 07:00 06:32 TO [facility], VASCULAR SURGEON [facility] 08:11 07:00 TO [facility], VASCULAR SURGEON [facility][note 3] 09:11 06:20 Onset: The symptoms/episode began/occurred 1 day(s) ago, [facility][note 3] 11:04 08:11 DR Brown cp jg9
[2021-08-16] MEDS ORDERED: HYDROMORPHONE HCL 1 MG/ML INJ ONE ×2 (06:36→07:20)
[2021-08-16] MEDS ORDERED: ONDANSETRON 4 MG/2 ML VIAL ONE ×2 (06:36→07:20)
[2021-08-16] MEDS ORDERED: FUROSEMIDE 40 MG/4 ML VIAL ONE ×2 (06:37→07:21)
[2021-08-16] MEDS ORDERED: FAMOTIDINE 20 MG/2 ML VIAL IV ONE ×2 (06:37→07:21)
[2021-08-16 06:38] LABS: Protime INR 1.69
[2021-08-16 06:51] LABS: Absolute Lymphocytes (CBC) 1.8 K/uL (0.7-4.9)
[2021-08-16 06:55] LABS: Hematocrit 35.5 % (39.6-49.0); Lymphocytes % 14.1 % (15.3-44.8); MPV 8.3 fL (7.6-11.3); RBC Red Blood Cell Count 4.97 M/uL (4.33-5.43)
[2021-08-16] MEDS ORDERED: HEPARIN 5000 UNIT/ML 1 ML VIAL ONE (07:20)
--- NOTE | 2021-08-16 07:27 | RAD REPORT ---
EXAM DESCRIPTION: RAD - Chest Single View - 08/16/2021 6:27 am CLINICAL HISTORY: COUGH COMPARISON: Chest Single View dated 02/22/2021; Chest Single View dated 01/23/2021; Chest Single View dated 02/27/2020; Chest Single View dated 12/23/2019 FINDINGS: Lines: None. Lungs: Moderate to severe bilateral airspace disease, worse on the right. Pleural: No significant pleural effusions or pneumothorax. Cardiac: Cardiomegaly. Bones: No acute fractures. Other: IMPRESSION: Widespread pulmonary opacities most likely representing multifocal pneumonia, asymmetric pulmonary edema less likely.
[2021-08-16 07:48] LABS: Urine Blood 1+ (Negative); Urine Glucose Negative (Negative); Urine Protein 2+ (Negative); Urine Specific Gravity 1.025 (1.005-1.030)
[2021-08-16 08:09] LABS: Anisocytosis 1+; Blood Morphology Comment NOTED (NOT SEEN); Burr Cells FEW; Platelet Estimate ADEQ; Polychromasia 1+
[2021-08-16 08:12] LABS: Barbiturates NEGATIVE (NEGATIVE); Benzodiazepines NEGATIVE (NEGATIVE); Cocaine NEGATIVE (NEGATIVE); METHAMPHETAM NEGATIVE (NEGATIVE); Methadone NEGATIVE (NEGATIVE); Opiates NEGATIVE (NEGATIVE); Phencyclidine NEGATIVE (NEGATIVE); THC Cannibis NEGATIVE (NEGATIVE)
[2021-08-16] MEDS ORDERED: METOPROLOL TARTRATE 5 MG/5 ML INJ IV ONE ×2 (08:13→08:59)
[2021-08-16] MEDS ORDERED: METOPROLOL XL 50 MG TAB PO ONE (08:13)
[2021-08-16] MEDS ORDERED: NA CHLORIDE 0.9% 100 ML ONE (08:13)
[2021-08-16] MEDS ORDERED: PIPERACIL/TAZO 3.375 GM VIAL IV ONE (08:14)
--- NOTE | 2021-08-16 08:32 | RAD REPORT ---
EXAM DESCRIPTION: CT - Head Brain Wo Cont - 08/16/2021 8:21 am CLINICAL HISTORY: DIZZINESS COMPARISON: Head Brain Wo Cont dated 02/23/2021; Ct Stroke Brain Wo Cont dated 01/23/2021 TECHNIQUE: All CT scans are performed using dose optimization technique as appropriate and may inclu de automated exposure control or mA/KV adjustment according to patient size. FINDINGS: No intracranial hemorrhage, hydrocephalus or extra-axial fluid collection.Multiple remote bilateral infarcts including the right cerebellar hemisphere, left occipital lobe, right parietal lob e, right frontal lobe, and left frontal lobe. This is in multiple vascular distributions. The paranasal sinuses and mastoids are clear. The calvarium is intact. IMPRESSION: Multiple remote bilateral infarcts. No acute infarct or intracranial hemorrhage identifi ed.
--- NOTE | 2021-08-16 08:40 | RAD REPORT ---
EXAM DESCRIPTION: CTAngio Aorta For Dissection - 08/16/2021 8:21 am CLINICAL HISTORY: DISSECTION COMPARISON: Chest Single View dated 08/16/2021; Chest Abdomen Pelvis W Cont dated 02/22/2021 TECHNIQUE: CT of the chest, abdomen, and pelvis was performed. All CT scans are performed using dose optimization technique as appropriate and may include automated exposure control or mA/KV adjustment according to patient size. FINDINGS: Thorax: Chest Wall: No abnormal mass Lungs: Moderate multifocal nodular and consolidative airspace disease. Interlobular septal thickening is present. Pleura: Small pleural effusions. Maria Antonia/Mediastinum: Mediastinal adenopathy which is nonspecific. Circumferentially thickened distal eso phagus suggesting esophagitis. Aorta/Pulmonary Arteries: Unremarkable Heart: Global cardiomegaly. Multi-vessel coronary artery disease. Abdomen/Pelvis: Liver: No acute abnormality or suspicious lesions. Biliary: Cholecystectomy Stomach: No significant focal abnormality. Duodenum: No significant focal abnormality. Pancreas: No significant abnormality. Spleen: No significant abnormality. Adrenal: No suspicious lesions. Kidney/ureter: No hydronephrosis. Too small to characterize and/or benign appearing renal lesions are noted. Retroperitoneum: No retroperitoneal adenopathy. Vascular: Occluded right common iliac, external iliac, common femoral, and visualized right superfici al femoral arteries. Bowel: No significant focal abnormality. Peritoneum: Fat containing ventral hernia. Ventral abdominal wall laxity. Anasarca. Fat containing ri ght inguinal hernia. Trace ascites. Bladder: Grossly unremarkable. Reproductive: Rivera catheter is inflated within the prostate. Bones: No acute fracture. Other: n/a IMPRESSION: 1. No aortic aneurysm or dissection. 2. Moderate bilateral airspace disease and small effusions. While pulmonary edema is certainly presen t, multifocal pneumonia may be superimposed. 3. Interval development of occlusions of the right common/external iliac, right common femoral, and r ight superficial femoral arteries. Correlate for signs of vascular compromise in the right lower extr emity. 4. Rivera catheter balloon deployed within the prostate. The catheter should be repositioned. 5. Moderate cardiomegaly.
[2021-08-16 08:54] LABS: Albumin 2.2 g/dL (3.4-5.0); Bilirubin Direct 1.3 mg/dL (0-0.2); Potassium 4.1 mmol/L (3.5-5.1); Protein, Total 7.1 g/dL (6.4-8.2)
[2021-08-16 09:07] LABS: Troponin High Sensitivity 1218.9 pg/mL (<58.9)
[2021-08-16] MEDS ORDERED: DIGOXIN 0.25 MG/ML AMP ONE (09:35)
[2021-08-16] MEDS ORDERED: HEPARIN/D5W 25,000 UNIT/500 ML BAG IV ONE (09:44)
[2021-08-16] MEDS ORDERED: HEPARIN/D5W 25,000 UNIT/500 ML BAG IV SCH (10:00)
--- NOTE | 2021-08-16 11:00 | RAD REPORT ---
EXAM DESCRIPTION: US - Lower Extremity Arterial Bilat - 08/16/2021 10:14 am CLINICAL HISTORY: Leg pain COMPARISON: None FINDINGS: Color Doppler, grayscale, and spectral analysis was performed. The right common femoral , superficial femoral , popliteal , and posterior tibial arteries are occlud ed. The left common femoral artery has triphasic flow as does the proximal and mid superficial femoral ar ruth. The left distal SFA is occluded. Retrograde flow is present within the popliteal artery. Monoph asic flow is present within the posterior tibial artery. 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 On CT, the right common iliac and external iliac arteries were also occluded. In the left lower extremity, the left distal SFA is occluded. Monophasic flow is present within the l eft posterior tibial artery.
[2021-08-16 11:27] VITALS: TEMP 97.7
[2021-08-16 11:35] VITALS: O2SAT 98
[2021-08-16 11:37] VITALS: BP 143/98
[2021-08-16 13:00] LABS: Magnesium 2.1
--- NOTE | 2021-08-17 13:08 | EKG ---
Test Date: 2021-08-16 Test Time: 08:00:02 Backup Engineer: WAGNER MEASUREMENT RESULTS: Intervals: Rate: 161 IL: QRSD: 104 QT: 314 QTc: 513 Clarinda: P: IL: QRS: 81 T: 257 INTERPRETIVE STATEMENTS: Atrial fibrillation with rapid ventricular response with premature ventricular or aberrantly conducted complexes Marked ST abnormality, possible inferior subendocardial injury Abnormal ECG Compared to ECG 02/22/2021 20:06:14 Ventricular premature complex(es) now present ST (T wave) deviation now present T-wave abnormality no longer present Possible ischemia no longer present Electronically Signed On 08-17-21 13:03:24 PAN GREASER by Garrett Cam
== END 2021-08-16 11:04 | disposition short-term general hospital (02) ==
LOC: ER 05:27
PROC: 05HP33Z Insertion of Infusion Device into Right External Jugular Vein, Percutaneous Approach (ICD-10-PCS; principal; 2021-08-16)
DX: I74.3 Embolism and thrombosis of arteries of the lower extremities (principal); I50.9 Heart failure, unspecified; E11.65 Type 2 diabetes mellitus with hyperglycemia; T43.625A Adverse effect of amphetamines, initial encounter; M79.661 Pain in right lower leg; M79.604 Pain in right leg; I10 Essential (primary) hypertension; I48.91 Unspecified atrial fibrillation; Z71.6 Tobacco abuse counseling; Z72.0 Tobacco use; Z79.01 Long term (current) use of anticoagulants; Z88.5 Allergy status to narcotic agent; Z86.73 Personal history of transient ischemic attack (TIA), and cerebral infarction without residual deficits
CPT/HCPCS: 36415; 51702; 70450; 71045; 71275; 74175; 80048; 80076; 80307; 81003; 83690; 83735; 83880; 84484; 85025; 85610; 93005; 93925; 99285; J1160; J1170; J1644; J1940; J2405; J2543; Q9967; U0003